=== PATIENT | female | born 1945 | race Caucasian/White ===

== ENCOUNTER 2017-08-07 20:04 | Inpatient (IN) ==
[2017-08-07] MEDS ORDERED: Ondansetron 4 MG/2 ML VIAL IVP PRN ×2 (20:13→23:37)
[2017-08-07] MEDS ORDERED: 0.9 % Sodium Chloride 1,000 ML IVC ONE ×4 (20:13→21:05)
--- NOTE | 2017-08-07 20:19 | Emergency Department Note ---
Disposition Clinical Impression: Severe sepsis, Dehydration, severe, Elevated troponin I level, History of bone cancer, Metastatic adenocarcinoma, Weakness generalized, Hypomagnesemia, Hypokalemia, Lactic acidosis, Total bilirubin, elevated, Hypocalcemia Abdominal pain Qualifiers: Abdominal location: generalized Qualified Code(s): R10.84 - Generalized abdominal pain Diarrhea Qualifiers: Diarrhea type: unspecified type Qualified Code(s): R19.7 - Diarrhea, unspecified Disposition: Admitted As Inpatient Condition: Fair Time of Disposition: 00:35 General Adult HPI - General Chief complaint: ED Nausea/Vomiting/Diarrhea Stated complaint: N/V Time Seen by Provider: 08/07/17 20:12 Source: patient, family Limitations: no limitations Nursing Notes Reviewed: Yes Vital Signs Reviewed: Yes - History of Present Illness HPI Narrative: 72-year-old female complains of abdominal pain, diarrhea, generalized weakness, dehydration, inability to eat or drink other than a few sips at a time. Patient 's had nausea and vomiting over the past 2 day with worsening of her diarrhea over the past 2 days as well. Patient started chemotherapy for bone cancer 2 weeks ago. Patient's oncologist is Dr. Nieevs. - Related Data Home Medications Medication Instructions Recorded Confirmed Albuterol Sulfate [Proventil Hfa] 1 puff IH QID PRN 06/20/15 08/07/17 Aspirin Enteric Coated [Aspirin EC] 81 mg PO DAILY 06/20/15 08/07/17 Fluticasone Propionate Nasal 1 spray NS DAILY 06/20/15 08/07/17 [Flonase] Fluticasone/Salmeterol [Advair 1 each IH BID 06/20/15 08/07/17 100-50 Diskus] Glimepiride [Amaryl] 4 mg PO DAILY 06/20/15 08/07/17 Insulin NPH Hum/Reg Insulin Hm 30 unit SQ BID 06/20/15 08/07/17 [Novolin 70-30 100 Unit/ml Vial] Omeprazole [PriLOSEC] 40 mg PO DAILY 06/20/15 08/07/17 Pravastatin Sodium [Pravachol] 20 mg PO HS 06/20/15 08/07/17 Saxagliptin HCl [Onglyza] 5 mg PO DAILY 06/20/15 08/07/17 Triamterene/HCTZ 75/50mg [Maxzide] 1 each PO DAILY 06/20/15 08/07/17 Docusate Sodium [Stool Softener] 100 mg PO DAILY PRN 07/31/17 08/07/17 Lisinopril [Zestril] 40 mg PO DAILY 08/07/17 08/07/17 Metoprolol Succinate 200 mg PO DAILY 08/07/17 08/07/17 Previous Rx's Medication Instructions Recorded Ondansetron HCl [Zofran] 4 mg PO Q8H PRN #60 tablet 07/08/17 OxyCODONE Immed Rel [Roxicodone 15 15 mg PO BID #60 tablet 07/08/17 MG] Prochlorperazine Maleate 10 mg PO Q8HR PRN #60 tablet 07/08/17 [Compazine] Calcium Carbonate/Vitamin D3 2 each PO DAILY #60 tablet 07/31/17 [Calcium 600 + Vit D Tablet] Lidocaine/Prilocaine [Emla] 1 appl TP AD #30 gm 07/31/17 Allergies Allergy/AdvReac Type Severity Reaction Status Date / Time nifedipine [From Procardia] Allergy Rash Verified 08/07/17 21:15 glipizide AdvReac Vomiting Verified 06/16/17 10:03 metoprolol [From Lopressor] AdvReac Nightmare Verified 08/07/17 21:15 All systems ED: reviewed and negative except as stated. Review of Systems: As Per HPI Constitutional: Denies: fever Eyes: Denies: vision change ENT ED: Denies: congestion Cardiovascular: Denies: chest pain Respiratory: Denies: cough Gastrointestinal: Reports: abdominal pain, nausea, vomiting, diarrhea Past Medical History - Past Medical History Attestation: Yes The following information was validated with the patient. Source: patient, nursing notes reviewed Medical history: Reports: asthma, diabetes, GERD, hyperlipidemia, hypertension, renal disease Surgical history: Reports: , cataract, cholecystectomy, JOAO/BSO, other Psychiatric history: Reports: no psych history - Social History Smoking Status: Never smoker Smokeless Tobacco Status: No Alcohol use: Reports: none Drug use: Reports: none Physical Exam Vital Signs Temperature 99.3 F 08/07/17 20:10 Pulse Rate 147 08/07/17 20:10 Respiratory Rate 16 08/07/17 20:10 Blood Pressure 102/85 08/07/17 20:10 O2 Sat by Pulse Oximetry 100 08/07/17 20:10 Temperature 99.3 F 08/07/17 20:10 Pulse Rate 147 08/07/17 20:10 Respiratory Rate 16 08/07/17 20:10 Blood Pressure 102/85 08/07/17 20:10 O2 Sat by Pulse Oximetry 100 08/07/17 20:10 Oxygen Delivery Oxygen Delivery Room Air 72-year-old female who is alert and oriented 3 and in acute distress secondary to abdominal pain, patient looks very dry and has severely dry cracked lips and oral mucosa. Patient has a low-grade fever 99.3, pulse rate 47, respiratory rate 16, blood pressure 102/85. - General Limitations: no limitations General appearance: alert, other (dry MM/lips) - Head Head exam: atraumatic, normocephalic, normal inspection - Eye Eye exam: Present: normal appearance, PERRL, EOMI. Absent: scleral icterus - ENT ENT exam: normal exam, normal oropharynx, mucous membranes dry - Neck Neck exam: Present: normal inspection, full ROM, trachea midline - Chest Chest inspection: Present: other (Patient has an IV for right chest wall that does not look inflamed) - Respiratory Respiratory exam: Present: other (Patient has some right lower lung crackles) - Cardiovascular Cardiovascular exam: Present: normal rhythm, tachycardia, normal heart sounds - Extremities Exam Extremities exam: Present: normal inspection. Absent: pedal edema - Back Exam Back exam: Present: normal inspection. Absent: CVA tenderness (R), CVA tenderness (L), vertebral tenderness - Neurological Exam Neurological exam: Present: alert, oriented X3, CN II-XII intact, reflexes normal. Absent: motor sensory deficit - Psychiatric Psychiatric exam: Present: flat affect - Skin Skin exam: Present: warm, dry, intact, normal color. Absent: rash, diaphoresis Course Vital Signs Temperature 99.3 F 08/07/17 20:10 Pulse Rate 147 08/07/17 20:10 Respiratory Rate 16 08/07/17 20:10 Blood Pressure 102/85 08/07/17 20:10 O2 Sat by Pulse Oximetry 100 08/07/17 20:10 Temperature 97.9 F 08/09/17 19:34 Pulse Rate 100 08/09/17 19:34 Respiratory Rate 18 08/09/17 19:34 Blood Pressure 107/55 08/09/17 19:34 O2 Sat by Pulse Oximetry 94 08/09/17 19:34 Oxygen Delivery Oxygen Delivery Room Air Medical Decision Making - MDM Narrative Medical decision making narrative: Concern for sepsis, side effects of chemotherapy, combination of all the above. Patient has abdominal pain this severe also need to be concerned for intra- abdominal pathology for ischemic colitis, 2210 hrs: CXR shows suspicious LLL infiltrate concerning for pneumonia. The patient started on levofloxacin, vancomycin and Zosyn Patient's lab work shows leukopenia at 2.4, hyponatremia at 128, hypokalemia 3.0 , lactic acidemia 6.2, elevated troponin 0.84 Patient has severe sepsis. Patient is currently received 2.5 L of 4 L of IV fluid and will continue to get IV fluid hydration. Patient's vitals are normalizing somewhat but still tachycardic. Patient's nausea is under control and started tolerate oral hydration but is taking it slowly. CT abdomen and pelvis was taken secondary to patient's 10/10 abdominal pain and diarrhea. Results came back negative for any acute findings. Patient's pain currently tolerable at 4/10 with treatment with Dilaudid. Patient's oncologist has been notified and consulted. Patient excepts decision for admission. Dr. Alcantara the hospitalist as accepted patient for admission. - Medical Records Medical records reviewed: Yes I reviewed the patient's medical records. - Lab Data Lab results reviewed: Yes I reviewed the patient's lab results. Lab results narrative: Short CBC 08/07/17 Range/Units 20:31 WBC 2.4 L (4.3-11.1) K/mcL Hgb 12.7 (11.5-15.4) g/dL Hct 35.7 (35.3-44.9) % Plt Count 122 L (140-400) K/mcL Neutrophils # 1.6 (1.6-8.9) K/mcL BMP 08/07/17 Range/Units 20:31 Sodium 128 L (136-145) mEq/L Potassium 3.0 L (3.5-5.1) mEq/L Chloride 93 L (98-107) mEq/L Carbon Dioxide 16 L (23-29) mEq/L BUN 48 H (8-23) mg/dL Creatinine 1.68 H (0.60-1.20) mg/dL Glucose 178 H (70-105) mg/dL Calcium 7.3 L (8.6-10.3) mg/dL Cardiac Enzymes 08/07/17 Range/Units 20:31 Troponin I 0.84 H* (< 0.04) ng/mL Liver Function 08/07/17 Range/Units 20:31 Total Bilirubin 2.1 H (0.3-1.0) mg/dL Direct Bilirubin 1.1 H (0.0-0.2) mg/dL AST 63 H (13-39) Units/L ALT 46 (7-52) Units/L Alkaline Phosphatase 95 (34-104) Units/L Albumin 3.0 L (3.5-5.7) g/dL Urine 08/07/17 Range/Units 21:23 Urine Color Dark Yellow (Yellow) Urine Clarity Turbid A (Clear) Urine pH 5.5 (5.0-8.0) pH Units Ur Specific [place] 1.022 (1.010-1.025) Urine Protein 30 H (Neg-Trace) mg/dL Urine Glucose (UA) Normal (Normal) mg/dL Result diagrams: 08/09/17 04:25 08/09/17 04:25 Lab Results 08/07/17 08/07/17 08/07/17 Range/Units 20:31 20:31 20:31 WBC 2.4 L (4.3-11.1) K/mcL RBC 4.16 (3.82-4.97) M/mcL Hgb 12.7 (11.5-15.4) g/dL Hct 35.7 (35.3-44.9) % MCV 85.8 (83.0-100.0) fL MCH 30.5 (28.0-33.3) pg MCHC 35.6 H (31.6-35.5) g/dL RDW 12.1 (11.5-14.5) % Plt Count 122 L (140-400) K/mcL MPV 11.3 (9.4-12.4) fL Seg Neutrophils % 65.0 % Lymphocytes % 26.0 % Monocytes % 8.0 % Basophils % 1.0 % Neutrophils # 1.6 (1.6-8.9) K/mcL Lymphocytes # 0.6 (0.6-4.6) K/mcL Monocytes # 0.2 (0.0-1.3) K/mcL Basophils # 0.0 (0.0-0.2) K/mcL Nucleated RBCs/100 WBC 0.8 H (0) /100 WBC Reactive Lymphocytes Present A (Not Present) Toxic Granulation Present A (Not Present) Platelet Estimate Slight Decrease L (Normal) Large Platelets Present A (Not Present) PT 19.7 H (9.4-12.1) Seconds INR 1.8 APTT 43.4 H (26.0-36.0) Seconds Sodium 128 L (136-145) mEq/L Potassium 3.0 L (3.5-5.1) mEq/L Chloride 93 L (98-107) mEq/L Carbon Dioxide 16 L (23-29) mEq/L BUN 48 H (8-23) mg/dL Creatinine 1.68 H (0.60-1.20) mg/dL Est GFR ( Amer) 36 L (> 60) Est GFR (Non-Af Amer) 30 L (> 60) BUN/Creatinine Ratio 29 H (6-26) Glucose 178 H (70-105) mg/dL Calculated Osmolality 283 (280-300) Lactic Acid (0.5-2.2) mmol/L Calcium 7.3 L (8.6-10.3) mg/dL Phosphorus 2.0 L (2.7-4.5) mg/dL Magnesium 1.3 L (1.6-2.6) mg/dL Total Bilirubin 2.1 H (0.3-1.0) mg/dL Direct Bilirubin 1.1 H (0.0-0.2) mg/dL Indirect Bilirubin 1.0 (0.0-1.2) mg/dL AST 63 H (13-39) Units/L ALT 46 (7-52) Units/L Alkaline Phosphatase 95 (34-104) Units/L Troponin I (< 0.04) ng/mL Serum Total Protein 5.4 L (6.4-8.9) g/dL Albumin 3.0 L (3.5-5.7) g/dL Globulin 2.4 (2.4-3.5) g/dL Albumin/Globulin Ratio 1.3 (1.1-2.2) Urine Color (Yellow) Urine Clarity (Clear) Urine pH (5.0-8.0) pH Units Ur Specific [place] (1.010-1.025) Urine Protein (Neg-Trace) mg/dL Urine Glucose (UA) (Normal) mg/dL Urine Ketones (Negative) mg/dL Urine Blood (Negative) Urine Nitrite (Negative) Urine Bilirubin (Negative) Urine Urobilinogen (Normal) mg/dL Ur Leukocyte Esterase (Negative) Urine Microscopic RBC (0-3) per hpf Urine Microscopic WBC (0-3) per hpf Ur Squamous Epith Cells (None-Few) per lpf Ur Transition Epith Cell (None-Few) per hpf Ur Renal Epithelial Cell (None-Few) per hpf Amorphous Sediment (Few) Urine Bacteria (None-Few) per hpf Hyaline Casts (None-Few) per lpf Ur Culture Indicated? (NO) A. baumannii (PCR) (Not Detect) Emeli albicans (PCR) (Not Detect) C. glabrata (PCR) (Not Detect) C. krusei (PCR) (Not Detect) C. parapsilosis (PCR) (Not Detect) C. tropicalis (PCR) (Not Detect) Enterobacteriac sp PCR (Not Detect) E. cloacae complex PCR (Not Detect) Enterococcus sp PCR (Not Detect) E. coli (PCR) (Not Detect) H. influenzae (PCR) (Not Detect) Klebsiella oxytoca PCR (Not Detect) Klebsiella pneumoniae (Not Detect) List. monocytogenes PCR (Not Detect) N. meningitidis (PCR) (Not Detect) Proteus species (PCR) (Not Detect) Serratia marcescens PCR (Not Detect) Staphylococcus sp PCR (Not Detect) Staph aureus (PCR) (Not Detect) mecA-Methicil Res Gene (Not Detect) Streptococcus sp PCR (Not Detect) Group A Strep DNA (Not Detect) Group B Strep (PCR) (Not Detect) Strep pneumoniae (PCR) (Not Detect) P. aeruginosa (PCR) (Not Detect) Riley/B-Vanco Res Genes (Not Detect) KPC (blaKPC) Detect PCR (Not Detect) 08/07/17 08/07/17 08/07/17 Range/Units 20:31 20:31 20:31 WBC (4.3-11.1) K/mcL RBC (3.82-4.97) M/mcL Hgb (11.5-15.4) g/dL Hct (35.3-44.9) % MCV (83.0-100.0) fL MCH (28.0-33.3) pg MCHC (31.6-35.5) g/dL RDW (11.5-14.5) % Plt Count (140-400) K/mcL MPV (9.4-12.4) fL Seg Neutrophils % % Lymphocytes % % Monocytes % % Basophils % % Neutrophils # (1.6-8.9) K/mcL Lymphocytes # (0.6-4.6) K/mcL Monocytes # (0.0-1.3) K/mcL Basophils # (0.0-0.2) K/mcL Nucleated RBCs/100 WBC (0) /100 WBC Reactive Lymphocytes (Not Present) Toxic Granulation (Not Present) Platelet Estimate (Normal) Large Platelets (Not Present) PT (9.4-12.1) Seconds INR APTT (26.0-36.0) Seconds Sodium (136-145) mEq/L Potassium (3.5-5.1) mEq/L Chloride (98-107) mEq/L Carbon Dioxide (23-29) mEq/L BUN (8-23) mg/dL Creatinine (0.60-1.20) mg/dL Est GFR ( Amer) (> 60) Est GFR (Non-Af Amer) (> 60) BUN/Creatinine Ratio (6-26) Glucose (70-105) mg/dL Calculated Osmolality (280-300) Lactic Acid 6.2 H* (0.5-2.2) mmol/L Calcium (8.6-10.3) mg/dL Phosphorus (2.7-4.5) mg/dL Magnesium (1.6-2.6) mg/dL Total Bilirubin (0.3-1.0) mg/dL Direct Bilirubin (0.0-0.2) mg/dL Indirect Bilirubin (0.0-1.2) mg/dL AST (13-39) Units/L ALT (7-52) Units/L Alkaline Phosphatase (34-104) Units/L Troponin I 0.84 H* (< 0.04) ng/mL Serum Total Protein (6.4-8.9) g/dL Albumin (3.5-5.7) g/dL Globulin (2.4-3.5) g/dL Albumin/Globulin Ratio (1.1-2.2) Urine Color (Yellow) Urine Clarity (Clear) Urine pH (5.0-8.0) pH Units Ur Specific [place] (1.010-1.025) Urine Protein (Neg-Trace) mg/dL Urine Glucose (UA) (Normal) mg/dL Urine Ketones (Negative) mg/dL Urine Blood (Negative) Urine Nitrite (Negative) Urine Bilirubin (Negative) Urine Urobilinogen (Normal) mg/dL Ur Leukocyte Esterase (Negative) Urine Microscopic RBC (0-3) per hpf Urine Microscopic WBC (0-3) per hpf Ur Squamous Epith Cells (None-Few) per lpf Ur Transition Epith Cell (None-Few) per hpf Ur Renal Epithelial Cell (None-Few) per hpf Amorphous Sediment (Few) Urine Bacteria (None-Few) per hpf Hyaline Casts (None-Few) per lpf Ur Culture Indicated? (NO) A. baumannii (PCR) Not Detected (Not Detect) Emeli albicans (PCR) Not Detected (Not Detect) C. glabrata (PCR) Not Detected (Not Detect) C. krusei (PCR) Not Detected (Not Detect) C. parapsilosis (PCR) Not Detected (Not Detect) C. tropicalis (PCR) Not Detected (Not Detect) Enterobacteriac sp PCR Not Detected (Not Detect) E. cloacae complex PCR Not Detected (Not Detect) Enterococcus sp PCR Not Detected (Not Detect) E. coli (PCR) Not Detected (Not Detect) H. influenzae (PCR) Not Detected (Not Detect) Klebsiella oxytoca PCR Not Detected (Not Detect) Klebsiella pneumoniae Not Detected (Not Detect) List. monocytogenes PCR Not Detected (Not Detect) N. meningitidis (PCR) Not Detected (Not Detect) Proteus species (PCR) Not Detected (Not Detect) Serratia marcescens PCR Not Detected (Not Detect) Staphylococcus sp PCR DETECTED A (Not Detect) Staph aureus (PCR) DETECTED A (Not Detect) mecA-Methicil Res Gene Not Detected (Not Detect) Streptococcus sp PCR Not Detected (Not Detect) Group A Strep DNA Not Detected (Not Detect) Group B Strep (PCR) Not Detected (Not Detect) Strep pneumoniae (PCR) Not Detected (Not Detect) P. aeruginosa (PCR) Not Detected (Not Detect) Riley/B-Vanco Res Genes N/A (Not Detect) KPC (blaKPC) Detect PCR N/A (Not Detect) 08/07/17 Range/Units 21:23 WBC (4.3-11.1) K/mcL RBC (3.82-4.97) M/mcL Hgb (11.5-15.4) g/dL Hct (35.3-44.9) % MCV (83.0-100.0) fL MCH (28.0-33.3) pg MCHC (31.6-35.5) g/dL RDW (11.5-14.5) % Plt Count (140-400) K/mcL MPV (9.4-12.4) fL Seg Neutrophils % % Lymphocytes % % Monocytes % % Basophils % % Neutrophils # (1.6-8.9) K/mcL Lymphocytes # (0.6-4.6) K/mcL Monocytes # (0.0-1.3) K/mcL Basophils # (0.0-0.2) K/mcL Nucleated RBCs/100 WBC (0) /100 WBC Reactive Lymphocytes (Not Present) Toxic Granulation (Not Present) Platelet Estimate (Normal) Large Platelets (Not Present) PT (9.4-12.1) Seconds INR APTT (26.0-36.0) Seconds Sodium (136-145) mEq/L Potassium (3.5-5.1) mEq/L Chloride (98-107) mEq/L Carbon Dioxide (23-29) mEq/L BUN (8-23) mg/dL Creatinine (0.60-1.20) mg/dL Est GFR ( Amer) (> 60) Est GFR (Non-Af Amer) (> 60) BUN/Creatinine Ratio (6-26) Glucose (70-105) mg/dL Calculated Osmolality (280-300) Lactic Acid (0.5-2.2) mmol/L Calcium (8.6-10.3) mg/dL Phosphorus (2.7-4.5) mg/dL Magnesium (1.6-2.6) mg/dL Total Bilirubin (0.3-1.0) mg/dL Direct Bilirubin (0.0-0.2) mg/dL Indirect Bilirubin (0.0-1.2) mg/dL AST (13-39) Units/L ALT (7-52) Units/L Alkaline Phosphatase (34-104) Units/L Troponin I (< 0.04) ng/mL Serum Total Protein (6.4-8.9) g/dL Albumin (3.5-5.7) g/dL Globulin (2.4-3.5) g/dL Albumin/Globulin Ratio (1.1-2.2) Urine Color Dark Yellow (Yellow) Urine Clarity Turbid A (Clear) Urine pH 5.5 (5.0-8.0) pH Units Ur Specific [place] 1.022 (1.010-1.025) Urine Protein 30 H (Neg-Trace) mg/dL Urine Glucose (UA) Normal (Normal) mg/dL Urine Ketones Negative (Negative) mg/dL Urine Blood Large H (Negative) Urine Nitrite Negative (Negative) Urine Bilirubin Small H (Negative) Urine Urobilinogen Normal (Normal) mg/dL Ur Leukocyte Esterase Large H (Negative) Urine Microscopic RBC 0-3 (0-3) per hpf Urine Microscopic WBC 50-100 H (0-3) per hpf Ur Squamous Epith Cells Many H (None-Few) per lpf Ur Transition Epith Cell Few (None-Few) per hpf Ur Renal Epithelial Cell Many H (None-Few) per hpf Amorphous Sediment Many H (Few) Urine Bacteria Moderate H (None-Few) per hpf Hyaline Casts None Seen (None-Few) per lpf Ur Culture Indicated? NO (NO) A. baumannii (PCR) (Not Detect) Emeli albicans (PCR) (Not Detect) C. glabrata (PCR) (Not Detect) C. krusei (PCR) (Not Detect) C. parapsilosis (PCR) (Not Detect) C. tropicalis (PCR) (Not Detect) Enterobacteriac sp PCR (Not Detect) E. cloacae complex PCR (Not Detect) Enterococcus sp PCR (Not Detect) E. coli (PCR) (Not Detect) H. influenzae (PCR) (Not Detect) Klebsiella oxytoca PCR (Not Detect) Klebsiella pneumoniae (Not Detect) List. monocytogenes PCR (Not Detect) N. meningitidis (PCR) (Not Detect) Proteus species (PCR) (Not Detect) Serratia marcescens PCR (Not Detect) Staphylococcus sp PCR (Not Detect) Staph aureus (PCR) (Not Detect) mecA-Methicil Res Gene (Not Detect) Streptococcus sp PCR (Not Detect) Group A Strep DNA (Not Detect) Group B Strep (PCR) (Not Detect) Strep pneumoniae (PCR) (Not Detect) P. aeruginosa (PCR) (Not Detect) Riley/B-Vanco Res Genes (Not Detect) KPC (blaKPC) Detect PCR (Not Detect) - Radiology Data Radiology results reviewed: Yes I reviewed the patient's radiology results. Chest X-Ray 08/07/17 20:13 IMPRESSION: Question left pleural effusion atelectasis. Infiltrate would be difficult to exclude within the left lung base. Of note the right lung appears clear. D/ / Michel Allen MD / Michel Allen MD Interpreting Provider: Michel Allen MD Abdomen/Pelvis CT 08/07/17 20:55 IMPRESSION: No acute findings. D/ / Raz Anne MD / Raz Anne MD Interpreting Provider: Raz Anne MD - EKG Data EKG #1 EKG attestation: Yes I reviewed and interpreted this EKG. EKG results narrative: EKG taken 08/07/2017 at 2012 hrs. shows a sinus tachycardia at a rate of 148 bpm , no acute ST elevations or depressions in any leads, no QRS widening. This compared to previous EKG taken May 2015 which shows a sinus rhythm at a rate of [address] elevations or depressions any leads, no signs of ischemia. EKG #2 EKG attestation: Yes I reviewed and interpreted this EKG. EKG results narrative: Repeat EKG taken 08/07/2017 at 2154 hours so shows sinus tachycardia with no change in waveform from prior previous EKG rate 136 beats a minute Repeat EKG taken 07/30/2017 at 2256 hrs. still shows a sinus tachycardia with no change in morphology from previous EKG. The rate is slower at 133 bpm Repeat EKG taken at 2322 hrs. so shows sinus tachycardia and no change in waveform. Critical Care Time Critical Care Time: Yes Total Critical Care Time: 60 Attestation: The high probability of a clinically significant, sudden or life threatening deterioration of the [CV/GI] system(s) required my full and direct attention, intervention and personal management. The aggregate critical care time was [60] minutes. This time is in addition to time spent performing reported procedures but includes the following: [x] Data Review and interpretation [x] Patient assessment and monitoring of vital signs [x] Documentation [x] Medication orders and management Attestation Statement - Attestation Attestation: I examined this patient and my medical decision-making was reviewed with the Resident Physician, Dr. Gibson. I agree with the documented findings, disposition and treatment plan as described except to the extent set forth below. Pt is a 72 yo wf, brought to the ER by her with c/o gen abd cramping, nausea, vomiting, diarrhea and fevers at home. Pt with hx metastatic breast CA to bone, currenlty undergoing chemo, recently missed last session of most recent series of chemo cue to illness. Pt unable to tolerate PO and havig gen weakness, states she is unable to stand/ambulate secondary to profound weakness. Pt denies any URI sxs or cough, no CP/press, no SOB, and appears dehydrated clinically. Pt denies any blood in stool. No recent antibx. I agree with pt's PE findings, pt tachycardic and hypotensive on arrival. Sepsis protocol initiated on arrival and IVF started. Pt received pain/nausea meds, and underwent CXR and CT abd/pelvis imaging. Serial EKG show sinus tach without ischemia, stable over time. Labs show TYRONE, due to dehydration. Hypokalemia/Hypomg, and metabolic acidosis/ lactic acidosis. Pt with elev trop, possibly due to demand ischemia, from tachycardia/ dehydration. Will need serial enzymes and ongoing monitoring. Pt receiving K/Mg replacement, IVF, and antix coverage for CXR findings of questionable infiltrate. Pt admitted to hospitalist service for ongoing mgmt, and oncology consulted from ED.
[2017-08-07] MEDS ORDERED: *HR* HYDROmorphone (PF) 1 MG/ML SYRINGE IVP ONE (20:30)
[2017-08-07 20:37] LABS: Hematocrit 35.7 % (35.3-44.9); Hemoglobin 12.7 g/dL (11.5-15.4); Mean Corpuscular HGB Conc 35.6 g/dL (31.6-35.5); Mean Corpuscular Hemoglobin 30.5 pg (28.0-33.3); Mean Corpuscular Volume 85.8 fL (83.0-100.0); Mean Platelet Volume 11.3 fL (9.4-12.4); Nucleated Red Blood Cells 0.8 /100 WBC (0); Platelet Count 122 K/mcL (140-400); Red Blood Count 4.16 M/mcL (3.82-4.97); Red Cell Distribution Width 12.1 % (11.5-14.5)
[2017-08-07 20:42] LABS: INR 1.8; Prothrombin Time 19.7 Seconds (9.4-12.1)
[2017-08-07 20:45] LABS: Activated Partial Thrombo Time 43.4 Seconds (26.0-36.0)
[2017-08-07 20:52] LABS: Albumin/Globulin Ratio 1.3 (1.1-2.2); Bilirubin,Direct 1.1 mg/dL (0.0-0.2); Bilirubin,Total 2.1 mg/dL (0.3-1.0); Calcium 7.3 mg/dL (8.6-10.3); Globulin 2.4 g/dL (2.4-3.5); Magnesium 1.3 mg/dL (1.6-2.6); Total Protein 5.4 g/dL (6.4-8.9)
[2017-08-07] MEDS ORDERED: Aspirin 81 MG TAB.CHEW PO ONE (21:02)
[2017-08-07 21:06] LABS: Monocytes # 0.2 K/mcL (0.0-1.3)
[2017-08-07 21:10] LABS: Lymphocytes # 0.6 K/mcL (0.6-4.6); Neutrophils # 1.6 K/mcL (1.6-8.9)
[2017-08-07 21:11] LABS: Large Platelets Present (Not Present); Platelet Estimate Slight Decrease (Normal); Reactive Lymphocytes Present (Not Present); Toxic Granulation Present (Not Present)
[2017-08-07 21:31] LABS: Bilirubin,Urine Small (Negative); Blood,Urine Large (Negative); Clarity,Urine Turbid (Clear); Color,Urine Dark Yellow (Yellow); Glucose,Urine (UA) Normal (Normal); Ketones,Urine Negative (Negative); Leukocyte Esterase,Urine Large (Negative); Nitrite,Urine Negative (Negative); PH,Urine 5.5 pH Units (5.0-8.0); Protein,Urine 30 mg/dL (Neg-Trace); Specific Gravity,Urine 1.022 (1.010-1.025); Urobilinogen,Urine Normal (Normal)
[2017-08-07 21:33] LABS: Bacteria,Urine Moderate per hpf (None-Few); Squamous Epithelial Cell,Urine Many per lpf (None-Few); WBC,Urine 50-100 per hpf (0-3)
[2017-08-07 21:41] LABS: Amorphous Sediment,Urine Many (Few); Hyaline Casts,Urine None Seen per lpf (None-Few); Transitional Epi Cells,Urine Few per hpf (None-Few)
[2017-08-07 21:42] LABS: Renal Epithelial Cells,Urine Many per hpf (None-Few)
[2017-08-07 21:44] LABS: RBC,Urine 0-3 per hpf (0-3)
[2017-08-07] MEDS ORDERED: Levofloxacin 750 MG/150 ML 750 MG/150 ML BAG IVPB ONE (22:09)
[2017-08-07] MEDS ORDERED: Piperacillin/Tazobactam 3.375 GM in D5% in Water (Mini-Bag+) 100 ML IVPB ONE (22:09)
[2017-08-07] MEDS ORDERED: Vancomycin 1,750 MG in D5% in Water 500 ML IVPB ONE (22:09)
[2017-08-07] MEDS ORDERED: Piperacillin/Tazobactam 3.375 GM in Water for inj. (sterile) 20 ML 20 ML IVPB ONE (22:15)
[2017-08-07] MEDS ORDERED: 0.9 % Sodium Chloride 1,000 ML ONE (22:55)
[2017-08-07] MEDS ORDERED: Naloxone 0.4 MG/ML INJ IVP PRN (23:37)
[2017-08-07] MEDS ORDERED: *HR* Morphine 2 MG/ML SYRINGE IVP PRN (23:37)
[2017-08-07] MEDS ORDERED: D5% in Water 1,000 ML IVC PRN (23:41)
[2017-08-07] MEDS ORDERED: *HR* Dextrose 50 % in Water (Syg) 50 ML SYRINGE IVP PRN (23:41)
[2017-08-07] MEDS ORDERED: Dextrose Gel 15 GM/37.5 ML TUBE PO PRN ×2 (23:41)
[2017-08-07] MEDS ORDERED: Ipratropium/Albuterol Neb 3 ML IH PRN (23:43)
--- NOTE | 2017-08-07 23:47 | Internal Med History&Physical ---
Date of Encounter: 08/07/17 Time of Encounter: 23:15 Assessment and Plan (1) Emesis Current visit: Yes Status: Acute nausea and vomiting, likely related to chemotherapy with Paclitaxel; improving; continue supportive care with IV hydration, PRN antiemetics; Qualifiers: Vomiting type: unspecified Vomiting Intractability: non-intractable Nausea presence: with nausea Qualified Code(s): R11.2 - Nausea with vomiting, unspecified (2) Diarrhea Current visit: Yes Status: Acute could be related to chemotherapy with Paclitaxel; need to r/o infectious etiology- send stool for c.diff, GI panel, culture; IV hydration and supportive care; Qualifiers: Diarrhea type: unspecified type Qualified Code(s): R19.7 - Diarrhea, unspecified (3) TYRONE (acute kidney injury) Current visit: Yes Status: Acute secondary to dehydration from GI losses; aggressive IV hydration; monitor serum creatinine and urine output closely; hold diuretics, ACEI; avoid nephrotoxic meds; (4) Elevated troponin Current visit: Yes Status: Acute could be related to demand ischemia from tachycardia, dehydration, lactic acidosis; continue Telemetry monitoring and cycle Troponins; (5) Metabolic acidosis Current visit: Yes Status: Acute anion gap metabolic acidosis secondary to lactic acidosis and renal failure; continue IV hydration, trend lactic acid levels; monitor closely; (6) Essential hypertension Current visit: Yes Status: Chronic BP well-controlled; resume home meds except ACEI and diuretics; (7) Diabetes mellitus Current visit: Yes Status: Chronic Check HbA1C; Accucheck blood glucose monitoring with basal bolus insulin regimen ; diabetic diet as tolerated; Qualifiers: Diabetes mellitus type: type 2 Diabetes mellitus complication status: with unspecified complications Diabetes mellitus joint terminal attack controller insulin use: with senior living use Qualified Code(s): E11.8 - Type 2 diabetes mellitus with unspecified complications; Z79.4 - intermediate teacher (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 of insulin; Z79.4 - intermediate teacher ( 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 of insulin; Z79.4 - intermediate teacher (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 of insulin; Z79.4 - intermediate teacher (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 of insulin (8) GERD (gastroesophageal reflux disease) Current visit: Yes Status: Chronic continue PPI; Qualifiers: Esophagitis presence: esophagitis presence not specified Qualified Code(s) : K21.9 - Gastro-esophageal reflux disease without esophagitis (9) Carcinoma of breast metastatic to bone Current visit: Yes Status: Chronic MRI breast showed no lesions/mass, however patient has multiple blastic osseous lesions, further histochemical testing c/w breast primary; Oncology consult; pain control with PRN Oxycodone; will consult palliative care for goals of care discussion and pain control; Qualifiers: Laterality: unspecified laterality Qualified Code(s): C50.919 - Malignant neoplasm of unspecified site of unspecified female breast; C79.51 - Secondary malignant neoplasm of bone; C79.51 - Secondary malignant neoplasm of bone; C79.51 - Secondary malignant neoplasm of bone; C79.51 - Secondary malignant neoplasm of bone (10) Leukopenia Current visit: Yes Status: Chronic likely related to chemotherapy; Qualifiers: Leukopenia type: unspecified Qualified Code(s): D72.819 - Decreased white blood cell count, unspecified Internal Medicine - H&P: HPI Chief complaint: Nausea, emesis, diarrhea Admitted From: Emergency Dept Plans for Post Hospital Care: Home History of present illness: Ms. Catalan is a 72 year old female with h/o metastatic adenocarcinoma with bone mets, presents with c/o- refractory nausea, vomiting, diarrhea. Patient follows with Oncology and has been started on chemotherapy with Paclitaxel 2 weeks ago. SHe received 2 injections so far and was due for the third dose today but could not make it due to feeling very sick. SHe reports about a 1 week h/o- intermittent nausea, emesis and diarrhea, worse for the last 2-3 days , with anorexia, fatigue and generalized weakness and dehydration. She has multiple episodes of loose watery nonbloody diarrhea; multiple episodes of nonbloody vomiting, unable to keep any food down. She has no fever but reports chills and shortness of breath. Past Med Surg Social Fam HX - Past Medical History Medical history: asthma, cancer, diabetes, GERD, hyperlipidemia, hypertension Psychiatric history: no psych history - Past Surgical History Surgical History: , cataract, cholecystectomy, JOAO/BSO, other - Social History Smoking Status: Never smoker Smokeless Tobacco Status: No Alcohol use: none Drug use: none Occupational status: retired Current living situation: Home, With Family Activity Level: Independent ambulation Recent Out of Country Travel Within the Last 8 Weeks: No Exposure or Possible Exposure to Illness During Travel: No - Family History Mother Hx Family Cancer: Yes (Brain cancer) Hx Family Endocrine Disorder: Yes (DM) Internal Medicine - H&P: Meds Albuterol Sulfate [Proventil Hfa] 1 puff IH QID PRN 06/20/15 [History] Aspirin Enteric Coated [Aspirin EC] 81 mg PO DAILY 06/20/15 [History] Fluticasone Propionate Nasal [Flonase] 1 spray NS DAILY 06/20/15 [History] Fluticasone/Salmeterol [Advair 100-50 Diskus] 1 each IH BID 06/20/15 [History] Glimepiride [Amaryl] 4 mg PO DAILY 06/20/15 [History] Insulin NPH Hum/Reg Insulin Hm [Novolin 70-30 100 Unit/ml Vial] 30 unit SQ BID 06/20/15 [History] Omeprazole [PriLOSEC] 40 mg PO DAILY 06/20/15 [History] Pravastatin Sodium [Pravachol] 20 mg PO HS 06/20/15 [History] Saxagliptin HCl [Onglyza] 5 mg PO DAILY 06/20/15 [History] Triamterene/HCTZ 75/50mg [Maxzide] 1 each PO DAILY 06/20/15 [History] Ondansetron HCl [Zofran] 4 mg PO Q8H PRN #60 tablet 07/08/17 [Rx] OxyCODONE Immed Rel [Roxicodone 15 MG] 15 mg PO BID #60 tablet 07/08/17 [Rx] Prochlorperazine Maleate [Compazine] 10 mg PO Q8HR PRN #60 tablet 07/08/17 [Rx] Calcium Carbonate/Vitamin D3 [Calcium 600 + Vit D Tablet] 2 each PO DAILY #60 tablet 07/31/17 [Rx] Docusate Sodium [Stool Softener] 100 mg PO DAILY PRN 07/31/17 [History] Lidocaine/Prilocaine [Emla] 1 appl TP AD #30 gm 07/31/17 [Rx] Lisinopril [Zestril] 40 mg PO DAILY 08/07/17 [History] Metoprolol Succinate 200 mg PO DAILY 08/07/17 [History] 3 Allergy/AdvReac Type Severity Reaction Status Date / Time nifedipine [From Procardia] Allergy Rash Verified 08/07/17 21:15 glipizide AdvReac Vomiting Verified 06/16/17 10:03 metoprolol [From Lopressor] AdvReac Nightmare Verified 08/07/17 21:15 All Systems PM: A 10-system review of systems was performed and is negative for pertinent findings except as documented above in the HPI. - Constitutional Constitutional: chills, fatigue, malaise, weakness - EENT Eyes: no change in vision, no discharge, no pain, no photophobia Ears: no ear discharge, no ear pain, no tinnitus Nose, mouth and throat: no dysphagia, no nasal discharge, no neck pain, no sore throat - Cardiovascular Cardiovascular ROS IM: no chest pain, no diaphoresis, no dyspnea, no lightheadedness, no palpitations, no syncope - Respiratory Respiratory: cough, dyspnea - Gastrointestinal Gastrointestinal: abdominal pain, diarrhea, nausea, vomiting - Genitourinary Genitourinary: no change in urinary stream, no dysuria, no flank pain, no hematuria - Musculoskeletal Musculoskeletal ROS IM: no numbness, no tingling - Integumentary Integumentary IM: no rash, no unusual bruising - Neurological Neurological ROS: no confusion, no convulsions, no focal weakness, no numbness, no tingling, no tremor(s) - Hematologic/Lymphatic Hematologic/Lymphatic: no easy bruising - Constitutional Vitals: Temp Pulse Resp BP Pulse Ox 99.3 F 131 20 119/53 100 08/07/17 20:10 08/07/17 22:35 08/07/17 23:20 08/07/17 23:20 08/07/17 22:35 General appearance: Present: mild distress, A&O X 3, answers questions appropriately - Respiratory Respiratory exam: Present: CTAB. Absent: accessory muscle use, rales, rhonchi, wheezes - Cardiovascular Cardiovascular exam: Present: RRR, +S1, +S2, tachycardia. Absent: diastolic murmur, gallop, rubs, systolic murmur - GI/Abdominal GI/Abdominal exam: Present: normal bowel sounds, soft (mild tenderness in central abdomen), no peritoneal signs. Absent: distended, tenderness - Extremities Exam Extremities exam: Present: full ROM, warm, radial pulses palpable and symmetrical. Absent: calf tenderness, cyanotic, pedal edema - Neurological Exam Neurological exam: Present: CN II-XII intact, oriented X3, no focal deficits. Absent: pronater drift, facial droop, speech deficit - Skin Skin exam: Present: dry, intact Internal Med - H&P Results - Labs CBC & Chem 7: 08/07/17 20:31 08/07/17 20:31 - EKG Data -: EKG Interpreted by Myself (at 130bpm, occasional PVCs) EKG shows normal: sinus rhythm Rate: tachycardia
[2017-08-08 00:54] LABS: Hemoglobin A1C 8.4 %
[2017-08-08] MEDS: Ringers Solution, Lactated 1,000 ML IVC SCH ×2 (01:29→10:48)
[2017-08-08] MEDS: Acetaminophen 325 MG TABLET PO PRN ×2 (01:36→18:49)
[2017-08-08] MEDS ORDERED: Vancomycin 1,000 MG in D5% in Water 250 ML IVPB SCH (02:00)
[2017-08-08] MEDS ORDERED: Vancomycin 1,000 MG in D5% in Water 250 ML IVPB ONE (04:00)
[2017-08-08 04:16] LABS: Adenovirus Not Detected (Not Detect); Bordetella Pertussis Not Detected (Not Detect); Chlamydophila pneumoniae Not Detected (Not Detect); Coronavirus 229E Not Detected (Not Detect); Coronavirus HKU1 Not Detected (Not Detect); Coronavirus NL63 Not Detected (Not Detect); Coronavirus OC43 Not Detected (Not Detect); Human Metapneumovirus Not Detected (Not Detect); Human Rhinovirus/Enterovirus Not Detected (Not Detect); Influenza A Subtype 2009 H1 Not Detected (Not Detect); Influenza A Untypeable Not Detected (Not Detect); Influenza B Not Detected (Not Detect); Mycoplasma pneumoniae Not Detected (Not Detect); Parainfluenza Virus 1 Not Detected (Not Detect); Parainfluenza Virus 2 Not Detected (Not Detect); Parainfluenza Virus 3 Not Detected (Not Detect); Parainfluenza Virus 4 Not Detected (Not Detect); Respiratory Syncytial Virus Not Detected (Not Detect)
[2017-08-08] MEDS: *HR* Heparin 5,000 UNIT/ML VIAL SQ SCH ×2 (04:53→17:46)
[2017-08-08 05:05] LABS: Hematocrit 31.9 % (35.3-44.9); Mean Corpuscular HGB Conc 34.5 g/dL (31.6-35.5); Mean Corpuscular Hemoglobin 30.1 pg (28.0-33.3); Mean Corpuscular Volume 87.4 fL (83.0-100.0); Mean Platelet Volume 11.8 fL (9.4-12.4); Nucleated Red Blood Cells 3.2 /100 WBC (0); Red Blood Count 3.65 M/mcL (3.82-4.97); Red Cell Distribution Width 12.2 % (11.5-14.5)
[2017-08-08 05:17] LABS: Albumin 2.3 g/dL (3.5-5.7); Albumin/Globulin Ratio 1.2 (1.1-2.2); Bilirubin,Total 2.1 mg/dL (0.3-1.0); Calcium 6.5 mg/dL (8.6-10.3); Globulin 1.9 g/dL (2.4-3.5); Magnesium 1.7 mg/dL (1.6-2.6); Phosphorous 1.8 mg/dL (2.7-4.5); Potassium 3.3 mEq/L (3.5-5.1); Total Protein 4.2 g/dL (6.4-8.9)
[2017-08-08] MEDS ORDERED: 0.9 % Sodium Chloride 500 ML IVC ONE (05:30)
[2017-08-08] MEDS ORDERED: 0.9 % Sodium Chloride 500 ML ONE (05:41)
[2017-08-08 05:42] LABS: Platelet Count 92 K/mcL (140-400)
[2017-08-08 07:09] LABS: Lymphocytes # 0.6 K/mcL (0.6-4.6); Monocytes # 0.2 K/mcL (0.0-1.3); Neutrophils # 0.8 K/mcL (1.6-8.9); Platelet Estimate Decreased (Normal); Reactive Lymphocytes Present (Not Present); Toxic Granulation Present (Not Present)
[2017-08-08] MEDS: Insulin LISPRO 300 UNITS/3 ML VIAL SQ SCH ×4 (07:39→19:57)
[2017-08-08] MEDS: Cefepime HCl 2,000 MG in Water for inj. (sterile) 20 ML IVP SCH (07:44)
[2017-08-08] MEDS: Aspirin Enteric Coated 81 MG Tablet PO SCH (07:45)
[2017-08-08] MEDS: Fluticasone Propionate Nasal 50 MCG/SPRAY BOTTLE NS SCH (07:45)
[2017-08-08] MEDS ORDERED: Cefepime HCl 1,000 MG in Water for inj. (sterile) 10 ML IVPB SCH (08:00)
[2017-08-08] MEDS: *HR* OxyCODONE Immed Rel 5 MG TABLET PO PRN (08:04)
[2017-08-08] MEDS: Budesonide/Formoterol 80/4.5 MDI IH SCH ×2 (08:24→22:26)
--- NOTE | 2017-08-08 08:50 | Electrocardiograph Report ---
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
[2017-08-08] MEDS ORDERED: Metoprolol XL (24 HR) Succ 50 MG TAB.ER.24H PO SCH (09:00)
[2017-08-08] MEDS ORDERED: *HR* OxyCODONE Immed Rel 15 MG TABLET PO SCH (09:00)
--- NOTE | 2017-08-08 09:05 | Electrocardiograph Report ---
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
--- NOTE | 2017-08-08 09:08 | Electrocardiograph Report ---
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
[2017-08-08 09:43] LABS: Enterococcus by PCR Not Detected (Not Detect); Staphylococcus aureus by PCR ***DETECTED*** (Not Detect); mecA Methicillin-Resist Gene Not Detected (Not Detect)
[2017-08-08 09:44] LABS: Acinetobacter baumannii by PCR Not Detected (Not Detect); Candida albicans by PCR Not Detected (Not Detect); Candida glabrata by PCR Not Detected (Not Detect); Candida krusei by PCR Not Detected (Not Detect); Candida parapsilosis by PCR Not Detected (Not Detect); Candida tropicalis by PCR Not Detected (Not Detect); Escherichia coli by PCR Not Detected (Not Detect); Klebsiella oxytoca by PCR Not Detected (Not Detect); Klebsiella pneumoniae by PCR Not Detected (Not Detect); Pseudomonas aeruginosa by PCR Not Detected (Not Detect); Serratia marcescens by PCR Not Detected (Not Detect); Streptococcus agalactiae(B)PCR Not Detected (Not Detect); Streptococcus by PCR Not Detected (Not Detect); Streptococcus pneumoniae PCR Not Detected (Not Detect); Streptococcus pyogenes (A) PCR Not Detected (Not Detect)
--- NOTE | 2017-08-08 10:17 | Palliative - Consult Note ---
Date of Encounter: 08/08/17 Time of Encounter: 08:50 - Assessment and Plan (1) Nausea Current Visit: Yes Status: Acute Assessment and plan: Patient reports feeling fine up to a week ago then she began feeling fatigued and started having nausea, vomiting and diarrhea. Blood cultures positive for gram + cocci. Stool pending. Patient reports that she is feeling better with fluids and medications. Nausea is likely from s/p chemotherapy and infectious process. Plan: - Change Zofran from every 8 hours to 4 hours PRN. - Monitor I & O - Prilosec scheduled - Diet as tolerated (2) Cancer associated pain Current Visit: Yes Status: Acute Assessment and plan: Patient reports having lower back pain that radiates down and around her anterior pelvis. States that it is a continuous dull ache rated a 6/10. Patient concerned about addiction to pain medications. I explained that given her type of cancer now to the bone that we need to work on a effective plan for her to maintain mobility and overall good function. Home dose of 15 mg of Oxycodone proved to be not very effective. She reports taking a lot of BTP. Patient with nausea but reports that she has been able to tolerate her po meds. Plan: - Increase Oxycodone scheduled dose - Continue BTP Oxycodone for moderate - Continue Morphine 2mg BTP every 4 hours for severe pain - Continue antibiotics as patient is gram + cocci blood cultures (3) Goals of care, counseling/discussion Current Visit: Yes Status: Acute Assessment and plan: Conducted bedside meeting with patient and her Bill # [phone]. Patient resides at home in [facility]. They also report having a granddaughter in the home that assist with needs. Patient desires to resume chemotherapy again once she is stable and able to do so. Patient and Bill are aware of metastatic cancer to bone. I explained her low WBC count and +BC. I discussed advanced directives and discussed her current Code Status as Full Code. I explained DNR and different statuses of interventions for each. The patient is not feeling well enough to really conduct an in depth discussion. However, I did introduce the topic for discussion between the patient and her . (4) Dehydration, severe Current Visit: Yes Status: Acute (5) Metastatic adenocarcinoma Current Visit: Yes Status: Acute Palliative-CN HPI - Data of Consult Patient: new to practice Consult date: 08/08/17 Requesting Physician: Brooklyn Alcantara Primary Care Provider: Nazia Deleon, - Consult Narrative Palliative Care/Comfort Measures: Palliative care Reason for consult: Symptom Management & Goals of Care History of present illness: Ms. Catalan is a 72 year old female with h/o metastatic adenocarcinoma with bone mets, presents with c/o- refractory nausea, vomiting, diarrhea. Patient follows with Oncology and has been started on chemotherapy with Paclitaxel 2 weeks ago. SHe received 2 injections so far and was due for the third dose today but could not make it due to feeling very sick. She reports about a 1 week h/o- intermittent nausea, emesis and diarrhea, worse for the last 2-3 days , with anorexia, fatigue and generalized weakness and dehydration. She has multiple episodes of loose watery nonbloody diarrhea; multiple episodes of nonbloody vomiting, unable to keep any food down. She has no fever but reports chills and shortness of breath. Bill is at bedside. This palliative care consult is for goals of care discussion and symptom management. CC: Tobias Mcgowan, DO Past Med Surg Social Fam HX - Past Medical History Source: patient, old records reviewed, obtained from family, nursing notes reviewed Medical history: asthma, cancer, diabetes, GERD, hyperlipidemia, hypertension Psychiatric history: no psych history - Past Surgical History Surgical History: , cataract, cholecystectomy, JOAO/BSO, other - Social History Smoking Status: Never smoker Smokeless Tobacco Status: No Alcohol use: none Drug use: none Occupational status: retired Current living situation: Home Activity Level: Independent ambulation Recent Out of Country Travel Within the Last 8 Weeks: No Exposure or Possible Exposure to Illness During Travel: No - Family History Mother Hx Family Cancer: Yes (Brain cancer) Hx Family Endocrine Disorder: Yes (DM) Medications and Allergies Albuterol Sulfate [Proventil Hfa] 1 puff IH QID PRN 06/20/15 [History] Aspirin Enteric Coated [Aspirin EC] 81 mg PO DAILY 06/20/15 [History] Fluticasone Propionate Nasal [Flonase] 1 spray NS DAILY 06/20/15 [History] Fluticasone/Salmeterol [Advair 100-50 Diskus] 1 each IH BID 06/20/15 [History] Glimepiride [Amaryl] 4 mg PO DAILY 06/20/15 [History] Insulin NPH Hum/Reg Insulin Hm [Novolin 70-30 100 Unit/ml Vial] 30 unit SQ BID 06/20/15 [History] Omeprazole [PriLOSEC] 40 mg PO DAILY 06/20/15 [History] Pravastatin Sodium [Pravachol] 20 mg PO HS 06/20/15 [History] Saxagliptin HCl [Onglyza] 5 mg PO DAILY 06/20/15 [History] Triamterene/HCTZ 75/50mg [Maxzide] 1 each PO DAILY 06/20/15 [History] Ondansetron HCl [Zofran] 4 mg PO Q8H PRN #60 tablet 07/08/17 [Rx] OxyCODONE Immed Rel [Roxicodone 15 MG] 15 mg PO BID #60 tablet 07/08/17 [Rx] Prochlorperazine Maleate [Compazine] 10 mg PO Q8HR PRN #60 tablet 07/08/17 [Rx] Calcium Carbonate/Vitamin D3 [Calcium 600 + Vit D Tablet] 2 each PO DAILY #60 tablet 07/31/17 [Rx] Docusate Sodium [Stool Softener] 100 mg PO DAILY PRN 07/31/17 [History] Lidocaine/Prilocaine [Emla] 1 appl TP AD #30 gm 07/31/17 [Rx] Lisinopril [Zestril] 40 mg PO DAILY 08/07/17 [History] Metoprolol Succinate 200 mg PO DAILY 08/07/17 [History] 3 Allergy/AdvReac Type Severity Reaction Status Date / Time nifedipine [From Procardia] Allergy Rash Verified 08/07/17 21:15 glipizide AdvReac Vomiting Verified 06/16/17 10:03 metoprolol [From Lopressor] AdvReac Nightmare Verified 08/07/17 21:15 All systems: reviewed and no additional remarkable complaints except as stated ( nausea and lower back pain) - Constitutional Constitutional ROS PAL: decreased appetite, chills, fatigue - EENT Ears, nose, mouth, throat: dry mouth - Gastrointestinal Gastrointestinal: abdominal pain, diarrhea, loose stools, nausea, vomiting - Musculoskeletal Musculoskeletal ROS IM: back pain, muscle weakness - Integumentary ROS Integumentary: dry skin - Neurological Neurological ROS: dizziness, weakness Palliative Care-Exam - Constitutional Vitals: Temp Pulse Resp BP Pulse Ox 98.4 F 134 18 122/73 94 08/08/17 07:09 08/08/17 08:29 08/08/17 08:26 08/08/17 07:09 08/08/17 08:26 General appearance: Present: cooperative, no acute distress - Head Head Exam: Present: atraumatic, normal inspection, normocephalic - Eye Eye exam: Present: PERRL Pupils: Present: PERRL - ENT ENT exam: Present: mucous membranes dry - Expanded ENT Exam Mouth Exam: Present: dry mucosa Throat exam: Present: normal inspection - Neck Neck exam: Present: full ROM - Respiratory Respiratory exam: Present: CTAB - Expanded Respiratory Exam Location: decreased breath sounds: Left, Right, Lower - Cardiovascular Cardiovascular exam: Present: +S1, +S2, tachycardia - Expanded Cardiovascular Exam Peripheral pulses: 1+: Femoral (L) PM, Femoral (R) PM, Posterior Tibialis (L), Posterior Tibialis (R), 2+: Carotid (L) PM, Carotid (R) PM, Radial (L), Radial ( R), Dorsalis Pedis (L) PM, Dorsalis Pedis (R) PM - GI/Abdominal Exam GI/Abdominal exam: Present: normal bowel sounds, soft - Rectal Rectal exam: Present: deferred - Catheter Type: Urethral (Rodriguez) Additional comments: moderate amount slightly brown urine. Moderate amount - Extremities Exam Extremities exam: Present: tenderness - Expanded Lower Extremities Exam Hip exam: Present: tenderness Upper Leg exam: Present: tenderness Knee exam: Present: tenderness Lower Leg exam: Present: normal inspection - Neurological Exam Neurological exam: Present: alert, oriented X3 - Expanded Neurological Exam Patient oriented to: Present: person, place, time Coma Scale Eye Opening: Spontaneous Coma Scale Motor Response: Obeys Commands Coma Scale Verbal Response: Oriented Coma Scale Total: 15 - Psychiatric Psychiatric exam: Present: normal affect - Skin Skin exam: Present: dry Internal Medicine - CN: Reslt - Labs CBC & Chem 7: 08/08/17 04:50 08/08/17 04:50 Labs: Short CBC 08/08/17 Range/Units 04:50 WBC 1.6 L (4.3-11.1) K/mcL Hgb 11.0 L D (11.5-15.4) g/dL Hct 31.9 L (35.3-44.9) % Plt Count 92 L (140-400) K/mcL Neutrophils # 0.8 L (1.6-8.9) K/mcL BMP 08/08/17 04:50 Sodium 133 L Potassium 3.3 L Chloride 105 Carbon Dioxide 16 L BUN 42 H Creatinine 1.30 H Glucose 125 H Calcium 6.5 L Cardiac Enzymes 08/08/17 08/08/17 Range/Units 00:25 04:50 Troponin I 0.91 H* 0.83 H* (< 0.04) ng/mL Liver Function 08/08/17 Range/Units 04:50 Total Bilirubin 2.1 H (0.3-1.0) mg/dL AST 64 H (13-39) Units/L ALT 38 (7-52) Units/L Alkaline Phosphatase 68 (34-104) Units/L Albumin 2.3 L (3.5-5.7) g/dL - ABG Interpretation ABG results: PT/INR, D-dimer PT 19.7 Seconds (9.4-12.1) H 08/07/17 20:31 Consult Discharge Plan - Plan Referrals: Nazia Deleon, HEALTH EDUCATION DIRECTOR [Primary Care Provider] - Palliative Quality Palliative Quality: Screen for Code Status: Yes, Screen for Goals of Care: Yes, Screen for Pain: Yes, If Pain Regimen Started, Initiate Bowel Regimen: No ( Diarrhea), Screen for Nausea/Vomitting: Yes Code Status: 08/07/17 23:37 Resuscitation Status: Active [RES] Routine Comment: Resuscitation Status: Full Code
[2017-08-08] MEDS: Potassium Phosphate 44 MEQ in 0.9 % Sodium Chloride 250 ML IVPB PRN (11:24)
--- NOTE | 2017-08-08 13:46 | Oncology Inp Consult Note ---
Date of Encounter: 08/08/17 Time of Encounter: 08:00 Assessment and Plan (1) Metastatic adenocarcinoma Status: Acute Assessment and plan: Possible breast primary, ER/VT negative HER-2/casa negative, patient has started. Chemotherapy with Taxol 2 weekly doses completed, borderline neutropenia with last chemotherapy, hospitalized with symptoms of sepsis, blood culture is positive for gram-positive cocci on vancomycin and broad-spectrum coverage for neutropenia. Neutropenia, sepsis Neupogen started continue until ANC recovers 1500. Pain control appreciate palliative care input. Escalate oxycodone for optimal pain control. Anxiety related to pain current illness. Nausea/diarrhea--stool sample pending. Ct abd neg for ac findings. Patient seen bedside with family, imaging , lab works reviewed in detal. Adv care directives/code status readdress at later date. - Data of Consult Requesting Physician: Tobias Mcgowan DO Primary Care Provider: Nazia Deleon, - Consult Narrative Reason for consult: metastatic cancer, sepsis History of present illness: Zulema Catalan is a71 year old female who is on palliative chemotherapy s/p 2 wkly doses of taxol for metastatic cancer of likely breast origin, history of colon polyps, Adenoma of stomach, Skin cyst and past surgeries include JOAO/BSO, Open Choley, c-sections x3, exc of back cyst, colonoscopy 02/2017, EGD 03/16/15. She hughes imaging done for lower abd pain radiating to back in 12/25--CT abd showed boderline adenopathy She had colonsocopy 02/24 nl. Mammogram was benign -02/24 MRI pelvis--Osseous metastases diffusely throughout the bony pelvis and left femur. 04/27 MRI abd--hepatic steatosis, heterogenous area in the liver. Mild retroperitoneal adenopathy measuring up to 1 cm in the right periaortic region. Innumerable enhancing foci throughout the vertebral bodies and sacrum concerning for osseous metastatic disease.04/27 She is s/p total hysterectomy SHe had a PET imaging 05/27--mild metabolic activity associated with the skeletal lesions without uptake in LNs CT guided bone bx--metastatic adenoca--likely breast origin, BRST, CK7 and MEENA 3 positive ER VT NEG, HER2 equivocal Rebx FISH sent 06/24/17--neg HER2 07/27--MRI brain --osseous metastatic disease, diffuse vascular disease/microhge MRI breast no mass/enhancement Started taxol systemic therapy 07/27. Hospitalized due to diarrhea, weakness, dehydration. Emergency room visit lab works showed increased lactic acid levels, neutropenia. Patient is hospitalized for further workup imaging studies showing possible pneumonia, blood culture gram-positive cocci in both sets. She is on broad-spectrum antibiotics. HAs pain in the abdomen--oxycodone out patient dosage not controlling pain. NAuseated feeling, poor appetite. No Bm since in the hospital. Past Med Surg Social Fam HX - Past Medical History Medical history: asthma, cancer, diabetes, GERD, hyperlipidemia, hypertension Psychiatric history: no psych history - Past Surgical History Surgical History: , cataract, cholecystectomy, JOAO/BSO, other - Social History Smoking Status: Never smoker Smokeless Tobacco Status: No Alcohol use: none Drug use: none - Family History Mother Hx Family Cancer: Yes (Brain cancer) Hx Family Endocrine Disorder: Yes (DM) Medications and Allergies Albuterol Sulfate [Proventil Hfa] 1 puff IH QID PRN 06/20/15 [History] Aspirin Enteric Coated [Aspirin EC] 81 mg PO DAILY 06/20/15 [History] Fluticasone Propionate Nasal [Flonase] 1 spray NS DAILY 06/20/15 [History] Fluticasone/Salmeterol [Advair 100-50 Diskus] 1 each IH BID 06/20/15 [History] Glimepiride [Amaryl] 4 mg PO DAILY 06/20/15 [History] Insulin NPH Hum/Reg Insulin Hm [Novolin 70-30 100 Unit/ml Vial] 30 unit SQ BID 06/20/15 [History] Omeprazole [PriLOSEC] 40 mg PO DAILY 06/20/15 [History] Pravastatin Sodium [Pravachol] 20 mg PO HS 06/20/15 [History] Saxagliptin HCl [Onglyza] 5 mg PO DAILY 06/20/15 [History] Triamterene/HCTZ 75/50mg [Maxzide] 1 each PO DAILY 06/20/15 [History] Ondansetron HCl [Zofran] 4 mg PO Q8H PRN #60 tablet 07/08/17 [Rx] OxyCODONE Immed Rel [Roxicodone 15 MG] 15 mg PO BID #60 tablet 07/08/17 [Rx] Prochlorperazine Maleate [Compazine] 10 mg PO Q8HR PRN #60 tablet 07/08/17 [Rx] Calcium Carbonate/Vitamin D3 [Calcium 600 + Vit D Tablet] 2 each PO DAILY #60 tablet 07/31/17 [Rx] Docusate Sodium [Stool Softener] 100 mg PO DAILY PRN 07/31/17 [History] Lidocaine/Prilocaine [Emla] 1 appl TP AD #30 gm 07/31/17 [Rx] Lisinopril [Zestril] 40 mg PO DAILY 08/07/17 [History] Metoprolol Succinate 200 mg PO DAILY 08/07/17 [History] 3 Allergy/AdvReac Type Severity Reaction Status Date / Time nifedipine [From Procardia] Allergy Rash Verified 08/07/17 21:15 glipizide AdvReac Vomiting Verified 06/16/17 10:03 metoprolol [From Lopressor] AdvReac Nightmare Verified 08/07/17 21:15 Review of systems: as in HPI Oncology - Exam - Constitutional Vitals: Temp Pulse Resp BP Pulse Ox 98.9 F 104 18 114/57 95 08/08/17 10:53 08/08/17 11:39 08/08/17 10:53 08/08/17 10:53 08/08/17 10:53 General appearance: average body habitus - Head Head exam: Present: atraumatic, normal inspection - Eye Eye exam: Present: sclera anicteric - ENT ENT exam: Present: mucous membranes moist - Respiratory Respiratory exam: Present: CTAB - Cardiovascular Cardiovascular exam: Present: +S1 - GI/Abdominal GI/Abdominal exam: Present: normal bowel sounds, soft Additional comments: distension, non tender - Extremities Exam Extremities exam: Present: normal inspection - Neurological Exam Neurological exam: Present: alert, CN II-XII intact, oriented X3, no focal deficits - Psychiatric Psychiatric exam: Present: anxious, normal mood Oncology - Results Labs: Short CBC 08/08/17 Range/Units 04:50 WBC 1.6 L (4.3-11.1) K/mcL Hgb 11.0 L D (11.5-15.4) g/dL Hct 31.9 L (35.3-44.9) % Plt Count 92 L (140-400) K/mcL Neutrophils # 0.8 L (1.6-8.9) K/mcL BMP 08/08/17 04:50 Sodium 133 L Potassium 3.3 L Chloride 105 Carbon Dioxide 16 L BUN 42 H Creatinine 1.30 H Glucose 125 H Calcium 6.5 L Cardiac Enzymes 08/08/17 08/08/17 Range/Units 00:25 04:50 Troponin I 0.91 H* 0.83 H* (< 0.04) ng/mL Liver Function 08/08/17 Range/Units 04:50 Total Bilirubin 2.1 H (0.3-1.0) mg/dL AST 64 H (13-39) Units/L ALT 38 (7-52) Units/L Alkaline Phosphatase 68 (34-104) Units/L Albumin 2.3 L (3.5-5.7) g/dL CXR Left infiltrate/atelectasis. CT abd no dil or thickening of bowels Consult Discharge Plan - Plan Referrals: Nazia Deleon, [employer] [Primary Care Provider] -
[2017-08-08] MEDS ORDERED: 0.9 % Sodium Chloride 1,000 ML IVC SCH ×3 (14:30→16:15)
[2017-08-08] MEDS: *HR* OxyCODONE Immed Rel 15 MG TABLET PO SCH (16:15)
--- NOTE | 2017-08-08 16:43 | Internal Med Progress Note ---
<Cathy Davis - Last Filed: 08/08/17 16:40> Date of Encounter: 08/08/17 Time of Encounter: 16:41 - Assessment and plan (1) Severe sepsis Current Visit: Yes Status: Acute Assessment and plan: Due to staph aureus bacteremia On cefepime and vancomycin; Levaquin discontinued. Plan to narrow antibiotic spectrum when blood culture sensitivities result Trend lactic acid Continue IV hydration (2) Lactic acidosis Current Visit: Yes Status: Acute Assessment and plan: 6.2-4.9-5.1-7.5 Continue to trend lactic acid until normalized (</= 2) (3) TYRONE (acute kidney injury) Current Visit: Yes Status: Acute Assessment and plan: Improved with IV hydration hold home ACEI and diuretic Continue to monitor (4) Nausea Current Visit: Yes Status: Acute Assessment and plan: Zofran 4 mg IV q6h PRN (5) Emesis Current Visit: Yes Status: Acute Assessment and plan: Patient has not vomited since admission Continue to control nausea IV hydration Replace electrolytes as needed Qualifiers: Vomiting type: unspecified Vomiting Intractability: non-intractable Nausea presence: with nausea Qualified Code(s): R11.2 - Nausea with vomiting, unspecified (6) Diarrhea Current Visit: Yes Status: Acute Assessment and plan: GI panel pending IV hydration replace electrolytes as needed Qualifiers: Diarrhea type: unspecified type Qualified Code(s): R19.7 - Diarrhea, unspecified (7) Leukopenia Current Visit: Yes Status: Chronic Assessment and plan: ANC 840 Dr. Nieves has started neupogen. Continue until ANC recovers to 1500 Qualifiers: Leukopenia type: unspecified Qualified Code(s): D72.819 - Decreased white blood cell count, unspecified (8) Essential hypertension Current Visit: Yes Status: Chronic Assessment and plan: Chronic, stable Continue to monitor Hold ACEI and diuretics due to TYRONE continue metoprolol (9) Hypocalcemia Current Visit: Yes Status: Acute Assessment and plan: Replete as needed with electrolyte protocol Continue to monitor (10) Hypokalemia Current Visit: Yes Status: Acute Assessment and plan: Replete as needed with Electrolyte protocol Continue to monitor (11) Hypomagnesemia Current Visit: Yes Status: Acute Assessment and plan: Resolved Continue to monitor Replete as needed with Electrolyte protocol (12) Diabetes mellitus Current Visit: No Status: Chronic Assessment and plan: A1C 8.4 ADA diet Accu-Cheks and sliding scale Qualifiers: Diabetes mellitus type: type 2 Diabetes mellitus complication status: with unspecified complications Diabetes mellitus shelter insulin use: with shelter use Qualified Code(s): E11.8 - Type 2 diabetes mellitus with unspecified complications; Z79.4 - [facility]PC (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 of insulin; 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; 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 She states that she had no appetite to eat her breakfast. - Constitutional Vitals: Temp Pulse Resp BP Pulse Ox 98.6 F 100 18 105/60 93 08/08/17 16:16 08/08/17 16:16 08/08/17 16:16 08/08/17 16:16 08/08/17 16:16 General appearance: Present: mild distress, A&O X 3, answers questions appropriately - Head Head exam: Present: atraumatic, normocephalic - Eye Eye exam: Present: PERRL, conjuntiva pink, sclera anicteric Pupils: Present: PERRL - Neck Neck exam general surgery: Present: supple, trachea midline - Respiratory Respiratory exam: Present: decreased breath sounds - Cardiovascular Cardiovascular exam: Present: RRR, +S1, +S2. Absent: diastolic murmur, gallop, rubs, systolic murmur - GI/Abdominal GI/Abdominal exam: Present: normal bowel sounds, soft, tenderness (diffuse, moderate) - Extremities Exam Extremities exam: Present: warm. Absent: pedal edema, tenderness Additional comments: Posterior tibial pulses palpable and symmetric - Neurological Exam Neurological exam: Present: CN II-XII intact, oriented X3, no focal deficits. Absent: pronater drift, facial droop, speech deficit - Skin Skin exam: Present: dry, intact Internal Medicine: Result - Labs CBC & Chem 7: 08/08/17 04:50 08/08/17 04:50 Labs: Short CBC 08/08/17 Range/Units 04:50 WBC 1.6 L (4.3-11.1) K/mcL Hgb 11.0 L D (11.5-15.4) g/dL Hct 31.9 L (35.3-44.9) % Plt Count 92 L (140-400) K/mcL Neutrophils # 0.8 L (1.6-8.9) K/mcL BMP 08/08/17 04:50 Sodium 133 L Potassium 3.3 L Chloride 105 Carbon Dioxide 16 L BUN 42 H Creatinine 1.30 H Glucose 125 H Calcium 6.5 L Cardiac Enzymes 08/08/17 08/08/17 Range/Units 00:25 04:50 Troponin I 0.91 H* 0.83 H* (< 0.04) ng/mL Liver Function 08/08/17 Range/Units 04:50 Total Bilirubin 2.1 H (0.3-1.0) mg/dL AST 64 H (13-39) Units/L ALT 38 (7-52) Units/L Alkaline Phosphatase 68 (34-104) Units/L Albumin 2.3 L (3.5-5.7) g/dL - ABG Interpretation ABG results: PT/INR, D-dimer PT 19.7 Seconds (9.4-12.1) H 08/07/17 20:31 Consult Discharge Plan - Plan Referrals: Nazia Deleon, [employer] [Primary Care Provider] - <Tobias Mcgowan - Last Filed: 08/08/17 19:43> Date of Encounter: 08/08/17 - Assessment and plan (1) Staphylococcus aureus bacteremia with sepsis Current Visit: Yes Status: Acute (2) Severe sepsis Current Visit: Yes Status: Acute (3) Hypokalemia Current Visit: Yes Status: Acute (4) Hypomagnesemia Current Visit: Yes Status: Acute (5) Lactic acidosis Current Visit: Yes Status: Acute (6) Essential hypertension Current Visit: Yes Status: Chronic (7) Diabetes mellitus Current Visit: No Status: Chronic Qualifiers: Diabetes mellitus type: type 2 Diabetes mellitus complication status: with unspecified complications Diabetes mellitus ribber insulin use: with shelter use Qualified Code(s): E11.8 - Type 2 diabetes mellitus with unspecified complications; Z79.4 - [facility] (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 of insulin; 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; Z79.4 - [facility] (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 of insulin; Z79.4 - [facility] (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 of insulin (8) Carcinoma of breast metastatic to bone Current Visit: Yes Status: Chronic Qualifiers: Laterality: unspecified laterality Qualified Code(s): C50.919 - Malignant neoplasm of unspecified site of unspecified female breast; C79.51 - Secondary malignant neoplasm of bone; C79.51 - Secondary malignant neoplasm of bone; C79.51 - Secondary malignant neoplasm of bone; C79.51 - Secondary malignant neoplasm of bone - Constitutional Vitals: Temp Pulse Resp BP Pulse Ox 101.2 F H 96 24 102/55 94 08/08/17 18:45 08/08/17 18:45 08/08/17 18:45 08/08/17 18:45 08/08/17 18:45 Internal Medicine: Result - Labs CBC & Chem 7: 08/08/17 04:50 08/08/17 04:50 Labs: Short CBC 08/08/17 Range/Units 04:50 WBC 1.6 L (4.3-11.1) K/mcL Hgb 11.0 L D (11.5-15.4) g/dL Hct 31.9 L (35.3-44.9) % Plt Count 92 L (140-400) K/mcL Neutrophils # 0.8 L (1.6-8.9) K/mcL BMP 08/08/17 04:50 Sodium 133 L Potassium 3.3 L Chloride 105 Carbon Dioxide 16 L BUN 42 H Creatinine 1.30 H Glucose 125 H Calcium 6.5 L Cardiac Enzymes 08/08/17 08/08/17 Range/Units 00:25 04:50 Troponin I 0.91 H* 0.83 H* (< 0.04) ng/mL Liver Function 08/08/17 Range/Units 04:50 Total Bilirubin 2.1 H (0.3-1.0) mg/dL AST 64 H (13-39) Units/L ALT 38 (7-52) Units/L Alkaline Phosphatase 68 (34-104) Units/L Albumin 2.3 L (3.5-5.7) g/dL - ABG Interpretation ABG results: PT/INR, D-dimer PT 19.7 Seconds (9.4-12.1) H 08/07/17 20:31 - Attending Attestation I examined this patient and my medical decision-making was reviewed with the Resident Physician on 08/08/17. I agree with the documented findings, disposition and treatment plan as described except to the extent set forth below. Ms Catalan is currently admitted for neutropenia and staph bacteremia. She remains moderate to high risk due to potential worsening clinical status. Ms Catalan is tired. Denies pain. No fever at this time. Coughing some. No abd issues. Exam Alert. Comfortable Mucus membranes dry Heart reg No wheeze Abd soft I/P 1. Staph bacteremia on IV Vanc 2. Neutropenia Further diagnoses and plan as above.
[2017-08-08] MEDS: Vancomycin 1,000 MG in D5% in Water 250 ML IVPB SCH (17:46)
[2017-08-08] MEDS: 0.9 % Sodium Chloride 1,000 ML IVC SCH ×2 (17:56→19:55)
--- NOTE | 2017-08-08 19:14 | Electrocardiograph Report ---
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
[2017-08-08 20:17] LABS: Magnesium 2.4 mg/dL (1.6-2.6); Potassium 4.5 mEq/L (3.5-5.1)
[2017-08-08] MEDS ORDERED: 0.9 % Sodium Chloride 1,000 ML IVC ONE (20:39)
[2017-08-09] MEDS: *HR* OxyCODONE Immed Rel 15 MG TABLET PO SCH (00:13)
[2017-08-09] MEDS: 0.9 % Sodium Chloride 1,000 ML IVC SCH ×4 (00:23→12:25)
[2017-08-09 04:46] LABS: VBG Ionized Calcium 1.01 mmol/L (1.15-1.35); VBG PH 7.25 pH Units (7.32-7.42)
[2017-08-09 04:50] LABS: Hematocrit 35.4 % (35.3-44.9); Hemoglobin 11.9 g/dL (11.5-15.4); Mean Corpuscular HGB Conc 33.6 g/dL (31.6-35.5); Mean Corpuscular Hemoglobin 30.4 pg (28.0-33.3); Mean Corpuscular Volume 90.3 fL (83.0-100.0); Mean Platelet Volume 12.9 fL (9.4-12.4); Nucleated Red Blood Cells 2.2 /100 WBC (0); Red Blood Count 3.92 M/mcL (3.82-4.97)
[2017-08-09 05:40] LABS: Platelet Count 89 K/mcL (140-400)
[2017-08-09 05:44] LABS: Large Platelets Present (Not Present); Lymphocytes # 2.3 K/mcL (0.6-4.6); Monocytes # 1.3 K/mcL (0.0-1.3); Neutrophils # 3.1 K/mcL (1.6-8.9); Platelet Estimate Decreased (Normal); Reactive Lymphocytes Present (Not Present)
[2017-08-09 05:45] LABS: Toxic Granulation Present (Not Present)
[2017-08-09] MEDS: *HR* Heparin 5,000 UNIT/ML VIAL SQ SCH ×2 (05:54→17:36)
[2017-08-09 07:12] LABS: Calcium 6.7 mg/dL (8.6-10.3); Magnesium 2.1 mg/dL (1.6-2.6); Phosphorous 2.8 mg/dL (2.7-4.5); Potassium 4.3 mEq/L (3.5-5.1)
[2017-08-09] MEDS: Budesonide/Formoterol 80/4.5 MDI IH SCH ×2 (07:56→22:38)
[2017-08-09] MEDS: Fluticasone Propionate Nasal 50 MCG/SPRAY BOTTLE NS SCH (08:12)
[2017-08-09] MEDS: Aspirin Enteric Coated 81 MG Tablet PO SCH (08:13)
[2017-08-09] MEDS: Cefepime HCl 2,000 MG in Water for inj. (sterile) 20 ML IVP SCH (08:17)
[2017-08-09] MEDS: Insulin LISPRO 300 UNITS/3 ML VIAL SQ SCH ×4 (08:18→20:14)
[2017-08-09] MEDS: Ondansetron 4 MG/2 ML VIAL IVP PRN ×3 (08:36→23:23)
[2017-08-09] MEDS ORDERED: *HR* OxyCODONE Immed Rel 15 MG TABLET PO SCH (09:15)
[2017-08-09] MEDS ORDERED: Aminoglycoside Consult 1 EACH MC ONE (09:23)
[2017-08-09] MEDS: *HR* OxyCODONE Immed Rel 5 MG TABLET PO PRN (09:32)
--- NOTE | 2017-08-09 10:18 | Internal Med Progress Note ---
<Cathy Davis - Last Filed: 08/09/17 10:15> Date of Encounter: 08/09/17 Time of Encounter: 10:16 - Assessment and plan (1) Severe sepsis Current Visit: Yes Status: Acute Assessment and plan: Due to staph aureus bacteremia temperature range from 101.2 to 97 in the past 24 hrs On cefepime and vancomycin. Narrow antibiotic spectrum when blood culture sensitivities result Trend lactic acid; trending down Continue IV hydration; currently at 2x mIVF (250 ml/hr) currently on dopamine 5 g for hypotension bolus IVF as needed to maintain BP (2) Hypotension Current Visit: Yes Status: Acute Assessment and plan: Currently requiring 5 g of dopamine to maintain blood pressure Hypotension with blood pressure 77/42 last night around midnight Continue IV hydration with 2x mIVF (250 ml/hr) Bolus as needed Qualifiers: Hypotension type: other hypotension type Qualified Code(s): I95.89 - Other hypotension (3) Lactic acidosis Current Visit: Yes Status: Acute Assessment and plan: 2x mIVF (250 ml/hr) 6.2-4.9-5.1-7.5-6.5-5.0-4.1 Continue to trend lactic acid until normalized (</= 2) (4) TYRONE (acute kidney injury) Current Visit: Yes Status: Acute Assessment and plan: Continues to improve daily Currently hypotensive and requiring dopamine. If hypertensive, hold home ACEI and diuretic. Continue to monitor (5) Nausea Current Visit: Yes Status: Acute Assessment and plan: Zofran 4 mg IV q6h PRN (6) Emesis Current Visit: Yes Status: Acute Assessment and plan: Continue to control nausea IV hydration Replace electrolytes as needed Qualifiers: Vomiting type: unspecified Vomiting Intractability: non-intractable Nausea presence: with nausea Qualified Code(s): R11.2 - Nausea with vomiting, unspecified (7) Diarrhea Current Visit: Yes Status: Acute Assessment and plan: GI panel pending IV hydration replace electrolytes as needed Has not had diarrhea since admission Qualifiers: Diarrhea type: unspecified type Qualified Code(s): R19.7 - Diarrhea, unspecified (8) Leukopenia Current Visit: Yes Status: Chronic Assessment and plan: ANC 3216 Dr. Nieves started neupogen. Continue until ANC recovers to 1500 Qualifiers: Leukopenia type: unspecified Qualified Code(s): D72.819 - Decreased white blood cell count, unspecified (9) Hypocalcemia Current Visit: Yes Status: Acute Assessment and plan: Replete as needed with electrolyte protocol Continue to monitor (10) Hypokalemia Current Visit: Yes Status: Resolved Assessment and plan: Resolved Replete as needed with Electrolyte protocol Continue to monitor (11) Hypomagnesemia Current Visit: Yes Status: Acute Assessment and plan: Resolved Continue to monitor Replete as needed with Electrolyte protocol (12) Essential hypertension Current Visit: Yes Status: Chronic Assessment and plan: Currently on dopamine for hypotension Hold home antihypertensives (13) Diabetes mellitus Current Visit: No Status: Chronic Assessment and plan: A1C 8.4 ADA diet Accu-Cheks and sliding scale Qualifiers: Diabetes mellitus type: type 2 Diabetes mellitus complication status: with unspecified complications Diabetes mellitus correction insulin use: with outreach team member use Qualified Code(s): E11.8 - Type 2 diabetes mellitus with unspecified complications; Z79.4 - detention (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 of insulin; Z79.4 - geriatric psychiatrist ( 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 of insulin; Z79.4 - geriatric psychiatrist (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 of insulin; Z79.4 - detention (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 of insulin (14) GERD (gastroesophageal reflux disease) Current Visit: No Status: Chronic Assessment and plan: Chronic Continue omeprazole Qualifiers: Esophagitis presence: esophagitis presence not specified Qualified Code(s) : K21.9 - Gastro-esophageal reflux disease without esophagitis (15) Bone metastases Current Visit: Yes Status: Acute Assessment and plan: Oncology consult; appreciate recommendations Palliative consult; appreciate recommendations - Subjective Interval history: Patient states that she had increasing nausea with each bite that she had breakfast this morning. She still endorses weakness with raising her arms. Still with diffuse abdominal tenderness. - Constitutional Vitals: Temp Pulse Resp BP Pulse Ox 97 F L 91 20 100/59 93 08/09/17 08:05 08/09/17 09:30 08/09/17 08:05 08/09/17 09:30 08/09/17 09:30 General appearance: Present: mild distress, A&O X 3, answers questions appropriately - Head Head exam: Present: atraumatic, normocephalic - Eye Eye exam: Present: PERRL, conjuntiva pink, sclera anicteric Pupils: Present: PERRL - Neck Neck exam general surgery: Present: supple, trachea midline - Respiratory Respiratory exam: Present: CTAB - Cardiovascular Cardiovascular exam: Present: RRR, +S1, +S2. Absent: diastolic murmur, gallop, rubs, systolic murmur - GI/Abdominal GI/Abdominal exam: Present: normal bowel sounds, soft, tenderness (moderate, diffuse), no peritoneal signs. Absent: distended - Extremities Exam Extremities exam: Present: warm. Absent: pedal edema, tenderness Additional comments: Posterior tibial pulses palpable and symmetric - Neurological Exam Neurological exam: Present: CN II-XII intact, oriented X3, no focal deficits. Absent: facial droop, speech deficit - Skin Skin exam: Present: dry, intact Internal Medicine: Result - Labs CBC & Chem 7: 08/09/17 04:25 08/09/17 04:25 Labs: Short CBC 08/09/17 Range/Units 04:25 WBC 6.7 D (4.3-11.1) K/mcL Hgb 11.9 (11.5-15.4) g/dL Hct 35.4 (35.3-44.9) % Plt Count 89 L (140-400) K/mcL Neutrophils # 3.1 (1.6-8.9) K/mcL BMP 08/08/17 08/09/17 19:50 04:25 Sodium 133 L Potassium 4.5 D 4.3 Chloride 110 H Carbon Dioxide 15 L BUN 45 H Creatinine 1.10 Glucose 102 Calcium 6.7 L - ABG Interpretation ABG results: PT/INR, D-dimer PT 19.7 Seconds (9.4-12.1) H 08/07/17 20:31 Consult Discharge Plan - Plan Referrals: Nazia Deleon, FIELD SERVICE SPECIALIST [Primary Care Provider] - <Tobias Mcgowan - Last Filed: 08/09/17 15:35> Date of Encounter: 08/09/17 - Assessment and plan (1) Staphylococcus aureus bacteremia with sepsis Current Visit: Yes Status: Acute Assessment and plan: Final cx and sensitivities pending. Repeat blood cultures today. Continue IV abx at this time. (2) Severe sepsis Current Visit: Yes Status: Acute (3) Hypocalcemia Current Visit: Yes Status: Acute Assessment and plan: Replace today. (4) Hypokalemia Current Visit: Yes Status: Resolved (5) Hypomagnesemia Current Visit: Yes Status: Acute (6) Lactic acidosis Current Visit: Yes Status: Acute (7) Essential hypertension Current Visit: Yes Status: Chronic (8) Diabetes mellitus Current Visit: No Status: Chronic Qualifiers: Diabetes mellitus type: type 2 Diabetes mellitus complication status: with unspecified complications Diabetes mellitus correction insulin use: with correction use Qualified Code(s): E11.8 - Type 2 diabetes mellitus with unspecified complications; Z79.4 - detention (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 of insulin; Z79.4 - detention ( 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 of insulin; Z79.4 - geriatric psychiatrist (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 of insulin; Z79.4 - geriatric psychiatrist (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 of insulin (9) Carcinoma of breast metastatic to bone Current Visit: Yes Status: Chronic Qualifiers: Laterality: unspecified laterality Qualified Code(s): C50.919 - Malignant neoplasm of unspecified site of unspecified female breast; C79.51 - Secondary malignant neoplasm of bone; C79.51 - Secondary malignant neoplasm of bone; C79.51 - Secondary malignant neoplasm of bone; C79.51 - Secondary malignant neoplasm of bone - Constitutional Vitals: Temp Pulse Resp BP Pulse Ox 98.2 F 89 18 111/64 93 08/09/17 12:10 08/09/17 12:50 08/09/17 12:10 08/09/17 13:23 08/09/17 12:10 Internal Medicine: Result - Labs CBC & Chem 7: 08/09/17 04:25 08/09/17 04:25 Labs: Short CBC 08/09/17 Range/Units 04:25 WBC 6.7 D (4.3-11.1) K/mcL Hgb 11.9 (11.5-15.4) g/dL Hct 35.4 (35.3-44.9) % Plt Count 89 L (140-400) K/mcL Neutrophils # 3.1 (1.6-8.9) K/mcL BMP 08/08/17 08/09/17 19:50 04:25 Sodium 133 L Potassium 4.5 D 4.3 Chloride 110 H Carbon Dioxide 15 L BUN 45 H Creatinine 1.10 Glucose 102 Calcium 6.7 L - ABG Interpretation ABG results: PT/INR, D-dimer PT 19.7 Seconds (9.4-12.1) H 08/07/17 20:31 - Attending Attestation I examined this patient and my medical decision-making was reviewed with the Resident Physician on 08/09/17. I agree with the documented findings, disposition and treatment plan as described except to the extent set forth below. Ms. Catalan is currently admitted for staph sepsis in the setting of neutropenia from chemo. She remains high risk due to potential for worsening clinical status from sepsis. Ms Catalan has no appetite. Started on dopamine during the night due to hypotension. Has received a large amount of fluid and is 11 liters positive. Last fever was around 6PM yesterday. BP has improved during the day today but lactate still elevated. She denies new pain or other new symptoms. Exam Alert. Mod distress due to edema, illness Mucus membranes dry Heart reg - not tachy Lungs diminished Abd soft and nontender Edema throughout. I/P 1. Anasarca - hold fluids and use dopamine for hypotension 2. Sepsis/septic shock due to staph - final ID and sens pending. Currently on IV Vanc and Cefipime 3. Neutropenia - improved with neupogen Further diagnoses and plan as aboe.
[2017-08-09] MEDS ORDERED: 0.9 % Sodium Chloride 1,000 ML IVC ONE (10:28)
[2017-08-09 12:50] LABS: VBG Ionized Calcium 1.07 mmol/L (1.15-1.35)
[2017-08-09] MEDS ORDERED: 0.9 % Sodium Chloride 1,000 ML IVC SCH (15:05)
[2017-08-09] MEDS: Potassium Phosphate 44 MEQ in 0.9 % Sodium Chloride 250 ML IVPB PRN (15:44)
[2017-08-09] MEDS: *HR* OxyCODONE Immed Rel 5 MG TABLET PO SCH ×2 (17:36→23:24)
[2017-08-09] MEDS: Vancomycin 1,000 MG in D5% in Water 250 ML IVPB SCH (17:37)
[2017-08-09 21:03] LABS: Adenovirus F 40/41 PCR Not detected (Not detect); Astrovirus PCR Not detected (Not detect); C.difficile Toxin A/B by PCR Not detected (Not detect); Campylobacter by PCR Not detected (Not detect); Cryptosporidium by PCR Not detected (Not detect); Cyclospora cayetanensis PCR Not detected (Not detect); E. coli O157 by PCR Not detected (Not detect); Entamoeba histolytica PCR Not detected (Not detect); Enteroaggregative E.coli(EAEC) Not detected (Not detect); Enteropathogenic E.coli(EPEC) Not detected (Not detect); Enterotoxigenic E.coli (ETEC) Not detected (Not detect); Giardia lamblia PCR Not detected (Not detect); Norovirus GI/GII PCR Not detected (Not detect); Plesiomonas shigelloides PCR Not detected (Not detect); Rotavirus A PCR Not detected (Not detect); Salmonella PCR Not detected (Not detect); Sapovirus PCR Not detected (Not detect); Shig/EnteroinvasiveE coli EIEC Not detected (Not detect); Shigalike tox-prod E coli STEC Not detected (Not detect); Vibrio PCR Not detected (Not detect); Vibrio cholerae PCR Not detected (Not detect); Yersinia enterocolitica PCR Not detected (Not detect)
[2017-08-09 22:11] LABS: VBG Ionized Calcium 1.08 mmol/L (1.15-1.35); VBG PH 7.31 pH Units (7.32-7.42)
[2017-08-09] MEDS ORDERED: Levofloxacin 750 MG/150 ML 750 MG/150 ML BAG IVPB SCH (23:00)
[2017-08-09] MEDS ORDERED: 0.9 % Sodium Chloride 250 ML IVC ONE (23:06)
[2017-08-10 05:05] LABS: VBG Ionized Calcium 1.13 mmol/L (1.15-1.35); VBG PH 7.33 pH Units (7.32-7.42)
[2017-08-10 05:10] LABS: Basophils % 0.2 %; Mean Platelet Volume 13.8 fL (9.4-12.4); Red Cell Distribution Width 13.2 % (11.5-14.5)
[2017-08-10 05:12] LABS: Basophils # 0.1 K/mcL (0.0-0.2); Eosinophils # 0.2 K/mcL (0.0-0.6); Eosinophils % 0.7 %; Hematocrit 33.7 % (35.3-44.9); Hemoglobin 11.4 g/dL (11.5-15.4); Immature Granulocytes % 18.9 % (0-4); Immature Platelets 21.1 % (1.1-6.1); Lymphocytes # 4.1 K/mcL (0.6-4.6); Mean Corpuscular HGB Conc 33.8 g/dL (31.6-35.5); Mean Corpuscular Hemoglobin 30.2 pg (28.0-33.3); Mean Corpuscular Volume 89.4 fL (83.0-100.0); Monocytes # 1.7 K/mcL (0.0-1.3); Monocytes % 7.2 %; Neutrophils # 12.6 K/mcL (1.6-8.9); Red Blood Count 3.77 M/mcL (3.82-4.97)
[2017-08-10 05:15] LABS: BUN/Creatinine Ratio 58 (6-26); Blood Urea Nitrogen 52 mg/dL (8-23); Calcium 7.4 mg/dL (8.6-10.3); Carbon Dioxide 13 mEq/L (23-29); Chloride 110 mEq/L (98-107); Glucose 159 mg/dL (70-105); Magnesium 2.1 mg/dL (1.6-2.6); Osmolality,Calculated 293 (280-300); Potassium 4.5 mEq/L (3.5-5.1); Sodium 133 mEq/L (136-145); eGFR For African Americans > 60 (> 60); eGFR For Non-African Americans > 60 (> 60)
[2017-08-10 05:39] LABS: Platelet Count 67 K/mcL (140-400)
[2017-08-10 05:40] LABS: Anisocytosis 1+ (Not Present); Platelet Estimate Decreased (Normal); Poikilocytosis 1+ (Not Present)
[2017-08-10] MEDS: *HR* Heparin 5,000 UNIT/ML VIAL SQ SCH ×2 (06:01→17:43)
[2017-08-10] MEDS ORDERED: Furosemide 20 MG/2 ML VIAL IVP ONE ×3 (07:58→18:55)
[2017-08-10] MEDS: Budesonide/Formoterol 80/4.5 MDI IH SCH ×2 (08:11→21:51)
[2017-08-10] MEDS: Cefepime HCl 2,000 MG in Water for inj. (sterile) 20 ML IVP SCH (08:24)
[2017-08-10] MEDS: Fluticasone Propionate Nasal 50 MCG/SPRAY BOTTLE NS SCH (08:25)
[2017-08-10] MEDS: Aspirin Enteric Coated 81 MG Tablet PO SCH (08:25)
[2017-08-10] MEDS: *HR* OxyCODONE Immed Rel 5 MG TABLET PO SCH ×2 (08:25→15:56)
[2017-08-10] MEDS: Insulin LISPRO 300 UNITS/3 ML VIAL SQ SCH ×3 (08:30→17:45)
[2017-08-10 10:11] LABS: Acinetobacter baumannii by PCR Not Detected (Not Detect); Candida albicans by PCR Not Detected (Not Detect); Candida glabrata by PCR Not Detected (Not Detect); Candida krusei by PCR Not Detected (Not Detect); Candida parapsilosis by PCR Not Detected (Not Detect); Candida tropicalis by PCR Not Detected (Not Detect); Enterococcus by PCR Not Detected (Not Detect); Escherichia coli by PCR Not Detected (Not Detect); Klebsiella oxytoca by PCR Not Detected (Not Detect); Klebsiella pneumoniae by PCR Not Detected (Not Detect); Pseudomonas aeruginosa by PCR Not Detected (Not Detect); Serratia marcescens by PCR Not Detected (Not Detect); Streptococcus agalactiae(B)PCR Not Detected (Not Detect); Streptococcus by PCR Not Detected (Not Detect); Streptococcus pneumoniae PCR Not Detected (Not Detect); Streptococcus pyogenes (A) PCR Not Detected (Not Detect); mecA Methicillin-Resist Gene Not Detected (Not Detect)
[2017-08-10 10:12] LABS: Staphylococcus aureus by PCR ***DETECTED*** (Not Detect)
--- NOTE | 2017-08-10 11:54 | Oncology Inp Progress Note ---
Date of Encounter: 08/10/17 Time of Encounter: 10:00 (1) Metastatic adenocarcinoma Current Visit: Yes Status: Acute Assessment and plan: Possible breast primary, ER/AR negative HER-2/casa negative, patient has started. Chemotherapy with Taxol 2 weekly doses completed, borderline neutropenia with last chemotherapy, hospitalized with symptoms of sepsis, blood culture is positive for gram-positive cocci on vancomycin and broad-spectrum coverage Rpt cx positive for Gram positive cocci---consider port removal Ct abd neg for ac findings. Delay chemotherapy Neutropenia, resolved, neupogen d/prasanna Continue abx, supportive care Patient seen bedside with family Oncology: Subj Interval history: PAtient reports feeling somewhat better. Able to sit up, drink milk/ensure - Constitutional Vitals: Vital Signs Temp Pulse Resp BP Pulse Ox 08/10/17 11:24 98.2 F 104 17 125/63 94 08/10/17 10:00 107 128/67 94 08/10/17 09:00 107 132/64 08/10/17 08:11 16 94 08/10/17 08:00 98.3 F 106 24 124/58 94 08/10/17 07:27 101 122/65 95 08/10/17 06:00 99 20 116/54 94 08/10/17 05:00 98 20 125/56 96 08/10/17 04:28 98.9 F 08/10/17 04:06 97.5 F L 108 21 155/69 94 08/10/17 03:00 103 20 115/52 08/10/17 02:00 98 20 122/54 93 08/10/17 01:00 92 22 114/54 94 08/09/17 23:22 98.2 F 132 20 115/54 94 08/09/17 23:00 107 20 115/54 94 08/09/17 22:38 20 95 08/09/17 22:00 96 20 110/45 92 08/09/17 21:00 92 20 98/39 94 08/09/17 20:20 98 20 111/59 96 08/09/17 20:15 99 20 130/70 94 08/09/17 20:10 102 20 137/88 93 08/09/17 19:34 97.9 F 100 18 107/55 94 08/09/17 18:30 98 118/71 08/09/17 17:20 93 100/45 94 08/09/17 16:20 88 113/56 08/09/17 16:00 97 131/47 08/09/17 15:35 98.9 F 94 20 126/65 92 08/09/17 13:23 111/64 08/09/17 12:50 89 112/60 08/09/17 12:10 98.2 F 93 18 98/67 93 Intake and Output 08/09/17 08/10/17 08/10/17 23:59 07:59 15:59 Intake Total 1720 / 1720 660 / 660 260 / 260 Output Total 500 / 500 850 / 850 175 / 175 Balance 1220 / 1220 -190 / -190 85 / 85 Intake: IV Fluids 1380 / 1380 360 / 360 20 / 20 0.9 % Sodium Chloride 1,000 ML 500 / 500 @ 250 mls/hr IVC .Q4H [facility] Rx#: [id number] 0.9 % Sodium Chloride 250 ML @ 250 / 250 500 mls/hr IVC .Q30M [facility] Rx#: [id number] DOPamine Premix 400mg/250mL 400 260 / 260 mg In 250 ml @ 2.5 MCG/KG/MIN 6.769 mls/hr IVC .Q24H [facility] Rx#: [id number] Maxipime 2,000 MG In Water for 20 / 20 inj. (sterile) 20 ML @ 300 mls/ hr IVP Q24H [facility] Rx#:[id number] Calcium Gluconate 1,000 MG In 0 110 / 110 110 / 110 .9 % Sodium Chloride 100 ML @ 203.494 mls/hr IVPB Q6HR [facility] Rx #:[id number] Potassium Phosphate 44 MEQ In 0 260 / 260 .9 % Sodium Chloride 250 ML @ 40 mls/hr IVPB Q10H [facility]N Rx#: [id number] Vancocin 1,000 MG In Dextrose 5 250 / 250 % 250 ML @ 166.667 mls/hr IVPB Q24H [facility] Rx#:[id number] Oral 340 / 340 300 / 300 240 / 240 Output: Urine 150 / 150 500 / 500 Catheter 350 / 350 350 / 350 175 / 175 Other: Meal Dinner Breakfast Percent of Meal Consumed 100% 100% Stool Size Smear Stool Consistency liquid Stool Color Brown Weight 86.3 kg Blood Glucose* 135 171 Patient Weight 08/10/17 23:59 Weight 86.3 kg General appearance: average body habitus - Head Head exam: Present: atraumatic, normal inspection - Eye Eye exam: Present: sclera anicteric - Respiratory Respiratory exam: Present: CTAB - Cardiovascular Cardiovascular exam: Present: +S1, +S2 - GI/Abdominal GI/Abdominal exam: Present: normal bowel sounds, soft - Extremities Exam Extremities exam: Present: pedal edema Oncology: Obj Data - Labs CBC & Chem 7: 08/10/17 04:35 08/10/17 04:35 Labs: Laboratory Results - last 24 hr 08/09/17 08/09/17 08/09/17 12:21 12:30 12:47 WBC RBC Hgb Hct MCV MCH MCHC RDW Plt Count MPV Immature Gran % Seg Neutrophils % Lymphocytes % Monocytes % Eosinophils % Basophils % Neutrophils # Lymphocytes # Monocytes # Eosinophils # Basophils # Nucleated RBCs/100 WBC Platelet Estimate Immature Plt Fraction Poikilocytosis Anisocytosis VBG pH Sodium Potassium Chloride Carbon Dioxide BUN Creatinine Est GFR ( Amer) Est GFR (Non-Af Amer) BUN/Creatinine Ratio Glucose POC Glucose 103 H Calculated Osmolality Lactic Acid 4.0 H* Calcium Venous Ioniz Calcium 1.07 L Phosphorus Magnesium Troponin I Stl C. cayetanensis PCR Stool Rotavirus A PCR Stl Adenov F 40/41 PCR Stool Astrovirus (PCR) Stool Campylobacter PCR Stl C. diff Tox A/B PCR Stool Cryptosporidium PCR Stl Sh Tox Pr E STEC PCR Stool E coli O157 PCR Stl Enterotoxigenic E PCR Stool EPEC (PCR) Stool EAEC (PCR) Stl E. histolytica PCR Stool Giardia Lamblia PCR Stool Salmonella PCR Stool Sapovirus (PCR) Stl P. shigelloides PCR Stl Shigella/EIEC PCR St Y.enterocolitica PCR Stool Vibrio (PCR) Stl Vibrio cholerae PCR Stl Norovirus GI/GII PCR Stl GI Panel (PCR) Com A. baumannii (PCR) Emeli albicans (PCR) C. glabrata (PCR) C. krusei (PCR) C. parapsilosis (PCR) C. tropicalis (PCR) Enterobacteriac sp PCR E. cloacae complex PCR Enterococcus sp PCR E. coli (PCR) H. influenzae (PCR) Klebsiella oxytoca PCR Klebsiella pneumoniae List. monocytogenes PCR N. meningitidis (PCR) Proteus species (PCR) Serratia marcescens PCR Staphylococcus sp PCR Staph aureus (PCR) mecA-Methicil Res Gene Streptococcus sp PCR Group A Strep DNA Group B Strep (PCR) Strep pneumoniae (PCR) P. aeruginosa (PCR) Riley/B-Vanco Res Genes KPC (blaKPC) Detect PCR 08/09/17 08/09/17 08/09/17 14:08 17:00 17:35 WBC RBC Hgb Hct MCV MCH MCHC RDW Plt Count MPV Immature Gran % Seg Neutrophils % Lymphocytes % Monocytes % Eosinophils % Basophils % Neutrophils # Lymphocytes # Monocytes # Eosinophils # Basophils # Nucleated RBCs/100 WBC Platelet Estimate Immature Plt Fraction Poikilocytosis Anisocytosis VBG pH Sodium Potassium Chloride Carbon Dioxide BUN Creatinine Est GFR ( Amer) Est GFR (Non-Af Amer) BUN/Creatinine Ratio Glucose POC Glucose 89 Calculated Osmolality Lactic Acid Calcium Venous Ioniz Calcium Phosphorus Magnesium Troponin I Stl C. cayetanensis PCR Not detected Stool Rotavirus A PCR Not detected Stl Adenov F 40/41 PCR Not detected Stool Astrovirus (PCR) Not detected Stool Campylobacter PCR Not detected Stl C. diff Tox A/B PCR Not detected Stool Cryptosporidium PCR Not detected Stl Sh Tox Pr E STEC PCR Not detected Stool E coli O157 PCR Not detected Stl Enterotoxigenic E PCR Not detected Stool EPEC (PCR) Not detected Stool EAEC (PCR) Not detected Stl E. histolytica PCR Not detected Stool Giardia Lamblia PCR Not detected Stool Salmonella PCR Not detected Stool Sapovirus (PCR) Not detected Stl P. shigelloides PCR Not detected Stl Shigella/EIEC PCR Not detected St Y.enterocolitica PCR Not detected Stool Vibrio (PCR) Not detected Stl Vibrio cholerae PCR Not detected Stl Norovirus GI/GII PCR Not detected Stl GI Panel (PCR) Com See below A. baumannii (PCR) Not Detected Emeli albicans (PCR) Not Detected C. glabrata (PCR) Not Detected C. krusei (PCR) Not Detected C. parapsilosis (PCR) Not Detected C. tropicalis (PCR) Not Detected Enterobacteriac sp PCR Not Detected E. cloacae complex PCR Not Detected Enterococcus sp PCR Not Detected E. coli (PCR) Not Detected H. influenzae (PCR) Not Detected Klebsiella oxytoca PCR Not Detected Klebsiella pneumoniae Not Detected List. monocytogenes PCR Not Detected N. meningitidis (PCR) Not Detected Proteus species (PCR) Not Detected Serratia marcescens PCR Not Detected Staphylococcus sp PCR DETECTED A Staph aureus (PCR) DETECTED A mecA-Methicil Res Gene Not Detected Streptococcus sp PCR Not Detected Group A Strep DNA Not Detected Group B Strep (PCR) Not Detected Strep pneumoniae (PCR) Not Detected P. aeruginosa (PCR) Not Detected Riley/B-Vanco Res Genes N/A KPC (blaKPC) Detect PCR N/A 08/09/17 08/09/17 08/09/17 17:50 19:30 21:50 WBC RBC Hgb Hct MCV MCH MCHC RDW Plt Count MPV Immature Gran % Seg Neutrophils % Lymphocytes % Monocytes % Eosinophils % Basophils % Neutrophils # Lymphocytes # Monocytes # Eosinophils # Basophils # Nucleated RBCs/100 WBC Platelet Estimate Immature Plt Fraction Poikilocytosis Anisocytosis VBG pH Sodium Potassium Chloride Carbon Dioxide BUN Creatinine Est GFR ( Amer) Est GFR (Non-Af Amer) BUN/Creatinine Ratio Glucose POC Glucose 135 H Calculated Osmolality Lactic Acid 4.8 H* 5.3 H* Calcium Venous Ioniz Calcium Phosphorus Magnesium Troponin I Stl C. cayetanensis PCR Stool Rotavirus A PCR Stl Adenov F 40/41 PCR Stool Astrovirus (PCR) Stool Campylobacter PCR Stl C. diff Tox A/B PCR Stool Cryptosporidium PCR Stl Sh Tox Pr E STEC PCR Stool E coli O157 PCR Stl Enterotoxigenic E PCR Stool EPEC (PCR) Stool EAEC (PCR) Stl E. histolytica PCR Stool Giardia Lamblia PCR Stool Salmonella PCR Stool Sapovirus (PCR) Stl P. shigelloides PCR Stl Shigella/EIEC PCR St Y.enterocolitica PCR Stool Vibrio (PCR) Stl Vibrio cholerae PCR Stl Norovirus GI/GII PCR Stl GI Panel (PCR) Com A. baumannii (PCR) Emeli albicans (PCR) C. glabrata (PCR) C. krusei (PCR) C. parapsilosis (PCR) C. tropicalis (PCR) Enterobacteriac sp PCR E. cloacae complex PCR Enterococcus sp PCR E. coli (PCR) H. influenzae (PCR) Klebsiella oxytoca PCR Klebsiella pneumoniae List. monocytogenes PCR N. meningitidis (PCR) Proteus species (PCR) Serratia marcescens PCR Staphylococcus sp PCR Staph aureus (PCR) mecA-Methicil Res Gene Streptococcus sp PCR Group A Strep DNA Group B Strep (PCR) Strep pneumoniae (PCR) P. aeruginosa (PCR) Riley/B-Vanco Res Genes KPC (blaKPC) Detect PCR 08/09/17 08/10/17 08/10/17 22:09 04:35 04:35 WBC 22.9 H D RBC 3.77 L Hgb 11.4 L Hct 33.7 L MCV 89.4 MCH 30.2 MCHC 33.8 RDW 13.2 Plt Count 67 L MPV 13.8 H Immature Gran % 18.9 H Seg Neutrophils % 55.0 Lymphocytes % 18.0 Monocytes % 7.2 Eosinophils % 0.7 Basophils % 0.2 Neutrophils # 12.6 H Lymphocytes # 4.1 Monocytes # 1.7 H Eosinophils # 0.2 Basophils # 0.1 Nucleated RBCs/100 WBC 4.0 H Platelet Estimate Decreased L Immature Plt Fraction 21.1 H Poikilocytosis 1+ A Anisocytosis 1+ A VBG pH 7.31 L Sodium 133 L Potassium 4.5 Chloride 110 H Carbon Dioxide 13 L BUN 52 H Creatinine 0.89 Est GFR ( Amer) > 60 Est GFR (Non-Af Amer) > 60 BUN/Creatinine Ratio 58 H Glucose 159 H POC Glucose Calculated Osmolality 293 Lactic Acid Calcium 7.4 L Venous Ioniz Calcium 1.08 L Phosphorus 3.0 Magnesium 2.1 Troponin I Stl C. cayetanensis PCR Stool Rotavirus A PCR Stl Adenov F 40/41 PCR Stool Astrovirus (PCR) Stool Campylobacter PCR Stl C. diff Tox A/B PCR Stool Cryptosporidium PCR Stl Sh Tox Pr E STEC PCR Stool E coli O157 PCR Stl Enterotoxigenic E PCR Stool EPEC (PCR) Stool EAEC (PCR) Stl E. histolytica PCR Stool Giardia Lamblia PCR Stool Salmonella PCR Stool Sapovirus (PCR) Stl P. shigelloides PCR Stl Shigella/EIEC PCR St Y.enterocolitica PCR Stool Vibrio (PCR) Stl Vibrio cholerae PCR Stl Norovirus GI/GII PCR Stl GI Panel (PCR) Com A. baumannii (PCR) Emeli albicans (PCR) C. glabrata (PCR) C. krusei (PCR) C. parapsilosis (PCR) C. tropicalis (PCR) Enterobacteriac sp PCR E. cloacae complex PCR Enterococcus sp PCR E. coli (PCR) H. influenzae (PCR) Klebsiella oxytoca PCR Klebsiella pneumoniae List. monocytogenes PCR N. meningitidis (PCR) Proteus species (PCR) Serratia marcescens PCR Staphylococcus sp PCR Staph aureus (PCR) mecA-Methicil Res Gene Streptococcus sp PCR Group A Strep DNA Group B Strep (PCR) Strep pneumoniae (PCR) P. aeruginosa (PCR) Riley/B-Vanco Res Genes KPC (blaKPC) Detect PCR 08/10/17 08/10/17 08/10/17 04:35 05:00 08:23 WBC RBC Hgb Hct MCV MCH MCHC RDW Plt Count MPV Immature Gran % Seg Neutrophils % Lymphocytes % Monocytes % Eosinophils % Basophils % Neutrophils # Lymphocytes # Monocytes # Eosinophils # Basophils # Nucleated RBCs/100 WBC Platelet Estimate Immature Plt Fraction Poikilocytosis Anisocytosis VBG pH 7.33 Sodium Potassium Chloride Carbon Dioxide BUN Creatinine Est GFR ( Amer) Est GFR (Non-Af Amer) BUN/Creatinine Ratio Glucose POC Glucose 148 H Calculated Osmolality Lactic Acid 4.7 H* Calcium Venous Ioniz Calcium 1.13 L Phosphorus Magnesium Troponin I Stl C. cayetanensis PCR Stool Rotavirus A PCR Stl Adenov F 40/41 PCR Stool Astrovirus (PCR) Stool Campylobacter PCR Stl C. diff Tox A/B PCR Stool Cryptosporidium PCR Stl Sh Tox Pr E STEC PCR Stool E coli O157 PCR Stl Enterotoxigenic E PCR Stool EPEC (PCR) Stool EAEC (PCR) Stl E. histolytica PCR Stool Giardia Lamblia PCR Stool Salmonella PCR Stool Sapovirus (PCR) Stl P. shigelloides PCR Stl Shigella/EIEC PCR St Y.enterocolitica PCR Stool Vibrio (PCR) Stl Vibrio cholerae PCR Stl Norovirus GI/GII PCR Stl GI Panel (PCR) Com A. baumannii (PCR) Emeli albicans (PCR) C. glabrata (PCR) C. krusei (PCR) C. parapsilosis (PCR) C. tropicalis (PCR) Enterobacteriac sp PCR E. cloacae complex PCR Enterococcus sp PCR E. coli (PCR) H. influenzae (PCR) Klebsiella oxytoca PCR Klebsiella pneumoniae List. monocytogenes PCR N. meningitidis (PCR) Proteus species (PCR) Serratia marcescens PCR Staphylococcus sp PCR Staph aureus (PCR) mecA-Methicil Res Gene Streptococcus sp PCR Group A Strep DNA Group B Strep (PCR) Strep pneumoniae (PCR) P. aeruginosa (PCR) Riley/B-Vanco Res Genes KPC (blaKPC) Detect PCR 08/10/17 08/10/17 08:40 08:40 WBC RBC Hgb Hct MCV MCH MCHC RDW Plt Count MPV Immature Gran % Seg Neutrophils % Lymphocytes % Monocytes % Eosinophils % Basophils % Neutrophils # Lymphocytes # Monocytes # Eosinophils # Basophils # Nucleated RBCs/100 WBC Platelet Estimate Immature Plt Fraction Poikilocytosis Anisocytosis VBG pH Sodium Potassium Chloride Carbon Dioxide BUN Creatinine Est GFR ( Amer) Est GFR (Non-Af Amer) BUN/Creatinine Ratio Glucose POC Glucose Calculated Osmolality Lactic Acid 4.5 H* Calcium Venous Ioniz Calcium Phosphorus Magnesium Troponin I 0.33 H* Stl C. cayetanensis PCR Stool Rotavirus A PCR Stl Adenov F PCR Stool Astrovirus (PCR) Stool Campylobacter PCR Stl C. diff Tox A/B PCR Stool Cryptosporidium PCR Stl Sh Tox Pr E STEC PCR Stool E coli O157 PCR Stl Enterotoxigenic E PCR Stool EPEC (PCR) Stool EAEC (PCR) Stl E. histolytica PCR Stool Giardia Lamblia PCR Stool Salmonella PCR Stool Sapovirus (PCR) Stl P. shigelloides PCR Stl Shigella/EIEC PCR St Y.enterocolitica PCR Stool Vibrio (PCR) Stl Vibrio cholerae PCR Stl Norovirus GI/GII PCR Stl GI Panel (PCR) Com A. baumannii (PCR) Emeli albicans (PCR) C. glabrata (PCR) C. krusei (PCR) C. parapsilosis (PCR) C. tropicalis (PCR) Enterobacteriac sp PCR E. cloacae complex PCR Enterococcus sp PCR E. coli (PCR) H. influenzae (PCR) Klebsiella oxytoca PCR Klebsiella pneumoniae List. monocytogenes PCR N. meningitidis (PCR) Proteus species (PCR) Serratia marcescens PCR Staphylococcus sp PCR Staph aureus (PCR) mecA-Methicil Res Gene Streptococcus sp PCR Group A Strep DNA Group B Strep (PCR) Strep pneumoniae (PCR) P. aeruginosa (PCR) Riley/B-Vanco Res Genes KPC (blaKPC) Detect PCR - ABG Interpretation ABG results: PT/INR, D-dimer PT 19.7 Seconds (9.4-12.1) H 08/07/17 20:31 Consult Discharge Plan - Plan Referrals: Nazia Deleon CNP [Primary Care Provider] -
--- NOTE | 2017-08-10 13:22 | Internal Med Progress Note ---
<Cathy Davis - Last Filed: 08/10/17 13:38> Date of Encounter: 08/10/17 Time of Encounter: 13:20 - Assessment and plan (1) Severe sepsis Current Visit: Yes Status: Acute Assessment and plan: Due to staph aureus bacteremia No fevers in the past 24 hours Repeat blood cultures positive for staph aureus. Cefepime and vancomycin discontinued; nafcillin started. Blood culture drawn from port system. Continue trending lactic acid: Did not decrease from yesterday morning to this morning; however, has decreased from midnight through this morning currently on dopamine 5 g for hypotension Possible cardiogenic shock Echocardiogram report pending (2) Hypotension Current Visit: Yes Status: Acute Assessment and plan: Currently requiring 5 g of dopamine to maintain blood pressure Possible cardiogenic shock Echocardiogram report pending Dobutamine may be a better medication than dopamine if EF is low Qualifiers: Hypotension type: other hypotension type Qualified Code(s): I95.89 - Other hypotension (3) Lactic acidosis Current Visit: Yes Status: Acute Assessment and plan: Currently still trending lactic acid Possibly increased due to cardiogenic shock Echocardiogram report pending (4) TYRONE (acute kidney injury) Current Visit: Yes Status: Acute Assessment and plan: Kidney function is normal today; however, she is oliguric Currently hypotensive and requiring dopamine. Continue to monitor (5) Nausea Current Visit: Yes Status: Acute Assessment and plan: possibly chemotherapy related Zofran 4 mg IV q6h PRN (6) Emesis Current Visit: Yes Status: Acute Assessment and plan: Possibly chemotherapy related Continue to control nausea Replace electrolytes as needed Qualifiers: Vomiting type: unspecified Vomiting Intractability: non-intractable Nausea presence: with nausea Qualified Code(s): R11.2 - Nausea with vomiting, unspecified (7) Diarrhea Current Visit: Yes Status: Acute Assessment and plan: possibly chemotherapy related GI panel negative replace electrolytes as needed Qualifiers: Diarrhea type: unspecified type Qualified Code(s): R19.7 - Diarrhea, unspecified (8) Leukopenia Current Visit: Yes Status: Resolved Assessment and plan: resolved with neupogen (has been discontinued) Qualifiers: Leukopenia type: unspecified Qualified Code(s): D72.819 - Decreased white blood cell count, unspecified (9) Hypocalcemia Current Visit: Yes Status: Acute Assessment and plan: Replete as needed with electrolyte protocol Continue to monitor (10) Hypokalemia Current Visit: Yes Status: Resolved Assessment and plan: Resolved Replete as needed with Electrolyte protocol Continue to monitor (11) Hypomagnesemia Current Visit: Yes Status: Acute Assessment and plan: Resolved Continue to monitor Replete as needed with Electrolyte protocol (12) Essential hypertension Current Visit: Yes Status: Chronic Assessment and plan: Currently on dopamine for hypotension Hold home antihypertensives (13) Diabetes mellitus Current Visit: No Status: Chronic Assessment and plan: A1C 8.4 ADA diet Accu-Cheks and sliding scale Qualifiers: Diabetes mellitus type: type 2 Diabetes mellitus complication status: with unspecified complications Diabetes mellitus usp insulin use: with usp use Qualified Code(s): E11.8 - Type 2 diabetes mellitus with unspecified complications; Z79.4 - custodial (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 of insulin; Z79.4 - custodial ( 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 of insulin; Z79.4 - terminal operations supervisor (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 of insulin; Z79.4 - terminal operations supervisor (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 of insulin (14) GERD (gastroesophageal reflux disease) Current Visit: No Status: Chronic Assessment and plan: Chronic Continue omeprazole Qualifiers: Esophagitis presence: esophagitis presence not specified Qualified Code(s) : K21.9 - Gastro-esophageal reflux disease without esophagitis (15) Bone metastases Current Visit: Yes Status: Acute Assessment and plan: Oncology consult; appreciate recommendations Palliative consult; appreciate recommendations - Subjective Interval history: Patient with increased edema. She continues to feel extremely weak. She has been able to drink milk, has not eaten. - Constitutional Vitals: Temp Pulse Resp BP Pulse Ox 98.2 F 109 17 125/63 94 08/10/17 11:24 08/10/17 11:30 08/10/17 11:24 08/10/17 11:30 08/10/17 11:30 General appearance: Present: mild distress, A&O X 3, answers questions appropriately - Head Head exam: Present: atraumatic, normocephalic - Eye Eye exam: Present: PERRL, conjuntiva pink, sclera anicteric Pupils: Present: PERRL - Neck Neck exam general surgery: Present: supple, trachea midline - Respiratory Respiratory exam: Present: CTAB - Cardiovascular Cardiovascular exam: Present: RRR, +S1, +S2. Absent: diastolic murmur, gallop, rubs, systolic murmur - GI/Abdominal GI/Abdominal exam: Present: normal bowel sounds, soft, tenderness, no peritoneal signs. Absent: distended - Extremities Exam Extremities exam: Present: warm Additional comments: 3+ pitting edema of bilateral hands and arms; trace to 1+ pitting edema of bilateral lower extremities; posterior tibial pulses palpable and symmetric - Neurological Exam Neurological exam: Present: alert, oriented X3. Absent: facial droop, speech deficit - Skin Skin exam: Present: dry Internal Medicine: Result - Labs CBC & Chem 7: 08/10/17 04:35 08/10/17 04:35 Labs: Short CBC 08/10/17 Range/Units 04:35 WBC 22.9 H D (4.3-11.1) K/mcL Hgb 11.4 L (11.5-15.4) g/dL Hct 33.7 L (35.3-44.9) % Plt Count 67 L (140-400) K/mcL Neutrophils # 12.6 H (1.6-8.9) K/mcL BMP 08/10/17 04:35 Sodium 133 L Potassium 4.5 Chloride 110 H Carbon Dioxide 13 L BUN 52 H Creatinine 0.89 Glucose 159 H Calcium 7.4 L Cardiac Enzymes 08/10/17 Range/Units 08:40 Troponin I 0.33 H* (< 0.04) ng/mL - ABG Interpretation ABG results: PT/INR, D-dimer PT 19.7 Seconds (9.4-12.1) H 08/07/17 20:31 Consult Discharge Plan - Plan Referrals: Nazia Deleon NICKING MACHINE OPERATOR [Primary Care Provider] - <Tobias Mcgowan - Last Filed: 08/10/17 19:15> Date of Encounter: 08/10/17 - Assessment and plan (1) Staphylococcus aureus bacteremia with sepsis Current Visit: Yes Status: Acute (2) Severe sepsis Current Visit: Yes Status: Acute (3) Hypocalcemia Current Visit: Yes Status: Acute (4) Hypokalemia Current Visit: Yes Status: Resolved (5) Hypomagnesemia Current Visit: Yes Status: Acute (6) Lactic acidosis Current Visit: Yes Status: Acute (7) Essential hypertension Current Visit: Yes Status: Chronic (8) Diabetes mellitus Current Visit: No Status: Chronic Qualifiers: Diabetes mellitus type: type 2 Diabetes mellitus complication status: with unspecified complications Diabetes mellitus usp insulin use: with usp use Qualified Code(s): E11.8 - Type 2 diabetes mellitus with unspecified complications; Z79.4 - terminal operations supervisor (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 of insulin; Z79.4 - custodial ( 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 of insulin; Z79.4 - custodial (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 of insulin; Z79.4 - terminal operations supervisor (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 of insulin (9) Carcinoma of breast metastatic to bone Current Visit: Yes Status: Chronic Qualifiers: Laterality: unspecified laterality Qualified Code(s): C50.919 - Malignant neoplasm of unspecified site of unspecified female breast; C79.51 - Secondary malignant neoplasm of bone; C79.51 - Secondary malignant neoplasm of bone; C79.51 - Secondary malignant neoplasm of bone; C79.51 - Secondary malignant neoplasm of bone - Constitutional Vitals: Temp Pulse Resp BP Pulse Ox 98.6 F 107 19 149/75 95 08/10/17 16:38 08/10/17 16:38 08/10/17 16:38 08/10/17 16:38 08/10/17 16:38 Internal Medicine: Result - Labs CBC & Chem 7: 08/10/17 04:35 08/10/17 04:35 Labs: Short CBC 08/10/17 Range/Units 04:35 WBC 22.9 H D (4.3-11.1) K/mcL Hgb 11.4 L (11.5-15.4) g/dL Hct 33.7 L (35.3-44.9) % Plt Count 67 L (140-400) K/mcL Neutrophils # 12.6 H (1.6-8.9) K/mcL BMP 08/10/17 04:35 Sodium 133 L Potassium 4.5 Chloride 110 H Carbon Dioxide 13 L BUN 52 H Creatinine 0.89 Glucose 159 H Calcium 7.4 L Cardiac Enzymes 08/10/17 Range/Units 08:40 Troponin I 0.33 H* (< 0.04) ng/mL Liver Function 08/10/17 Range/Units 16:20 Total Bilirubin 2.1 H (0.3-1.0) mg/dL Direct Bilirubin 1.3 H (0.0-0.2) mg/dL AST 64 H (13-39) Units/L ALT 45 (7-52) Units/L Alkaline Phosphatase 129 H (34-104) Units/L Albumin 2.3 L (3.5-5.7) g/dL - ABG Interpretation ABG results: PT/INR, D-dimer PT 19.7 Seconds (9.4-12.1) H 08/07/17 20:31 - Attending Attestation I examined this patient and my medical decision-making was reviewed with the Resident Physician on 08/10/17. I agree with the documented findings, disposition and treatment plan as described except to the extent set forth below. Ms Catalan is currently admitted for MSSA sepsis. She remains high risk due to potential for worsening clinical status. Ms Catalan does not feel well. She has no fever but hurts all over. Lactate remains elevated. BP better and weaning off dopamine. Has blisters from fluid. Blood cx from yesterday are positive Exam Alert. Mod distress Mucus membranes dry Heart reg Lungs diminished Abd soft Edema present I/P 1. MSSA sepsis 2. Breast cancer Further diagnoses and plan as above.
[2017-08-10] MEDS: Nafcillin 2,000 MG in D5% in Water 100 ML IVPB SCH ×3 (15:50→20:09)
--- NOTE | 2017-08-10 16:11 | General Surgery Consult Note ---
<Leydi Marques - Last Filed: 08/10/17 18:11> Date of Encounter: 08/10/17 Time of Encounter: 16:09 Assessment and Plan (1) Severe sepsis Current Visit: Yes Status: Acute Severe sepsis d/t Staph aureus bacteremia Over last 24 hours, temp has ranged from 101.2 to 97 Lactic acidosis trending down; 4.1 most recently Receiving nafcillin, previously on cefepime and vancomycin during this admission BP's have been low, requiring IVF boluses and dopamine infusion Since admission net I's and O's are +13 L Plan: - Chemo port is suspected source of infection given patient's workup and treatment thus far - Anticipate removal of port tonight History of Present Illness Consult date: 08/10/17 Reason for consult: other (possible infected chemo port) Requesting physician: Tobias Mcgowan History of present illness: Ms. Catalan is a 72 year-old WF with h/o breast cancer with mets to bone admitted with severe sepsis and hypotension. Rt sided chemo port placed 4 weeks ago, reported 2 weeks of N/V and diarrhea. Followed by oncology, began chemotherapy 2 weeks ago with Paclitaxel. Chemo port is suspected as site of inspection, consulted for possible removal. Past Med Surg Social Fam HX - Past Medical History Medical history: asthma, diabetes, GERD, hyperlipidemia, hypertension, renal disease Psychiatric history: no psych history - Past Surgical History Surgical History: , cataract, cholecystectomy, JOAO/BSO, other - Social History Smoking Status: Never smoker Smokeless Tobacco Status: No Alcohol use: none Drug use: none - Family History Mother Hx Family Cancer: Yes (Brain cancer) Hx Family Endocrine Disorder: Yes (DM) Medications and Allergies Albuterol Sulfate [Proventil Hfa] 1 puff IH QID PRN 06/20/15 [History] Aspirin Enteric Coated [Aspirin EC] 81 mg PO DAILY 06/20/15 [History] Fluticasone Propionate Nasal [Flonase] 1 spray NS DAILY 06/20/15 [History] Fluticasone/Salmeterol [Advair 100-50 Diskus] 1 each IH BID 06/20/15 [History] Glimepiride [Amaryl] 4 mg PO DAILY 06/20/15 [History] Insulin NPH Hum/Reg Insulin Hm [Novolin 70-30 100 Unit/ml Vial] 30 unit SQ BID 06/20/15 [History] Omeprazole [PriLOSEC] 40 mg PO DAILY 06/20/15 [History] Pravastatin Sodium [Pravachol] 20 mg PO HS 06/20/15 [History] Saxagliptin HCl [Onglyza] 5 mg PO DAILY 06/20/15 [History] Triamterene/HCTZ 75/50mg [Maxzide] 1 each PO DAILY 06/20/15 [History] Ondansetron HCl [Zofran] 4 mg PO Q8H PRN #60 tablet 07/08/17 [Rx] OxyCODONE Immed Rel [Roxicodone 15 MG] 15 mg PO BID #60 tablet 07/08/17 [Rx] Prochlorperazine Maleate [Compazine] 10 mg PO Q8HR PRN #60 tablet 07/08/17 [Rx] Calcium Carbonate/Vitamin D3 [Calcium 600 + Vit D Tablet] 2 each PO DAILY #60 tablet 07/31/17 [Rx] Docusate Sodium [Stool Softener] 100 mg PO DAILY PRN 07/31/17 [History] Lidocaine/Prilocaine [Emla] 1 appl TP AD #30 gm 07/31/17 [Rx] Lisinopril [Zestril] 40 mg PO DAILY 08/07/17 [History] Metoprolol Succinate 200 mg PO DAILY 08/07/17 [History] 3 Allergy/AdvReac Type Severity Reaction Status Date / Time nifedipine [From Procardia] Allergy Rash Verified 08/07/17 21:15 glipizide AdvReac Vomiting Verified 06/16/17 10:03 metoprolol [From Lopressor] AdvReac Nightmare Verified 08/07/17 21:15 Review of Systems All systems PM: A 10-system review of systems was performed and is negative for pertinent findings except as documented above in the HPI. - Constitutional anorexia, fatigue, fever(s) - Gastrointestinal other (small amounts flatus, small bowel movement) General Surgery Exam Initial Vital Signs Temp Pulse Resp BP Pulse Ox 99.3 F 147 16 102/85 100 08/07/17 20:10 08/07/17 20:10 08/07/17 20:10 08/07/17 20:10 08/07/17 20:10 - General physical appearance moderate distress, other (anasarca) - Eyes normal ocular movement, icteric - Neck other (no crepitus Rt sided in area of port) - Respiratory normal respiratory effort, clear to auscultation - Cardiovascular Cardiovascular exam: Present: tachycardia, regular rhythm. Absent: murmurs - Abdomen Abdomen general surgery: Present: soft. Absent: guarding, rigid Abdominal Tenderness: Present: diffusely - Genitourinary Present: other (redmond catheter) - Integumentary Integumentary general surgery: Present: warm and dry, other (slight erythema around port; 1 cm lesion (superior to port) slight erythema and induration; no drainage) - Neurologic Present: CN 2-12 grossly intact, other (no focal deficits). Absent: confused - Psychiatric Psychiatric general surgery: Present: appropriate, oriented to person, oriented to place, oriented to time, speech is normal - Additional Findings Chemo port Rt side of chest, chest wall tender to palpation Rt > Lt and area immediately surrounding port. Exam Initial Vital Signs Temp Pulse Resp BP Pulse Ox 99.3 F 147 16 102/85 100 08/07/17 20:10 08/07/17 20:10 08/07/17 20:10 08/07/17 20:10 08/07/17 20:10 Results - Labs 08/10/17 04:35 08/10/17 04:35 Abnormal lab results WBC 22.9 K/mcL (4.3-11.1) H D 08/10/17 04:35 RBC 3.77 M/mcL (3.82-4.97) L 08/10/17 04:35 Hgb 11.4 g/dL (11.5-15.4) L 08/10/17 04:35 Hct 33.7 % (35.3-44.9) L 08/10/17 04:35 Plt Count 67 K/mcL (140-400) L 08/10/17 04:35 MPV 13.8 fL (9.4-12.4) H 08/10/17 04:35 Immature Gran % 18.9 % (0-4) H 08/10/17 04:35 Neutrophils # 12.6 K/mcL (1.6-8.9) H 08/10/17 04:35 Monocytes # 1.7 K/mcL (0.0-1.3) H 08/10/17 04:35 Nucleated RBCs/100 WBC 4.0 /100 WBC (0) H 08/10/17 04:35 Reactive Lymphocytes Present (Not Present) A 08/09/17 04:25 Toxic Granulation Present (Not Present) A 08/09/17 04:25 Platelet Estimate Decreased (Normal) L 08/10/17 04:35 Large Platelets Present (Not Present) A 08/09/17 04:25 Immature Plt Fraction 21.1 % (1.1-6.1) H 08/10/17 04:35 Poikilocytosis 1+ (Not Present) A 08/10/17 04:35 Anisocytosis 1+ (Not Present) A 08/10/17 04:35 PT 19.7 Seconds (9.4-12.1) H 08/07/17 20:31 APTT 43.4 Seconds (26.0-36.0) H 08/07/17 20:31 Sodium 133 mEq/L (136-145) L 08/10/17 04:35 Chloride 110 mEq/L (98-107) H 08/10/17 04:35 Carbon Dioxide 13 mEq/L (23-29) L 08/10/17 04:35 BUN 52 mg/dL (8-23) H 08/10/17 04:35 BUN/Creatinine Ratio 58 (6-26) H 08/10/17 04:35 Glucose 159 mg/dL (70-105) H 08/10/17 04:35 POC Glucose 148 (58-89) H 08/10/17 08:23 Hemoglobin A1c 8.4 % (-5.6) H 08/08/17 00:25 Lactic Acid 4.1 mmol/L (0.5-2.2) H* 08/10/17 14:08 Calcium 7.4 mg/dL (8.6-10.3) L 08/10/17 04:35 Venous Ioniz Calcium 1.13 mmol/L (1.15-1.35) L 08/10/17 05:00 Total Bilirubin 2.1 mg/dL (0.3-1.0) H 08/08/17 04:50 Direct Bilirubin 1.1 mg/dL (0.0-0.2) H 08/07/17 20:31 AST 64 Units/L (13-39) H 08/08/17 04:50 Troponin I 0.33 ng/mL (< 0.04) H* 08/10/17 08:40 Serum Total Protein 4.2 g/dL (6.4-8.9) L 08/08/17 04:50 Albumin 2.3 g/dL (3.5-5.7) L 08/08/17 04:50 Globulin 1.9 g/dL (2.4-3.5) L 08/08/17 04:50 Urine Clarity Turbid (Clear) A 08/07/17 21:23 Urine Protein 30 mg/dL (Neg-Trace) H 08/07/17 21:23 Urine Blood Large (Negative) H 08/07/17 21:23 Urine Bilirubin Small (Negative) H 08/07/17 21:23 Ur Leukocyte Esterase Large (Negative) H 08/07/17 21:23 Urine Microscopic WBC 50-100 per hpf (0-3) H 08/07/17 21:23 Ur Squamous Epith Cells Many per lpf (None-Few) H 08/07/17 21:23 Ur Renal Epithelial Cell Many per hpf (None-Few) H 08/07/17 21:23 Amorphous Sediment Many (Few) H 08/07/17 21:23 Urine Bacteria Moderate per hpf (None-Few) H 08/07/17 21:23 Staphylococcus sp PCR DETECTED (Not Detect) A 08/09/17 14:08 Staph aureus (PCR) DETECTED (Not Detect) A 08/09/17 14:08 Diabetes panel 08/10/17 Range/Units 04:35 Sodium 133 L (136-145) mEq/L Potassium 4.5 (3.5-5.1) mEq/L Chloride 110 H (98-107) mEq/L Carbon Dioxide 13 L (23-29) mEq/L BUN 52 H (8-23) mg/dL Creatinine 0.89 (0.60-1.20) mg/dL Glucose 159 H (70-105) mg/dL Calcium 7.4 L (8.6-10.3) mg/dL Calcium panel 08/10/17 Range/Units 04:35 Calcium 7.4 L (8.6-10.3) mg/dL Phosphorus 3.0 (2.7-4.5) mg/dL Pituitary panel 08/10/17 Range/Units 04:35 Sodium 133 L (136-145) mEq/L Potassium 4.5 (3.5-5.1) mEq/L Chloride 110 H (98-107) mEq/L Carbon Dioxide 13 L (23-29) mEq/L BUN 52 H (8-23) mg/dL Creatinine 0.89 (0.60-1.20) mg/dL Glucose 159 H (70-105) mg/dL Calcium 7.4 L (8.6-10.3) mg/dL Adrenal panel 08/10/17 Range/Units 04:35 Sodium 133 L (136-145) mEq/L Potassium 4.5 (3.5-5.1) mEq/L Chloride 110 H (98-107) mEq/L Carbon Dioxide 13 L (23-29) mEq/L BUN 52 H (8-23) mg/dL Creatinine 0.89 (0.60-1.20) mg/dL Glucose 159 H (70-105) mg/dL Calcium 7.4 L (8.6-10.3) mg/dL All other labs normal. Consult Discharge Plan - Plan Referrals: Nazia Deleon, CONTRACT ASSOCIATE [Primary Care Provider] - <Patrick Serrano - Last Filed: 08/10/17 18:59> Date of Encounter: 08/10/17 Review of Systems All systems PM: A 10-system review of systems was performed and is negative for pertinent findings except as documented above in the HPI. General Surgery Exam Initial Vital Signs Temp Pulse Resp BP Pulse Ox 99.3 F 147 16 102/85 100 08/07/17 20:10 08/07/17 20:10 08/07/17 20:10 08/07/17 20:10 08/07/17 20:10 Exam Initial Vital Signs Temp Pulse Resp BP Pulse Ox 99.3 F 147 16 102/85 100 08/07/17 20:10 08/07/17 20:10 08/07/17 20:10 08/07/17 20:10 08/07/17 20:10 Results - Labs 08/10/17 04:35 08/10/17 04:35 Abnormal lab results WBC 22.9 K/mcL (4.3-11.1) H D 08/10/17 04:35 RBC 3.77 M/mcL (3.82-4.97) L 08/10/17 04:35 Hgb 11.4 g/dL (11.5-15.4) L 08/10/17 04:35 Hct 33.7 % (35.3-44.9) L 08/10/17 04:35 Plt Count 67 K/mcL (140-400) L 08/10/17 04:35 MPV 13.8 fL (9.4-12.4) H 08/10/17 04:35 Immature Gran % 18.9 % (0-4) H 08/10/17 04:35 Neutrophils # 12.6 K/mcL (1.6-8.9) H 08/10/17 04:35 Monocytes # 1.7 K/mcL (0.0-1.3) H 08/10/17 04:35 Nucleated RBCs/100 WBC 4.0 /100 WBC (0) H 08/10/17 04:35 Reactive Lymphocytes Present (Not Present) A 08/09/17 04:25 Toxic Granulation Present (Not Present) A 08/09/17 04:25 Platelet Estimate Decreased (Normal) L 08/10/17 04:35 Large Platelets Present (Not Present) A 08/09/17 04:25 Immature Plt Fraction 21.1 % (1.1-6.1) H 08/10/17 04:35 Poikilocytosis 1+ (Not Present) A 08/10/17 04:35 Anisocytosis 1+ (Not Present) A 08/10/17 04:35 PT 19.7 Seconds (9.4-12.1) H 08/07/17 20:31 APTT 43.4 Seconds (26.0-36.0) H 08/07/17 20:31 Sodium 133 mEq/L (136-145) L 08/10/17 04:35 Chloride 110 mEq/L (98-107) H 08/10/17 04:35 Carbon Dioxide 13 mEq/L (23-29) L 08/10/17 04:35 BUN 52 mg/dL (8-23) H 08/10/17 04:35 BUN/Creatinine Ratio 58 (6-26) H 08/10/17 04:35 Glucose 159 mg/dL (70-105) H 08/10/17 04:35 POC Glucose 148 (58-89) H 08/10/17 08:23 Hemoglobin A1c 8.4 % (-5.6) H 08/08/17 00:25 Lactic Acid 4.1 mmol/L (0.5-2.2) H* 08/10/17 14:08 Calcium 7.4 mg/dL (8.6-10.3) L 08/10/17 04:35 Venous Ioniz Calcium 1.13 mmol/L (1.15-1.35) L 08/10/17 05:00 Total Bilirubin 2.1 mg/dL (0.3-1.0) H 08/10/17 16:20 Direct Bilirubin 1.3 mg/dL (0.0-0.2) H 08/10/17 16:20 AST 64 Units/L (13-39) H 08/10/17 16:20 Alkaline Phosphatase 129 Units/L (34-104) H 08/10/17 16:20 Troponin I 0.33 ng/mL (< 0.04) H* 08/10/17 08:40 Serum Total Protein 4.4 g/dL (6.4-8.9) L 08/10/17 16:20 Albumin 2.3 g/dL (3.5-5.7) L 08/10/17 16:20 Globulin 2.1 g/dL (2.4-3.5) L 08/10/17 16:20 Urine Clarity Turbid (Clear) A 08/07/17 21:23 Urine Protein 30 mg/dL (Neg-Trace) H 08/07/17 21:23 Urine Blood Large (Negative) H 08/07/17 21:23 Urine Bilirubin Small (Negative) H 08/07/17 21:23 Ur Leukocyte Esterase Large (Negative) H 08/07/17 21:23 Urine Microscopic WBC 50-100 per hpf (0-3) H 08/07/17 21:23 Ur Squamous Epith Cells Many per lpf (None-Few) H 08/07/17 21:23 Ur Renal Epithelial Cell Many per hpf (None-Few) H 08/07/17 21:23 Amorphous Sediment Many (Few) H 08/07/17 21:23 Urine Bacteria Moderate per hpf (None-Few) H 08/07/17 21:23 Staphylococcus sp PCR DETECTED (Not Detect) A 08/09/17 14:08 Staph aureus (PCR) DETECTED (Not Detect) A 08/09/17 14:08 Diabetes panel 08/10/17 08/10/17 Range/Units 04:35 16:20 Sodium 133 L (136-145) mEq/L Potassium 4.5 (3.5-5.1) mEq/L Chloride 110 H (98-107) mEq/L Carbon Dioxide 13 L (23-29) mEq/L BUN 52 H (8-23) mg/dL Creatinine 0.89 (0.60-1.20) mg/dL Glucose 159 H (70-105) mg/dL Calcium 7.4 L (8.6-10.3) mg/dL AST 64 H (13-39) Units/L ALT 45 (7-52) Units/L Alkaline Phosphatase 129 H (34-104) Units/L Albumin 2.3 L (3.5-5.7) g/dL Calcium panel 08/10/17 08/10/17 Range/Units 04:35 16:20 Calcium 7.4 L (8.6-10.3) mg/dL Phosphorus 3.0 (2.7-4.5) mg/dL Albumin 2.3 L (3.5-5.7) g/dL Pituitary panel 08/10/17 Range/Units 04:35 Sodium 133 L (136-145) mEq/L Potassium 4.5 (3.5-5.1) mEq/L Chloride 110 H (98-107) mEq/L Carbon Dioxide 13 L (23-29) mEq/L BUN 52 H (8-23) mg/dL Creatinine 0.89 (0.60-1.20) mg/dL Glucose 159 H (70-105) mg/dL Calcium 7.4 L (8.6-10.3) mg/dL Adrenal panel 08/10/17 08/10/17 Range/Units 04:35 16:20 Sodium 133 L (136-145) mEq/L Potassium 4.5 (3.5-5.1) mEq/L Chloride 110 H (98-107) mEq/L Carbon Dioxide 13 L (23-29) mEq/L BUN 52 H (8-23) mg/dL Creatinine 0.89 (0.60-1.20) mg/dL Glucose 159 H (70-105) mg/dL Calcium 7.4 L (8.6-10.3) mg/dL Total Bilirubin 2.1 H (0.3-1.0) mg/dL AST 64 H (13-39) Units/L ALT 45 (7-52) Units/L Alkaline Phosphatase 129 H (34-104) Units/L Albumin 2.3 L (3.5-5.7) g/dL All other labs normal. - Attending Attestation I have personally seen and examined the patient. I have reviewed pertinent labs , imaging, progress notes, including this one. I agree with the above assessment and plan and wish to include the following... 72F with stage IV breast cancer now septic with Staph likely from port placed; currently off pressors; will plan for port removal
[2017-08-10 17:32] LABS: Albumin 2.3 g/dL (3.5-5.7); Albumin/Globulin Ratio 1.1 (1.1-2.2); Bilirubin,Direct 1.3 mg/dL (0.0-0.2); Bilirubin,Indirect 0.8 mg/dL (0.0-1.2); Bilirubin,Total 2.1 mg/dL (0.3-1.0); Globulin 2.1 g/dL (2.4-3.5); Total Protein 4.4 g/dL (6.4-8.9)
[2017-08-10] MEDS ORDERED: *HR* Propofol 200 MG/20 ML VIAL IVP ONE (20:20)
[2017-08-10] MEDS ORDERED: Propofol 500 MG/50 ML INFUS..BTL ONE (20:20)
[2017-08-10] MEDS ORDERED: Lidocaine -MPF 2% 2 ML VIAL ONE (20:25)
[2017-08-10] MEDS ORDERED: Ringers Solution, Lactated 1,000 ML ONE (21:00)
--- NOTE | 2017-08-10 21:26 | Anesthesia Evaluation PreOp ---
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; coagulopathy with INR 1.8; septic shock) Anesthesia History: No Prior Anesthetic Complications Alcohol Use: none Drug use: none Medications and Allergies Albuterol Sulfate [Proventil Hfa] 1 puff IH QID PRN 06/20/15 [History] Aspirin Enteric Coated [Aspirin EC] 81 mg PO DAILY 06/20/15 [History] Fluticasone Propionate Nasal [Flonase] 1 spray NS DAILY 06/20/15 [History] Fluticasone/Salmeterol [Advair 100-50 Diskus] 1 each IH BID 06/20/15 [History] Glimepiride [Amaryl] 4 mg PO DAILY 06/20/15 [History] Insulin NPH Hum/Reg Insulin Hm [Novolin 70-30 100 Unit/ml Vial] 30 unit SQ BID 06/20/15 [History] Omeprazole [PriLOSEC] 40 mg PO DAILY 06/20/15 [History] Pravastatin Sodium [Pravachol] 20 mg PO HS 06/20/15 [History] Saxagliptin HCl [Onglyza] 5 mg PO DAILY 06/20/15 [History] Triamterene/HCTZ 75/50mg [Maxzide] 1 each PO DAILY 06/20/15 [History] Ondansetron HCl [Zofran] 4 mg PO Q8H PRN #60 tablet 07/08/17 [Rx] OxyCODONE Immed Rel [Roxicodone 15 MG] 15 mg PO BID #60 tablet 07/08/17 [Rx] Prochlorperazine Maleate [Compazine] 10 mg PO Q8HR PRN #60 tablet 07/08/17 [Rx] Calcium Carbonate/Vitamin D3 [Calcium 600 + Vit D Tablet] 2 each PO DAILY #60 tablet 07/31/17 [Rx] Docusate Sodium [Stool Softener] 100 mg PO DAILY PRN 07/31/17 [History] Lidocaine/Prilocaine [Emla] 1 appl TP AD #30 gm 07/31/17 [Rx] Lisinopril [Zestril] 40 mg PO DAILY 08/07/17 [History] Metoprolol Succinate 200 mg PO DAILY 08/07/17 [History] 3 Allergy/AdvReac Type Severity Reaction Status Date / Time nifedipine [From Procardia] Allergy Rash Verified 08/07/17 21:15 glipizide AdvReac Vomiting Verified 06/16/17 10:03 metoprolol [From Lopressor] AdvReac Nightmare Verified 08/07/17 21:15 - Meds/Allergy Pre-op Review Medications Reviewed: Yes Allergies Reviewed: Yes Beta Blockers on Current Med List: No Anesthesia Results - Labs 08/10/17 04:35 08/10/17 04:35 - Imaging EKG: report reviewed, image reviewed (SINUS TACHYCARDIA WITH OCCASIONAL SUPRAVENTRICULAR PREMATURE COMPLEXES ABNORMAL RHYTHM ECG) Anesthesia Exam Last Vital Signs Temp 98.9 F 08/10/17 20:15 Pulse 108 08/10/17 20:15 Resp 32 08/10/17 20:15 BP 157/74 08/10/17 20:15 Pulse Ox 94 08/10/17 20:15 Weight: 86 kg NPO (# of Hours): > 8 hrs - HEENT Pupil (Motor): Pupils equal, EOMI Mallampati: III Teeth: Edentulous Oral Opening: Greater than 3 - PURIFICATION SUPERVISOR LOC: Oriented - Cardiac Rhythm: Regular Murmur: None - Pulmonary Breath Sounds: bilateral Clear Respiratory Effort: Symmetrical Anesthesia Assess/Plan ASA Score: 4 Modified Alicia Scale for Level of Consciousness: Cooperative, oriented, and tranquil Anesthetic Plan: MAC Monitoring Plan: Standard Monitors Recovery Plan: PACU
[2017-08-10] MEDS ORDERED: *HR* Phenylephrine 10 MG/ML VIAL ONE (22:07)
--- NOTE | 2017-08-10 22:43 | Operative Note ---
Date of procedure: 08/10/17 Pre-op diagnosis: sepsis from A-port Post-op diagnosis: same Procedure: removal of Right Subclavian central venous catheter A-port Complications: none Anesthesia: GETA Local Anesthetics: 0.5% Sensorcaine HCL SubQ (cc) Surgeon: Patrick Serrano Was there an assistant director of residence life present: No Estimated blood loss (cc): 2 Specimen: A port Condition: stable Disposition: PACU Procedure in Detail: Patient was brought into the operating room suite. Mechanical DVT prophylaxis was placed. Patient underwent smooth induction of MAC. Prepped and draped in the usual fashion. Preoperative antibiotics were already given. A time out was held identifying correct patient, pathology, physician, and procedure. I created a small 4cm incision and dissected down to the port capsule. I cut the sutures anchoring the port to the soft tissue. I then removed the port from the subcutaneous pocket and held pressure along the tract of the catheter for approximately 1 minute. I used a 3-0 vicryl suture to suture ligate the tract. I then cleaned the wound. It should be stated that there was some drainage from tissue that appeared to be sero-purulent. I irrigated the wound. Partially closed the wound with 3-0 vicryl in the deep dermal space. I then place two steri-strips along the edges, covered with 4x4 guaze and tape. I then concluded the procedure. The patient tolerated the procedure well and was escorted to recovery in stable condition.
--- NOTE | 2017-08-10 22:47 | Anesthesia Evaluation Post Op ---
Date of Encounter: 08/10/17 Time of Encounter: 22:46 - Vital Signs Vital Signs: See OR record - Lungs Lungs: Clear Ascult./Percussion - Airway Airway: Non-obstructed - Cardiovascular Regular Rate - Mental Status Mental Status: Baseline Status - Pain Pain Scale: 2 - Nausea Vomiting Nausea Vomiting: Not Present - Hydration Hydration: NPO, Rodriguez catheter - Discharge PostOp Status: Transfer Patient to floor
[2017-08-11] MEDS: *HR* OxyCODONE Immed Rel 5 MG TABLET PO SCH ×2 (03:45→20:24)
[2017-08-11] MEDS ORDERED: Ipratropium/Albuterol Neb 3 ML IH PRN (06:24)
[2017-08-11] MEDS ORDERED: Dextrose Gel 15 GM/37.5 ML TUBE PO PRN ×2 (06:24)
[2017-08-11] MEDS ORDERED: Acetaminophen 325 MG TABLET PO PRN (06:24)
[2017-08-11] MEDS ORDERED: D5% in Water 1,000 ML IVC PRN (06:24)
[2017-08-11] MEDS ORDERED: Naloxone 0.4 MG/ML INJ IVP PRN (06:24)
[2017-08-11] MEDS ORDERED: *HR* Dextrose 50 % in Water (Syg) 50 ML SYRINGE IVP PRN (06:24)
[2017-08-11] MEDS ORDERED: *HR* Morphine 2 MG/ML SYRINGE IVP PRN (06:24)
[2017-08-11 07:28] LABS: Immature Platelets 21.4 % (1.1-6.1); Mean Platelet Volume 14.1 fL (9.4-12.4)
[2017-08-11 07:31] LABS: Hematocrit 29.9 % (35.3-44.9); Hemoglobin 10.4 g/dL (11.5-15.4); Mean Corpuscular HGB Conc 34.8 g/dL (31.6-35.5); Nucleated Red Blood Cells 4.1 /100 WBC (0); Red Blood Count 3.36 M/mcL (3.82-4.97); Red Cell Distribution Width 13.8 % (11.5-14.5)
[2017-08-11 07:40] LABS: Platelet Count 44 K/mcL (140-400)
[2017-08-11 07:59] LABS: Lymphocytes # 3.9 K/mcL (0.6-4.6); Monocytes # 1.6 K/mcL (0.0-1.3); Platelet Estimate Decreased (Normal); Smudge Cells Present (Not Present)
[2017-08-11 08:00] LABS: Polychromasia 1+ (Not Present)
[2017-08-11] MEDS ORDERED: *HR* OxyCODONE Immed Rel 5 MG TABLET PO SCH ×2 (08:00→12:00)
[2017-08-11] MEDS: Aspirin Enteric Coated 81 MG Tablet PO SCH (08:14)
[2017-08-11] MEDS: Insulin LISPRO 300 UNITS/3 ML VIAL SQ SCH ×4 (08:15→20:28)
[2017-08-11] MEDS: Fluticasone Propionate Nasal 50 MCG/SPRAY BOTTLE NS SCH (08:17)
[2017-08-11] MEDS: Nafcillin 2,000 MG in D5% in Water 100 ML IVPB SCH ×4 (08:17→20:36)
[2017-08-11] MEDS: Budesonide/Formoterol 80/4.5 MDI IH SCH ×2 (08:30→21:34)
[2017-08-11 09:32] LABS: VBG HCO3 15 mEq/L (21-27); VBG Ionized Calcium 1.12 mmol/L (1.15-1.35); VBG PCO2 23 mmHg (41-51); VBG PH 7.43 pH Units (7.32-7.42); VBG PO2 167 mmHg (25-50)
[2017-08-11 09:38] LABS: BUN/Creatinine Ratio 71 (6-26); Blood Urea Nitrogen 55 mg/dL (8-23); Calcium 7.4 mg/dL (8.6-10.3); Carbon Dioxide 15 mEq/L (23-29); Chloride 110 mEq/L (98-107); Glucose 231 mg/dL (70-105); Magnesium 1.8 mg/dL (1.6-2.6); Osmolality,Calculated 300 (280-300); Phosphorous 1.7 mg/dL (2.7-4.5); Sodium 134 mEq/L (136-145); eGFR For African Americans > 60 (> 60); eGFR For Non-African Americans > 60 (> 60)
--- NOTE | 2017-08-11 11:39 | General Surgery Progress Note ---
<Leydi Marques - Last Filed: 08/11/17 11:36> Date of Encounter: 08/11/17 Time of Encounter: 11:36 - Assessment and Plan (1) Severe sepsis Current Visit: Yes Status: Acute Chemo port removed 08/10/17--procedure tolerated well by patient, sero-purulent drainage noted during procedure Severe sepsis d/t Staph aureus bacteremia White count increased to 32.5, currently receiving IV nafcillin Not currently receiving vasopressor support (BP 134/59 this morning) Plan: No further surgical intervention at this time, will follow from a distance Please call with any new questions or concerns Subjective Patient reports: no new complaints Narrative: Patient seen and examined this morning at bedside, is present in the room. Patient sleeping in bed, states she did not sleep well last night. No complaints of abdominal pain. Objective Vital Signs - Last 8 Hours Temp Pulse Resp BP Pulse Ox 08/11/17 11:15 98.7 F 104 21 125/63 94 08/11/17 08:30 14 94 08/11/17 07:55 102 94 08/11/17 07:54 98.7 F 105 22 134/59 94 08/11/17 04:40 99.0 F 107 24 134/56 94 Intake and Output 08/10/17 08/11/17 08/11/17 23:59 07:59 15:59 Intake Total 100 / 100 600 / 600 0 / 0 Output Total 852 / 852 1500 / 1500 Balance -752 / -752 -900 / -900 0 / 0 Intake: IV Fluids 100 / 100 Nafcillin 2,000 MG In Dextrose 100 / 100 5% 100 ML @ 200 mls/hr IVPB Q4HR [facility] Rx#:[id number] Oral 600 / 600 0 / 0 Output: Estimated Blood Loss 2 / 2 Catheter 850 / 850 1500 / 1500 Other: Meal Breakfast Percent of Meal Consumed 0% Blood Glucose* 181 200 193 - General physical appearance no distress (Sleeping) - Neck Neck exam: no masses - Respiratory normal respiratory effort - Cardiovascular Cardiovascular exam: Present: tachycardia (HR 104), regular rhythm - Incision Incision: Present: clean and dry, intact. Absent: purulent - Labs 08/11/17 07:17 08/11/17 09:10 Diabetes panel 08/10/17 08/11/17 Range/Units 16:20 09:10 Sodium 134 L (136-145) mEq/L Potassium 4.0 (3.5-5.1) mEq/L Chloride 110 H (98-107) mEq/L Carbon Dioxide 15 L (23-29) mEq/L BUN 55 H (8-23) mg/dL Creatinine 0.77 (0.60-1.20) mg/dL Glucose 231 H (70-105) mg/dL Calcium 7.4 L (8.6-10.3) mg/dL AST 64 H (13-39) Units/L ALT 45 (7-52) Units/L Alkaline Phosphatase 129 H (34-104) Units/L Albumin 2.3 L (3.5-5.7) g/dL Calcium panel 08/10/17 08/11/17 Range/Units 16:20 09:10 Calcium 7.4 L (8.6-10.3) mg/dL Phosphorus 1.7 L (2.7-4.5) mg/dL Albumin 2.3 L (3.5-5.7) g/dL Pituitary panel 08/11/17 Range/Units 09:10 Sodium 134 L (136-145) mEq/L Potassium 4.0 (3.5-5.1) mEq/L Chloride 110 H (98-107) mEq/L Carbon Dioxide 15 L (23-29) mEq/L BUN 55 H (8-23) mg/dL Creatinine 0.77 (0.60-1.20) mg/dL Glucose 231 H (70-105) mg/dL Calcium 7.4 L (8.6-10.3) mg/dL Adrenal panel 08/10/17 08/11/17 Range/Units 16:20 09:10 Sodium 134 L (136-145) mEq/L Potassium 4.0 (3.5-5.1) mEq/L Chloride 110 H (98-107) mEq/L Carbon Dioxide 15 L (23-29) mEq/L BUN 55 H (8-23) mg/dL Creatinine 0.77 (0.60-1.20) mg/dL Glucose 231 H (70-105) mg/dL Calcium 7.4 L (8.6-10.3) mg/dL Total Bilirubin 2.1 H (0.3-1.0) mg/dL AST 64 H (13-39) Units/L ALT 45 (7-52) Units/L Alkaline Phosphatase 129 H (34-104) Units/L Albumin 2.3 L (3.5-5.7) g/dL Consult Discharge Plan - Plan Referrals: Nazia Deleon, CAREER GUIDANCE COUNSELOR [Primary Care Provider] - <Patrick Serrano - Last Filed: 08/11/17 13:34> Date of Encounter: 08/11/17 Objective Vital Signs - Last 8 Hours Temp Pulse Resp BP Pulse Ox 08/11/17 11:15 98.7 F 104 21 125/63 94 08/11/17 08:30 14 94 08/11/17 07:55 102 94 08/11/17 07:54 98.7 F 105 22 134/59 94 Intake and Output 08/10/17 08/11/17 08/11/17 23:59 07:59 15:59 Intake Total 100 / 100 600 / 600 100 / 100 Output Total 852 / 852 1500 / 1500 Balance -752 / -752 -900 / -900 100 / 100 Intake: IV Fluids 100 / 100 100 / 100 Nafcillin 2,000 MG In Dextrose 100 / 100 100 / 100 5% 100 ML @ 200 mls/hr IVPB Q4HR [facility] Rx#:[id number] Oral 600 / 600 0 / 0 Output: Estimated Blood Loss 2 / 2 Catheter 850 / 850 1500 / 1500 Other: Meal Breakfast Percent of Meal Consumed 0% Blood Glucose* 181 200 193 - Labs 08/11/17 07:17 08/11/17 09:10 Diabetes panel 08/10/17 08/11/17 Range/Units 16:20 09:10 Sodium 134 L (136-145) mEq/L Potassium 4.0 (3.5-5.1) mEq/L Chloride 110 H (98-107) mEq/L Carbon Dioxide 15 L (23-29) mEq/L BUN 55 H (8-23) mg/dL Creatinine 0.77 (0.60-1.20) mg/dL Glucose 231 H (70-105) mg/dL Calcium 7.4 L (8.6-10.3) mg/dL AST 64 H (13-39) Units/L ALT 45 (7-52) Units/L Alkaline Phosphatase 129 H (34-104) Units/L Albumin 2.3 L (3.5-5.7) g/dL Calcium panel 08/10/17 08/11/17 Range/Units 16:20 09:10 Calcium 7.4 L (8.6-10.3) mg/dL Phosphorus 1.7 L (2.7-4.5) mg/dL Albumin 2.3 L (3.5-5.7) g/dL Pituitary panel 08/11/17 Range/Units 09:10 Sodium 134 L (136-145) mEq/L Potassium 4.0 (3.5-5.1) mEq/L Chloride 110 H (98-107) mEq/L Carbon Dioxide 15 L (23-29) mEq/L BUN 55 H (8-23) mg/dL Creatinine 0.77 (0.60-1.20) mg/dL Glucose 231 H (70-105) mg/dL Calcium 7.4 L (8.6-10.3) mg/dL Adrenal panel 08/10/17 08/11/17 Range/Units 16:20 09:10 Sodium 134 L (136-145) mEq/L Potassium 4.0 (3.5-5.1) mEq/L Chloride 110 H (98-107) mEq/L Carbon Dioxide 15 L (23-29) mEq/L BUN 55 H (8-23) mg/dL Creatinine 0.77 (0.60-1.20) mg/dL Glucose 231 H (70-105) mg/dL Calcium 7.4 L (8.6-10.3) mg/dL Total Bilirubin 2.1 H (0.3-1.0) mg/dL AST 64 H (13-39) Units/L ALT 45 (7-52) Units/L Alkaline Phosphatase 129 H (34-104) Units/L Albumin 2.3 L (3.5-5.7) g/dL - Attending Attestation I have personally seen and examined the patient. I have reviewed pertinent labs , imaging, progress notes, including this one. I agree with the above assessment and plan and wish to include the following... POD#1 s/p removal of A-port; seropurulent drainage so likley source of bacteremia; follow up on cultures and tailor antibiotic regimen; incision/wound looks clean, dry; please call if there are any questions or new concerns
[2017-08-11] MEDS: Potassium Phosphate 44 MEQ in 0.9 % Sodium Chloride 250 ML IVPB PRN (11:42)
[2017-08-11] MEDS ORDERED: Furosemide 20 MG/2 ML VIAL IVP ONE (13:21)
--- NOTE | 2017-08-11 13:22 | Internal Med Progress Note ---
<Cathy Davis - Last Filed: 08/11/17 13:20> Date of Encounter: 08/11/17 Time of Encounter: 13:20 - Assessment and plan (1) Severe sepsis Current Visit: Yes Status: Acute Assessment and plan: Due to staph aureus bacteremia Last fever 08/08 08/10 Repeat blood cultures positive for staph aureus. Cefepime and vancomycin discontinued; nafcillin started. 08/11 Blood culture from port positive for staph aureus. Port was removed last night by surgery and had seropurulent drainage. Repeat blood cultures will be drawn tomorrow morning. No longer requiring pressure support with dopamine. Continue to trend lactic acid until normal. Most recent 2.8 Possible cardiogenic shock Echocardiogram report pending (2) Lactic acidosis Current Visit: Yes Status: Acute Assessment and plan: Continue trending lactic acid; has started decreasing significantly since removal of port (3) Nausea Current Visit: Yes Status: Acute Assessment and plan: possibly chemotherapy related Zofran 4 mg IV q6h PRN (4) Emesis Current Visit: Yes Status: Acute Assessment and plan: Possibly chemotherapy related Continue to control nausea Replace electrolytes as needed Qualifiers: Vomiting type: unspecified Vomiting Intractability: non-intractable Nausea presence: with nausea Qualified Code(s): R11.2 - Nausea with vomiting, unspecified (5) Diarrhea Current Visit: Yes Status: Acute Assessment and plan: possibly chemotherapy related GI panel negative replace electrolytes as needed Qualifiers: Diarrhea type: unspecified type Qualified Code(s): R19.7 - Diarrhea, unspecified (6) Essential hypertension Current Visit: Yes Status: Chronic Assessment and plan: Patient was on dopamine for pressure support until 08/10 afternoon Hold home antihypertensives Continue to monitor (7) Diabetes mellitus Current Visit: No Status: Chronic Assessment and plan: A1C 8.4 ADA diet Accu-Cheks and sliding scale Qualifiers: Diabetes mellitus type: type 2 Diabetes mellitus complication status: with unspecified complications Diabetes mellitus assisted insulin use: with assisted use Qualified Code(s): E11.8 - Type 2 diabetes mellitus with unspecified complications; Z79.4 - MCC (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 of insulin; Z79.4 - MCC ( 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 of insulin; Z79.4 - MCC (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 of insulin; Z79.4 - MCC (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 of insulin (8) GERD (gastroesophageal reflux disease) Current Visit: No Status: Chronic Assessment and plan: Chronic Continue omeprazole Qualifiers: Esophagitis presence: esophagitis presence not specified Qualified Code(s) : K21.9 - Gastro-esophageal reflux disease without esophagitis (9) Bone metastases Current Visit: Yes Status: Acute Assessment and plan: Oncology consult; appreciate recommendations Palliative consult; appreciate recommendations (10) TYRONE (acute kidney injury) Current Visit: Yes Status: Resolved Assessment and plan: Resolved (11) Leukopenia Current Visit: Yes Status: Resolved Assessment and plan: resolved with neupogen (discontinued 08/09) Qualifiers: Leukopenia type: unspecified Qualified Code(s): D72.819 - Decreased white blood cell count, unspecified (12) Hypotension Current Visit: Yes Status: Resolved Assessment and plan: Resolved No longer requiring dopamine for pressure support Qualifiers: Hypotension type: other hypotension type Qualified Code(s): I95.89 - Other hypotension (13) Hypokalemia Current Visit: Yes Status: Resolved Assessment and plan: Resolved Replete as needed with Electrolyte protocol Continue to monitor (14) Hypomagnesemia Current Visit: Yes Status: Acute Assessment and plan: Resolved Continue to monitor Replete as needed with Electrolyte protocol (15) Hypocalcemia Current Visit: Yes Status: Acute Assessment and plan: Replete as needed with electrolyte protocol Continue to monitor - Subjective Interval history: Patient tired this morning. She went to have her port removed at 10 PM last night. Her states that she did not sleep well last night. - Constitutional Vitals: Temp Pulse Resp BP Pulse Ox 98.7 F 104 21 125/63 94 08/11/17 11:15 08/11/17 11:15 08/11/17 11:15 08/11/17 11:15 08/11/17 11:15 General appearance: Present: mild distress, answers questions appropriately - Head Head exam: Present: atraumatic, normocephalic - Eye Eye exam: Present: PERRL, conjuntiva pink, sclera anicteric Pupils: Present: PERRL - Neck Neck exam general surgery: Present: supple, trachea midline - Respiratory Respiratory exam: Present: CTAB - Cardiovascular Cardiovascular exam: Present: RRR, +S1, +S2. Absent: diastolic murmur, gallop, rubs, systolic murmur - GI/Abdominal GI/Abdominal exam: Present: normal bowel sounds, soft, tenderness (mild), no peritoneal signs. Absent: distended - Extremities Exam Additional comments: 3+ pitting edema of bilateral hands and arms; trace to 1+ pitting edema of bilateral lower extremities; posterior tibial pulses palpable and symmetric - Neurological Exam Neurological exam: Present: alert. Absent: facial droop, speech deficit - Skin Skin exam: Absent: intact (large burst blister on posterior aspect of right arm , seeping) Internal Medicine: Result - Labs CBC & Chem 7: 08/11/17 07:17 08/11/17 09:10 Labs: Short CBC 08/11/17 Range/Units 07:17 WBC 32.5 H* (4.3-11.1) K/mcL Hgb 10.4 L (11.5-15.4) g/dL Hct 29.9 L (35.3-44.9) % Plt Count 44 L (140-400) K/mcL Neutrophils # 27.0 H (1.6-8.9) K/mcL BMP 08/11/17 09:10 Sodium 134 L Potassium 4.0 Chloride 110 H Carbon Dioxide 15 L BUN 55 H Creatinine 0.77 Glucose 231 H Calcium 7.4 L Liver Function 08/10/17 Range/Units 16:20 Total Bilirubin 2.1 H (0.3-1.0) mg/dL Direct Bilirubin 1.3 H (0.0-0.2) mg/dL AST 64 H (13-39) Units/L ALT 45 (7-52) Units/L Alkaline Phosphatase 129 H (34-104) Units/L Albumin 2.3 L (3.5-5.7) g/dL - ABG Interpretation ABG results: PT/INR, D-dimer PT 19.7 Seconds (9.4-12.1) H 08/07/17 20:31 - Impressions Impressions Echocardiogram 08/10/17 09:28 Impressions: Technically adequate exam. Normal sinus rhythm. LVEF 60%. Trace mitral regurgitation. Trace tricuspid regurgitation. Left Ventricular Wall Motion: Rest Echo Findings All wall segments showed normal motion. Findings: Study Quality * Technically adequate exam. ECG Findings * Normal sinus rhythm. Left Ventricle * LVEF 60%. * Normal LV chamber size, wall thickness and function. * Normal left ventricular diastolic function. Right Ventricle * Normal right ventricular structure and function. Left Atrium * Normal left atrial size. Aortic Valve * Trileaflet aortic valve. * Trileaflet aortic valve with normal function. Mitral Valve * Normal mitral valve structure and function. * Trace mitral regurgitation. Tricuspid Valve * Normal tricuspid valve structure and function. * Trace tricuspid regurgitation. Pulmonic Valve * Pulmonic valve is not well visualized. Aorta * Normally sized aortic root. Pericardium * The pericardium appears normal. Consult Discharge Plan - Plan Referrals: Nazia Deleon COAL CRUSHER OPERATOR [Primary Care Provider] - (WEB REQUEST SENT ON 08-11-17 @ 0346) <Tobias Mcgowan - Last Filed: 08/11/17 17:28> Date of Encounter: 08/11/17 - Assessment and plan (1) Staphylococcus aureus bacteremia with sepsis Current Visit: Yes Status: Acute (2) CLABSI (central line-associated bloodstream infection) Current Visit: Yes Status: Acute Assessment and plan: Present on admission. Qualifiers: Encounter type: subsequent encounter Qualified Code(s): T80.211D - Bloodstream infection due to central venous catheter, subsequent encounter (3) Thrush, oral Current Visit: Yes Status: Acute Assessment and plan: Add Diflucan and nystatin (4) Hypocalcemia Current Visit: Yes Status: Acute (5) Hypokalemia Current Visit: Yes Status: Resolved (6) Hypomagnesemia Current Visit: Yes Status: Acute (7) Lactic acidosis Current Visit: Yes Status: Acute (8) Essential hypertension Current Visit: Yes Status: Chronic (9) Diabetes mellitus Current Visit: No Status: Chronic Qualifiers: Diabetes mellitus type: type 2 Diabetes mellitus complication status: with hyperglycemia Diabetes mellitus assisted insulin use: with ferry terminal agent use Qualified Code(s): E11.65 - Type 2 diabetes mellitus with hyperglycemia; Z79.4 - MCC (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 of insulin; Z79.4 - termite renewal inspector (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 of insulin ; Z79.4 - MCC (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 of insulin; Z79.4 - termite renewal inspector (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 of insulin (10) Carcinoma of breast metastatic to bone Current Visit: Yes Status: Chronic Qualifiers: Laterality: unspecified laterality Qualified Code(s): C50.919 - Malignant neoplasm of unspecified site of unspecified female breast; C79.51 - Secondary malignant neoplasm of bone; C79.51 - Secondary malignant neoplasm of bone; C79.51 - Secondary malignant neoplasm of bone; C79.51 - Secondary malignant neoplasm of bone - Constitutional Vitals: Temp Pulse Resp BP Pulse Ox 97.5 F L 102 19 142/59 94 08/11/17 16:44 08/11/17 16:44 08/11/17 16:44 08/11/17 16:44 08/11/17 16:44 Internal Medicine: Result - Labs CBC & Chem 7: 08/11/17 07:17 08/11/17 09:10 Labs: Short CBC 08/11/17 Range/Units 07:17 WBC 32.5 H* (4.3-11.1) K/mcL Hgb 10.4 L (11.5-15.4) g/dL Hct 29.9 L (35.3-44.9) % Plt Count 44 L (140-400) K/mcL Neutrophils # 27.0 H (1.6-8.9) K/mcL BMP 08/11/17 09:10 Sodium 134 L Potassium 4.0 Chloride 110 H Carbon Dioxide 15 L BUN 55 H Creatinine 0.77 Glucose 231 H Calcium 7.4 L Liver Function 08/10/17 Range/Units 16:20 Total Bilirubin 2.1 H (0.3-1.0) mg/dL Direct Bilirubin 1.3 H (0.0-0.2) mg/dL AST 64 H (13-39) Units/L ALT 45 (7-52) Units/L Alkaline Phosphatase 129 H (34-104) Units/L Albumin 2.3 L (3.5-5.7) g/dL - ABG Interpretation ABG results: PT/INR, D-dimer PT 19.7 Seconds (9.4-12.1) H 08/07/17 20:31 - Impressions Impressions Echocardiogram 08/10/17 09:28 Impressions: Technically adequate exam. Normal sinus rhythm. LVEF 60%. Trace mitral regurgitation. Trace tricuspid regurgitation. Left Ventricular Wall Motion: Rest Echo Findings All wall segments showed normal motion. Findings: Study Quality * Technically adequate exam. ECG Findings * Normal sinus rhythm. Left Ventricle * LVEF 60%. * Normal LV chamber size, wall thickness and function. * Normal left ventricular diastolic function. Right Ventricle * Normal right ventricular structure and function. Left Atrium * Normal left atrial size. Aortic Valve * Trileaflet aortic valve. * Trileaflet aortic valve with normal function. Mitral Valve * Normal mitral valve structure and function. * Trace mitral regurgitation. Tricuspid Valve * Normal tricuspid valve structure and function. * Trace tricuspid regurgitation. Pulmonic Valve * Pulmonic valve is not well visualized. Aorta * Normally sized aortic root. Pericardium * The pericardium appears normal. - Attending Attestation I examined this patient and my medical decision-making was reviewed with the Resident Physician on 08/11/17. I agree with the documented findings, disposition and treatment plan as described except to the extent set forth below. Ms Catalan is currently admitted for sepsis related to MSSA bacteremia - line associated. She remains high risk due to potential for worsening clinical status. Ms Catalan is still feeling a lot of pain diffusely. She has had no further fever. BP has stabilized. Still very edematous. Not eating much - says mouth hurts and food tastes bad. Exam Alert. Mod distress overall. Mucus membranes dry. Oral ulcers and thrush noted on exam Heart reg - not tachy. No murmur Lungs diminished Abd soft Edema present I/P. 1. Sepsis due to CLABSI - present on admission. MSSA. On IV Nafcillin. 2. Oral thrush and ulcers - Diflucan, nystatin and magic mouthwash Further diagnoses and plan as above.
[2017-08-11] MEDS ORDERED: *HR* Heparin 5,000 UNIT/ML VIAL SQ SCH (18:00)
[2017-08-11] MEDS: Magic Mouthwash 10 ML UD Cup PO SCH (19:47)
[2017-08-11] MEDS: Fluconazole 200 MG/100 ML 200 MG/100 ML BAG IVPB SCH (19:49)
[2017-08-11] MEDS: Silver Sulfadiazine 50 GM TUBE TP SCH (19:49)
[2017-08-11] MEDS: Nystatin SUSP 5 ML UD.LIQ PO SCH ×2 (20:18→20:24)
[2017-08-11] MEDS: Nafcillin 2,000 MG in D5% in Water (Mini-Bag+) 100 ML IVPB SCH (23:38)
[2017-08-12] MEDS: *HR* OxyCODONE Immed Rel 5 MG TABLET PO SCH ×3 (03:53→20:18)
[2017-08-12] MEDS: Nafcillin 2,000 MG in D5% in Water (Mini-Bag+) 100 ML IVPB SCH ×5 (03:53→20:18)
[2017-08-12 06:39] LABS: BUN/Creatinine Ratio 63 (6-26); Blood Urea Nitrogen 50 mg/dL (8-23); Calcium 7.1 mg/dL (8.6-10.3); Carbon Dioxide 19 mEq/L (23-29); Chloride 109 mEq/L (98-107); Glucose 260 mg/dL (70-105); Osmolality,Calculated 302 (280-300); Phosphorous 2.6 mg/dL (2.7-4.5); Potassium 3.5 mEq/L (3.5-5.1); Sodium 135 mEq/L (136-145); eGFR For African Americans > 60 (> 60); eGFR For Non-African Americans > 60 (> 60)
[2017-08-12 07:50] LABS: Nucleated Red Blood Cells 3.3 /100 WBC (0)
[2017-08-12 07:51] LABS: Hematocrit 28.8 % (35.3-44.9); Hemoglobin 9.7 g/dL (11.5-15.4); Mean Corpuscular HGB Conc 33.7 g/dL (31.6-35.5); Mean Corpuscular Hemoglobin 29.9 pg (28.0-33.3); Mean Corpuscular Volume 88.9 fL (83.0-100.0); Mean Platelet Volume 14.5 fL (9.4-12.4); Red Blood Count 3.24 M/mcL (3.82-4.97)
[2017-08-12] MEDS: Budesonide/Formoterol 80/4.5 MDI IH SCH ×2 (07:52→20:21)
[2017-08-12 08:01] LABS: Platelet Count 41 K/mcL (140-400)
[2017-08-12] MEDS: Fluconazole 200 MG/100 ML 200 MG/100 ML BAG IVPB SCH (08:05)
[2017-08-12] MEDS: Aspirin Enteric Coated 81 MG Tablet PO SCH (08:13)
[2017-08-12] MEDS: Magic Mouthwash 10 ML UD Cup PO SCH ×3 (08:13→16:37)
[2017-08-12] MEDS: Nystatin SUSP 5 ML UD.LIQ PO SCH ×4 (08:13→20:19)
[2017-08-12] MEDS: Fluticasone Propionate Nasal 50 MCG/SPRAY BOTTLE NS SCH (08:13)
[2017-08-12] MEDS: Insulin LISPRO 300 UNITS/3 ML VIAL SQ SCH ×4 (08:17→20:20)
[2017-08-12] MEDS: Silver Sulfadiazine 50 GM TUBE TP SCH ×2 (08:19→20:42)
[2017-08-12 08:25] LABS: VBG Ionized Calcium 1.05 mmol/L (1.15-1.35); VBG PH 7.39 pH Units (7.32-7.42)
[2017-08-12 08:54] LABS: Eosinophils # 0.6 K/mcL (0.0-0.6); Lymphocytes # 7.6 K/mcL (0.6-4.6); Monocytes # 1.3 K/mcL (0.0-1.3); Neutrophils # 22.1 K/mcL (1.6-8.9); Platelet Estimate Decreased (Normal); Polychromasia 1+ (Not Present); Smudge Cells Present (Not Present)
[2017-08-12] MEDS ORDERED: Furosemide 20 MG/2 ML VIAL IVP ONE (10:04)
--- NOTE | 2017-08-12 10:12 | Internal Med Progress Note ---
<Cathy Davis - Last Filed: 08/12/17 10:10> Date of Encounter: 08/12/17 Time of Encounter: 10:10 - Assessment and plan (1) Severe sepsis Current Visit: Yes Status: Acute Assessment and plan: Due to MSSA bacteremia Last fever 08/08 08/10 Repeat blood cultures positive for staph aureus. Cefepime and vancomycin discontinued; nafcillin started. 08/11 Blood culture from port positive for staph aureus. Port was removed last night by surgery and had seropurulent drainage. No longer requiring pressure support with dopamine. 08/12 repeat blood cultures drawn this morning (2) Bacteremia due to Staphylococcus aureus Current Visit: Yes Status: Acute Assessment and plan: infectious disease consulted; appreciate recommendations (3) Lactic acidosis Current Visit: Yes Status: Acute Assessment and plan: started decreasing significantly after removal of port (4) Stomatitis and mucositis with change of taste Current Visit: Yes Status: Acute Assessment and plan: due to chemotherapy magic mouthwash, diflucan, nystatin (5) Nausea Current Visit: Yes Status: Acute Assessment and plan: possibly chemotherapy related Zofran 4 mg IV q6h PRN (6) Emesis Current Visit: Yes Status: Resolved Assessment and plan: resolved Qualifiers: Vomiting type: unspecified Vomiting Intractability: non-intractable Nausea presence: with nausea Qualified Code(s): R11.2 - Nausea with vomiting, unspecified (7) Diarrhea Current Visit: Yes Status: Acute Assessment and plan: possibly chemotherapy related GI panel negative replace electrolytes as needed Qualifiers: Diarrhea type: unspecified type Qualified Code(s): R19.7 - Diarrhea, unspecified (8) Essential hypertension Current Visit: Yes Status: Chronic Assessment and plan: Patient was on dopamine for pressure support until 08/10 afternoon Hold home antihypertensives Continue to monitor (9) Diabetes mellitus Current Visit: No Status: Chronic Assessment and plan: A1C 8.4 Accu-Cheks and sliding scale Qualifiers: Diabetes mellitus type: type 2 Diabetes mellitus complication status: with hyperglycemia Diabetes mellitus bed bug exterminator insulin use: with group home use Qualified Code(s): E11.65 - Type 2 diabetes mellitus with hyperglycemia; 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; Z79.4 - shelter (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 of insulin ; Z79.4 - shelter (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 of insulin; Z79.4 - shelter (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 of insulin (10) GERD (gastroesophageal reflux disease) Current Visit: No Status: Chronic Assessment and plan: Chronic Continue omeprazole Qualifiers: Esophagitis presence: esophagitis presence not specified Qualified Code(s) : K21.9 - Gastro-esophageal reflux disease without esophagitis (11) Bone metastases Current Visit: Yes Status: Chronic Assessment and plan: Oncology consult; appreciate recommendations Palliative consult; appreciate recommendations (12) TYRONE (acute kidney injury) Current Visit: Yes Status: Resolved Assessment and plan: Resolved (13) Leukopenia Current Visit: Yes Status: Resolved Assessment and plan: resolved with neupogen (discontinued 08/09) Qualifiers: Leukopenia type: unspecified Qualified Code(s): D72.819 - Decreased white blood cell count, unspecified (14) Hypotension Current Visit: Yes Status: Resolved Assessment and plan: Resolved No longer requiring dopamine for pressure support Qualifiers: Hypotension type: other hypotension type Qualified Code(s): I95.89 - Other hypotension (15) Hypokalemia Current Visit: Yes Status: Resolved (16) Hypomagnesemia Current Visit: Yes Status: Resolved Assessment and plan: Resolved Continue to monitor Replete as needed with Electrolyte protocol (17) Hypocalcemia Current Visit: Yes Status: Resolved Assessment and plan: Resolved Replete as needed with electrolyte protocol Continue to monitor - Subjective Interval history: Patient with increased energy this morning from previous days. She would like to set up in the chair. - Constitutional Vitals: Temp Pulse Resp BP Pulse Ox 98.7 F 106 18 139/74 94 08/12/17 07:41 08/12/17 07:41 08/12/17 07:52 08/12/17 07:41 08/12/17 07:52 General appearance: Present: mild distress, A&O X 3, answers questions appropriately - Head Head exam: Present: atraumatic, normocephalic - Eye Eye exam: Present: PERRL, conjuntiva pink, sclera anicteric Pupils: Present: PERRL - Neck Neck exam general surgery: Present: supple, trachea midline - Respiratory Respiratory exam: Present: CTAB. Absent: accessory muscle use, rales, rhonchi, wheezes - Cardiovascular Cardiovascular exam: Present: RRR, +S1, +S2. Absent: diastolic murmur, gallop, rubs, systolic murmur - GI/Abdominal GI/Abdominal exam: Present: normal bowel sounds, soft, tenderness (mild), no peritoneal signs. Absent: distended - Extremities Exam Extremities exam: Present: normal capillary refill, pedal edema, warm Additional comments: 2-3+ edema of hands; 1-2+ edema of feet; posterior tibial pulses palpable and symmetric - Neurological Exam Neurological exam: Present: CN II-XII intact, oriented X3, no focal deficits. Absent: pronater drift, facial droop, speech deficit - Skin Skin exam: Absent: intact (Right arm is wrapped, covering large burst blister on posterior aspect of right arm) Internal Medicine: Result - Labs CBC & Chem 7: 08/12/17 05:56 08/12/17 05:56 Labs: Short CBC 08/12/17 Range/Units 05:56 WBC 31.5 H* (4.3-11.1) K/mcL Hgb 9.7 L (11.5-15.4) g/dL Hct 28.8 L (35.3-44.9) % Plt Count 41 L (140-400) K/mcL Neutrophils # 22.1 H (1.6-8.9) K/mcL BMP 08/12/17 05:56 Sodium 135 L Potassium 3.5 Chloride 109 H Carbon Dioxide 19 L BUN 50 H Creatinine 0.80 Glucose 260 H Calcium 7.1 L - ABG Interpretation ABG results: PT/INR, D-dimer PT 19.7 Seconds (9.4-12.1) H 08/07/17 20:31 - Impressions Impressions Echocardiogram 08/10/17 09:28 Impressions: Technically adequate exam. Normal sinus rhythm. LVEF 60%. Trace mitral regurgitation. Trace tricuspid regurgitation. Left Ventricular Wall Motion: Rest Echo Findings All wall segments showed normal motion. Findings: Study Quality * Technically adequate exam. ECG Findings * Normal sinus rhythm. Left Ventricle * LVEF 60%. * Normal LV chamber size, wall thickness and function. * Normal left ventricular diastolic function. Right Ventricle * Normal right ventricular structure and function. Left Atrium * Normal left atrial size. Aortic Valve * Trileaflet aortic valve. * Trileaflet aortic valve with normal function. Mitral Valve * Normal mitral valve structure and function. * Trace mitral regurgitation. Tricuspid Valve * Normal tricuspid valve structure and function. * Trace tricuspid regurgitation. Pulmonic Valve * Pulmonic valve is not well visualized. Aorta * Normally sized aortic root. Pericardium * The pericardium appears normal. Consult Discharge Plan - Plan Referrals: Nazia Deleon CNP [Primary Care Provider] - 08/20/17 1:30 pm () <Tobias Mcgowan - Last Filed: 08/12/17 18:29> Date of Encounter: 08/12/17 - Assessment and plan (1) Staphylococcus aureus bacteremia with sepsis Current Visit: Yes Status: Acute (2) CLABSI (central line-associated bloodstream infection) Current Visit: Yes Status: Acute Qualifiers: Encounter type: subsequent encounter Qualified Code(s): T80.211D - Bloodstream infection due to central venous catheter, subsequent encounter (3) Thrush, oral Current Visit: Yes Status: Acute (4) Hypocalcemia Current Visit: Yes Status: Acute (5) Hypokalemia Current Visit: Yes Status: Resolved (6) Hypomagnesemia Current Visit: Yes Status: Resolved (7) Lactic acidosis Current Visit: Yes Status: Acute (8) Essential hypertension Current Visit: Yes Status: Chronic (9) Diabetes mellitus Current Visit: No Status: Chronic Qualifiers: Diabetes mellitus type: type 2 Diabetes mellitus complication status: with hyperglycemia Diabetes mellitus bed bug exterminator insulin use: with bed bug exterminator use Qualified Code(s): E11.65 - Type 2 diabetes mellitus with hyperglycemia; Z79.4 - shelter (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 of insulin; 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 ; 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; Z79.4 - shelter (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 of insulin (10) Carcinoma of breast metastatic to bone Current Visit: Yes Status: Chronic Qualifiers: Laterality: unspecified laterality Qualified Code(s): C50.919 - Malignant neoplasm of unspecified site of unspecified female breast; C79.51 - Secondary malignant neoplasm of bone; C79.51 - Secondary malignant neoplasm of bone; C79.51 - Secondary malignant neoplasm of bone; C79.51 - Secondary malignant neoplasm of bone (11) Moderate protein malnutrition Current Visit: Yes Status: Chronic - Constitutional Vitals: Temp Pulse Resp BP Pulse Ox 98.6 F 105 18 150/80 93 08/12/17 16:30 08/12/17 16:30 08/12/17 16:30 08/12/17 16:30 08/12/17 16:30 Internal Medicine: Result - Labs CBC & Chem 7: 08/12/17 05:56 08/12/17 05:56 Labs: Short CBC 08/12/17 Range/Units 05:56 WBC 31.5 H* (4.3-11.1) K/mcL Hgb 9.7 L (11.5-15.4) g/dL Hct 28.8 L (35.3-44.9) % Plt Count 41 L (140-400) K/mcL Neutrophils # 22.1 H (1.6-8.9) K/mcL BMP 08/12/17 05:56 Sodium 135 L Potassium 3.5 Chloride 109 H Carbon Dioxide 19 L BUN 50 H Creatinine 0.80 Glucose 260 H Calcium 7.1 L - ABG Interpretation ABG results: PT/INR, D-dimer PT 19.7 Seconds (9.4-12.1) H 08/07/17 20:31 - Attending Attestation I examined this patient and my medical decision-making was reviewed with the Resident Physician on 08/12/17. I agree with the documented findings, disposition and treatment plan as described except to the extent set forth below. Ms Catalan is currently admitted for acute septic shock related to CLABSI MSSA infections. She remains high risk due to potential for worsening clinical status. Ms Catalan is feeling a little better today. She has eaten a little and had some coffee. Pain is better and edema is improving. No fever or chills. Exam Alert. More comfortable Mucus membranes dry Heart reg No wheeze Abd soft I/P 1. CLABSI - MSSA on Nafcillin 2. thrush Further diagnoses and plan as above.
--- NOTE | 2017-08-12 11:58 | Infectious Disease Consult ---
Date of Encounter: 08/12/17 Time of Encounter: 11:56 Assessment and Plan (1) Septic shock Status: Acute Assessment and plan: The patient had two SIRS criteria plus TYRONE and lactic acidosis and hypotension requiring vasopressors. Originally had leukopenia, but now has leukocytosis --> likely related to Neupogen. Likely secondary to bacteremia. Improved. Tachycardia has improved. The patient has been afebrile x 48 hours. TYRONE has resolved. Lactic acidosis has improved. Vasopressors have been turned off. Peripheral blood cultures drawn 08/07/17 were positive 2/2 sets for MSSA. Repeat peripheral blood cultures drawn 08/09/17 were positive 2/2 sets for MSSA. Blood culture drawn from the a-port 08/10/17 was positive 1/1 set for MSSA as well. (2) Bacteremia due to Staphylococcus aureus Status: Acute Assessment and plan: Causative organism: MSSA. Source likely the right upper chest a-port insertion vs. recent access. Status post removal 08/10/17. Seropurulent drainage noted in the pocket on removal, but culture is negative. Uncomplicated. Peripheral blood cultures drawn 08/07/17 were positive 2/2 sets for MSSA. Repeat peripheral blood cultures drawn 08/09/17 were positive 2/2 sets for MSSA. Blood culture drawn from the a-port 08/10/17 was positive 1/1 set for MSSA as well. Additional peripheral blood cultures drawn 08/12/17 are pending x 2 sets. No endocarditis stigmata noted on exam. TTE negative for vegetations. Get CHELA prior to discharge. The patient has one major and one minor Modified Jensen's Criteria. Continue Nafcillin 2 grams IV Q4H. Duration of treatment depends on the clinical picture, but likely two weeks from the first set of negative blood cultures unless the CHELA shows vegetations. Monitor renal function and dose-adjust antibiotics. Avoid insertion of central venous access until repeat blood cultures are negative x 48 hours. (3) TYRONE (acute kidney injury) Status: Resolved Assessment and plan: Likely multifactorial: sepsis + dehydration + nephrotoxic chemotherapy drug Resolved. Continue to trend. Dose-adjust antibiotics. Avoid nephrotoxins as able. (4) Lactic acidosis Status: Acute Assessment and plan: Likely secondary to sepsis. CT of the abdomen and pelvis negative. Improved. Continue to trend. (5) Leukopenia Status: Resolved Assessment and plan: Likely secondary to recent chemotherapy. Status post Neupogen x 2. Resolved. Qualifiers: Leukopenia type: unspecified Qualified Code(s): D72.819 - Decreased white blood cell count, unspecified (6) Dehydration, severe Status: Acute Assessment and plan: Likely secondary to GI loss. Improved. Further management per the primary team. (7) Diarrhea Status: Resolved Assessment and plan: Likely secondary to recent chemotherapy. Resolved. Qualifiers: Diarrhea type: unspecified type Qualified Code(s): R19.7 - Diarrhea, unspecified (8) Diabetes mellitus Status: Chronic Assessment and plan: Uncontrolled. HgbA1C 8.4%. Recommend aggressive glucose monitoring and control. Management per the primary team. Qualifiers: Diabetes mellitus type: type 2 Diabetes mellitus complication status: with hyperglycemia Diabetes mellitus long term care administrator insulin use: with long term care administrator use Qualified Code(s): E11.65 - Type 2 diabetes mellitus with hyperglycemia; Z79.4 - [employer] (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 of insulin; Z79.4 - [facility] (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 of insulin ; Z79.4 - [employer] (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 of insulin; Z79.4 - [facility] (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 of insulin (9) Carcinoma of breast metastatic to bone Status: Chronic Assessment and plan: Newly diagnosed. Recently started weekly doses of Taxol. Follows with [facility]. Hem/Onc consulted and following. Qualifiers: Laterality: unspecified laterality Qualified Code(s): C50.919 - Malignant neoplasm of unspecified site of unspecified female breast; C79.51 - Secondary malignant neoplasm of bone; C79.51 - Secondary malignant neoplasm of bone; C79.51 - Secondary malignant neoplasm of bone; C79.51 - Secondary malignant neoplasm of bone (10) Cancer associated pain Status: Acute Assessment and plan: Pain management per the primary, palliative care, and hem/onc teams. (11) Oral mucosal lesion Status: Acute Assessment and plan: Etiology unclear: mucositis vs. herpes. Continue magic mouthwash. Add nystatin. Stop fluconazole. If fails to improve, consider swabbing lesions and sending for PCR. Infectious Disease HPI - Data of Consult Patient: new to practice Consult date: 08/12/17 Requesting Physician: Tobias Mcgowan DO Primary Care Provider: Nazia Deleon, - Consult Narrative Reason for consult: MSSA bacteremia History of present illness: Ms. Catalan is a 72 year old female with a past medical history of metastatic breast cancer, asthma, diabetes, hyperlipidemia, hypertension, and chronic kidney disease. The patient was admitted to the hospital several 28 for severe sepsis, lactic acidosis, and abdominal pain. We are consulted August 12 for antibiotic recommendations for MSSA bacteremia. Briefly, the patient's a 72-year-old female with past medical history as stated above. The patient received her second dose of paclitaxel on 07/31/17. The following Friday, she began to have nausea, vomiting, and diarrhea. Her symptoms persisted and she presented to the emergency department on the day of admission. Upon presentation, the patient was tachycardic and leukopenic with pancytopenia. She is also noted to have an acute kidney injury lactic acidosis. Chest x-ray completed in the emergency department showed a left pleural effusion with atelectasis versus infiltrate. She was CT the abdomen and pelvis that was negative. Urinalysis was obtained that was negative as well. Peripheral blood cultures were obtained 2 sets and came back positive for MSSA. The patient was started on IV antibiotics. She was admitted to the hospital for further evaluation. [place], the patient has been evaluated by our palliative care team as well as oncology. She received 2 doses of Neupogen and her leukopenia has resolved is now has leukocytosis. In point, the patient became hypotensive and required vasopressor support, but this been discontinued. Repeat peripheral blood cultures obtained August 09 were +2 out of 2 sets for MSSA. Repeat lactic acid levels have shown improvement. Her TYRONE has resolved. The patient did have 1 set of blood cultures drawn from her a port which were +1 out of 1 set for MSSA. Additional peripheral blood cultures were drawn this morning and are pending. General surgery was consulted and the patient had her a port removed on August 10. The operative note described seropurulent drainage, but the culture was negative. Currently, the patient is on IV nafcillin. We've been asked to evaluate and make further recommendations. During my exam today, the patient states that she feels better at this point. She complains of her chronic pain secondary to her bone cancer. She denies fevers, chills, or rigors. Denies headache, neck pain, or dizziness. She does endorse a history of extreme generalized weakness, but states this seems to be better. She reports non-bloody emesis and diarrhea that have resolved. She complains of diffuse abdominal pain, which is chronic. She reports she does still have some intermittent nausea, but overall she is feeling better and was able to sit up in the chair today. The patient lives at home with her and son and grandchildren. She denies tobacco, alcohol, or illicit drug use. CC: Tobias Mcgowan, DO Past Med Surg Social Fam HX - Past Medical History Attestation: Yes The following information was validated with the patient. Source: patient, old records reviewed, nursing notes reviewed Medical history: asthma, cancer (metastatic bone cancer with possible breast primary), diabetes, GERD, hyperlipidemia, hypertension, renal disease Psychiatric history: no psych history - Past Surgical History Surgical History: , cataract, cholecystectomy, JOAO/BSO, other (a-port placement) - Social History Smoking Status: Never smoker Smokeless Tobacco Status: No Alcohol use: none Drug use: none Occupational status: unemployed Current living situation: Home, With Family Activity Level: Independent ambulation Recent Out of Country Travel Within the Last 8 Weeks: No Exposure or Possible Exposure to Illness During Travel: No - Family History Mother Hx Family Cancer: Yes (Brain cancer) Hx Family Endocrine Disorder: Yes (DM) Infectious Disease-CN:Meds Albuterol Sulfate [Proventil Hfa] 1 puff IH QID PRN 06/20/15 [History] Aspirin Enteric Coated [Aspirin EC] 81 mg PO DAILY 06/20/15 [History] Fluticasone Propionate Nasal [Flonase] 1 spray NS DAILY 06/20/15 [History] Fluticasone/Salmeterol [Advair 100-50 Diskus] 1 each IH BID 06/20/15 [History] Glimepiride [Amaryl] 4 mg PO DAILY 06/20/15 [History] Insulin NPH Hum/Reg Insulin Hm [Novolin 70-30 100 Unit/ml Vial] 30 unit SQ BID 06/20/15 [History] Omeprazole [PriLOSEC] 40 mg PO DAILY 06/20/15 [History] Pravastatin Sodium [Pravachol] 20 mg PO HS 06/20/15 [History] Saxagliptin HCl [Onglyza] 5 mg PO DAILY 06/20/15 [History] Triamterene/HCTZ 75/50mg [Maxzide] 1 each PO DAILY 06/20/15 [History] Ondansetron HCl [Zofran] 4 mg PO Q8H PRN #60 tablet 07/08/17 [Rx] OxyCODONE Immed Rel [Roxicodone 15 MG] 15 mg PO BID #60 tablet 07/08/17 [Rx] Prochlorperazine Maleate [Compazine] 10 mg PO Q8HR PRN #60 tablet 07/08/17 [Rx] Calcium Carbonate/Vitamin D3 [Calcium 600 + Vit D Tablet] 2 each PO DAILY #60 tablet 07/31/17 [Rx] Docusate Sodium [Stool Softener] 100 mg PO DAILY PRN 07/31/17 [History] Lidocaine/Prilocaine [Emla] 1 appl TP AD #30 gm 07/31/17 [Rx] Lisinopril [Zestril] 40 mg PO DAILY 08/07/17 [History] Metoprolol Succinate 200 mg PO DAILY 08/07/17 [History] 3 Allergy/AdvReac Type Severity Reaction Status Date / Time nifedipine [From Procardia] Allergy Rash Verified 08/07/17 21:15 glipizide AdvReac Vomiting Verified 06/16/17 10:03 metoprolol [From Lopressor] AdvReac Nightmare Verified 08/07/17 21:15 All systems: reviewed and no additional remarkable complaints except as stated Exam - Constitutional Vitals: Temp Pulse Resp BP Pulse Ox 98.0 F 106 18 159/86 92 08/12/17 11:28 08/12/17 11:28 08/12/17 11:28 08/12/17 11:28 08/12/17 11:28 General appearance: cooperative, no acute distress, obese - Head Head exam: Present: atraumatic, normal inspection, normocephalic - Eye Eye exam: Present: EOMI, normal appearance, PERRL Pupils: Present: normal accommodation Additional comments: No subconjunctival hemorrhage noted. - ENT ENT exam: Present: mucous membranes moist - Neck Neck exam: Present: normal inspection - Respiratory Respiratory exam: Present: CTAB. Absent: rales, respiratory distress, rhonchi, wheezes - Cardiovascular Cardiovascular exam: Present: RRR, +S1, +S2 - GI/Abdominal GI/Abdominal exam: Present: distended (obese), normal bowel sounds, soft, tenderness (generalized) - Extremities Exam Extremities exam: Present: normal inspection, pedal edema (Trace BLE). Absent: joint swelling, tenderness - Neurological Exam Neurological exam: Present: alert, oriented X3, no focal deficits - Psychiatric Psychiatric exam: Present: normal affect, normal mood - Skin Skin exam: Present: dry, intact, normal color, warm Additional comments: No endocarditis stigmata noted. - Additional findings Additional findings: Right upper chest dressing C/D/I. Small scabbed lesion at the base of the right neck without redness, warmth, drainage, or tenderness. Infectious Disease CN: Results - Labs CBC & Chem 7: 08/12/17 05:56 08/12/17 05:56 Cultures: Cultures 08/10/17 14:08 Blood Culture - Preliminary Port System Gram Positive Cocci 08/11/17 12:20 Gram Stain - Final Chest 08/09/17 14:08 Blood Culture - Final Peripheral Venipuncture Staphylococcus aureus 08/09/17 14:08 Blood Culture - Final Peripheral Venipuncture Staphylococcus aureus Serology: Serology 08/09/17 08/09/17 08/08/17 Range/Units 17:00 14:08 02:49 Stl C. cayetanensis PCR Not detected (Not detect) Stool Rotavirus A PCR Not detected (Not detect) Stl Adenov F 40/41 PCR Not detected (Not detect) Stool Astrovirus (PCR) Not detected (Not detect) Stool Campylobacter PCR Not detected (Not detect) Stl C. diff Tox A/B PCR Not detected (Not detect) Stool Cryptosporidium PCR Not detected (Not detect) Stl Sh Tox Pr E STEC PCR Not detected (Not detect) Stool E coli O157 PCR Not detected (Not detect) Stl Enterotoxigenic E PCR Not detected (Not detect) Stool EPEC (PCR) Not detected (Not detect) Stool EAEC (PCR) Not detected (Not detect) Stl E. histolytica PCR Not detected (Not detect) Stool Giardia Lamblia PCR Not detected (Not detect) Stool Salmonella PCR Not detected (Not detect) Stool Sapovirus (PCR) Not detected (Not detect) Stl P. shigelloides PCR Not detected (Not detect) Stl Shigella/EIEC PCR Not detected (Not detect) St Y.enterocolitica PCR Not detected (Not detect) Stool Vibrio (PCR) Not detected (Not detect) Stl Vibrio cholerae PCR Not detected (Not detect) Stl Norovirus GI/GII PCR Not detected (Not detect) Stl GI Panel (PCR) Com See below A. baumannii (PCR) Not Detected (Not Detect) Chlamy pneumoniae PCR Not Detected (Not Detect) Adenovirus (PCR) Not Detected (Not Detect) B. pertussis DNA (PCR) Not Detected (Not Detect) Emeli albicans (PCR) Not Detected (Not Detect) C. glabrata (PCR) Not Detected (Not Detect) C. krusei (PCR) Not Detected (Not Detect) C. parapsilosis (PCR) Not Detected (Not Detect) C. tropicalis (PCR) Not Detected (Not Detect) Coronavirus OC43 (PCR) Not Detected (Not Detect) Coronavirus HKU1 (PCR) Not Detected (Not Detect) Coronavirus 229E (PCR) Not Detected (Not Detect) Coronavirus NL63 (PCR) Not Detected (Not Detect) Enterobacteriac sp PCR Not Detected (Not Detect) E. cloacae complex PCR Not Detected (Not Detect) Enterococcus sp PCR Not Detected (Not Detect) E. coli (PCR) Not Detected (Not Detect) H. influenzae (PCR) Not Detected (Not Detect) Human Metapneumovir PCR Not Detected (Not Detect) Influenza A (H1) PCR Not Detected (Not Detect) Influ A (H1N1/09) PCR Not Detected (Not Detect) Influenza A (H3) PCR Not Detected (Not Detect) Influenza A Untype (PCR) Not Detected (Not Detect) Influenza Type B (PCR) Not Detected (Not Detect) Klebsiella oxytoca PCR Not Detected (Not Detect) Klebsiella pneumoniae Not Detected (Not Detect) List. monocytogenes PCR Not Detected (Not Detect) M.pneumoniae DNA (PCR) Not Detected (Not Detect) N. meningitidis (PCR) Not Detected (Not Detect) Parainfluenza 1 (PCR) Not Detected (Not Detect) Parainfluenza 2 (PCR) Not Detected (Not Detect) Parainfluenza 3 (PCR) Not Detected (Not Detect) Parainfluenza 4 (PCR) Not Detected (Not Detect) Proteus species (PCR) Not Detected (Not Detect) RSV (PCR) Not Detected (Not Detect) Entero/Rhino (PCR) Not Detected (Not Detect) Serratia marcescens PCR Not Detected (Not Detect) Staphylococcus sp PCR DETECTED A (Not Detect) Staph aureus (PCR) DETECTED A (Not Detect) mecA-Methicil Res Gene Not Detected (Not Detect) Streptococcus sp PCR Not Detected (Not Detect) Group A Strep DNA Not Detected (Not Detect) Group B Strep (PCR) Not Detected (Not Detect) Strep pneumoniae (PCR) Not Detected (Not Detect) P. aeruginosa (PCR) Not Detected (Not Detect) Riley/B-Vanco Res Genes N/A (Not Detect) KPC (blaKPC) Detect PCR N/A (Not Detect) Consult Discharge Plan - Plan Referrals: Nazia Deleon CNP [Primary Care Provider] - 08/20/17 1:30 pm () - Attending Attestation I examined this patient and my medical decision-making was reviewed with the Resident Physician. I agree with the documented findings, disposition and treatment plan as described except to the extent set forth below. This is an addendum to original report dictated by Angela Rouse CNP. Please refer to Vinny note for full detail. Patient is a 72-year-old woman with past medical history mentioned below including recent diagnosis of cancer with metastases with likely breast being the primary source. Patient had 2 rounds of Taxol and had a was neutropenic. Patient came in complaining of nausea vomiting diarrhea. Patient had cultures obtained which came back positive for MSSA 2 out of 2 sets. On 08/10/17, patient had cultures from the port which also came back positive and the chest port was removed. Patient had a TTE done which has been negative for any vegetation. A CHELA has been ordered but has not been done. Patient seems to be doing much better clinically. I had a chance to discuss the case with the hospitalist team. At this point agree with nafcillin, duration of treatment probably 2 weeks from first negative blood cultures if CHELA is negative for any endocarditis. Monitor labs and for drug toxicity Monitor kidney function closely We will continue to follow closely. Thank you for allowing us to per to spit in the management of this patient.
[2017-08-12] MEDS: Potassium Phosphate 44 MEQ in 0.9 % Sodium Chloride 250 ML IVPB PRN (15:00)
[2017-08-12] MEDS ORDERED: Insulin DETEMIR 100 UNIT/ML X5UNITS SQ SCH (21:00)
[2017-08-12] MEDS: Nafcillin 2,000 MG in 0.9 % Sodium Chloride Mini Bag 100 ML IVPB SCH (23:24)
[2017-08-13] MEDS: *HR* OxyCODONE Immed Rel 5 MG TABLET PO SCH ×2 (03:59→08:44)
[2017-08-13] MEDS: Nafcillin 2,000 MG in 0.9 % Sodium Chloride Mini Bag 100 ML IVPB SCH ×6 (03:59→23:39)
[2017-08-13 04:27] LABS: Hemoglobin 10.5 g/dL (11.5-15.4); Nucleated Red Blood Cells 2.4 /100 WBC (0); Red Cell Distribution Width 14.4 % (11.5-14.5)
[2017-08-13 04:29] LABS: Hematocrit 30.3 % (35.3-44.9); Mean Corpuscular HGB Conc 34.7 g/dL (31.6-35.5); Mean Corpuscular Hemoglobin 30.3 pg (28.0-33.3); Mean Corpuscular Volume 87.3 fL (83.0-100.0); Mean Platelet Volume 13.7 fL (9.4-12.4); Red Blood Count 3.47 M/mcL (3.82-4.97)
[2017-08-13 04:37] LABS: VBG Ionized Calcium 0.95 mmol/L (1.15-1.35); VBG PH 7.39 pH Units (7.32-7.42)
[2017-08-13 04:40] LABS: BUN/Creatinine Ratio 52 (6-26); Blood Urea Nitrogen 46 mg/dL (8-23); Calcium 6.7 mg/dL (8.6-10.3); Carbon Dioxide 20 mEq/L (23-29); Chloride 105 mEq/L (98-107); Glucose 249 mg/dL (70-105); Magnesium 1.8 mg/dL (1.6-2.6); Osmolality,Calculated 296 (280-300); Phosphorous 3.6 mg/dL (2.7-4.5); Potassium 3.6 mEq/L (3.5-5.1); Sodium 133 mEq/L (136-145); eGFR For African Americans > 60 (> 60); eGFR For Non-African Americans > 60 (> 60)
[2017-08-13 04:51] LABS: Platelet Count 39 K/mcL (140-400)
[2017-08-13 04:54] LABS: Lymphocytes # 2.6 K/mcL (0.6-4.6); Monocytes # 2.1 K/mcL (0.0-1.3); Neutrophils # 21.6 K/mcL (1.6-8.9); Platelet Estimate Decreased (Normal); Polychromasia 1+ (Not Present)
[2017-08-13] MEDS: Budesonide/Formoterol 80/4.5 MDI IH SCH ×2 (08:04→21:44)
[2017-08-13] MEDS: Magic Mouthwash 10 ML UD Cup PO SCH ×2 (08:24→12:03)
[2017-08-13] MEDS: Nystatin SUSP 5 ML UD.LIQ PO SCH ×4 (08:24→20:41)
[2017-08-13] MEDS: Aspirin Enteric Coated 81 MG Tablet PO SCH (08:25)
[2017-08-13] MEDS: Fluticasone Propionate Nasal 50 MCG/SPRAY BOTTLE NS SCH (08:25)
[2017-08-13] MEDS: Silver Sulfadiazine 50 GM TUBE TP SCH ×2 (08:26→20:43)
[2017-08-13] MEDS ORDERED: *HR* OxyCODONE Immed Rel 5 MG TABLET PO STA (08:36)
--- NOTE | 2017-08-13 08:38 | Internal Med Progress Note ---
Date of Encounter: 08/13/17 Time of Encounter: 08:38 - Assessment and plan (1) Staphylococcus aureus bacteremia with sepsis Current Visit: Yes Status: Acute Assessment and plan: On IV Nafcillin. Repeat blood cx negative for 24 hours. Will need to arrange CHELA prior to discharge. (2) CLABSI (central line-associated bloodstream infection) Current Visit: Yes Status: Acute Assessment and plan: Present on admission. Qualifiers: Encounter type: subsequent encounter Qualified Code(s): T80.211D - Bloodstream infection due to central venous catheter, subsequent encounter (3) Thrush, oral Current Visit: Yes Status: Acute Assessment and plan: On Diflucan and Nystatin with BMX (4) Hypocalcemia Current Visit: Yes Status: Acute Assessment and plan: Replace today. (5) Hypomagnesemia Current Visit: Yes Status: Resolved Assessment and plan: Monitoring and replace as needed. (6) Lactic acidosis Current Visit: Yes Status: Acute Assessment and plan: started decreasing significantly after removal of port (7) Essential hypertension Current Visit: Yes Status: Chronic Assessment and plan: Blood pressure higher today. Will restart Lisinopril and Metoprolol at lower doses (8) Diabetes mellitus Current Visit: No Status: Chronic Assessment and plan: Blood sugar remains elevated. Levimir increased today. 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 Current Visit: Yes Status: Chronic Assessment and plan: Chronic issue Qualifiers: Laterality: unspecified laterality Qualified Code(s): C50.919 - Malignant neoplasm of unspecified site of unspecified female breast; C79.51 - Secondary malignant neoplasm of bone; C79.51 - Secondary malignant neoplasm of bone; C79.51 - Secondary malignant neoplasm of bone; C79.51 - Secondary malignant neoplasm of bone (10) Moderate protein malnutrition Current Visit: Yes Status: Chronic Assessment and plan: Chronic issue - Subjective Interval history: Ms Catalan is currently admitted for sepsis shock due to MSSA CLABSI. She remains high risk due to potential for worsening clinical status. Ms Catalan is feeling OK. She still has a lot of edema. Her R arm is bigger than L. No fever. Mouth sores a little better. Taking in a little PO. Lots of pain this AM and overnight. Oxy adjusted this AM. - Constitutional Vitals: Temp Pulse Resp BP Pulse Ox 98.9 F 112 18 182/94 93 08/13/17 08:18 08/13/17 08:18 08/13/17 08:18 08/13/17 08:18 08/13/17 08:18 General appearance: Present: A&O X 3, pleasant, answers questions appropriately - Head Head exam: Present: atraumatic, normocephalic - Eye Eye exam: Present: EOMI, conjuntiva pink - ENT ENT exam: Present: mucous membranes dry Additional comments: Oral sores noted. - Respiratory Respiratory exam: Present: decreased breath sounds, CTAB. Absent: rales, rhonchi, wheezes - Cardiovascular Cardiovascular exam: Present: RRR. Absent: systolic murmur, tachycardia - GI/Abdominal GI/Abdominal exam: Present: normal bowel sounds, soft - Extremities Exam Extremities exam: Present: warm Additional comments: Edema continues though somewhat better. RUE more edematous. - Neurological Exam Neurological exam: Present: alert, oriented X3, no focal deficits - Skin Skin exam: Present: warm Additional comments: Blisters still there from edema Internal Medicine: Result - Labs CBC & Chem 7: 08/13/17 04:00 08/13/17 04:00 Labs: Short CBC 08/12/17 08/13/17 Range/Units 05:56 04:00 WBC 26.3 H (4.3-11.1) K/mcL Hgb 10.5 L (11.5-15.4) g/dL Hct 30.3 L (35.3-44.9) % Plt Count 39 L (140-400) K/mcL Neutrophils # 22.1 H 21.6 H (1.6-8.9) K/mcL BMP 08/13/17 04:00 Sodium 133 L Potassium 3.6 Chloride 105 Carbon Dioxide 20 L BUN 46 H Creatinine 0.89 Glucose 249 H Calcium 6.7 L - ABG Interpretation ABG results: PT/INR, D-dimer PT 19.7 Seconds (9.4-12.1) H 08/07/17 20:31 Consult Discharge Plan - Plan Referrals: Nazia Deleon CNP [Primary Care Provider] - 08/20/17 1:30 pm ()
[2017-08-13] MEDS: Insulin LISPRO 300 UNITS/3 ML VIAL SQ SCH ×4 (08:42→20:42)
--- NOTE | 2017-08-13 10:15 | Palliative Progress Note ---
Date of Encounter: 08/13/17 Time of Encounter: 10:10 - Assessment and plan (1) Nausea Current Visit: Yes Status: Acute Assessment and plan: Improved with treatment of infections - oral intake improving some with treatment for oral ulcers. Monitor (2) Cancer associated pain Current Visit: Yes Status: Acute Assessment and plan: Oxycodone interval was increased by hospitalist this am prior to my visit ( Thank You!). Monitor and titrate as needed. She is comfortable and drowsy during my visit. (3) Goals of care, counseling/discussion Current Visit: Yes Status: Acute Assessment and plan: at bedside states pt continues to desire aggressive treatment with the goal of getting stronger and going home. He is aware she will need mcc antibiotics. He desires to take her home with home health and avoid ECF if at all possible. Will have PT/OT see and treat. She is wanting out of bed. - Time Spent With Patient Total time spent is greater than 50% in coordination of care (as documented) at patient's floor/unit and/or counseling patient: 25 - 35 minutes - Subjective Interval history: Patient drowsy at present - recently received pain medication. Does awaken easily but drifts back to sleep during conversation at bedside. Oral ulcers improving slightly - was able to eat few bites cream of wheat this am. Drinking milk. Does not like ensure. - Constitutional Vitals: Abnormal lab results WBC 26.3 K/mcL (4.3-11.1) H 08/13/17 04:00 RBC 3.47 M/mcL (3.82-4.97) L 08/13/17 04:00 Hgb 10.5 g/dL (11.5-15.4) L 08/13/17 04:00 Hct 30.3 % (35.3-44.9) L 08/13/17 04:00 Plt Count 39 K/mcL (140-400) L 08/13/17 04:00 MPV 13.7 fL (9.4-12.4) H 08/13/17 04:00 Immature Gran % 18.9 % (0-4) H 08/10/17 04:35 Neutrophils # 21.6 K/mcL (1.6-8.9) H 08/13/17 04:00 Monocytes # 2.1 K/mcL (0.0-1.3) H 08/13/17 04:00 Nucleated RBCs/100 WBC 2.4 /100 WBC (0) H 08/13/17 04:00 Reactive Lymphocytes Present (Not Present) A 08/09/17 04:25 Smudge Cells Present (Not Present) A 08/12/17 05:56 Toxic Granulation Present (Not Present) A 08/09/17 04:25 Platelet Estimate Decreased (Normal) L 08/13/17 04:00 Large Platelets Present (Not Present) A 08/09/17 04:25 Immature Plt Fraction 21.4 % (1.1-6.1) H 08/11/17 07:17 Polychromasia 1+ (Not Present) A 08/13/17 04:00 Poikilocytosis 1+ (Not Present) A 08/10/17 04:35 Anisocytosis 1+ (Not Present) A 08/10/17 04:35 PT 19.7 Seconds (9.4-12.1) H 08/07/17 20:31 APTT 43.4 Seconds (26.0-36.0) H 08/07/17 20:31 VBG pCO2 23 mmHg (41-51) L 08/11/17 09:27 VBG pO2 167 mmHg (25-50) H 08/11/17 09:27 VBG HCO3 15 mEq/L (21-27) L 08/11/17 09:27 Sodium 133 mEq/L (136-145) L 08/13/17 04:00 Carbon Dioxide 20 mEq/L (23-29) L 08/13/17 04:00 BUN 46 mg/dL (8-23) H 08/13/17 04:00 BUN/Creatinine Ratio 52 (6-26) H 08/13/17 04:00 Glucose 249 mg/dL (70-105) H 08/13/17 04:00 POC Glucose 244 (58-89) H 08/12/17 19:58 Hemoglobin A1c 8.4 % (-5.6) H 08/08/17 00:25 Lactic Acid 2.4 mmol/L (0.5-2.2) H 08/12/17 14:20 Calcium 6.7 mg/dL (8.6-10.3) L 08/13/17 04:00 Venous Ioniz Calcium 0.95 mmol/L (1.15-1.35) L 08/13/17 04:28 Total Bilirubin 2.1 mg/dL (0.3-1.0) H 08/10/17 16:20 Direct Bilirubin 1.3 mg/dL (0.0-0.2) H 08/10/17 16:20 AST 64 Units/L (13-39) H 08/10/17 16:20 Alkaline Phosphatase 129 Units/L (34-104) H 08/10/17 16:20 Troponin I 0.33 ng/mL (< 0.04) H* 08/10/17 08:40 Serum Total Protein 4.4 g/dL (6.4-8.9) L 08/10/17 16:20 Albumin 2.3 g/dL (3.5-5.7) L 08/10/17 16:20 Globulin 2.1 g/dL (2.4-3.5) L 08/10/17 16:20 Urine Clarity Turbid (Clear) A 08/07/17 21:23 Urine Protein 30 mg/dL (Neg-Trace) H 08/07/17 21:23 Urine Blood Large (Negative) H 08/07/17 21:23 Urine Bilirubin Small (Negative) H 08/07/17 21:23 Ur Leukocyte Esterase Large (Negative) H 08/07/17 21:23 Urine Microscopic WBC 50-100 per hpf (0-3) H 08/07/17 21:23 Ur Squamous Epith Cells Many per lpf (None-Few) H 08/07/17 21:23 Ur Renal Epithelial Cell Many per hpf (None-Few) H 08/07/17 21:23 Amorphous Sediment Many (Few) H 08/07/17 21:23 Urine Bacteria Moderate per hpf (None-Few) H 08/07/17 21:23 Staphylococcus sp PCR DETECTED (Not Detect) A 08/09/17 14:08 Staph aureus (PCR) DETECTED (Not Detect) A 08/09/17 14:08 General appearance: Present: no acute distress - Respiratory Respiratory exam: Present: decreased breath sounds, CTAB - Cardiovascular Cardiovascular exam: Present: +S1, +S2 - GI/Abdominal GI/Abdominal exam: Present: distended, soft - Extremities Exam Additional comments: generalized 2+ edema to upper and lower extremities - Neurological Exam Neurological exam: Present: alert, oriented X3, strengths equal and symetr throughout - Skin Skin exam: Present: dry, warm Palliative Quality Palliative Quality: Screen for Code Status: Yes, Screen for Goals of Care: Yes, Screen for Pain: Yes, If Pain Regimen Started, Initiate Bowel Regimen: No ( Diarrhea), Screen for Nausea/Vomitting: Yes Code Status: 08/07/17 23:37 Resuscitation Status: Active [RES] Routine Comment: Resuscitation Status: Full Code - Labs CBC & Chem 7: 08/13/17 04:00 08/13/17 04:00 Labs: Laboratory Results - last 24 hr 08/11/17 08/11/17 08/11/17 07:58 11:19 19:38 WBC RBC Hgb Hct MCV MCH MCHC RDW Plt Count MPV Seg Neutrophils % Band Neutrophils % Lymphocytes % Monocytes % Neutrophils # Lymphocytes # Monocytes # Nucleated RBCs/100 WBC Platelet Estimate Polychromasia VBG pH Sodium Potassium Chloride Carbon Dioxide BUN Creatinine Est GFR ( Amer) Est GFR (Non-Af Amer) BUN/Creatinine Ratio Glucose POC Glucose 200 H 193 H 271 H Calculated Osmolality Lactic Acid Calcium Venous Ioniz Calcium Phosphorus Magnesium 08/12/17 08/12/17 08/12/17 07:37 11:26 14:20 WBC RBC Hgb Hct MCV MCH MCHC RDW Plt Count MPV Seg Neutrophils % Band Neutrophils % Lymphocytes % Monocytes % Neutrophils # Lymphocytes # Monocytes # Nucleated RBCs/100 WBC Platelet Estimate Polychromasia VBG pH Sodium Potassium Chloride Carbon Dioxide BUN Creatinine Est GFR ( Amer) Est GFR (Non-Af Amer) BUN/Creatinine Ratio Glucose POC Glucose 247 H 243 H Calculated Osmolality Lactic Acid 2.4 H Calcium Venous Ioniz Calcium Phosphorus Magnesium 08/12/17 08/12/17 08/13/17 16:22 19:58 04:00 WBC 26.3 H RBC 3.47 L Hgb 10.5 L Hct 30.3 L MCV 87.3 MCH 30.3 MCHC 34.7 RDW 14.4 Plt Count 39 L MPV 13.7 H Seg Neutrophils % 80.0 Band Neutrophils % 2.0 Lymphocytes % 10.0 Monocytes % 8.0 Neutrophils # 21.6 H Lymphocytes # 2.6 Monocytes # 2.1 H Nucleated RBCs/100 WBC 2.4 H Platelet Estimate Decreased L Polychromasia 1+ A VBG pH Sodium Potassium Chloride Carbon Dioxide BUN Creatinine Est GFR ( Amer) Est GFR (Non-Af Amer) BUN/Creatinine Ratio Glucose POC Glucose 262 H 244 H Calculated Osmolality Lactic Acid Calcium Venous Ioniz Calcium Phosphorus Magnesium 08/13/17 08/13/17 04:00 04:28 WBC RBC Hgb Hct MCV MCH MCHC RDW Plt Count MPV Seg Neutrophils % Band Neutrophils % Lymphocytes % Monocytes % Neutrophils # Lymphocytes # Monocytes # Nucleated RBCs/100 WBC Platelet Estimate Polychromasia VBG pH 7.39 Sodium 133 L Potassium 3.6 Chloride 105 Carbon Dioxide 20 L BUN 46 H Creatinine 0.89 Est GFR ( Amer) > 60 Est GFR (Non-Af Amer) > 60 BUN/Creatinine Ratio 52 H Glucose 249 H POC Glucose Calculated Osmolality 296 Lactic Acid Calcium 6.7 L Venous Ioniz Calcium 0.95 L Phosphorus 3.6 Magnesium 1.8 - ABG Interpretation ABG results: PT/INR, D-dimer PT 19.7 Seconds (9.4-12.1) H 08/07/17 20:31 Consult Discharge Plan - Plan Referrals: Nazia Deleon CNP [Primary Care Provider] - 08/20/17 1:30 pm ()
[2017-08-13] MEDS: Furosemide 20 MG/2 ML VIAL IVP SCH ×2 (12:03→16:45)
[2017-08-13] MEDS: Fluconazole 100 MG/50 ML 100 MG/50 ML BAG IVPB SCH (12:06)
[2017-08-13] MEDS: Ondansetron 4 MG/2 ML VIAL IVP PRN ×2 (13:17→20:41)
--- NOTE | 2017-08-13 13:41 | Infectious Disease Progress No ---
Date of Encounter: 08/13/17 Time of Encounter: 13:39 - Assessment and Plan (1) Septic shock Current Visit: Yes Status: Acute The patient had two SIRS criteria plus TYRONE and lactic acidosis and hypotension requiring vasopressors. Originally had leukopenia, but now has leukocytosis --> likely related to Neupogen. Likely secondary to bacteremia. Improved. Tachycardia has improved. The patient has been afebrile. TYRONE has resolved. Lactic acidosis has improved. Vasopressors have been turned off. Peripheral blood cultures drawn 08/07/17 were positive 2/2 sets for MSSA. Repeat peripheral blood cultures drawn 08/09/17 were positive 2/2 sets for MSSA. Blood culture drawn from the a-port 08/10/17 was positive 1/1 set for MSSA as well. Repeat peripheral blood cultures drawn 08/12/16 are NGTD x 2 sets. (2) Bacteremia due to Staphylococcus aureus Current Visit: Yes Status: Acute Causative organism: MSSA. Source likely the right upper chest a-port insertion vs. recent access. Status post removal 08/10/17. Seropurulent drainage noted in the pocket on removal, but culture is negative. Uncomplicated. Peripheral blood cultures drawn 08/07/17 were positive 2/2 sets for MSSA. Repeat peripheral blood cultures drawn 08/09/17 were positive 2/2 sets for MSSA. Blood culture drawn from the a-port 08/10/17 was positive 1/1 set for MSSA as well. Additional peripheral blood cultures drawn 08/12/17 are NGTD x 2 sets. No endocarditis stigmata noted on exam. TTE negative for vegetations. Get CHELA prior to discharge. The patient has one major and one minor Modified Jensen's Criteria. Continue Nafcillin 2 grams IV Q4H. Duration of treatment depends on the clinical picture, but likely two weeks from the first set of negative blood cultures unless the CHELA shows vegetations. Monitor renal function and dose-adjust antibiotics. Avoid insertion of central venous access until repeat blood cultures are negative x 48 hours. (3) TYRONE (acute kidney injury) Current Visit: Yes Status: Resolved Likely multifactorial: sepsis + dehydration + nephrotoxic chemotherapy drug Resolved. Continue to trend. Dose-adjust antibiotics. Avoid nephrotoxins as able. (4) Lactic acidosis Current Visit: Yes Status: Acute Likely secondary to sepsis. CT of the abdomen and pelvis negative. Improved. Continue to trend. (5) Leukopenia Current Visit: Yes Status: Resolved Likely secondary to recent chemotherapy. Status post Neupogen x 2. Resolved. Qualifiers: Leukopenia type: unspecified Qualified Code(s): D72.819 - Decreased white blood cell count, unspecified (6) Dehydration, severe Current Visit: Yes Status: Acute Likely secondary to GI loss. Improved. Further management per the primary team. (7) Diarrhea Current Visit: Yes Status: Resolved Likely secondary to recent chemotherapy. Resolved. Qualifiers: Diarrhea type: unspecified type Qualified Code(s): R19.7 - Diarrhea, unspecified (8) Diabetes mellitus Current Visit: No Status: Chronic Uncontrolled. HgbA1C 8.4%. Recommend aggressive glucose monitoring and control. Management per the primary team. Qualifiers: Diabetes mellitus type: type 2 Diabetes mellitus complication status: with hyperglycemia Diabetes mellitus exterminator helper insulin use: with care home use Qualified Code(s): E11.65 - Type 2 diabetes mellitus with hyperglycemia; Z79.4 - detention (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 of insulin; Z79.4 - exterminator helper termite (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 of insulin ; Z79.4 - exterminator helper termite (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 of insulin; Z79.4 - exterminator helper termite (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 of insulin (9) Carcinoma of breast metastatic to bone Current Visit: Yes Status: Chronic Newly diagnosed. Recently started weekly doses of Taxol. Follows with [facility]. Hem/Onc consulted and following. 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 (11) Oral mucosal lesion Current Visit: Yes Status: Acute Etiology unclear: mucositis vs. herpes. Improvement. Continue magic mouthwash and nystatin. - Subjective Interval history: Patient seen and examined. No acute events noted overnight. Patient reports that overall she feels better today. Denies any fevers or chills or rigors. Denies any chest pain or shortness of breath, but does report a persistent nonproductive cough. She reports her nausea is better, but she doesn't really have much of an appetite. She denies any vomiting or diarrhea. She states she hasn't had a bowel movement for a couple of days. Her port some diffuse abdominal pain, which she reports is chronic. She has a Rodriguez catheter that remains patent. She reports that her oral lesions are improved and she was able to eat a little bit of breakfast. She reports chronic pain in her ribs, back, and abdomen. Infect Dis PN-Objective Data - Labs CBC & Chem 7: 08/13/17 04:00 08/13/17 04:00 Labs: Laboratory Results - last 24 hr 08/12/17 08/12/17 08/12/17 11:26 14:20 16:22 WBC RBC Hgb Hct MCV MCH MCHC RDW Plt Count MPV Seg Neutrophils % Band Neutrophils % Lymphocytes % Monocytes % Neutrophils # Lymphocytes # Monocytes # Nucleated RBCs/100 WBC Platelet Estimate Polychromasia VBG pH Sodium Potassium Chloride Carbon Dioxide BUN Creatinine Est GFR ( Amer) Est GFR (Non-Af Amer) BUN/Creatinine Ratio Glucose POC Glucose 243 H 262 H Calculated Osmolality Lactic Acid 2.4 H Calcium Venous Ioniz Calcium Phosphorus Magnesium 08/12/17 08/13/17 08/13/17 19:58 04:00 04:00 WBC 26.3 H RBC 3.47 L Hgb 10.5 L Hct 30.3 L MCV 87.3 MCH 30.3 MCHC 34.7 RDW 14.4 Plt Count 39 L MPV 13.7 H Seg Neutrophils % 80.0 Band Neutrophils % 2.0 Lymphocytes % 10.0 Monocytes % 8.0 Neutrophils # 21.6 H Lymphocytes # 2.6 Monocytes # 2.1 H Nucleated RBCs/100 WBC 2.4 H Platelet Estimate Decreased L Polychromasia 1+ A VBG pH Sodium 133 L Potassium 3.6 Chloride 105 Carbon Dioxide 20 L BUN 46 H Creatinine 0.89 Est GFR ( Amer) > 60 Est GFR (Non-Af Amer) > 60 BUN/Creatinine Ratio 52 H Glucose 249 H POC Glucose 244 H Calculated Osmolality 296 Lactic Acid Calcium 6.7 L Venous Ioniz Calcium Phosphorus 3.6 Magnesium 1.8 08/13/17 04:28 WBC RBC Hgb Hct MCV MCH MCHC RDW Plt Count MPV Seg Neutrophils % Band Neutrophils % Lymphocytes % Monocytes % Neutrophils # Lymphocytes # Monocytes # Nucleated RBCs/100 WBC Platelet Estimate Polychromasia VBG pH 7.39 Sodium Potassium Chloride Carbon Dioxide BUN Creatinine Est GFR ( Amer) Est GFR (Non-Af Amer) BUN/Creatinine Ratio Glucose POC Glucose Calculated Osmolality Lactic Acid Calcium Venous Ioniz Calcium 0.95 L Phosphorus Magnesium Cultures: Cultures 08/10/17 14:08 Blood Culture - Final Port System Staphylococcus aureus 08/11/17 12:20 Wound Culture - Final Chest Staphylococcus aureus 08/12/17 05:56 Blood Culture - Preliminary Peripheral Venipuncture No growth. 08/12/17 05:56 Blood Culture - Preliminary Peripheral Venipuncture No growth. 08/11/17 12:20 Gram Stain - Final Chest 08/09/17 14:08 Blood Culture - Final Peripheral Venipuncture Staphylococcus aureus 08/09/17 14:08 Blood Culture - Final Peripheral Venipuncture Staphylococcus aureus Serology 08/09/17 08/09/17 08/08/17 Range/Units 17:00 14:08 02:49 Stl C. cayetanensis PCR Not detected (Not detect) Stool Rotavirus A PCR Not detected (Not detect) Stl Adenov F 40/41 PCR Not detected (Not detect) Stool Astrovirus (PCR) Not detected (Not detect) Stool Campylobacter PCR Not detected (Not detect) Stl C. diff Tox A/B PCR Not detected (Not detect) Stool Cryptosporidium PCR Not detected (Not detect) Stl Sh Tox Pr E STEC PCR Not detected (Not detect) Stool E coli O157 PCR Not detected (Not detect) Stl Enterotoxigenic E PCR Not detected (Not detect) Stool EPEC (PCR) Not detected (Not detect) Stool EAEC (PCR) Not detected (Not detect) Stl E. histolytica PCR Not detected (Not detect) Stool Giardia Lamblia PCR Not detected (Not detect) Stool Salmonella PCR Not detected (Not detect) Stool Sapovirus (PCR) Not detected (Not detect) Stl P. shigelloides PCR Not detected (Not detect) Stl Shigella/EIEC PCR Not detected (Not detect) St Y.enterocolitica PCR Not detected (Not detect) Stool Vibrio (PCR) Not detected (Not detect) Stl Vibrio cholerae PCR Not detected (Not detect) Stl Norovirus GI/GII PCR Not detected (Not detect) Stl GI Panel (PCR) Com See below A. baumannii (PCR) Not Detected (Not Detect) Chlamy pneumoniae PCR Not Detected (Not Detect) Adenovirus (PCR) Not Detected (Not Detect) B. pertussis DNA (PCR) Not Detected (Not Detect) Emeli albicans (PCR) Not Detected (Not Detect) C. glabrata (PCR) Not Detected (Not Detect) C. krusei (PCR) Not Detected (Not Detect) C. parapsilosis (PCR) Not Detected (Not Detect) C. tropicalis (PCR) Not Detected (Not Detect) Coronavirus OC43 (PCR) Not Detected (Not Detect) Coronavirus HKU1 (PCR) Not Detected (Not Detect) Coronavirus 229E (PCR) Not Detected (Not Detect) Coronavirus NL63 (PCR) Not Detected (Not Detect) Enterobacteriac sp PCR Not Detected (Not Detect) E. cloacae complex PCR Not Detected (Not Detect) Enterococcus sp PCR Not Detected (Not Detect) E. coli (PCR) Not Detected (Not Detect) H. influenzae (PCR) Not Detected (Not Detect) Human Metapneumovir PCR Not Detected (Not Detect) Influenza A (H1) PCR Not Detected (Not Detect) Influ A (H1N1/09) PCR Not Detected (Not Detect) Influenza A (H3) PCR Not Detected (Not Detect) Influenza A Untype (PCR) Not Detected (Not Detect) Influenza Type B (PCR) Not Detected (Not Detect) Klebsiella oxytoca PCR Not Detected (Not Detect) Klebsiella pneumoniae Not Detected (Not Detect) List. monocytogenes PCR Not Detected (Not Detect) M.pneumoniae DNA (PCR) Not Detected (Not Detect) N. meningitidis (PCR) Not Detected (Not Detect) Parainfluenza 1 (PCR) Not Detected (Not Detect) Parainfluenza 2 (PCR) Not Detected (Not Detect) Parainfluenza 3 (PCR) Not Detected (Not Detect) Parainfluenza 4 (PCR) Not Detected (Not Detect) Proteus species (PCR) Not Detected (Not Detect) RSV (PCR) Not Detected (Not Detect) Entero/Rhino (PCR) Not Detected (Not Detect) Serratia marcescens PCR Not Detected (Not Detect) Staphylococcus sp PCR DETECTED A (Not Detect) Staph aureus (PCR) DETECTED A (Not Detect) mecA-Methicil Res Gene Not Detected (Not Detect) Streptococcus sp PCR Not Detected (Not Detect) Group A Strep DNA Not Detected (Not Detect) Group B Strep (PCR) Not Detected (Not Detect) Strep pneumoniae (PCR) Not Detected (Not Detect) P. aeruginosa (PCR) Not Detected (Not Detect) Riley/B-Vanco Res Genes N/A (Not Detect) KPC (blaKPC) Detect PCR N/A (Not Detect) - Impressions Impressions Chest X-Ray 08/13/17 09:05 IMPRESSION: Interval removal of right port. There is airspace disease in the left lower lung suggesting pneumonia with small left effusion. D/ / Prakash Carnes MD / Prakash Carnes MD Interpreting Provider: Prakash Carnes MD Exam - Constitutional Vitals: Temp Pulse Resp BP Pulse Ox 99.4 F 112 18 162/76 93 08/13/17 11:29 08/13/17 12:31 08/13/17 11:29 08/13/17 11:29 08/13/17 11:29 General appearance: cooperative, no acute distress, obese - Head Head exam: Present: atraumatic, normal inspection, normocephalic - Eye Eye exam: Present: EOMI, normal appearance, PERRL Pupils: Present: normal accommodation Additional comments: No subconjunctival hemorrhage noted. - ENT ENT exam: Present: mucous membranes dry Additional comments: Oral lesions crusted and improved today. - Neck Neck exam: Present: normal inspection - Respiratory Respiratory exam: Present: CTAB. Absent: rales, respiratory distress, rhonchi, wheezes - Cardiovascular Cardiovascular exam: Present: +S1, +S2, tachycardia. Absent: irregular rhythm Additional comments: Right upper chest dressing with small amount of old shadow drainage noted. No redness, warmth, or tenderness noted. - GI/Abdominal GI/Abdominal exam: Present: normal bowel sounds, soft, tenderness (Generalized) . Absent: distended Additional comments: Rodriguez catheter patent draining clear yellow urine. - Extremities Exam Extremities exam: Present: pedal edema (1+ bilateral lower and bilateral upper extremities.). Absent: joint swelling, tenderness Additional comments: RUE dressing with small amount of old serous drainage noted. - Neurological Exam Neurological exam: Present: alert, oriented X3, no focal deficits - Psychiatric Psychiatric exam: Present: normal affect, normal mood - Skin Skin exam: Present: dry, intact, normal color, warm Additional comments: No endocarditis stigmata noted. - Additional findings Additional findings: EPIV noted to the LUE with transparent dressing C/D/I. Consult Discharge Plan - Plan Referrals: Nazia Deleon CNP [Primary Care Provider] - 08/20/17 1:30 pm () - Attending Attestation I examined this patient and my medical decision-making was reviewed with the Resident Physician. I agree with the documented findings, disposition and treatment plan as described except to the extent set forth below.
[2017-08-13] MEDS ORDERED: Vicks Vaporub Oint 50 GM PACKAGE TP PRN (15:06)
[2017-08-13] MEDS: Metoprolol XL (24 HR) Succ 50 MG TAB.ER.24H PO SCH (15:22)
[2017-08-13] MEDS: Saline Nasal Spray 44 ML BOTTLE NS PRN (15:36)
[2017-08-13] MEDS: Stomatitis Mixture 5 ML UDC PO SCH ×2 (16:42→22:00)
[2017-08-13 19:43] LABS: Acinetobacter baumannii by PCR Not Detected (Not Detect); Enterococcus by PCR Not Detected (Not Detect); Escherichia coli by PCR Not Detected (Not Detect); Klebsiella oxytoca by PCR Not Detected (Not Detect); Klebsiella pneumoniae by PCR Not Detected (Not Detect); Staphylococcus aureus by PCR ***DETECTED*** (Not Detect); Streptococcus agalactiae(B)PCR Not Detected (Not Detect); Streptococcus by PCR Not Detected (Not Detect); Streptococcus pneumoniae PCR Not Detected (Not Detect); Streptococcus pyogenes (A) PCR Not Detected (Not Detect); blaKPC Carbapenem-Resist Gene Not Detected (Not Detect); mecA Methicillin-Resist Gene Not Detected (Not Detect); vanA/B Vancomycin-Resist Genes Not Detected (Not Detect)
[2017-08-13 19:44] LABS: Candida albicans by PCR Not Detected (Not Detect); Candida glabrata by PCR Not Detected (Not Detect); Candida krusei by PCR Not Detected (Not Detect); Candida parapsilosis by PCR Not Detected (Not Detect); Candida tropicalis by PCR Not Detected (Not Detect); Pseudomonas aeruginosa by PCR Not Detected (Not Detect); Serratia marcescens by PCR Not Detected (Not Detect)
[2017-08-13] MEDS ORDERED: Insulin DETEMIR 100 UNIT/ML X5UNITS SQ SCH (21:00)
[2017-08-13 21:18] LABS: VBG Ionized Calcium 0.95 mmol/L (1.15-1.35); VBG PH 7.38 pH Units (7.32-7.42)
[2017-08-14] MEDS: Nafcillin 2,000 MG in 0.9 % Sodium Chloride Mini Bag 100 ML IVPB SCH ×5 (05:03→21:49)
[2017-08-14 05:56] LABS: Red Cell Distribution Width 14.6 % (11.5-14.5)
[2017-08-14 05:58] LABS: Hematocrit 28.7 % (35.3-44.9); Hemoglobin 9.7 g/dL (11.5-15.4); Immature Platelets 18.9 % (1.1-6.1); Mean Corpuscular HGB Conc 33.8 g/dL (31.6-35.5); Mean Corpuscular Hemoglobin 29.9 pg (28.0-33.3); Mean Corpuscular Volume 88.6 fL (83.0-100.0); Mean Platelet Volume 14.1 fL (9.4-12.4); Nucleated Red Blood Cells 2.7 /100 WBC (0); Red Blood Count 3.24 M/mcL (3.82-4.97)
[2017-08-14 06:02] LABS: VBG Ionized Calcium 0.97 mmol/L (1.15-1.35); VBG PH 7.39 pH Units (7.32-7.42)
[2017-08-14 06:12] LABS: BUN/Creatinine Ratio 49 (6-26); Blood Urea Nitrogen 46 mg/dL (8-23); Calcium 6.6 mg/dL (8.6-10.3); Carbon Dioxide 20 mEq/L (23-29); Chloride 106 mEq/L (98-107); Glucose 197 mg/dL (70-105); Osmolality,Calculated 293 (280-300); Phosphorous 3.2 mg/dL (2.7-4.5); Potassium 3.2 mEq/L (3.5-5.1); Sodium 133 mEq/L (136-145); eGFR For African Americans > 60 (> 60); eGFR For Non-African Americans 58 (> 60)
[2017-08-14 06:27] LABS: Platelet Count 43 K/mcL (140-400)
[2017-08-14 06:28] LABS: Lymphocytes # 1.9 K/mcL (0.6-4.6); Monocytes # 1.6 K/mcL (0.0-1.3); Neutrophils # 12.2 K/mcL (1.6-8.9); Platelet Estimate Decreased (Normal)
[2017-08-14] MEDS: Budesonide/Formoterol 80/4.5 MDI IH SCH ×2 (07:52→20:39)
[2017-08-14] MEDS: Nystatin SUSP 5 ML UD.LIQ PO SCH ×4 (08:24→21:47)
[2017-08-14] MEDS: Furosemide 20 MG/2 ML VIAL IVP SCH ×2 (08:24→16:45)
[2017-08-14] MEDS: Aspirin Enteric Coated 81 MG Tablet PO SCH (08:24)
[2017-08-14] MEDS: Metoprolol XL (24 HR) Succ 50 MG TAB.ER.24H PO SCH (08:24)
[2017-08-14] MEDS: Fluticasone Propionate Nasal 50 MCG/SPRAY BOTTLE NS SCH (08:25)
[2017-08-14] MEDS: Fluconazole 100 MG/50 ML 100 MG/50 ML BAG IVPB SCH (08:25)
[2017-08-14] MEDS: Insulin LISPRO 300 UNITS/3 ML VIAL SQ SCH ×4 (08:26→21:48)
[2017-08-14] MEDS: Silver Sulfadiazine 50 GM TUBE TP SCH ×2 (08:26→21:48)
--- NOTE | 2017-08-14 08:26 | Internal Med Progress Note ---
<Cathy Davis - Last Filed: 08/14/17 15:03> Date of Encounter: 08/14/17 Time of Encounter: 08:50 - Assessment and plan (1) Severe sepsis Current Visit: Yes Status: Acute Assessment and plan: septic shock - required dopamine for pressure support -Due to MSSA bacteremia -Last fever 08/08 -08/07 2/2 blood cultures: positive - 08/09 Repeat blood cultures: positive -08/10 Cefepime and vancomycin discontinued; nafcillin started. Port removed. Blood culture from port positive -08/11 No longer requiring pressure support with dopamine. Wound culture: positive -08/12 repeat blood cultures: 08/12 positive -08/14 repeat blood cultures Patient remains fluid overloaded on physical exam. She is currently on lasix 20 mg IV BID. 1 out of 2 blood cultures from August 12 came back positive today - repeat blood cultures drawn this morning. She has had some confusion today and been more tired - will check for other sources of infection as current antibiotics are narrow spectrum. -Wound (burst blister) does not appear infected. - Remove redmond catheter. Check urinalysis. (2) Bacteremia due to Staphylococcus aureus Current Visit: Yes Status: Acute Assessment and plan: infectious disease consulted; appreciate recommendations CHELA planned for tomorrow (3) Lactic acidosis Current Visit: Yes Status: Acute Assessment and plan: started decreasing significantly after removal of port (4) Stomatitis and mucositis with change of taste Current Visit: Yes Status: Acute Assessment and plan: due to chemotherapy diflucan and nystatin with BMX (5) Hypokalemia Current Visit: Yes Status: Resolved Assessment and plan: Replete as needed with electrolyte protocol Continue to monitor (6) Hypocalcemia Current Visit: Yes Status: Acute Assessment and plan: Replete as needed with electrolyte protocol Continue to monitor (7) Essential hypertension Current Visit: Yes Status: Chronic Assessment and plan: home medications: metoprolol 200 mg daily lisinopril 40 mg daily triamterene/HCTZ 75/50 daily Current medications: lisinopril 10 mg metoprolol 100 mg Continue to monitor and adjust medications as needed (8) Diabetes mellitus Current Visit: No Status: Chronic Assessment and plan: 08/13 Blood sugar remains elevated. Levimir increased today. Patient takes 30 units of NPH BID at home (also saxagliptin 5mg daily and glimepiride 4mg daily); however, her oral intake has been minimal this admission. Currently taking levemir 15 units qhs with low dose sliding scale Continue to monitor. Qualifiers: Diabetes mellitus type: type 2 Diabetes mellitus complication status: with hyperglycemia Diabetes mellitus assisted insulin use: with assisted use Qualified Code(s): E11.65 - Type 2 diabetes mellitus with hyperglycemia; Z79.4 - shelter (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 of insulin; Z79.4 - shelter (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 of insulin ; Z79.4 - buttermaker helper (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 of insulin; Z79.4 - buttermaker helper (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 of insulin (9) Hypomagnesemia Current Visit: Yes Status: Acute Assessment and plan: Replete as needed with electrolyte protocol Continue to monitor (10) Bone metastases Current Visit: Yes Status: Chronic Assessment and plan: Oncology consult; appreciate recommendations Palliative consult; appreciate recommendations (11) CLABSI (central line-associated bloodstream infection) Current Visit: Yes Status: Acute Assessment and plan: Present on admission. Qualifiers: Encounter type: subsequent encounter Qualified Code(s): T80.211D - Bloodstream infection due to central venous catheter, subsequent encounter (12) Moderate protein malnutrition Current Visit: Yes Status: Chronic Assessment and plan: Chronic issue Patient's oral intake decreased significantly when she started chemotherapy. Plan: -start megace for appetite stimulation (13) GERD (gastroesophageal reflux disease) Current Visit: No Status: Chronic Assessment and plan: Chronic Continue omeprazole Qualifiers: Esophagitis presence: esophagitis presence not specified Qualified Code(s) : K21.9 - Gastro-esophageal reflux disease without esophagitis (14) Nausea Current Visit: Yes Status: Acute Assessment and plan: possibly chemotherapy related Zofran 4 mg IV q6h PRN (15) Diarrhea Current Visit: Yes Status: Resolved Assessment and plan: possibly chemotherapy related GI panel negative replace electrolytes as needed Qualifiers: Diarrhea type: unspecified type Qualified Code(s): R19.7 - Diarrhea, unspecified (16) Emesis Current Visit: Yes Status: Resolved Assessment and plan: resolved Qualifiers: Vomiting type: unspecified Vomiting Intractability: non-intractable Nausea presence: with nausea Qualified Code(s): R11.2 - Nausea with vomiting, unspecified (17) TYRONE (acute kidney injury) Current Visit: Yes Status: Resolved Assessment and plan: Resolved (18) Hypotension Current Visit: Yes Status: Resolved Assessment and plan: Resolved No longer requiring dopamine for pressure support now hypertensive and requiring antihypertensives (has PMH of HTN) Qualifiers: Hypotension type: other hypotension type Qualified Code(s): I95.89 - Other hypotension (19) Leukopenia Current Visit: Yes Status: Resolved Assessment and plan: resolved with neupogen (discontinued 08/09) Qualifiers: Leukopenia type: unspecified Qualified Code(s): D72.819 - Decreased white blood cell count, unspecified - Subjective Interval history: Patient states that her mouth still hurts; she is drinking more since starting therapy for her thrush/mucositis. - Constitutional Vitals: Temp Pulse Resp BP Pulse Ox 98.6 F 87 18 123/61 92 08/14/17 07:22 08/14/17 07:22 08/14/17 07:54 08/14/17 07:22 08/14/17 07:54 General appearance: Present: A&O X 3, pleasant, answers questions appropriately - Head Head exam: Present: atraumatic, normocephalic - Eye Eye exam: Present: PERRL, conjuntiva pink, sclera anicteric Pupils: Present: PERRL - ENT ENT exam: Present: mucous membranes dry - Neck Neck exam general surgery: Present: supple, trachea midline - Respiratory Respiratory exam: Present: CTAB - Cardiovascular Cardiovascular exam: Present: RRR, +S1, +S2. Absent: diastolic murmur, gallop, rubs, systolic murmur - GI/Abdominal GI/Abdominal exam: Present: normal bowel sounds, soft, no peritoneal signs. Absent: distended, tenderness - Extremities Exam Extremities exam: Present: warm Additional comments: peripheral edema (2-3+ of the hands; 1+ of the feet) - Neurological Exam Neurological exam: Present: alert, oriented X3. Absent: facial droop, speech deficit - Skin Skin exam: Present: dry. Absent: intact (large burst blister on right arm; currently wrapped in gauze) Internal Medicine: Result - Labs CBC & Chem 7: 08/14/17 05:43 08/14/17 05:43 Labs: Short CBC 08/14/17 Range/Units 05:43 WBC 15.6 H (4.3-11.1) K/mcL Hgb 9.7 L (11.5-15.4) g/dL Hct 28.7 L (35.3-44.9) % Plt Count 43 L (140-400) K/mcL Neutrophils # 12.2 H (1.6-8.9) K/mcL BMP 08/14/17 05:43 Sodium 133 L Potassium 3.2 L Chloride 106 Carbon Dioxide 20 L BUN 46 H Creatinine 0.94 Glucose 197 H Calcium 6.6 L - ABG Interpretation ABG results: PT/INR, D-dimer PT 19.7 Seconds (9.4-12.1) H 08/07/17 20:31 - Impressions Impressions Chest X-Ray 08/13/17 09:05 IMPRESSION: Interval removal of right port. There is airspace disease in the left lower lung suggesting pneumonia with small left effusion. D/ / Prakash Carnes MD / Prakash Carnes MD Interpreting Provider: Prakash Carnes MD - VTE Documentation of Mechanical Device: Intermittent pneumatic compression device Consult Discharge Plan - Plan Referrals: Nazia Deleon CNP [Primary Care Provider] - 08/20/17 1:30 pm () <Tobias Mcgowan - Last Filed: 08/14/17 18:11> Date of Encounter: 08/14/17 - Assessment and plan (1) Acute metabolic encephalopathy Current Visit: Yes Status: Acute (2) Diarrhea Current Visit: Yes Status: Acute Qualifiers: Diarrhea type: unspecified type Qualified Code(s): R19.7 - Diarrhea, unspecified (3) Staphylococcus aureus bacteremia with sepsis Current Visit: Yes Status: Acute (4) CLABSI (central line-associated bloodstream infection) Current Visit: Yes Status: Acute Qualifiers: Encounter type: subsequent encounter Qualified Code(s): T80.211D - Bloodstream infection due to central venous catheter, subsequent encounter (5) Thrush, oral Current Visit: Yes Status: Acute (6) Hypocalcemia Current Visit: Yes Status: Acute (7) Hypomagnesemia Current Visit: Yes Status: Acute (8) Lactic acidosis Current Visit: Yes Status: Resolved (9) Essential hypertension Current Visit: Yes Status: Chronic (10) Diabetes mellitus Current Visit: No Status: Chronic Qualifiers: Diabetes mellitus type: type 2 Diabetes mellitus complication status: with hyperglycemia Diabetes mellitus intermission coordinator insulin use: with intermission coordinator use Qualified Code(s): E11.65 - Type 2 diabetes mellitus with hyperglycemia; Z79.4 - buttermaker helper (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 of insulin; Z79.4 - buttermaker helper (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 of insulin ; Z79.4 - buttermaker helper (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 of insulin; Z79.4 - buttermaker helper (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 of insulin (11) Carcinoma of breast metastatic to bone Current Visit: Yes Status: Chronic Qualifiers: Laterality: unspecified laterality Qualified Code(s): C50.919 - Malignant neoplasm of unspecified site of unspecified female breast; C79.51 - Secondary malignant neoplasm of bone; C79.51 - Secondary malignant neoplasm of bone; C79.51 - Secondary malignant neoplasm of bone; C79.51 - Secondary malignant neoplasm of bone (12) Moderate protein malnutrition Current Visit: Yes Status: Chronic - Constitutional Vitals: Temp Pulse Resp BP Pulse Ox 97.8 F 85 18 121/73 94 08/14/17 15:40 08/14/17 15:40 08/14/17 15:40 08/14/17 15:40 08/14/17 15:40 Internal Medicine: Result - Labs CBC & Chem 7: 08/14/17 05:43 08/14/17 05:43 Labs: Short CBC 08/14/17 Range/Units 05:43 WBC 15.6 H (4.3-11.1) K/mcL Hgb 9.7 L (11.5-15.4) g/dL Hct 28.7 L (35.3-44.9) % Plt Count 43 L (140-400) K/mcL Neutrophils # 12.2 H (1.6-8.9) K/mcL BMP 08/14/17 05:43 Sodium 133 L Potassium 3.2 L Chloride 106 Carbon Dioxide 20 L BUN 46 H Creatinine 0.94 Glucose 197 H Calcium 6.6 L - ABG Interpretation ABG results: PT/INR, D-dimer PT 19.7 Seconds (9.4-12.1) H 08/07/17 20:31 - Attending Attestation I examined this patient and my medical decision-making was reviewed with the Resident Physician on 08/14/17. I agree with the documented findings, disposition and treatment plan as described except to the extent set forth below. Ms Catalan is currently admitted for MSSA bacteremia and septic shock. She remains moderate to high risk due to potential for worsening clinical status. Ms Catalan is more confused today. She is also having loose stool. No fever or chills. Blood sugar still elevated. Exam Alert. Comfortable at this time Mucus membranes dry Heart reg No wheeze Abd soft I/P 1. Confusion 2. DM 3. MSSA Further diagnoses and plan as above.
[2017-08-14] MEDS: Stomatitis Mixture 5 ML UDC PO SCH ×4 (08:30→21:22)
--- NOTE | 2017-08-14 11:08 | Event Note ---
Date of Encounter: 08/14/17 Time of Encounter: 11:05 Patient resting comfortable, states mouth ulcers continue to improve. at bedside. She has required no pain medication over the past 24 hours. She is aware PRN's are available if needed. Palliative following at a distance.
--- NOTE | 2017-08-14 12:08 | Infectious Disease Progress No ---
Date of Encounter: 08/14/17 Time of Encounter: 12:06 - Assessment and Plan (1) Septic shock Current Visit: Yes Status: Acute The patient had two SIRS criteria plus TYRONE and lactic acidosis and hypotension requiring vasopressors. Originally had leukopenia, but now has leukocytosis --> likely related to Neupogen, but this is improved. Likely secondary to bacteremia. Improved. Tachycardia has resolved. The patient has been afebrile. TYRONE has resolved. Lactic acidosis has improved. Vasopressors have been turned off. Peripheral blood cultures drawn 08/07/17 were positive 2/2 sets for MSSA. Repeat peripheral blood cultures drawn 08/09/17 were positive 2/2 sets for MSSA. Blood culture drawn from the a-port 08/10/17 was positive 1/1 set for MSSA as well. Repeat peripheral blood cultures drawn 08/12/16 are positive 1/2 sets. Additional peripheral blood cultures drawn 08/14/16 x 2 sets. (2) Bacteremia due to Staphylococcus aureus Current Visit: Yes Status: Acute Causative organism: MSSA. Source likely the right upper chest a-port insertion vs. recent access. Status post removal 08/10/17. Seropurulent drainage noted in the pocket on removal. Culture positive for MSSA. Uncomplicated. Peripheral blood cultures drawn 08/07/17 were positive 2/2 sets for MSSA. Repeat peripheral blood cultures drawn 08/09/17 were positive 2/2 sets for MSSA. Blood culture drawn from the a-port 08/10/17 was positive 1/1 set for MSSA as well. Additional peripheral blood cultures drawn 08/12/17 are positive 1/2 sets. Repeat peripheral blood cultures drawn 08/14/16 are pending x 2 sets. Etiology of persistently positive blood cultures likely due to 08/12/16 blood cultures drawn <24 hours after a-port was removed. No endocarditis stigmata noted on exam. TTE negative for vegetations. Get CHELA prior to discharge. Discussed with Dr. Davis. The patient has one major and one minor Modified Jensen's Criteria. Continue Nafcillin 2 grams IV Q4H. Duration of treatment depends on the clinical picture, but likely two weeks from the first set of negative blood cultures unless the CHELA shows vegetations. Monitor renal function and dose-adjust antibiotics. Avoid insertion of central venous access until repeat blood cultures are negative x 48 hours. (3) TYRONE (acute kidney injury) Current Visit: Yes Status: Resolved Likely multifactorial: sepsis + dehydration + nephrotoxic chemotherapy drug Resolved. Continue to trend. Dose-adjust antibiotics. Avoid nephrotoxins as able. (4) Lactic acidosis Current Visit: Yes Status: Acute Likely secondary to sepsis. CT of the abdomen and pelvis negative. Improved. Continue to trend. (5) Leukopenia Current Visit: Yes Status: Resolved Likely secondary to recent chemotherapy. Status post Neupogen x 2. Resolved. Qualifiers: Leukopenia type: unspecified Qualified Code(s): D72.819 - Decreased white blood cell count, unspecified (6) Dehydration, severe Current Visit: Yes Status: Acute Likely secondary to GI loss. Improved. Further management per the primary team. (7) Diarrhea Current Visit: Yes Status: Resolved Likely secondary to recent chemotherapy. Resolved. Qualifiers: Diarrhea type: unspecified type Qualified Code(s): R19.7 - Diarrhea, unspecified (8) Diabetes mellitus Current Visit: No Status: Chronic Uncontrolled. HgbA1C 8.4%. Recommend aggressive glucose monitoring and control. Management per the primary team. Qualifiers: Diabetes mellitus type: type 2 Diabetes mellitus complication status: with hyperglycemia Diabetes mellitus extermination inspector insulin use: with custodial use Qualified Code(s): E11.65 - Type 2 diabetes mellitus with hyperglycemia; Z79.4 - FPC (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 of insulin; Z79.4 - FPC (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 of insulin ; Z79.4 - FPC (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 of insulin; Z79.4 - terminal operations manager (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 of insulin (9) Carcinoma of breast metastatic to bone Current Visit: Yes Status: Chronic Newly diagnosed. Recently started weekly doses of Taxol. Follows with [facility]. Hem/Onc consulted and following. 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 (11) Oral mucosal lesion Current Visit: Yes Status: Acute Etiology unclear: mucositis vs. herpes. Improvement. Continue magic mouthwash and nystatin. Fluconazole re-started by the primary team. - Subjective Interval history: Patient seen and examined. No acute events noted overnight. Patient reports that overall she feels better today, but reports pain when she had a bowel movement and the skin on her bottom is raw. Denies any fevers or chills or rigors. Denies any chest pain, but reports dyspnea on exertion. She reports her nausea is better, but she doesn't really have much of an appetite. She repors she ate a little breakfast this morning. She denies any vomiting or diarrhea, but did have a loose BM this morning. She reports some diffuse abdominal pain, which is improved. She has a Rodrigeuz catheter that remains patent. She reports that her oral lesions are improved and she was able to eat a little bit of breakfast. She reports chronic pain in her ribs, back, and abdomen. Infect Dis PN-Objective Data - Labs CBC & Chem 7: 08/14/17 05:43 08/14/17 05:43 Labs: Laboratory Results - last 24 hr 08/12/17 08/13/17 08/13/17 05:56 08:17 11:31 WBC RBC Hgb Hct MCV MCH MCHC RDW Plt Count MPV Seg Neutrophils % Band Neutrophils % Lymphocytes % Monocytes % Neutrophils # Lymphocytes # Monocytes # Nucleated RBCs/100 WBC Platelet Estimate Immature Plt Fraction VBG pH Sodium Potassium Chloride Carbon Dioxide BUN Creatinine Est GFR ( Amer) Est GFR (Non-Af Amer) BUN/Creatinine Ratio Glucose POC Glucose 226 H 220 H Calculated Osmolality Lactic Acid Calcium Venous Ioniz Calcium Phosphorus Magnesium A. baumannii (PCR) Not Detected Emeli albicans (PCR) Not Detected C. glabrata (PCR) Not Detected C. krusei (PCR) Not Detected C. parapsilosis (PCR) Not Detected C. tropicalis (PCR) Not Detected Enterobacteriac sp PCR Not Detected E. cloacae complex PCR Not Detected Enterococcus sp PCR Not Detected E. coli (PCR) Not Detected H. influenzae (PCR) Not Detected Klebsiella oxytoca PCR Not Detected Klebsiella pneumoniae Not Detected List. monocytogenes PCR Not Detected N. meningitidis (PCR) Not Detected Proteus species (PCR) Not Detected Serratia marcescens PCR Not Detected Staphylococcus sp PCR DETECTED A Staph aureus (PCR) DETECTED A mecA-Methicil Res Gene Not Detected Streptococcus sp PCR Not Detected Group A Strep DNA Not Detected Group B Strep (PCR) Not Detected Strep pneumoniae (PCR) Not Detected P. aeruginosa (PCR) Not Detected Riley/B-Vanco Res Genes Not Detected KPC (blaKPC) Detect PCR Not Detected 08/13/17 08/13/17 08/13/17 13:15 16:17 19:56 WBC RBC Hgb Hct MCV MCH MCHC RDW Plt Count MPV Seg Neutrophils % Band Neutrophils % Lymphocytes % Monocytes % Neutrophils # Lymphocytes # Monocytes # Nucleated RBCs/100 WBC Platelet Estimate Immature Plt Fraction VBG pH Sodium Potassium Chloride Carbon Dioxide BUN Creatinine Est GFR ( Amer) Est GFR (Non-Af Amer) BUN/Creatinine Ratio Glucose POC Glucose 242 H 247 H Calculated Osmolality Lactic Acid Calcium Venous Ioniz Calcium Phosphorus Magnesium 2.3 A. baumannii (PCR) Emeli albicans (PCR) C. glabrata (PCR) C. krusei (PCR) C. parapsilosis (PCR) C. tropicalis (PCR) Enterobacteriac sp PCR E. cloacae complex PCR Enterococcus sp PCR E. coli (PCR) H. influenzae (PCR) Klebsiella oxytoca PCR Klebsiella pneumoniae List. monocytogenes PCR N. meningitidis (PCR) Proteus species (PCR) Serratia marcescens PCR Staphylococcus sp PCR Staph aureus (PCR) mecA-Methicil Res Gene Streptococcus sp PCR Group A Strep DNA Group B Strep (PCR) Strep pneumoniae (PCR) P. aeruginosa (PCR) Riley/B-Vanco Res Genes KPC (blaKPC) Detect PCR 08/13/17 08/14/17 08/14/17 21:14 05:43 05:43 WBC 15.6 H RBC 3.24 L Hgb 9.7 L Hct 28.7 L MCV 88.6 MCH 29.9 MCHC 33.8 RDW 14.6 H Plt Count 43 L MPV 14.1 H Seg Neutrophils % 66.0 Band Neutrophils % 12.0 H Lymphocytes % 12.0 Monocytes % 10.0 Neutrophils # 12.2 H Lymphocytes # 1.9 Monocytes # 1.6 H Nucleated RBCs/100 WBC 2.7 H Platelet Estimate Decreased L Immature Plt Fraction 18.9 H VBG pH 7.38 Sodium 133 L Potassium 3.2 L Chloride 106 Carbon Dioxide 20 L BUN 46 H Creatinine 0.94 Est GFR ( Amer) > 60 Est GFR (Non-Af Amer) 58 L BUN/Creatinine Ratio 49 H Glucose 197 H POC Glucose Calculated Osmolality 293 Lactic Acid Calcium 6.6 L Venous Ioniz Calcium 0.95 L Phosphorus 3.2 Magnesium 2.0 A. baumannii (PCR) Emeli albicans (PCR) C. glabrata (PCR) C. krusei (PCR) C. parapsilosis (PCR) C. tropicalis (PCR) Enterobacteriac sp PCR E. cloacae complex PCR Enterococcus sp PCR E. coli (PCR) H. influenzae (PCR) Klebsiella oxytoca PCR Klebsiella pneumoniae List. monocytogenes PCR N. meningitidis (PCR) Proteus species (PCR) Serratia marcescens PCR Staphylococcus sp PCR Staph aureus (PCR) mecA-Methicil Res Gene Streptococcus sp PCR Group A Strep DNA Group B Strep (PCR) Strep pneumoniae (PCR) P. aeruginosa (PCR) Riley/B-Vanco Res Genes KPC (blaKPC) Detect PCR 08/14/17 08/14/17 05:59 09:30 WBC RBC Hgb Hct MCV MCH MCHC RDW Plt Count MPV Seg Neutrophils % Band Neutrophils % Lymphocytes % Monocytes % Neutrophils # Lymphocytes # Monocytes # Nucleated RBCs/100 WBC Platelet Estimate Immature Plt Fraction VBG pH 7.39 Sodium Potassium Chloride Carbon Dioxide BUN Creatinine Est GFR ( Amer) Est GFR (Non-Af Amer) BUN/Creatinine Ratio Glucose POC Glucose Calculated Osmolality Lactic Acid 2.0 Calcium Venous Ioniz Calcium 0.97 L Phosphorus Magnesium A. baumannii (PCR) Emeli albicans (PCR) C. glabrata (PCR) C. krusei (PCR) C. parapsilosis (PCR) C. tropicalis (PCR) Enterobacteriac sp PCR E. cloacae complex PCR Enterococcus sp PCR E. coli (PCR) H. influenzae (PCR) Klebsiella oxytoca PCR Klebsiella pneumoniae List. monocytogenes PCR N. meningitidis (PCR) Proteus species (PCR) Serratia marcescens PCR Staphylococcus sp PCR Staph aureus (PCR) mecA-Methicil Res Gene Streptococcus sp PCR Group A Strep DNA Group B Strep (PCR) Strep pneumoniae (PCR) P. aeruginosa (PCR) Riley/B-Vanco Res Genes KPC (blaKPC) Detect PCR Cultures: Cultures 08/11/17 12:20 Anaerobic Culture - Preliminary Chest At this time, no anaerobic growth is present. The culture will be finalized after 5 days of incubation. 08/12/17 05:56 Blood Culture - Preliminary Peripheral Venipuncture Gram Positive Cocci 08/10/17 22:20 Catheter Tip Culture - Preliminary Intravenous or Arterial Cath Staphylococcus aureus 08/10/17 14:08 Blood Culture - Final Port System Staphylococcus aureus 08/11/17 12:20 Wound Culture - Final Chest Staphylococcus aureus 08/12/17 05:56 Blood Culture - Preliminary Peripheral Venipuncture No growth. 08/11/17 12:20 Gram Stain - Final Chest 08/09/17 14:08 Blood Culture - Final Peripheral Venipuncture Staphylococcus aureus 08/09/17 14:08 Blood Culture - Final Peripheral Venipuncture Staphylococcus aureus Serology 08/12/17 08/09/17 08/09/17 Range/Units 05:56 17:00 14:08 Stl C. cayetanensis PCR Not detected (Not detect) Stool Rotavirus A PCR Not detected (Not detect) Stl Adenov F 40/41 PCR Not detected (Not detect) Stool Astrovirus (PCR) Not detected (Not detect) Stool Campylobacter PCR Not detected (Not detect) Stl C. diff Tox A/B PCR Not detected (Not detect) Stool Cryptosporidium PCR Not detected (Not detect) Stl Sh Tox Pr E STEC PCR Not detected (Not detect) Stool E coli O157 PCR Not detected (Not detect) Stl Enterotoxigenic E PCR Not detected (Not detect) Stool EPEC (PCR) Not detected (Not detect) Stool EAEC (PCR) Not detected (Not detect) Stl E. histolytica PCR Not detected (Not detect) Stool Giardia Lamblia PCR Not detected (Not detect) Stool Salmonella PCR Not detected (Not detect) Stool Sapovirus (PCR) Not detected (Not detect) Stl P. shigelloides PCR Not detected (Not detect) Stl Shigella/EIEC PCR Not detected (Not detect) St Y.enterocolitica PCR Not detected (Not detect) Stool Vibrio (PCR) Not detected (Not detect) Stl Vibrio cholerae PCR Not detected (Not detect) Stl Norovirus GI/GII PCR Not detected (Not detect) Stl GI Panel (PCR) Com See below A. baumannii (PCR) Not Detected Not Detected (Not Detect) Chlamy pneumoniae PCR (Not Detect) Adenovirus (PCR) (Not Detect) B. pertussis DNA (PCR) (Not Detect) Emeli albicans (PCR) Not Detected Not Detected (Not Detect) C. glabrata (PCR) Not Detected Not Detected (Not Detect) C. krusei (PCR) Not Detected Not Detected (Not Detect) C. parapsilosis (PCR) Not Detected Not Detected (Not Detect) C. tropicalis (PCR) Not Detected Not Detected (Not Detect) Coronavirus OC43 (PCR) (Not Detect) Coronavirus HKU1 (PCR) (Not Detect) Coronavirus 229E (PCR) (Not Detect) Coronavirus NL63 (PCR) (Not Detect) Enterobacteriac sp PCR Not Detected Not Detected (Not Detect) E. cloacae complex PCR Not Detected Not Detected (Not Detect) Enterococcus sp PCR Not Detected Not Detected (Not Detect) E. coli (PCR) Not Detected Not Detected (Not Detect) H. influenzae (PCR) Not Detected Not Detected (Not Detect) Human Metapneumovir PCR (Not Detect) Influenza A (H1) PCR (Not Detect) Influ A (H1N1/09) PCR (Not Detect) Influenza A (H3) PCR (Not Detect) Influenza A Untype (PCR) (Not Detect) Influenza Type B (PCR) (Not Detect) Klebsiella oxytoca PCR Not Detected Not Detected (Not Detect) Klebsiella pneumoniae Not Detected Not Detected (Not Detect) List. monocytogenes PCR Not Detected Not Detected (Not Detect) M.pneumoniae DNA (PCR) (Not Detect) N. meningitidis (PCR) Not Detected Not Detected (Not Detect) Parainfluenza 1 (PCR) (Not Detect) Parainfluenza 2 (PCR) (Not Detect) Parainfluenza 3 (PCR) (Not Detect) Parainfluenza 4 (PCR) (Not Detect) Proteus species (PCR) Not Detected Not Detected (Not Detect) RSV (PCR) (Not Detect) Entero/Rhino (PCR) (Not Detect) Serratia marcescens PCR Not Detected Not Detected (Not Detect) Staphylococcus sp PCR DETECTED A DETECTED A (Not Detect) Staph aureus (PCR) DETECTED A DETECTED A (Not Detect) mecA-Methicil Res Gene Not Detected Not Detected (Not Detect) Streptococcus sp PCR Not Detected Not Detected (Not Detect) Group A Strep DNA Not Detected Not Detected (Not Detect) Group B Strep (PCR) Not Detected Not Detected (Not Detect) Strep pneumoniae (PCR) Not Detected Not Detected (Not Detect) P. aeruginosa (PCR) Not Detected Not Detected (Not Detect) Riley/B-Vanco Res Genes Not Detected N/A (Not Detect) KPC (blaKPC) Detect PCR Not Detected N/A (Not Detect) 08/08/17 Range/Units 02:49 Stl C. cayetanensis PCR (Not detect) Stool Rotavirus A PCR (Not detect) Stl Adenov F 40/41 PCR (Not detect) Stool Astrovirus (PCR) (Not detect) Stool Campylobacter PCR (Not detect) Stl C. diff Tox A/B PCR (Not detect) Stool Cryptosporidium PCR (Not detect) Stl Sh Tox Pr E STEC PCR (Not detect) Stool E coli O157 PCR (Not detect) Stl Enterotoxigenic E PCR (Not detect) Stool EPEC (PCR) (Not detect) Stool EAEC (PCR) (Not detect) Stl E. histolytica PCR (Not detect) Stool Giardia Lamblia PCR (Not detect) Stool Salmonella PCR (Not detect) Stool Sapovirus (PCR) (Not detect) Stl P. shigelloides PCR (Not detect) Stl Shigella/EIEC PCR (Not detect) St Y.enterocolitica PCR (Not detect) Stool Vibrio (PCR) (Not detect) Stl Vibrio cholerae PCR (Not detect) Stl Norovirus GI/GII PCR (Not detect) Stl GI Panel (PCR) Com A. baumannii (PCR) (Not Detect) Chlamy pneumoniae PCR Not Detected (Not Detect) Adenovirus (PCR) Not Detected (Not Detect) B. pertussis DNA (PCR) Not Detected (Not Detect) Emeli albicans (PCR) (Not Detect) C. glabrata (PCR) (Not Detect) C. krusei (PCR) (Not Detect) C. parapsilosis (PCR) (Not Detect) C. tropicalis (PCR) (Not Detect) Coronavirus OC43 (PCR) Not Detected (Not Detect) Coronavirus HKU1 (PCR) Not Detected (Not Detect) Coronavirus 229E (PCR) Not Detected (Not Detect) Coronavirus NL63 (PCR) Not Detected (Not Detect) Enterobacteriac sp PCR (Not Detect) E. cloacae complex PCR (Not Detect) Enterococcus sp PCR (Not Detect) E. coli (PCR) (Not Detect) H. influenzae (PCR) (Not Detect) Human Metapneumovir PCR Not Detected (Not Detect) Influenza A (H1) PCR Not Detected (Not Detect) Influ A (H1N1/09) PCR Not Detected (Not Detect) Influenza A (H3) PCR Not Detected (Not Detect) Influenza A Untype (PCR) Not Detected (Not Detect) Influenza Type B (PCR) Not Detected (Not Detect) Klebsiella oxytoca PCR (Not Detect) Klebsiella pneumoniae (Not Detect) List. monocytogenes PCR (Not Detect) M.pneumoniae DNA (PCR) Not Detected (Not Detect) N. meningitidis (PCR) (Not Detect) Parainfluenza 1 (PCR) Not Detected (Not Detect) Parainfluenza 2 (PCR) Not Detected (Not Detect) Parainfluenza 3 (PCR) Not Detected (Not Detect) Parainfluenza 4 (PCR) Not Detected (Not Detect) Proteus species (PCR) (Not Detect) RSV (PCR) Not Detected (Not Detect) Entero/Rhino (PCR) Not Detected (Not Detect) Serratia marcescens PCR (Not Detect) Staphylococcus sp PCR (Not Detect) Staph aureus (PCR) (Not Detect) mecA-Methicil Res Gene (Not Detect) Streptococcus sp PCR (Not Detect) Group A Strep DNA (Not Detect) Group B Strep (PCR) (Not Detect) Strep pneumoniae (PCR) (Not Detect) P. aeruginosa (PCR) (Not Detect) Riley/B-Vanco Res Genes (Not Detect) KPC (blaKPC) Detect PCR (Not Detect) Exam - Constitutional Vitals: Temp Pulse Resp BP Pulse Ox 97.8 F 82 15 108/47 93 08/14/17 11:50 08/14/17 11:50 08/14/17 11:50 08/14/17 11:50 08/14/17 11:50 General appearance: cooperative, no acute distress, obese - Head Head exam: Present: atraumatic, normal inspection, normocephalic - Eye Eye exam: Present: EOMI, normal appearance, PERRL Pupils: Present: normal accommodation Additional comments: No subconjunctival hemorrhage noted. - ENT Additional comments: Mucous membranes dry. Oral lesions continue to improve. - Neck Neck exam: Present: normal inspection - Respiratory Respiratory exam: Present: CTAB. Absent: rales, respiratory distress, rhonchi, wheezes - Cardiovascular Cardiovascular exam: Present: RRR, +S1, +S2 - GI/Abdominal GI/Abdominal exam: Present: normal bowel sounds, soft, tenderness (generalized) . Absent: distended Additional comments: Rodriguez catheter noted to be draining clear yellow urine. - Extremities Exam Extremities exam: Present: pedal edema (1+ BLE). Absent: joint swelling, tenderness Additional comments: LUE swelling 1+, RUE 2+. RUE dressing C/D/I. - Neurological Exam Neurological exam: Present: alert, oriented X3, no focal deficits - Psychiatric Psychiatric exam: Present: normal affect, normal mood - Skin Skin exam: Present: dry, intact, normal color, warm Additional comments: No endocarditis stigmata noted. - Additional findings Additional findings: Right upper chest dressing C/D/I. - VTE Documentation of Mechanical Device: Intermittent pneumatic compression device Consult Discharge Plan - Plan Referrals: Nazia Deleon, TURBO OPERATOR [Primary Care Provider] - 08/20/17 1:30 pm () - Attending Attestation I examined this patient and my medical decision-making was reviewed with the Resident Physician. I agree with the documented findings, disposition and treatment plan as described except to the extent set forth below.
--- NOTE | 2017-08-14 16:09 | Oncology Inp Progress Note ---
Date of Encounter: 08/14/17 Time of Encounter: 15:30 (1) Metastatic adenocarcinoma Current Visit: Yes Status: Acute Assessment and plan: Possible breast primary, ER/[place] negative HER-2/casa negative, patient has started chemotherapy with Taxol 2 weekly doses completed Peripheral blood cultures positive for MSSA A-port removed-Blood culture drawn from the a-port 08/10/17 was positive 08/11 set for MSSA. Septic Shock/Bacteremia-Improving, vasopressors stopped, TYRONE resolved, hypocalcemia/hypokalemia, managed per hospitalist team Development of diarrhea likely non chemo induced, awaiting c diff cx Delay chemotherapy, Dr Wesley, treating oncologist, will follow up for further treatment recommendations as outpatient following resolution of acute issues, may consider dose reduction Neutropenia, resolved, neupogen d/prasanna. Anemia, thrombocytopenia stable. Significant stomatitis involving most of tongue and oral cavity, likely related to chemo tx-Grade 3, interfering with oral intake. Continue magic mouthwash and oral care (rinse mouth frequently with water, avoid hot, spicy or rough textured foods, cold beverages, citrus). Monitor platelets/bleeding. Recommend non alcohol based decadron mouth rinse, will coordinate with pharmacy. Oncology: Subj Interval history: Pain attributed to mucositis. Denies SOB, chest pain, nausea or vomiting. Reports loose bowel movements that began today, C Diff cx pending. at bedside. - Constitutional Vitals: Vital Signs Temp Pulse Resp BP Pulse Ox 08/14/17 15:40 97.8 F 85 18 121/73 94 08/14/17 11:50 97.8 F 82 15 108/47 93 08/14/17 08:27 86 08/14/17 07:54 18 92 08/14/17 07:22 98.6 F 87 20 123/61 92 08/14/17 05:47 99.4 F 84 17 122/61 92 08/14/17 04:05 84 18 94 08/14/17 00:51 99.4 F 94 18 120/63 94 08/14/17 00:32 85 19 94 08/13/17 21:44 19 94 08/13/17 21:13 86 19 94 08/13/17 19:53 96.0 F L 91 94 Intake and Output 08/14/17 08/14/17 08/14/17 07:59 15:59 23:59 Intake Total 450 / 450 900 / 900 Output Total 1100 / 1100 650 / 650 Balance -650 / -650 250 / 250 Intake: IV Fluids 100 / 100 420 / 420 Calcium Gluconate 1,000 MG In 0 220 / 220 .9 % Sodium Chloride 100 ML @ 203.494 mls/hr IVPB Q6HR PRN Rx #:[id number] Nafcillin 2,000 MG In 0.9 % 100 / 100 200 / 200 Sodium Chloride (Mini-Bag +) 100 ML @ 200 mls/hr IVPB Q4HR BRIAN Rx#:[id number] Oral 350 / 350 480 / 480 Output: Urine 150 / 150 Catheter 1100 / 1100 500 / 500 Other: Stool Size Moderate Stool Consistency loose Stool Characteristics Normal for Patient Stool Color Brown # Bowel Movements 1 Weight 88.2 kg Blood Glucose* 205 235 Patient Weight 08/14/17 23:59 Weight 88.2 kg General appearance: cooperative, no acute distress - Head Head exam: Present: normal inspection - ENT Additional comments: Grade 3 mucositis - Neck Neck exam: Absent: lymphadenopathy, tenderness - Respiratory Respiratory exam: Present: decreased breath sounds, CTAB - Cardiovascular Cardiovascular exam: Present: RRR, +S1, +S2 - GI/Abdominal GI/Abdominal exam: Present: normal bowel sounds, soft. Absent: guarding, tenderness - Extremities Exam Extremities exam: Present: pedal edema. Absent: calf tenderness Additional comments: 1+ pitting edema BLE - Neurological Exam Neurological exam: Present: alert, oriented X3, strengths equal and symetr throughout - Skin Additional comments: RUE redness/ulceration dressing to right chest from port removal Oncology: Obj Data - Labs CBC & Chem 7: 08/14/17 05:43 08/14/17 05:43 - ABG Interpretation ABG results: PT/INR, D-dimer PT 19.7 Seconds (9.4-12.1) H 08/07/17 20:31 Consult Discharge Plan - Plan Referrals: Nazia Deleon CNP [Primary Care Provider] - 08/20/17 1:30 pm ()
[2017-08-14] MEDS: Megestrol Acetate 400 MG/10 ML UDC PO SCH (16:45)
[2017-08-14 19:08] LABS: VBG HCO3 18 mEq/L (21-27); VBG Ionized Calcium 0.99 mmol/L (1.15-1.35); VBG PCO2 28 mmHg (41-51); VBG PH 7.41 pH Units (7.32-7.42); VBG PO2 73 mmHg (25-50)
[2017-08-14 19:38] LABS: BUN/Creatinine Ratio 46 (6-26); Blood Urea Nitrogen 46 mg/dL (8-23); Calcium 6.7 mg/dL (8.6-10.3); Carbon Dioxide 18 mEq/L (23-29); Chloride 106 mEq/L (98-107); Glucose 240 mg/dL (70-105); Osmolality,Calculated 298 (280-300); Sodium 134 mEq/L (136-145); eGFR For African Americans > 60 (> 60); eGFR For Non-African Americans 54 (> 60)
[2017-08-14] MEDS: Insulin DETEMIR 100 UNIT/ML X5UNITS SQ SCH (21:48)
[2017-08-15] MEDS: Nafcillin 2,000 MG in 0.9 % Sodium Chloride Mini Bag 100 ML IVPB SCH ×6 (01:09→21:43)
[2017-08-15 08:04] LABS: VBG Ionized Calcium 1.01 mmol/L (1.15-1.35)
[2017-08-15] MEDS: Budesonide/Formoterol 80/4.5 MDI IH SCH ×2 (08:05→19:55)
[2017-08-15 08:37] LABS: BUN/Creatinine Ratio 48 (6-26); Blood Urea Nitrogen 46 mg/dL (8-23); Calcium 6.7 mg/dL (8.6-10.3); Carbon Dioxide 19 mEq/L (23-29); Chloride 106 mEq/L (98-107); Glucose 242 mg/dL (70-105); Magnesium 1.7 mg/dL (1.6-2.6); Osmolality,Calculated 298 (280-300); Phosphorous 2.9 mg/dL (2.7-4.5); Potassium 2.8 mEq/L (3.5-5.1); Sodium 134 mEq/L (136-145); eGFR For African Americans > 60 (> 60); eGFR For Non-African Americans 57 (> 60)
[2017-08-15 08:40] LABS: Hemoglobin 9.6 g/dL (11.5-15.4); Nucleated Red Blood Cells 1.7 /100 WBC (0); Red Cell Distribution Width 14.7 % (11.5-14.5)
[2017-08-15 08:42] LABS: Hematocrit 27.4 % (35.3-44.9); Immature Platelets 13.7 % (1.1-6.1); Mean Corpuscular Hemoglobin 30.5 pg (28.0-33.3); Mean Platelet Volume 12.2 fL (9.4-12.4); Red Blood Count 3.15 M/mcL (3.82-4.97)
[2017-08-15] MEDS ORDERED: Lidocaine Viscous Oral Soln 15 ML SOLUTION MM PRN (08:45)
[2017-08-15] MEDS ORDERED: 0.9 % Sodium Chloride 500 ML IVC ONE (08:45)
[2017-08-15] MEDS ORDERED: Tetracaine/Benzocaine/Butamben 200MG/SPRAY (100SPY/BOT) MM ONE (08:45)
[2017-08-15 08:55] LABS: Platelet Count 71 K/mcL (140-400)
--- NOTE | 2017-08-15 09:03 | Internal Med Progress Note ---
<Cathy Davis - Last Filed: 08/15/17 09:01> Date of Encounter: 08/15/17 Time of Encounter: 09:01 - Assessment and plan (1) Severe sepsis Current Visit: Yes Status: Acute Assessment and plan: septic shock - required dopamine for pressure support -Due to MSSA bacteremia -Last fever 08/08 -08/07 2/2 blood cultures: positive - 08/09 Repeat blood cultures: positive -08/10 Cefepime and vancomycin discontinued; nafcillin started. Port removed. Blood culture from port positive -08/11 No longer requiring pressure support with dopamine. Wound culture: positive -08/12 repeat blood cultures: 08/12 positive -08/14 repeat blood cultures: no growth to date Patient remains fluid overloaded on physical exam. She is currently on lasix 20 mg IV BID. Check hepatic panel; patient may benefit from albumin. She has recurrence of diarrhea yesterday - C. diff negative - will give loperamide. Check urinalysis. (2) Bacteremia due to Staphylococcus aureus Current Visit: Yes Status: Acute Assessment and plan: infectious disease consulted; appreciate recommendations NPO for CHELA (3) Diarrhea Current Visit: Yes Status: Acute Assessment and plan: C. Diff negative 08/14 loperamide Qualifiers: Diarrhea type: unspecified type Qualified Code(s): R19.7 - Diarrhea, unspecified (4) Stomatitis and mucositis with change of taste Current Visit: Yes Status: Acute Assessment and plan: due to chemotherapy diflucan and nystatin with BMX (5) Hypokalemia Current Visit: Yes Status: Resolved Assessment and plan: Replete as needed with electrolyte protocol Continue to monitor (6) Hypocalcemia Current Visit: Yes Status: Acute Assessment and plan: Replete as needed with electrolyte protocol Continue to monitor (7) Essential hypertension Current Visit: Yes Status: Chronic Assessment and plan: home medications: metoprolol 200 mg daily lisinopril 40 mg daily triamterene/HCTZ 75/50 daily Current medications: lisinopril 10 mg metoprolol 100 mg Continue to monitor and adjust medications as needed (8) Diabetes mellitus Current Visit: No Status: Chronic Assessment and plan: Patient takes 30 units of NPH BID at home (also saxagliptin 5mg daily and glimepiride 4mg daily); however, her oral intake has been minimal this admission. She has been persistently hyperglycemic this admission. Continue to titrate insulin dose to avoid hypoglycemia. Increase levemir to 20 units BID with low dose sliding scale Continue to monitor. 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 Port was removed 08/10 Qualifiers: Encounter type: subsequent encounter Qualified Code(s): T80.211D - Bloodstream infection due to central venous catheter, subsequent encounter (11) Moderate protein malnutrition Current Visit: Yes Status: Chronic Assessment and plan: Chronic issue Patient's oral intake decreased significantly when she started chemotherapy. Plan: - 08/14 start megace for appetite stimulation (12) GERD (gastroesophageal reflux disease) Current Visit: No Status: Chronic Assessment and plan: Chronic Continue omeprazole Qualifiers: Esophagitis presence: esophagitis presence not specified Qualified Code(s) : K21.9 - Gastro-esophageal reflux disease without esophagitis (13) Nausea Current Visit: Yes Status: Acute Assessment and plan: possibly chemotherapy related Zofran 4 mg IV q6h PRN (14) TYRONE (acute kidney injury) Current Visit: Yes Status: Resolved Assessment and plan: Resolved (15) Hypotension Current Visit: Yes Status: Resolved Assessment and plan: Resolved No longer requiring dopamine for pressure support now hypertensive and requiring antihypertensives (has PMH of HTN) Qualifiers: Hypotension type: other hypotension type Qualified Code(s): I95.89 - Other hypotension (16) Leukopenia Current Visit: Yes Status: Resolved Assessment and plan: resolved with neupogen (discontinued 08/09) Qualifiers: Leukopenia type: unspecified Qualified Code(s): D72.819 - Decreased white blood cell count, unspecified (17) Lactic acidosis Current Visit: Yes Status: Resolved Assessment and plan: resolved (18) Hypomagnesemia Current Visit: Yes Status: Resolved Assessment and plan: resolved (19) Emesis Current Visit: Yes Status: Resolved Assessment and plan: resolved Qualifiers: Vomiting type: unspecified Vomiting Intractability: non-intractable Nausea presence: with nausea Qualified Code(s): R11.2 - Nausea with vomiting, unspecified - Subjective Interval history: Patient's informed me that she has not been sleeping well at night, stating that she did not get to sleep until 4 AM this morning. Patient states that she has been having problems with diarrhea. She states that she would like a medication for sleep. - Constitutional Vitals: Temp Pulse Resp BP Pulse Ox 99.4 F 90 20 179/85 93 08/15/17 08:21 08/15/17 08:21 08/15/17 08:21 08/15/17 08:21 08/15/17 08:21 General appearance: Present: A&O X 3, pleasant, answers questions appropriately - Head Head exam: Present: atraumatic, normocephalic - Eye Eye exam: Present: PERRL, conjuntiva pink, sclera anicteric Pupils: Present: PERRL - Neck Neck exam general surgery: Present: supple, trachea midline - Respiratory Respiratory exam: Present: CTAB. Absent: respiratory distress, wheezes - Cardiovascular Cardiovascular exam: Present: RRR, +S1, +S2. Absent: diastolic murmur, gallop, rubs, systolic murmur - GI/Abdominal GI/Abdominal exam: Present: normal bowel sounds, soft, tenderness (mild, diffuse ; "only when you touch it"). Absent: distended, no peritoneal signs - Extremities Exam Additional comments: 2+ edema of hands and legs - Neurological Exam Neurological exam: Present: CN II-XII intact, oriented X3, no focal deficits. Absent: pronater drift, facial droop, speech deficit - Skin Skin exam: Absent: intact (burst blisters from edema; bandaged) Internal Medicine: Result - Labs CBC & Chem 7: 08/15/17 07:40 08/15/17 07:40 Labs: Short CBC 08/15/17 Range/Units 07:40 WBC 12.4 H (4.3-11.1) K/mcL Hgb 9.6 L (11.5-15.4) g/dL Hct 27.4 L (35.3-44.9) % Plt Count 71 L D (140-400) K/mcL BMP 08/14/17 08/15/17 18:45 07:40 Sodium 134 L 134 L Potassium 3.0 L 2.8 L Chloride 106 106 Carbon Dioxide 18 L 19 L BUN 46 H 46 H Creatinine 1.00 0.96 Glucose 240 H 242 H Calcium 6.7 L 6.7 L - ABG Interpretation ABG results: PT/INR, D-dimer PT 19.7 Seconds (9.4-12.1) H 08/07/17 20:31 - VTE Documentation of Mechanical Device: Intermittent pneumatic compression device Consult Discharge Plan - Plan Referrals: Nazia Deleon CNP [Primary Care Provider] - 08/20/17 1:30 pm () Prescriptions: Nafcillin 12,000 mg IV DAILY #38 vial <Tobias Mcgowan - Last Filed: 08/15/17 18:58> Date of Encounter: 08/15/17 - Assessment and plan (1) Acute metabolic encephalopathy Current Visit: Yes Status: Acute (2) Diarrhea Current Visit: Yes Status: Acute Qualifiers: Diarrhea type: unspecified type Qualified Code(s): R19.7 - Diarrhea, unspecified (3) Staphylococcus aureus bacteremia with sepsis Current Visit: Yes Status: Acute (4) CLABSI (central line-associated bloodstream infection) Current Visit: Yes Status: Acute Qualifiers: Encounter type: subsequent encounter Qualified Code(s): T80.211D - Bloodstream infection due to central venous catheter, subsequent encounter (5) Thrush, oral Current Visit: Yes Status: Acute (6) Hypocalcemia Current Visit: Yes Status: Acute (7) Hypomagnesemia Current Visit: Yes Status: Resolved (8) Lactic acidosis Current Visit: Yes Status: Resolved (9) Essential hypertension Current Visit: Yes Status: Chronic (10) Diabetes mellitus Current Visit: No Status: Chronic Qualifiers: Diabetes mellitus type: type 2 Diabetes mellitus complication status: with hyperglycemia Diabetes mellitus termination clerk insulin use: with jail use Qualified Code(s): E11.65 - Type 2 diabetes mellitus with hyperglycemia; Z79.4 - [facility] (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 of insulin; 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 ; Z79.4 - [facility] (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 of insulin; 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 (11) Carcinoma of breast metastatic to bone Current Visit: Yes Status: Chronic Qualifiers: Laterality: unspecified laterality Qualified Code(s): C50.919 - Malignant neoplasm of unspecified site of unspecified female breast; C79.51 - Secondary malignant neoplasm of bone; C79.51 - Secondary malignant neoplasm of bone; C79.51 - Secondary malignant neoplasm of bone; C79.51 - Secondary malignant neoplasm of bone (12) Moderate protein malnutrition Current Visit: Yes Status: Chronic - Constitutional Vitals: Temp Pulse Resp BP Pulse Ox 98.7 F 94 23 145/67 94 08/15/17 16:45 08/15/17 16:45 08/15/17 16:45 08/15/17 16:45 08/15/17 16:45 Internal Medicine: Result - Labs CBC & Chem 7: 08/15/17 07:40 08/15/17 07:40 Labs: Short CBC 08/15/17 Range/Units 07:40 WBC 12.4 H (4.3-11.1) K/mcL Hgb 9.6 L (11.5-15.4) g/dL Hct 27.4 L (35.3-44.9) % Plt Count 71 L D (140-400) K/mcL Neutrophils # 7.9 (1.6-8.9) K/mcL BMP 08/14/17 08/15/17 18:45 07:40 Sodium 134 L 134 L Potassium 3.0 L 2.8 L Chloride 106 106 Carbon Dioxide 18 L 19 L BUN 46 H 46 H Creatinine 1.00 0.96 Glucose 240 H 242 H Calcium 6.7 L 6.7 L Liver Function 08/15/17 Range/Units 07:40 Total Bilirubin 1.8 H (0.3-1.0) mg/dL Direct Bilirubin 1.2 H (0.0-0.2) mg/dL AST 23 (13-39) Units/L ALT 21 (7-52) Units/L Alkaline Phosphatase 130 H (34-104) Units/L Albumin 1.6 L (3.5-5.7) g/dL Urine 08/15/17 Range/Units 14:10 Urine Color Yellow (Yellow) Urine Clarity Cloudy A (Clear) Urine pH 6.0 (5.0-8.0) pH Units Ur Specific [place] 1.009 L (1.010-1.025) Urine Protein Negative (Neg-Trace) mg/dL Urine Glucose (UA) 100 H (Normal) mg/dL - ABG Interpretation ABG results: PT/INR, D-dimer PT 19.7 Seconds (9.4-12.1) H 08/07/17 20:31 - Attending Attestation I examined this patient and my medical decision-making was reviewed with the Resident Physician on 08/15/17. I agree with the documented findings, disposition and treatment plan as described except to the extent set forth below. Ms Catalan is currently admitted for acute MSSA bacteremia/sepsis. She remains moderate to high risk due to potential for worsening clinical status. Ms Catalan could not have CHELA today. Has diffuse pain. Still not eating. No fever or chills. Exam Alert. Comforatble at this time. Mucus membranes dry Heart reg No wheeze Abd soft I/P 1. MSSA sepsis 2. Stomatitis Further diagnoses and plan as above.
[2017-08-15 09:27] LABS: Alanine Aminotransferase 21 Units/L (7-52); Albumin 1.6 g/dL (3.5-5.7); Albumin/Globulin Ratio 0.5 (1.1-2.2); Alkaline Phosphatase 130 Units/L (34-104); Aspartate Amino Transferase 23 Units/L (13-39); Bilirubin,Direct 1.2 mg/dL (0.0-0.2); Bilirubin,Indirect 0.6 mg/dL (0.0-1.2); Bilirubin,Total 1.8 mg/dL (0.3-1.0); Globulin 3.2 g/dL (2.4-3.5); Total Protein 4.8 g/dL (6.4-8.9)
[2017-08-15] MEDS: *HR* FentaNYL (PF) 100 MCG/2 ML VIAL IVP PRN ×2 (09:45→09:50)
[2017-08-15] MEDS: *HR* Midazolam HCl 5 MG/5 ML VIAL IVP PRN ×2 (09:45→09:50)
--- NOTE | 2017-08-15 10:44 | Event Note ---
Date of Encounter: 08/15/17 Time of Encounter: 10:38 Transesophageal echocardiogram attempted. Despite adequate sedation, patient was incredibly tender to probe insertion due to stomatitis. A few attempts were made to insert the probe after additional anesthesia/ lubrication, but were aborted each time as Zulema was clearly unable to tolerate. Ultimately, decision was made cancel the procedure. updated, who agreed. Port removed and most recent blood cultures are negative thus far. TTE did not demonstrate any obvious evidence of endocarditis. Please call if any questions or concerns. Thanks, Benja Johnson DO, [facility] [phone]
[2017-08-15] MEDS: Stomatitis Mixture 5 ML UDC PO SCH ×4 (11:35→21:44)
[2017-08-15] MEDS: Insulin LISPRO 300 UNITS/3 ML VIAL SQ SCH ×4 (11:36→20:57)
[2017-08-15] MEDS: Furosemide 20 MG/2 ML VIAL IVP SCH ×2 (11:37→18:16)
[2017-08-15] MEDS: Fluconazole 100 MG/50 ML 100 MG/50 ML BAG IVPB SCH (11:38)
[2017-08-15] MEDS: Silver Sulfadiazine 50 GM TUBE TP SCH ×2 (11:39→21:44)
[2017-08-15] MEDS: Fluticasone Propionate Nasal 50 MCG/SPRAY BOTTLE NS SCH (11:39)
[2017-08-15] MEDS: Nystatin POWDER 30 GM BOTTLE TP SCH ×3 (11:40→21:44)
[2017-08-15] MEDS: Insulin DETEMIR 100 UNIT/ML X5UNITS SQ SCH ×2 (11:40→21:43)
[2017-08-15] MEDS: Nystatin SUSP 5 ML UD.LIQ PO SCH ×2 (11:41→12:27)
[2017-08-15 11:56] LABS: Lymphocytes # 3.7 K/mcL (0.6-4.6); Monocytes # 0.7 K/mcL (0.0-1.3); Neutrophils # 7.9 K/mcL (1.6-8.9)
[2017-08-15 11:57] LABS: Anisocytosis 1+ (Not Present); Macrocytosis Present (Not Present); Platelet Estimate Decreased (Normal); Polychromasia 1+ (Not Present); Toxic Granulation Present (Not Present)
[2017-08-15] MEDS: Metoprolol XL (24 HR) Succ 50 MG TAB.ER.24H PO SCH (12:26)
[2017-08-15] MEDS: Aspirin Enteric Coated 81 MG Tablet PO SCH (12:27)
[2017-08-15] MEDS: Megestrol Acetate 400 MG/10 ML UDC PO SCH (12:27)
--- NOTE | 2017-08-15 13:28 | Infectious Disease Progress No ---
Date of Encounter: 08/15/17 Time of Encounter: 13:26 - Assessment and Plan (1) Septic shock Current Visit: Yes Status: Acute The patient had two SIRS criteria plus TYRONE and lactic acidosis and hypotension requiring vasopressors. Originally had leukopenia, but now has leukocytosis --> likely related to Neupogen, but this is improved. Likely secondary to bacteremia. Improved. Tachycardia has resolved. The patient has been afebrile. TYRONE has resolved. Lactic acidosis has improved. Vasopressors have been turned off. Peripheral blood cultures drawn 08/07/17 were positive 2/2 sets for MSSA. Repeat peripheral blood cultures drawn 08/09/17 were positive 2/2 sets for MSSA. Blood culture drawn from the a-port 08/10/17 was positive 1/1 set for MSSA as well. Repeat peripheral blood cultures drawn 08/12/16 are positive 1/2 sets. Additional peripheral blood cultures drawn 08/14/16 x 2 sets. (2) Bacteremia due to Staphylococcus aureus Current Visit: Yes Status: Acute Causative organism: MSSA. Source likely the right upper chest a-port insertion vs. recent access. Status post removal 08/10/17. Seropurulent drainage noted in the pocket on removal. Culture positive for MSSA. Uncomplicated. Peripheral blood cultures drawn 08/07/17 were positive 2/2 sets for MSSA. Repeat peripheral blood cultures drawn 08/09/17 were positive 2/2 sets for MSSA. Blood culture drawn from the a-port 08/10/17 was positive 1/1 set for MSSA as well. Additional peripheral blood cultures drawn 08/12/17 are positive 1/2 sets. Repeat peripheral blood cultures drawn 08/14/16 are pending x 2 sets. Etiology of persistently positive blood cultures likely due to 08/12/16 blood cultures drawn <24 hours after a-port was removed. No endocarditis stigmata noted on exam. TTE negative for vegetations. CHELA aborted due to patient unable to tolerate the procedure. The patient has one major and one minor Modified Jensen's Criteria. Continue Nafcillin 2 grams IV Q4H. Duration of treatment depends on the clinical picture, but likely two weeks from the first set of negative blood cultures. Monitor renal function and dose-adjust antibiotics. Avoid insertion of central venous access until repeat blood cultures are negative x 48 hours. (3) TYRONE (acute kidney injury) Current Visit: Yes Status: Resolved Likely multifactorial: sepsis + dehydration + nephrotoxic chemotherapy drug Resolved. Continue to trend. Dose-adjust antibiotics. Avoid nephrotoxins as able. (4) Lactic acidosis Current Visit: Yes Status: Resolved Likely secondary to sepsis. CT of the abdomen and pelvis negative. Improved. Continue to trend. (5) Leukopenia Current Visit: Yes Status: Resolved Likely secondary to recent chemotherapy. Status post Neupogen x 2. Resolved. Qualifiers: Leukopenia type: unspecified Qualified Code(s): D72.819 - Decreased white blood cell count, unspecified (6) Dehydration, severe Current Visit: Yes Status: Acute Likely secondary to GI loss. Improved. Further management per the primary team. (7) Diarrhea Current Visit: Yes Status: Acute Likely secondary to recent chemotherapy and antibiotics. C. diff negative. Consider probiotics if okay with Hem/Onc. Qualifiers: Diarrhea type: unspecified type Qualified Code(s): R19.7 - Diarrhea, unspecified (8) Diabetes mellitus Current Visit: No Status: Chronic Uncontrolled. HgbA1C 8.4%. Recommend aggressive glucose monitoring and control. Management per the primary team. Qualifiers: Diabetes mellitus type: type 2 Diabetes mellitus complication status: with hyperglycemia Diabetes mellitus fdc insulin use: with fdc use Qualified Code(s): E11.65 - Type 2 diabetes mellitus with hyperglycemia; Z79.4 - group home (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 of insulin; Z79.4 - [facility] (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 of insulin ; Z79.4 - [facility] (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 of insulin; Z79.4 - group home (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 of insulin (9) Carcinoma of breast metastatic to bone Current Visit: Yes Status: Chronic Newly diagnosed. Recently started weekly doses of Taxol. Follows with [facility]. Hem/Onc consulted and following. 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 (11) Oral mucosal lesion Current Visit: Yes Status: Acute Likely chemo-induced mucositis, but consider HSV. Send swab for HSV PCR. Continue magic mouthwash and nystatin. Fluconazole re-started by the primary team. Start valacyclovir 2 grams PO x 2 doses. - Subjective Interval history: Patient seen and examined. No acute events noted overnight. Patient reports that overall she feels better today. Denies any fevers or chills or rigors. Denies any chest pain, but reports dyspnea on exertion. Denies nausea, vomiting , or abdominal pain this morning. Reports she feels hungry this morning. She reports loose BM x2 this morning. She has a Rodriguez catheter that remains patent. She reports that her oral lesions are improved and she was able to eat a little bit of breakfast. She reports chronic pain in her ribs, back, and abdomen. CHELA attempted this morning was cancelled due to patient's pain. Infect Dis PN-Objective Data - Labs CBC & Chem 7: 08/15/17 07:40 08/15/17 07:40 Labs: Laboratory Results - last 24 hr 08/14/17 08/14/17 08/14/17 07:26 11:53 14:35 WBC RBC Hgb Hct MCV MCH MCHC RDW Plt Count MPV Immature Gran % Seg Neutrophils % Band Neutrophils % Lymphocytes % Monocytes % Eosinophils % Basophils % Neutrophils # Lymphocytes # Monocytes # Eosinophils # Basophils # Nucleated RBCs/100 WBC Toxic Granulation Platelet Estimate Immature Plt Fraction Polychromasia Anisocytosis Macrocytosis VBG pH VBG pCO2 VBG pO2 VBG HCO3 Sodium Potassium Chloride Carbon Dioxide BUN Creatinine Est GFR ( Amer) Est GFR (Non-Af Amer) BUN/Creatinine Ratio Glucose POC Glucose 205 H 235 H Calculated Osmolality Calcium Venous Ioniz Calcium Phosphorus Magnesium Total Bilirubin Direct Bilirubin Indirect Bilirubin AST ALT Alkaline Phosphatase Serum Total Protein Albumin Globulin Albumin/Globulin Ratio Stl C. diff Tox B Gene Negative 08/14/17 08/14/17 08/14/17 16:26 18:45 19:03 WBC RBC Hgb Hct MCV MCH MCHC RDW Plt Count MPV Immature Gran % Seg Neutrophils % Band Neutrophils % Lymphocytes % Monocytes % Eosinophils % Basophils % Neutrophils # Lymphocytes # Monocytes # Eosinophils # Basophils # Nucleated RBCs/100 WBC Toxic Granulation Platelet Estimate Immature Plt Fraction Polychromasia Anisocytosis Macrocytosis VBG pH 7.41 VBG pCO2 28 L VBG pO2 73 H VBG HCO3 18 L Sodium 134 L Potassium 3.0 L Chloride 106 Carbon Dioxide 18 L BUN 46 H Creatinine 1.00 Est GFR ( Amer) > 60 Est GFR (Non-Af Amer) 54 L BUN/Creatinine Ratio 46 H Glucose 240 H POC Glucose 218 H Calculated Osmolality 298 Calcium 6.7 L Venous Ioniz Calcium 0.99 L Phosphorus Magnesium Total Bilirubin Direct Bilirubin Indirect Bilirubin AST ALT Alkaline Phosphatase Serum Total Protein Albumin Globulin Albumin/Globulin Ratio Stl C. diff Tox B Gene 08/14/17 08/15/17 08/15/17 20:49 07:40 07:40 WBC 12.4 H RBC 3.15 L Hgb 9.6 L Hct 27.4 L MCV 87.0 MCH 30.5 MCHC 35.0 RDW 14.7 H Plt Count 71 L D MPV 12.2 Immature Gran % Test Not Performed Seg Neutrophils % 62.0 Band Neutrophils % 2.0 Lymphocytes % 30.0 Monocytes % 6.0 Eosinophils % Test Not Performed Basophils % Test Not Performed Neutrophils # 7.9 Lymphocytes # 3.7 Monocytes # 0.7 Eosinophils # Test Not Performed Basophils # Test Not Performed Nucleated RBCs/100 WBC 1.7 H Toxic Granulation Present A Platelet Estimate Decreased L Immature Plt Fraction 13.7 H Polychromasia 1+ A Anisocytosis 1+ A Macrocytosis Present A VBG pH VBG pCO2 VBG pO2 VBG HCO3 Sodium 134 L Potassium 2.8 L Chloride 106 Carbon Dioxide 19 L BUN 46 H Creatinine 0.96 Est GFR ( Amer) > 60 Est GFR (Non-Af Amer) 57 L BUN/Creatinine Ratio 48 H Glucose 242 H POC Glucose 240 H Calculated Osmolality 298 Calcium 6.7 L Venous Ioniz Calcium Phosphorus 2.9 Magnesium 1.7 Total Bilirubin 1.8 H Direct Bilirubin 1.2 H Indirect Bilirubin 0.6 AST 23 ALT 21 Alkaline Phosphatase 130 H Serum Total Protein 4.8 L Albumin 1.6 L Globulin 3.2 Albumin/Globulin Ratio 0.5 L Stl C. diff Tox B Gene 08/15/17 08:01 WBC RBC Hgb Hct MCV MCH MCHC RDW Plt Count MPV Immature Gran % Seg Neutrophils % Band Neutrophils % Lymphocytes % Monocytes % Eosinophils % Basophils % Neutrophils # Lymphocytes # Monocytes # Eosinophils # Basophils # Nucleated RBCs/100 WBC Toxic Granulation Platelet Estimate Immature Plt Fraction Polychromasia Anisocytosis Macrocytosis VBG pH VBG pCO2 VBG pO2 VBG HCO3 Sodium Potassium Chloride Carbon Dioxide BUN Creatinine Est GFR ( Amer) Est GFR (Non-Af Amer) BUN/Creatinine Ratio Glucose POC Glucose Calculated Osmolality Calcium Venous Ioniz Calcium 1.01 L Phosphorus Magnesium Total Bilirubin Direct Bilirubin Indirect Bilirubin AST ALT Alkaline Phosphatase Serum Total Protein Albumin Globulin Albumin/Globulin Ratio Stl C. diff Tox B Gene Cultures: Cultures 08/12/17 05:56 Blood Culture - Final Peripheral Venipuncture Staphylococcus aureus 08/14/17 07:20 Blood Culture - Preliminary Peripheral Venipuncture No growth. 08/14/17 07:15 Blood Culture - Preliminary Peripheral Venipuncture No growth. 08/10/17 22:20 Catheter Tip Culture - Final Intravenous or Arterial Cath Staphylococcus aureus 08/11/17 12:20 Anaerobic Culture - Preliminary Chest At this time, no anaerobic growth is present. The culture will be finalized after 5 days of incubation. 08/10/17 14:08 Blood Culture - Final Port System Staphylococcus aureus 08/11/17 12:20 Wound Culture - Final Chest Staphylococcus aureus 08/12/17 05:56 Blood Culture - Preliminary Peripheral Venipuncture No growth. 08/11/17 12:20 Gram Stain - Final Chest 08/09/17 14:08 Blood Culture - Final Peripheral Venipuncture Staphylococcus aureus 08/09/17 14:08 Blood Culture - Final Peripheral Venipuncture Staphylococcus aureus Serology 08/14/17 08/12/17 08/09/17 Range/Units 14:35 05:56 17:00 Stl C. cayetanensis PCR Not detected (Not detect) Stool Rotavirus A PCR Not detected (Not detect) Stl Adenov F 40/41 PCR Not detected (Not detect) Stool Astrovirus (PCR) Not detected (Not detect) Stool Campylobacter PCR Not detected (Not detect) Stl C. diff Tox B Gene Negative (Negative) Stl C. diff Tox A/B PCR Not detected (Not detect) Stool Cryptosporidium PCR Not detected (Not detect) Stl Sh Tox Pr E STEC PCR Not detected (Not detect) Stool E coli O157 PCR Not detected (Not detect) Stl Enterotoxigenic E PCR Not detected (Not detect) Stool EPEC (PCR) Not detected (Not detect) Stool EAEC (PCR) Not detected (Not detect) Stl E. histolytica PCR Not detected (Not detect) Stool Giardia Lamblia PCR Not detected (Not detect) Stool Salmonella PCR Not detected (Not detect) Stool Sapovirus (PCR) Not detected (Not detect) Stl P. shigelloides PCR Not detected (Not detect) Stl Shigella/EIEC PCR Not detected (Not detect) St Y.enterocolitica PCR Not detected (Not detect) Stool Vibrio (PCR) Not detected (Not detect) Stl Vibrio cholerae PCR Not detected (Not detect) Stl Norovirus GI/GII PCR Not detected (Not detect) Stl GI Panel (PCR) Com See below A. baumannii (PCR) Not Detected (Not Detect) Chlamy pneumoniae PCR (Not Detect) Adenovirus (PCR) (Not Detect) B. pertussis DNA (PCR) (Not Detect) Emeli albicans (PCR) Not Detected (Not Detect) C. glabrata (PCR) Not Detected (Not Detect) C. krusei (PCR) Not Detected (Not Detect) C. parapsilosis (PCR) Not Detected (Not Detect) C. tropicalis (PCR) Not Detected (Not Detect) Coronavirus OC43 (PCR) (Not Detect) Coronavirus HKU1 (PCR) (Not Detect) Coronavirus 229E (PCR) (Not Detect) Coronavirus NL63 (PCR) (Not Detect) Enterobacteriac sp PCR Not Detected (Not Detect) E. cloacae complex PCR Not Detected (Not Detect) Enterococcus sp PCR Not Detected (Not Detect) E. coli (PCR) Not Detected (Not Detect) H. influenzae (PCR) Not Detected (Not Detect) Human Metapneumovir PCR (Not Detect) Influenza A (H1) PCR (Not Detect) Influ A (H1N1/09) PCR (Not Detect) Influenza A (H3) PCR (Not Detect) Influenza A Untype (PCR) (Not Detect) Influenza Type B (PCR) (Not Detect) Klebsiella oxytoca PCR Not Detected (Not Detect) Klebsiella pneumoniae Not Detected (Not Detect) List. monocytogenes PCR Not Detected (Not Detect) M.pneumoniae DNA (PCR) (Not Detect) N. meningitidis (PCR) Not Detected (Not Detect) Parainfluenza 1 (PCR) (Not Detect) Parainfluenza 2 (PCR) (Not Detect) Parainfluenza 3 (PCR) (Not Detect) Parainfluenza 4 (PCR) (Not Detect) Proteus species (PCR) Not Detected (Not Detect) RSV (PCR) (Not Detect) Entero/Rhino (PCR) (Not Detect) Serratia marcescens PCR Not Detected (Not Detect) Staphylococcus sp PCR DETECTED A (Not Detect) Staph aureus (PCR) DETECTED A (Not Detect) mecA-Methicil Res Gene Not Detected (Not Detect) Streptococcus sp PCR Not Detected (Not Detect) Group A Strep DNA Not Detected (Not Detect) Group B Strep (PCR) Not Detected (Not Detect) Strep pneumoniae (PCR) Not Detected (Not Detect) P. aeruginosa (PCR) Not Detected (Not Detect) Riley/B-Vanco Res Genes Not Detected (Not Detect) KPC (blaKPC) Detect PCR Not Detected (Not Detect) 08/09/17 08/08/17 Range/Units 14:08 02:49 Stl C. cayetanensis PCR (Not detect) Stool Rotavirus A PCR (Not detect) Stl Adenov F 40/41 PCR (Not detect) Stool Astrovirus (PCR) (Not detect) Stool Campylobacter PCR (Not detect) Stl C. diff Tox B Gene (Negative) Stl C. diff Tox A/B PCR (Not detect) Stool Cryptosporidium PCR (Not detect) Stl Sh Tox Pr E STEC PCR (Not detect) Stool E coli O157 PCR (Not detect) Stl Enterotoxigenic E PCR (Not detect) Stool EPEC (PCR) (Not detect) Stool EAEC (PCR) (Not detect) Stl E. histolytica PCR (Not detect) Stool Giardia Lamblia PCR (Not detect) Stool Salmonella PCR (Not detect) Stool Sapovirus (PCR) (Not detect) Stl P. shigelloides PCR (Not detect) Stl Shigella/EIEC PCR (Not detect) St Y.enterocolitica PCR (Not detect) Stool Vibrio (PCR) (Not detect) Stl Vibrio cholerae PCR (Not detect) Stl Norovirus GI/GII PCR (Not detect) Stl GI Panel (PCR) Com A. baumannii (PCR) Not Detected (Not Detect) Chlamy pneumoniae PCR Not Detected (Not Detect) Adenovirus (PCR) Not Detected (Not Detect) B. pertussis DNA (PCR) Not Detected (Not Detect) Emeli albicans (PCR) Not Detected (Not Detect) C. glabrata (PCR) Not Detected (Not Detect) C. krusei (PCR) Not Detected (Not Detect) C. parapsilosis (PCR) Not Detected (Not Detect) C. tropicalis (PCR) Not Detected (Not Detect) Coronavirus OC43 (PCR) Not Detected (Not Detect) Coronavirus HKU1 (PCR) Not Detected (Not Detect) Coronavirus 229E (PCR) Not Detected (Not Detect) Coronavirus NL63 (PCR) Not Detected (Not Detect) Enterobacteriac sp PCR Not Detected (Not Detect) E. cloacae complex PCR Not Detected (Not Detect) Enterococcus sp PCR Not Detected (Not Detect) E. coli (PCR) Not Detected (Not Detect) H. influenzae (PCR) Not Detected (Not Detect) Human Metapneumovir PCR Not Detected (Not Detect) Influenza A (H1) PCR Not Detected (Not Detect) Influ A (H1N1/09) PCR Not Detected (Not Detect) Influenza A (H3) PCR Not Detected (Not Detect) Influenza A Untype (PCR) Not Detected (Not Detect) Influenza Type B (PCR) Not Detected (Not Detect) Klebsiella oxytoca PCR Not Detected (Not Detect) Klebsiella pneumoniae Not Detected (Not Detect) List. monocytogenes PCR Not Detected (Not Detect) M.pneumoniae DNA (PCR) Not Detected (Not Detect) N. meningitidis (PCR) Not Detected (Not Detect) Parainfluenza 1 (PCR) Not Detected (Not Detect) Parainfluenza 2 (PCR) Not Detected (Not Detect) Parainfluenza 3 (PCR) Not Detected (Not Detect) Parainfluenza 4 (PCR) Not Detected (Not Detect) Proteus species (PCR) Not Detected (Not Detect) RSV (PCR) Not Detected (Not Detect) Entero/Rhino (PCR) Not Detected (Not Detect) Serratia marcescens PCR Not Detected (Not Detect) Staphylococcus sp PCR DETECTED A (Not Detect) Staph aureus (PCR) DETECTED A (Not Detect) mecA-Methicil Res Gene Not Detected (Not Detect) Streptococcus sp PCR Not Detected (Not Detect) Group A Strep DNA Not Detected (Not Detect) Group B Strep (PCR) Not Detected (Not Detect) Strep pneumoniae (PCR) Not Detected (Not Detect) P. aeruginosa (PCR) Not Detected (Not Detect) Riley/B-Vanco Res Genes N/A (Not Detect) KPC (blaKPC) Detect PCR N/A (Not Detect) Exam - Constitutional Vitals: Temp Pulse Resp BP Pulse Ox 99.4 F 90 20 138/64 93 08/15/17 11:29 08/15/17 11:29 08/15/17 11:29 08/15/17 11:29 08/15/17 11:29 General appearance: average body habitus, cooperative, no acute distress - Head Head exam: Present: atraumatic, normal inspection, normocephalic - Eye Eye exam: Present: EOMI, normal appearance, PERRL Pupils: Present: normal accommodation Additional comments: No subconjunctival hemorrhage noted. - ENT ENT exam: Present: mucous membranes dry Additional comments: Oral lesions persist, but improved. - Neck Neck exam: Present: normal inspection - Respiratory Respiratory exam: Present: CTAB. Absent: rales, respiratory distress, rhonchi, wheezes - Cardiovascular Cardiovascular exam: Present: RRR, +S1, +S2 - GI/Abdominal GI/Abdominal exam: Present: normal bowel sounds, soft. Absent: distended, tenderness Additional comments: Rodriguez catheter noted to be patent and draining clear yellow urine. - Extremities Exam Extremities exam: Present: pedal edema (1+ BLE). Absent: joint swelling, tenderness Additional comments: RUE 1+ edema without erythema or pain. RUE dressing C/D/I. - Neurological Exam Neurological exam: Present: alert, oriented X3, no focal deficits - Psychiatric Psychiatric exam: Present: normal affect, normal mood - Skin Skin exam: Present: dry, intact, normal color, warm Additional comments: No endocarditis stigmata noted. - VTE Documentation of Mechanical Device: Intermittent pneumatic compression device Consult Discharge Plan - Plan Referrals: Nazia Deleon CNP [Primary Care Provider] - 08/20/17 1:30 pm () - Attending Attestation I examined this patient and my medical decision-making was reviewed with the Resident Physician. I agree with the documented findings, disposition and treatment plan as described except to the extent set forth below. Patient tells me today that she feels rough. Having worsening pain in the oral mucosa. Lesions appear worse. At this point I will check HSV PCR and start empiric acyclovir. Discussed with nursing staff.
[2017-08-15] MEDS ORDERED: Dexamethasone 10 MG/ML VIAL PO ONE (14:03)
[2017-08-15 14:35] LABS: Bilirubin,Urine Negative (Negative); Blood,Urine Negative (Negative); Clarity,Urine Cloudy (Clear); Color,Urine Yellow (Yellow); Glucose,Urine (UA) 100 mg/dL (Normal); Ketones,Urine Negative (Negative); Leukocyte Esterase,Urine Negative (Negative); Nitrite,Urine Negative (Negative); Protein,Urine Negative (Neg-Trace); Specific Gravity,Urine 1.009 (1.010-1.025); Urobilinogen,Urine Normal (Normal)
[2017-08-15 14:38] LABS: Bacteria,Urine None Seen per hpf (None-Few); Hyaline Casts,Urine None Seen per lpf (None-Few); RBC,Urine 0-3 per hpf (0-3); Squamous Epithelial Cell,Urine Many per lpf (None-Few)
[2017-08-15 14:52] LABS: Yeast,Urine Moderate per hpf (None Seen)
[2017-08-15 15:05] LABS: HSV Source Inside the mouth
[2017-08-15] MEDS: valACYclovir 500 MG TABLET PO SCH (15:26)
--- NOTE | 2017-08-15 16:17 | Oncology Inp Progress Note ---
Date of Encounter: 08/15/17 Time of Encounter: 16:17 (1) Metastatic adenocarcinoma Current Visit: Yes Status: Acute Assessment and plan: Possible breast primary, ER/[place] negative HER-2/casa negative, patient has started chemotherapy with Taxol 2 weekly doses completed A-port removed-Blood culture drawn from the a-port 08/10/17 was positive 08/11 set for MSSA. Septic Shock/Bacteremia-Improving, continued ATB, vasopressors stopped, TYRONE resolved, managed per hospitalist team Development of diarrhea likely not chemo induced, c diff negative, ok to start probiotics from oncology standpoint Delay chemotherapy, Dr Wesley, treating oncologist, will follow up for further treatment recommendations as outpatient following resolution of acute issues, may consider dose reduction/change in therapy Neutropenia, resolved, neupogen d/prasanna. Anemia, thrombocytopenia stable. Significant stomatitis involving most of tongue and oral cavity, likely related to chemo tx-Grade 3, interfering with oral intake. Magic mouthwash ordered which includes hydrocortisone, continue stomatitis mixture for pain relief and oral care (rinse mouth frequently with water, avoid hot, spicy or rough textured foods, cold beverages, citrus). Monitor platelets/bleeding. Oncology: Subj Interval history: Ms. Catalan reports that overall she is beginning to feel slightly better. No recent fever, denies chills/rigor. Unable to complete CHELA today due to pain related to stomatitis which remains unchanged from previous assessment. - Constitutional Vitals: Vital Signs Temp Pulse Resp BP Pulse Ox 08/15/17 11:29 99.4 F 90 20 138/64 93 08/15/17 09:25 98.3 F 95 18 180/79 94 08/15/17 08:21 99.4 F 90 20 179/85 93 08/15/17 08:06 16 93 08/15/17 04:20 88 19 93 08/15/17 04:06 98.4 F 89 19 130/66 93 08/15/17 00:07 98.7 F 90 18 130/59 93 08/14/17 21:05 86 19 93 08/14/17 20:41 98.4 F 90 19 125/54 93 Intake and Output 08/15/17 08/15/17 08/15/17 07:59 15:59 23:59 Intake Total 100 / 100 670 / 670 Output Total 250 / 250 Balance 100 / 100 420 / 420 Intake: IV Fluids 100 / 100 670 / 670 0.9 % Sodium Chloride 500 ML @ 160 / 160 150 mls/hr IVC .Q3H20M ONE Rx#: [id number] Calcium Gluconate 1,000 MG In 0 110 / 110 .9 % Sodium Chloride 100 ML @ 203.494 mls/hr IVPB Q6HR PRN Rx #:[id number] Nafcillin 2,000 MG In 0.9 % 100 / 100 100 / 100 Sodium Chloride (Mini-Bag +) 100 ML @ 200 mls/hr IVPB Q4HR BRIAN Rx#:[id number] Potassium Chloride 10 mEq/100mL 300 / 300 10 meq In 100 ml @ 100 mls/hr IVPB Q1H PRN Rx#:[id number] Oral 0 / 0 Output: Urine 250 / 250 Other: Meal Lunch Percent of Meal Consumed 0% Stool Size Large Stool Consistency liquid Stool Color Brown # Voids 1 1 # Urine Diapers 1 1 # Bowel Movement Diapers 1 Weight 89 kg 88.904 kg Blood Glucose* 199 Patient Weight 08/15/17 23:59 Weight 88.904 kg General appearance: cooperative, no acute distress, no febrile - Respiratory Respiratory exam: Present: decreased breath sounds, CTAB - Cardiovascular Cardiovascular exam: Present: RRR, +S1, +S2 - GI/Abdominal GI/Abdominal exam: Present: normal bowel sounds, soft. Absent: guarding, tenderness - Extremities Exam Extremities exam: Present: pedal edema - Expanded Lower Extremity Exam Lower leg exam: Present: swelling, tenderness - Neurological Exam Neurological exam: Present: alert, oriented X3, strengths equal and symetr throughout. Absent: no focal deficits - Psychiatric Psychiatric exam: Present: normal affect, normal mood - Skin Additional comments: multiple skin ulcers r/t edema, RUE dressing D&I, wound care following Oncology: Obj Data - Labs CBC & Chem 7: 08/15/17 07:40 08/15/17 07:40 - ABG Interpretation ABG results: PT/INR, D-dimer PT 19.7 Seconds (9.4-12.1) H 08/07/17 20:31 Consult Discharge Plan - Plan Referrals: Nazia Deleon CNP [Primary Care Provider] - 08/20/17 1:30 pm () Prescriptions: Nafcillin 12,000 mg IV DAILY #38 vial
[2017-08-15] MEDS: Magic Mouthwash 10 ML UD Cup PO SCH ×2 (18:16→21:42)
[2017-08-15] MEDS: Melatonin 3 MG TABLET PO SCH (21:42)
[2017-08-16] MEDS: Nafcillin 2,000 MG in 0.9 % Sodium Chloride Mini Bag 100 ML IVPB SCH ×6 (00:09→20:07)
[2017-08-16 02:34] LABS: VBG HCO3 19 mEq/L (21-27); VBG Ionized Calcium 1.03 mmol/L (1.15-1.35); VBG PCO2 30 mmHg (41-51); VBG PH 7.41 pH Units (7.32-7.42); VBG PO2 163 mmHg (25-50)
[2017-08-16 02:52] LABS: BUN/Creatinine Ratio 46 (6-26); Blood Urea Nitrogen 39 mg/dL (8-23); Calcium 6.8 mg/dL (8.6-10.3); Carbon Dioxide 18 mEq/L (23-29); Chloride 108 mEq/L (98-107); Glucose 182 mg/dL (70-105); Magnesium 1.8 mg/dL (1.6-2.6); Osmolality,Calculated 294 (280-300); Phosphorous 2.9 mg/dL (2.7-4.5); Potassium 2.4 mEq/L (3.5-5.1); Sodium 135 mEq/L (136-145); eGFR For African Americans > 60 (> 60); eGFR For Non-African Americans > 60 (> 60)
[2017-08-16] MEDS: valACYclovir 500 MG TABLET PO SCH ×2 (05:50→14:42)
[2017-08-16] MEDS: Budesonide/Formoterol 80/4.5 MDI IH SCH ×2 (08:07→19:53)
[2017-08-16] MEDS: Metoprolol XL (24 HR) Succ 50 MG TAB.ER.24H PO SCH (08:48)
[2017-08-16] MEDS: Insulin DETEMIR 100 UNIT/ML X5UNITS SQ SCH ×2 (08:48→21:51)
[2017-08-16] MEDS: Furosemide 20 MG/2 ML VIAL IVP SCH ×2 (08:49→16:21)
[2017-08-16] MEDS: Fluconazole 100 MG/50 ML 100 MG/50 ML BAG IVPB SCH (08:49)
[2017-08-16] MEDS: Aspirin Enteric Coated 81 MG Tablet PO SCH (08:49)
[2017-08-16] MEDS: Fluticasone Propionate Nasal 50 MCG/SPRAY BOTTLE NS SCH (08:56)
[2017-08-16] MEDS: Megestrol Acetate 400 MG/10 ML UDC PO SCH (08:59)
[2017-08-16] MEDS: Insulin LISPRO 300 UNITS/3 ML VIAL SQ SCH ×4 (09:01→21:51)
[2017-08-16] MEDS: Nystatin POWDER 30 GM BOTTLE TP SCH ×3 (09:05→21:51)
[2017-08-16] MEDS: Silver Sulfadiazine 50 GM TUBE TP SCH ×2 (09:06→20:09)
--- NOTE | 2017-08-16 09:49 | Internal Med Progress Note ---
Date of Encounter: 08/16/17 Time of Encounter: 09:41 - Assessment and plan (1) Hypokalemia Current Visit: Yes Status: Resolved Assessment and plan: Replace today. Most likely having GI losses from diarrhea. (2) Diarrhea Current Visit: Yes Status: Acute Assessment and plan: C diff negative. On Immodium. Will add probiotic. Replace electrolytes. Qualifiers: Diarrhea type: functional diarrhea Qualified Code(s): K59.1 - Functional diarrhea (3) Staphylococcus aureus bacteremia with sepsis Current Visit: Yes Status: Acute Assessment and plan: On IV Nafcillin. Repeat blood cx negative for 24 hours. (4) CLABSI (central line-associated bloodstream infection) Current Visit: Yes Status: Acute Assessment and plan: Present on admission. Port was removed 08/10 Qualifiers: Encounter type: subsequent encounter Qualified Code(s): T80.211D - Bloodstream infection due to central venous catheter, subsequent encounter (5) Thrush, oral Current Visit: Yes Status: Acute Assessment and plan: Slowly improving. On multiple medications and mouth washes for treatment. (6) Hypocalcemia Current Visit: Yes Status: Acute Assessment and plan: Replace today. (7) Hypomagnesemia Current Visit: Yes Status: Resolved Assessment and plan: resolved (8) Essential hypertension Current Visit: Yes Status: Chronic Assessment and plan: home medications: metoprolol 200 mg daily lisinopril 40 mg daily triamterene/HCTZ 75/50 daily Current medications: lisinopril 10 mg metoprolol 100 mg Continue to monitor and adjust medications as needed (9) Diabetes mellitus Current Visit: No Status: Chronic Assessment and plan: Insulin has been adjusted and her sugars are doing somewhat better today. Will continue Levimir 20units BID at this time along with coverage. Qualifiers: Diabetes mellitus type: type 2 Diabetes mellitus complication status: with hyperglycemia Diabetes mellitus email administrator insulin use: with email administrator use Qualified Code(s): E11.65 - Type 2 diabetes mellitus with hyperglycemia; Z79.4 - finisher brush (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 of insulin; Z79.4 - finisher brush (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 of insulin ; Z79.4 - finisher brush (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 of insulin; Z79.4 - senior care (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 of insulin (10) Carcinoma of breast metastatic to bone Current Visit: Yes Status: Chronic Assessment and plan: Chronic issue Qualifiers: Laterality: unspecified laterality Qualified Code(s): C50.919 - Malignant neoplasm of unspecified site of unspecified female breast; C79.51 - Secondary malignant neoplasm of bone; C79.51 - Secondary malignant neoplasm of bone; C79.51 - Secondary malignant neoplasm of bone; C79.51 - Secondary malignant neoplasm of bone (11) Moderate protein malnutrition Current Visit: Yes Status: Chronic Assessment and plan: Chronic issue Patient's oral intake decreased significantly when she started chemotherapy. Plan: - 08/14 start megace for appetite stimulation Has had some increase in her PO intake in the last 24 hours. (12) Acute metabolic encephalopathy Current Visit: Yes Status: Resolved Assessment and plan: Seems to be improved today. Continue supportive care. - Subjective Interval history: Ms Catalan is currently admitted for sepsis shock due to MSSA CLABSI. She remains high risk due to potential for worsening clinical status. Ms Catalan is feeling a little better than yesterday. No fever or chills. Last set of blood cultures are negative. Appetite increasing some - ate small amount of breakfast. Less pain at this time. - Constitutional Vitals: Temp Pulse Resp BP Pulse Ox 98.6 F 97 20 135/71 95 08/16/17 07:48 08/16/17 09:21 08/16/17 07:48 08/16/17 07:48 08/16/17 07:48 General appearance: Present: A&O X 3, pleasant, answers questions appropriately - Head Head exam: Present: normocephalic - Eye Eye exam: Present: EOMI, conjuntiva pink - ENT ENT exam: Present: mucous membranes dry Additional comments: Oral ulcers appears to be a little better - Respiratory Respiratory exam: Present: decreased breath sounds, CTAB. Absent: rales, rhonchi, wheezes - Cardiovascular Cardiovascular exam: Present: RRR. Absent: tachycardia - GI/Abdominal GI/Abdominal exam: Present: soft. Absent: mass, tenderness - Extremities Exam Extremities exam: Present: tenderness, warm Additional comments: Edema throughout slightlyn improved - Neurological Exam Neurological exam: Present: alert, oriented X3, no focal deficits - Skin Skin exam: Present: warm. Absent: rash Internal Medicine: Result - Labs CBC & Chem 7: 08/15/17 07:40 08/16/17 02:10 Labs: Short CBC 08/15/17 Range/Units 07:40 Neutrophils # 7.9 (1.6-8.9) K/mcL BMP 08/16/17 02:10 Sodium 135 L Potassium 2.4 L* Chloride 108 H Carbon Dioxide 18 L BUN 39 H Creatinine 0.85 Glucose 182 H Calcium 6.8 L Urine 08/15/17 Range/Units 14:10 Urine Color Yellow (Yellow) Urine Clarity Cloudy A (Clear) Urine pH 6.0 (5.0-8.0) pH Units Ur Specific [place] 1.009 L (1.010-1.025) Urine Protein Negative (Neg-Trace) mg/dL Urine Glucose (UA) 100 H (Normal) mg/dL - ABG Interpretation ABG results: PT/INR, D-dimer PT 19.7 Seconds (9.4-12.1) H 08/07/17 20:31 - VTE Documentation of Mechanical Device: Intermittent pneumatic compression device Consult Discharge Plan - Plan Referrals: Nazia Deleon CNP [Primary Care Provider] - 08/20/17 1:30 pm () Prescriptions: Nafcillin 12,000 mg IV DAILY #38 vial
[2017-08-16 10:09] LABS: Hematocrit 28.4 % (35.3-44.9)
[2017-08-16 10:11] LABS: Basophils % 0.4 %; Eosinophils % 0.2 %; Hemoglobin 9.7 g/dL (11.5-15.4); Immature Granulocytes % 4.7 % (0-4); Immature Platelets 9.1 % (1.1-6.1); Lymphocytes # 1.6 K/mcL (0.6-4.6); Mean Corpuscular HGB Conc 34.2 g/dL (31.6-35.5); Mean Corpuscular Hemoglobin 30.3 pg (28.0-33.3); Mean Corpuscular Volume 88.8 fL (83.0-100.0); Mean Platelet Volume 12.7 fL (9.4-12.4); Monocytes # 0.9 K/mcL (0.0-1.3); Monocytes % 8.8 %; Nucleated Red Blood Cells 1.3 /100 WBC (0); Red Cell Distribution Width 15.2 % (11.5-14.5); Segmented Neutrophils % 70.9 %
[2017-08-16 10:38] LABS: Albumin 1.9 g/dL (3.5-5.7); Albumin/Globulin Ratio 0.6 (1.1-2.2); Bilirubin,Direct 1.1 mg/dL (0.0-0.2); Bilirubin,Indirect 0.7 mg/dL (0.0-1.2); Bilirubin,Total 1.8 mg/dL (0.3-1.0); Globulin 3.4 g/dL (2.4-3.5); Total Protein 5.3 g/dL (6.4-8.9)
[2017-08-16 10:52] LABS: Neutrophils # 7.4 K/mcL (1.6-8.9); Platelet Count 96 K/mcL (140-400)
[2017-08-16 11:10] LABS: HSV 2 DNA Not Detected (Not Detect)
[2017-08-16] MEDS: Stomatitis Mixture 5 ML UDC PO SCH ×4 (11:36→21:54)
[2017-08-16] MEDS: Magic Mouthwash 10 ML UD Cup PO SCH ×2 (11:39→16:20)
[2017-08-16] MEDS ORDERED: hydrOXYzine pamoate 25 MG CAPSULE PO PRN (16:02)
[2017-08-16] MEDS ORDERED: Albumin 25% 25gram/100mL 12.5 GM/50 ML IV.SOLN IVPB ONE (17:00)
[2017-08-16] MEDS: Lactobacillus 1 EACH CAP.SPRINK PO SCH (20:08)
[2017-08-16] MEDS: Melatonin 3 MG TABLET PO SCH (20:08)
[2017-08-16] MEDS: *HR* OxyCODONE Immed Rel 5 MG TABLET PO PRN (21:36)
[2017-08-16 22:31] LABS: Phosphorous 2.8 mg/dL (2.7-4.5); Potassium 2.3 mEq/L (3.5-5.1)
[2017-08-16 23:26] LABS: VBG Ionized Calcium 1.01 mmol/L (1.15-1.35); VBG PH 7.45 pH Units (7.32-7.42)
[2017-08-17] MEDS: Nafcillin 2,000 MG in 0.9 % Sodium Chloride Mini Bag 100 ML IVPB SCH ×7 (00:16→23:25)
[2017-08-17] MEDS: valACYclovir 500 MG TABLET PO SCH ×2 (01:28→17:31)
[2017-08-17] MEDS: Potassium Phosphate 44 MEQ in 0.9 % Sodium Chloride 250 ML IVPB PRN ×2 (04:37→05:14)
[2017-08-17 06:53] LABS: BUN/Creatinine Ratio 36 (6-26); Blood Urea Nitrogen 39 mg/dL (8-23); Calcium 7.5 mg/dL (8.6-10.3); Carbon Dioxide 17 mEq/L (23-29); Chloride 109 mEq/L (98-107); Glucose 111 mg/dL (70-105); Osmolality,Calculated 292 (280-300); Phosphorous 4.1 mg/dL (2.7-4.5); Potassium 2.8 mEq/L (3.5-5.1); Sodium 136 mEq/L (136-145); eGFR For African Americans > 60 (> 60); eGFR For Non-African Americans 50 (> 60)
[2017-08-17] MEDS: Stomatitis Mixture 5 ML UDC PO SCH ×4 (06:54→22:20)
[2017-08-17 07:18] LABS: Basophils # 0.1 K/mcL (0.0-0.2); Basophils % 0.6 %; Eosinophils % 0.1 %; Hematocrit 29.8 % (35.3-44.9); Hemoglobin 10.1 g/dL (11.5-15.4); Immature Granulocytes % 1.9 % (0-4); Lymphocytes # 1.6 K/mcL (0.6-4.6); Lymphocytes % 11.3 %; Mean Corpuscular HGB Conc 33.9 g/dL (31.6-35.5); Mean Corpuscular Hemoglobin 30.4 pg (28.0-33.3); Mean Corpuscular Volume 89.8 fL (83.0-100.0); Monocytes % 7.2 %; Neutrophils # 11.4 K/mcL (1.6-8.9); Nucleated Red Blood Cells 0.9 /100 WBC (0); Platelet Count 124 K/mcL (140-400); Red Blood Count 3.32 M/mcL (3.82-4.97); Segmented Neutrophils % 78.9 %
[2017-08-17] MEDS: Insulin LISPRO 300 UNITS/3 ML VIAL SQ SCH ×4 (08:48→20:44)
[2017-08-17] MEDS: Aspirin Enteric Coated 81 MG Tablet PO SCH (08:48)
[2017-08-17] MEDS: Lactobacillus 1 EACH CAP.SPRINK PO SCH ×2 (08:48→20:26)
[2017-08-17] MEDS: Metoprolol XL (24 HR) Succ 50 MG TAB.ER.24H PO SCH (08:48)
[2017-08-17] MEDS: Insulin DETEMIR 100 UNIT/ML X5UNITS SQ SCH ×3 (08:49→20:44)
[2017-08-17] MEDS: Megestrol Acetate 400 MG/10 ML UDC PO SCH (08:49)
[2017-08-17] MEDS: Magic Mouthwash 10 ML UD Cup PO SCH ×3 (08:49→17:40)
[2017-08-17] MEDS: Furosemide 20 MG/2 ML VIAL IVP SCH ×2 (08:50→17:33)
[2017-08-17] MEDS: Fluticasone Propionate Nasal 50 MCG/SPRAY BOTTLE NS SCH (08:53)
[2017-08-17] MEDS: Nystatin POWDER 30 GM BOTTLE TP SCH ×3 (08:53→20:29)
[2017-08-17] MEDS: Silver Sulfadiazine 50 GM TUBE TP SCH ×2 (08:54→20:26)
[2017-08-17 09:11] LABS: VBG HCO3 18 mEq/L (21-27); VBG Ionized Calcium 1.03 mmol/L (1.15-1.35); VBG PCO2 34 mmHg (41-51); VBG PH 7.34 pH Units (7.32-7.42); VBG PO2 83 mmHg (25-50)
[2017-08-17] MEDS: Budesonide/Formoterol 80/4.5 MDI IH SCH ×2 (11:24→22:08)
[2017-08-17] MEDS: Fluconazole 100 MG/50 ML 100 MG/50 ML BAG IVPB SCH (11:44)
--- NOTE | 2017-08-17 14:33 | Internal Med Progress Note ---
Date of Encounter: 08/17/17 Time of Encounter: 12:00 - Assessment and plan (1) Hypokalemia Current Visit: Yes Status: Acute Assessment and plan: Persists. On electrolyte protocol and getting replaced. (2) Diarrhea Current Visit: Yes Status: Acute Assessment and plan: C diff negative. On Immodium. Replacing electrolytes. Qualifiers: Diarrhea type: functional diarrhea Qualified Code(s): K59.1 - Functional diarrhea (3) Staphylococcus aureus bacteremia with sepsis Current Visit: Yes Status: Acute Assessment and plan: On IV Nafcillin. Repeat blood cx negative at this time. Plan PICC tomorrow. (4) CLABSI (central line-associated bloodstream infection) Current Visit: Yes Status: Acute Assessment and plan: Present on admission. Port was removed 08/10 Qualifiers: Encounter type: subsequent encounter Qualified Code(s): T80.211D - Bloodstream infection due to central venous catheter, subsequent encounter (5) Thrush, oral Current Visit: Yes Status: Acute Assessment and plan: Slowly improving. On multiple medications and mouth washes for treatment. (6) Hypocalcemia Current Visit: Yes Status: Acute Assessment and plan: Replace today. (7) Hypomagnesemia Current Visit: Yes Status: Resolved (8) Essential hypertension Current Visit: Yes Status: Chronic Assessment and plan: home medications: metoprolol 200 mg daily lisinopril 40 mg daily triamterene/HCTZ 75/50 daily Current medications: lisinopril 10 mg metoprolol 100 mg Continue to monitor and adjust medications as needed (9) Diabetes mellitus Current Visit: No Status: Chronic Assessment and plan: Insulin has been adjusted and her sugars are slowly improving. Will continue Levimir 20units BID at this time along with coverage. Qualifiers: Diabetes mellitus type: type 2 Diabetes mellitus complication status: with hyperglycemia Diabetes mellitus mcc insulin use: with marine oil terminal superintendent use Qualified Code(s): E11.65 - Type 2 diabetes mellitus with hyperglycemia; 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 (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 of insulin; 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 (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 of insulin ; 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 (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 of insulin; Z79.4 - custodial (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 of insulin (10) Moderate protein malnutrition Current Visit: Yes Status: Chronic Assessment and plan: Chronic issue Patient's oral intake decreased significantly when she started chemotherapy. Plan: - 08/14 start megace for appetite stimulation Has had some increase in her PO intake. Continue appetite stimulant. 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 She remains high risk due to potential for worsening clinical status. Ms Catalan seems to be eating better today. Just finished bowl of soup. No fever or chills. Still not sleeping well. Still very edematous but slowly improving. Mouth seems to be improving. Had some abdominal pain last night. Had BM. Having a lot of back pain as well but is chronic. - Constitutional Vitals: Temp Pulse Resp BP Pulse Ox 97.5 F L 86 18 140/61 96 08/17/17 11:32 08/17/17 11:32 08/17/17 11:32 08/17/17 11:32 08/17/17 11:55 General appearance: Present: A&O X 3, pleasant, answers questions appropriately - Head Head exam: Present: normocephalic - Eye Eye exam: Present: EOMI, conjuntiva pink - ENT ENT exam: Present: mucous membranes dry Additional comments: Improving oral ulcers. - Respiratory Respiratory exam: Present: decreased breath sounds, CTAB. Absent: wheezes - Cardiovascular Cardiovascular exam: Present: RRR. Absent: tachycardia - GI/Abdominal GI/Abdominal exam: Present: soft, tenderness Additional comments: Mild diffuse tenderness without peritoneal signs. - Extremities Exam Extremities exam: Present: warm Additional comments: Still with significant edema. - Neurological Exam Neurological exam: Present: alert, oriented X3 - Skin Skin exam: Present: dry, warm Additional comments: Healing blister from edema. Internal Medicine: Result - Labs CBC & Chem 7: 08/17/17 06:26 08/17/17 06:26 Labs: Short CBC 08/17/17 Range/Units 06:26 WBC 14.5 H (4.3-11.1) K/mcL Hgb 10.1 L (11.5-15.4) g/dL Hct 29.8 L (35.3-44.9) % Plt Count 124 L (140-400) K/mcL Neutrophils # 11.4 H (1.6-8.9) K/mcL BMP 08/16/17 08/17/17 21:56 06:26 Sodium 136 Potassium 2.3 L* 2.8 L Chloride 109 H Carbon Dioxide 17 L BUN 39 H Creatinine 1.08 Glucose 111 H Calcium 7.5 L - ABG Interpretation ABG results: PT/INR, D-dimer PT 19.7 Seconds (9.4-12.1) H 08/07/17 20:31 - VTE Documentation of Mechanical Device: Intermittent pneumatic compression device Consult Discharge Plan - Plan Referrals: Nazia Deleon CNP [Primary Care Provider] - 08/20/17 1:30 pm () Prescriptions: Nafcillin 12,000 mg IV DAILY #38 vial
[2017-08-17] MEDS ORDERED: Lidocaine -MPF 1% 5 ML AMPUL INFILT ONE (14:43)
[2017-08-17] MEDS: *HR* OxyCODONE Immed Rel 5 MG TABLET PO PRN (17:46)
[2017-08-17] MEDS: Albumin 25% 25gram/100mL 25 GM/100 ML IV.SOLN IVPB SCH (18:06)
[2017-08-18] MEDS: Albumin 25% 25gram/100mL 25 GM/100 ML IV.SOLN IVPB SCH ×3 (00:10→16:02)
[2017-08-18] MEDS: valACYclovir 500 MG TABLET PO SCH (01:30)
[2017-08-18 04:49] LABS: Basophils # 0.1 K/mcL (0.0-0.2); Basophils % 0.5 %; Eosinophils # 0.1 K/mcL (0.0-0.6); Eosinophils % 0.8 %; Hematocrit 23.5 % (35.3-44.9); Hemoglobin 7.9 g/dL (11.5-15.4); Immature Granulocytes % 1.3 % (0-4); Lymphocytes % 18.1 %; Mean Corpuscular HGB Conc 33.6 g/dL (31.6-35.5); Mean Corpuscular Hemoglobin 29.8 pg (28.0-33.3); Mean Corpuscular Volume 88.7 fL (83.0-100.0); Mean Platelet Volume 11.4 fL (9.4-12.4); Monocytes # 0.6 K/mcL (0.0-1.3); Monocytes % 5.7 %; Neutrophils # 8.2 K/mcL (1.6-8.9); Nucleated Red Blood Cells 0.4 /100 WBC (0); Platelet Count 124 K/mcL (140-400); Red Blood Count 2.65 M/mcL (3.82-4.97); Red Cell Distribution Width 16.1 % (11.5-14.5); Segmented Neutrophils % 73.6 %
[2017-08-18 04:51] LABS: VBG Ionized Calcium 0.99 mmol/L (1.15-1.35); VBG PH 7.37 pH Units (7.32-7.42)
[2017-08-18 05:12] LABS: Magnesium 1.8 mg/dL (1.6-2.6); Phosphorous 4.3 mg/dL (2.7-4.5); Potassium 2.5 mEq/L (3.5-5.1)
[2017-08-18] MEDS: Nafcillin 2,000 MG in 0.9 % Sodium Chloride Mini Bag 100 ML IVPB SCH ×5 (05:22→21:29)
[2017-08-18] MEDS: Stomatitis Mixture 5 ML UDC PO SCH ×4 (07:28→21:37)
[2017-08-18] MEDS: Metoprolol XL (24 HR) Succ 50 MG TAB.ER.24H PO SCH (08:10)
[2017-08-18] MEDS: Lactobacillus 1 EACH CAP.SPRINK PO SCH ×2 (08:10→21:32)
[2017-08-18] MEDS: Furosemide 20 MG/2 ML VIAL IVP SCH ×2 (08:10→18:41)
[2017-08-18] MEDS: Fluticasone Propionate Nasal 50 MCG/SPRAY BOTTLE NS SCH (08:10)
[2017-08-18] MEDS: Aspirin Enteric Coated 81 MG Tablet PO SCH (08:10)
[2017-08-18] MEDS: Magic Mouthwash 10 ML UD Cup PO SCH ×3 (08:11→16:03)
[2017-08-18] MEDS: Megestrol Acetate 400 MG/10 ML UDC PO SCH (08:11)
[2017-08-18] MEDS: Budesonide/Formoterol 80/4.5 MDI IH SCH ×2 (08:32→20:45)
[2017-08-18] MEDS: Insulin LISPRO 300 UNITS/3 ML VIAL SQ SCH ×4 (08:47→21:32)
[2017-08-18] MEDS: Nystatin POWDER 30 GM BOTTLE TP SCH ×3 (08:52→21:30)
[2017-08-18] MEDS: Insulin DETEMIR 100 UNIT/ML X5UNITS SQ SCH ×2 (08:52→21:29)
[2017-08-18] MEDS: Silver Sulfadiazine 50 GM TUBE TP SCH ×2 (08:52→21:31)
[2017-08-18] MEDS: Potassium Chloride Elixir 20 MEQ/15 ML UDC PO SCH ×2 (08:52→21:30)
--- NOTE | 2017-08-18 09:42 | Discharge Summary ---
<Cathy Davis - Last Filed: 08/18/17 10:05> Date of Encounter: 08/18/17 Time of Encounter: 09:24 - Discharge Diagnosis (1) Severe sepsis Priority: Primary Status: Acute (2) Bacteremia due to Staphylococcus aureus Priority: Primary Status: Acute (3) Diarrhea Priority: Secondary Status: Acute Qualifiers: Diarrhea type: functional diarrhea Qualified Code(s): K59.1 - Functional diarrhea (4) Stomatitis and mucositis with change of taste Priority: Secondary Status: Acute (5) Hypokalemia Priority: Secondary Status: Acute (6) Hypocalcemia Priority: Secondary Status: Acute (7) Essential hypertension Priority: Secondary Status: Chronic (8) Diabetes mellitus Priority: Secondary Status: Chronic Qualifiers: Diabetes mellitus type: type 2 Diabetes mellitus complication status: with hyperglycemia Diabetes mellitus fci insulin use: with fci use Qualified Code(s): E11.65 - Type 2 diabetes mellitus with hyperglycemia; Z79.4 - senior living (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 of insulin; 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 (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 of insulin ; 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 (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 of insulin; 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 (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 of insulin (9) Bone metastases Priority: Secondary Status: Chronic (10) CLABSI (central line-associated bloodstream infection) Priority: Secondary Status: Acute Qualifiers: Encounter type: subsequent encounter Qualified Code(s): T80.211D - Bloodstream infection due to central venous catheter, subsequent encounter (11) Moderate protein malnutrition Priority: Secondary Status: Chronic (12) GERD (gastroesophageal reflux disease) Priority: Secondary Status: Chronic Qualifiers: Esophagitis presence: esophagitis presence not specified Qualified Code(s) : K21.9 - Gastro-esophageal reflux disease without esophagitis (13) Nausea Priority: Secondary Status: Acute (14) TYRONE (acute kidney injury) Priority: Secondary Status: Resolved (15) Hypotension Priority: Secondary Status: Resolved Qualifiers: Hypotension type: other hypotension type Qualified Code(s): I95.89 - Other hypotension (16) Leukopenia Priority: Secondary Status: Resolved Qualifiers: Leukopenia type: unspecified Qualified Code(s): D72.819 - Decreased white blood cell count, unspecified (17) Lactic acidosis Priority: Secondary Status: Resolved (18) Hypomagnesemia Priority: Secondary Status: Resolved (19) Emesis Priority: Secondary Status: Resolved Qualifiers: Vomiting type: unspecified Vomiting Intractability: non-intractable Nausea presence: with nausea Qualified Code(s): R11.2 - Nausea with vomiting, unspecified - Discharge Medications Prescriptions: OxyCODONE Immed Rel [Roxicodone 5 MG] 5 mg PO Q4HR PRN #180 tablet PRN Reason: Pain Furosemide Oral Soln [Lasix] 40 mg PO BID #60 mls Lactobacillus [Culturelle] 1 each PO BID #60 unit Lisinopril [Zestril] 10 mg PO DAILY #30 tablet Megestrol Acetate [Megace] 800 mg PO DAILY #600 ml Metoprolol XL (24 HR) Succ [Toprol Xl] 100 mg PO DAILY #30 tab.er.24h Nafcillin 12,000 mg IV DAILY #38 vial Nystatin POWDER [Nystop] 1 appl TP TID #1 bottle Potassium Chloride Elixir [Potassium Chloride] 40 meq PO DAILY #900 mls Silver Sulfadiazine [Silvadene] 1 appl TP BID #1 tube Stomatitis Mixture 10 ml PO 0700,1100,1600,2200 #350 mls valACYclovir [Valtrex] 2,000 mg PO BID #6 tablet Zolpidem [Ambien] 5 mg PO HS PRN #30 tablet PRN Reason: Insomnia Home Medications: Albuterol Sulfate [Proventil Hfa] 1 puff IH QID PRN 06/20/15 [History] Aspirin Enteric Coated [Aspirin EC] 81 mg PO DAILY 06/20/15 [History] Fluticasone Propionate Nasal [Flonase] 1 spray NS DAILY 06/20/15 [History] Fluticasone/Salmeterol [Advair 100-50 Diskus] 1 each IH BID 06/20/15 [History] Glimepiride [Amaryl] 4 mg PO DAILY 06/20/15 [History] Insulin NPH Hum/Reg Insulin Hm [Novolin 70-30 100 Unit/ml Vial] 30 unit SQ BID 06/20/15 [History] Omeprazole [PriLOSEC] 40 mg PO DAILY 06/20/15 [History] Pravastatin Sodium [Pravachol] 20 mg PO HS 06/20/15 [History] Saxagliptin HCl [Onglyza] 5 mg PO DAILY 11/10/15 [History] Ondansetron HCl [Zofran] 4 mg PO Q8H PRN #60 tablet 07/08/17 [Rx] Prochlorperazine Maleate [Compazine] 10 mg PO Q8HR PRN #60 tablet 07/08/17 [Rx] Calcium Carbonate/Vitamin D3 [Calcium 600 + Vit D Tablet] 2 each PO DAILY #60 tablet 07/31/17 [Rx] Docusate Sodium [Stool Softener] 100 mg PO DAILY PRN 07/31/17 [History] Lidocaine/Prilocaine [Emla] 1 appl TP AD #30 gm 07/31/17 [Rx] Nafcillin 12,000 mg IV DAILY #38 vial 08/15/17 [Rx] Furosemide Oral Soln [Lasix] 40 mg PO BID #60 mls 08/18/17 [Rx] Lactobacillus [Culturelle] 1 each PO BID #60 unit 08/18/17 [Rx] Lisinopril [Zestril] 10 mg PO DAILY #30 tablet 08/18/17 [Rx] Megestrol Acetate [Megace] 800 mg PO DAILY #600 ml 08/18/17 [Rx] Metoprolol XL (24 HR) Succ [Toprol Xl] 100 mg PO DAILY #30 tab.er.24h 08/18/17 [ Rx] Nystatin POWDER [Nystop] 1 appl TP TID #1 bottle 08/18/17 [Rx] OxyCODONE Immed Rel [Roxicodone 5 MG] 5 mg PO Q4HR PRN #180 tablet 08/18/17 [Rx] Potassium Chloride Elixir [Potassium Chloride] 40 meq PO DAILY #900 mls [Rx] Silver Sulfadiazine [Silvadene] 1 appl TP BID #1 tube 08/18/17 [Rx] Stomatitis Mixture 10 ml PO 0700,1100,1600,2200 #350 mls 08/18/17 [Rx] Zolpidem [Ambien] 5 mg PO HS PRN #30 tablet 08/18/17 [Rx] valACYclovir [Valtrex] 2,000 mg PO BID #6 tablet 08/18/17 [Rx] Allergies/Adverse Reactions: 3 Allergy/AdvReac Type Severity Reaction Status Date / Time nifedipine [From Procardia] Allergy Rash Verified 08/07/17 21:15 glipizide AdvReac Vomiting Verified 06/16/17 10:03 metoprolol [From Lopressor] AdvReac Nightmare Verified 08/07/17 21:15 Date of admission: 08/07/17 23:05 Primary care physician: Nazia Deleon, Consults: 08/11/17 17:00 Consult to Wound Care [CONS] Routine Reason for Consult: Multiple areas open Call Completed: No 08/12/17 09:57 Consult to Infectious Diseases [CONS] Routine Consulting Provider: [facility] [place] Reason for Consult: MSSA bacteremia Time Notified: 09:57 Call Completed: Yes 08/13/17 10:20 Consult to Occupational Therapy [CONS] Routine Comment: Evaluate, develop and implement POC Reason for Consult: severe sepsis, met cancer, weakness, desires to go home with homecare Consult to Physical Therapy [CONS] Routine Comment: Evaluate, develop and implement POC Reason for Consult: severe sepsis on admission, met cancer, weakness. 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 Med/Antibiotic Call Completed: No 08/08/17 00:25 Consult to Oncology [CONS] Stat Consulting Provider: [facility] Reason for Consult: current patient undergoing Chemo with sepsis pneumonia Time Notified: 22:40 Call Completed: Yes 08/08/17 00:47 Consult to Nutrition [CONS] Routine Comment: Consulting Provider: NUTRITION Reason for Dietary Consult: MST Score 08/08/17 05:10 Consult to Palliative Care [CONS] Routine Comment: Consulting Provider: [facility] Reason for Consult: Goals of care, pain control; h/o- metastatic adenocarcinoma with mets to bones Call Completed: No 08/10/17 14:44 Consult to Surgery [CONS] Routine Consulting Provider: [facility] Reason for Consult: removal of port Time Notified: 14:45 Call Completed: Yes Discharging clinician: Cathy Davis Anticipated date of discharge: 08/18/17 - Patient Status Disposition: Home Health Service Condition: Fair Functional capacity at discharge: uses cane/walker Overall status at discharge: patient is progressing back to baseline - Ambulatory Orders Ambulatory Orders: Basic Metabolic Panel [CHEM] Time Frame: 1 Week, Facility: [facility], Location: Lab Blood Urea Nitrogen (BUN) [CHEM] Time Frame: 1 Week, Facility: [facility], Location: Lab Complete Blood Count [HEME] Time Frame: 2 Days, Facility: [facility], Location: Lab Complete Blood Count [HEME] Time Frame: 1 Week, Facility: [facility], Location: Lab Creatinine [CHEM] Time Frame: 1 Week, Facility: [facility], Location: Lab - Discharge Instructions Follow Up With: Nazia Deleon CNP [Primary Care Provider] - 08/20/17 1:30 pm () Angela Rouse CNP [Advanced Practice Nurse] - Vivienne Nieves MD [Partnered Physician] - - Diet and Activity Activity: as per physical therapy, increase activity as tolerated Diet: advance to your usual diet Interval History: Patient states that she is feeling somewhat better today. The sores on the sides of her tongue have gone away; she only has sores on the top of her tongue now. She has increased her oral intake, eating approximately one half of soup last night and one half of her grits this morning. Hospital course: Ms. Catalan is a 72 year old female admitted to the hospital with a one-week history of refractory nausea, vomiting, and diarrhea. She has past medical history of metastatic adenocarcinoma with bone metastases and had been on chemotherapy with paclitaxel for 2 weeks. She was found to be severe sepsis when she was admitted later septic shock requiring dopamine for pressure support. She was found to have Staphylococcus aureus bacteremia with an infected port. (This represents a CLABSI that was present on admission.) Her port was removed surgically and she started to recover clinically. Her first negative blood cultures were drawn on August 14. She was unable to have a CHELA completed due to tenderness of her mouth due to mucositis. She will need to complete 2 weeks of IV nafcillin 2 g every 4 hours after the negative blood cultures. She was seen by infectious disease while inpatient and will continue to follow up with them outpatient. She had minimal oral intake throughout her hospital stay due to mucositis/oral thrush. She was treated with nystatin, Diflucan, and Magic mouthwash. She also was treated with valacyclovir for herpes. On the last couple days of her admission, her mouth was feeling better and she improved her oral intake with a full liquid diet that consisted more of the consistency of foods that she was eating anyway. On the day of discharge, she stated "I can feel my stomach gurgling and I feel hungry." She was evaluated by physical therapy and occupational therapy during this admission; they both recommended LTAC on discharge. She is being discharged home with home health therapy due to her and her 's wishes. - Time Spent with Patient Total time spent providing and/or coordinating discharge services: - Constitutional Vitals: Temp Pulse Resp BP Pulse Ox 98.5 F 88 18 131/53 95 08/18/17 07:21 08/18/17 07:21 08/18/17 07:21 08/18/17 07:21 08/18/17 07:21 General appearance: Present: A&O X 3, pleasant, answers questions appropriately - VTE Documentation of Mechanical Device: Intermittent pneumatic compression device <Tobias Mcgowan - Last Filed: 08/18/17 17:55> Date of Encounter: 08/18/17 - Discharge Diagnosis (1) Staphylococcus aureus bacteremia with sepsis Priority: Primary Status: Resolved (2) CLABSI (central line-associated bloodstream infection) Priority: Primary Status: Resolved Comments: Present on admission. 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 (5) Hypokalemia Status: Acute (6) Diarrhea Status: Acute Qualifiers: Diarrhea type: functional diarrhea Qualified Code(s): K59.1 - Functional diarrhea (7) Thrush, oral Priority: Secondary Status: Resolved (8) Hypocalcemia Priority: Secondary Status: Resolved (9) Hypomagnesemia Status: Resolved (10) Essential hypertension Status: Chronic (11) Diabetes mellitus Status: Chronic Qualifiers: Diabetes mellitus type: type 2 Diabetes mellitus complication status: with hyperglycemia Diabetes mellitus 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 insulin use: with 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 use Qualified Code(s): E11.65 - Type 2 diabetes mellitus with hyperglycemia; 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 (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 of insulin; 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 (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 of insulin ; Z79.4 - senior living (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 of insulin; Z79.4 - senior living (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 of insulin (12) Moderate protein malnutrition Status: Chronic (13) Carcinoma of breast metastatic to bone Status: Chronic Qualifiers: Laterality: unspecified laterality Qualified Code(s): C50.919 - Malignant neoplasm of unspecified site of unspecified female breast; C79.51 - Secondary malignant neoplasm of bone; C79.51 - Secondary malignant neoplasm of bone; C79.51 - Secondary malignant neoplasm of bone; C79.51 - Secondary malignant neoplasm of bone (14) Acute metabolic encephalopathy Priority: Secondary Status: Resolved Date of admission: 08/07/17 23:05 Primary care physician: Nazia Deleon, Consults: 08/11/17 17:00 Consult to Wound Care [CONS] Routine Reason for Consult: Multiple areas open Call Completed: No 08/12/17 09:57 Consult to Infectious Diseases [CONS] Routine Consulting Provider: [facility] Reason for Consult: MSSA bacteremia Time Notified: 09:57 Call Completed: Yes 08/13/17 10:20 Consult to Occupational Therapy [CONS] Routine Comment: Evaluate, develop and implement POC Reason for Consult: severe sepsis, met cancer, weakness, desires to go home with homecare Consult to Physical Therapy [CONS] Routine Comment: Evaluate, develop and implement POC Reason for Consult: severe sepsis on admission, met cancer, weakness. 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 Med/Antibiotic Call Completed: No 08/08/17 00:25 Consult to Oncology [CONS] Stat Consulting Provider: [facility] Reason for Consult: current patient undergoing Chemo with sepsis pneumonia Time Notified: 22:40 Call Completed: Yes 08/08/17 00:47 Consult to Nutrition [CONS] Routine Comment: Consulting Provider: NUTRITION Reason for Dietary Consult: MST Score 08/08/17 05:10 Consult to Palliative Care [CONS] Routine Comment: Consulting Provider: [facility] Reason for Consult: Goals of care, pain control; h/o- metastatic adenocarcinoma with mets to bones Call Completed: No 08/10/17 14:44 Consult to Surgery [CONS] Routine Consulting Provider: [facility] Reason for Consult: removal of port Time Notified: 14:45 Call Completed: Yes Hospital course: Ms. Alayna is a 72 year old female - Time Spent with Patient Total time spent providing and/or coordinating discharge services: 41min - Constitutional Vitals: Temp Pulse Resp BP Pulse Ox 99.6 F 85 18 119/45 96 08/18/17 16:19 08/18/17 16:19 08/18/17 16:19 08/18/17 16:19 08/18/17 16:19 - Attending Attestation I examined this patient and my medical decision-making was reviewed with the Resident Physician on 08/18/17. I agree with the documented findings, disposition and treatment plan as described except to the extent set forth below. Ms Catalan has been admitted for septic shock due to MSSA CLABSI. She has required multiple treatments with fluids and abx. She has slowly improved and also was found to have HSV stomatitis which limited her PO intake. She continues to improve. Today she is afebrile and vitals stable. She is ready for discharge home to complete course of IV abx. Exam Alert. Comfortable Mucus membranes dry. Oral ulcers improving Heart reg No wheeze Abd soft Edema slightly better. Plan D/C home today when home care and abx arranged.
--- NOTE | 2017-08-18 09:49 | Physician Discharge Referral ---
<Cathy Davis - Last Filed: 08/18/17 09:45> Home Health/Hosp Referral Info Transfer to: Home Health Attending Provider: Dr. Tobias Mcgowan Provider in Charge Post Discharge: PCP - Diagnosis (1) Severe sepsis Priority: Primary Status: Acute (2) Bacteremia due to Staphylococcus aureus Priority: Primary Status: Acute (3) Diarrhea Priority: Secondary Status: Acute (4) Stomatitis and mucositis with change of taste Priority: Secondary Status: Acute (5) Hypokalemia Priority: Secondary Status: Acute (6) Hypocalcemia Priority: Secondary Status: Acute (7) Essential hypertension Priority: Secondary Status: Chronic (8) Diabetes mellitus Priority: Secondary Status: Chronic (9) Bone metastases Priority: Secondary Status: Chronic (10) CLABSI (central line-associated bloodstream infection) Priority: Secondary Status: Acute (11) Moderate protein malnutrition Priority: Secondary Status: Chronic (12) GERD (gastroesophageal reflux disease) Priority: Secondary Status: Chronic (13) Nausea Priority: Secondary Status: Acute (14) TYRONE (acute kidney injury) Priority: Secondary Status: Resolved (15) Hypotension Priority: Secondary Status: Resolved (16) Leukopenia Priority: Secondary Status: Resolved (17) Lactic acidosis Priority: Secondary Status: Resolved (18) Hypomagnesemia Priority: Secondary Status: Resolved (19) Emesis Priority: Secondary Status: Resolved - Respiratory Orders Smoking Cessation: Smoking cessation has been advised. For more information, call the [place] Tobacco Quit Line at 6-687-SACPNOW. - Dressing/Wound Care Site: medial thighs, right arm Type of Dressing/Treatments w/Frequency: Silver sulfadiazine and nonstick dressing once daily - Diet/Nutrition Diet/Nutrition Orders: Regular - Activity Activity Orders: Up ad gwendolyn - Services Needed Following services are medically necessary services: Nursing, Home Health Aide, Physical Therapy, Occupational Therapy, Med Social Work, Home Infusion - Transfer Medications Prescriptions: OxyCODONE Immed Rel [Roxicodone 5 MG] 5 mg PO Q4HR PRN #180 tablet PRN Reason: Pain Furosemide Oral Soln [Lasix] 40 mg PO BID #60 mls Lactobacillus [Culturelle] 1 each PO BID #60 unit Lisinopril [Zestril] 10 mg PO DAILY #30 tablet Megestrol Acetate [Megace] 800 mg PO DAILY #600 ml Metoprolol XL (24 HR) Succ [Toprol Xl] 100 mg PO DAILY #30 tab.er.24h Nafcillin 12,000 mg IV DAILY #38 vial Nystatin POWDER [Nystop] 1 appl TP TID #1 bottle Potassium Chloride Elixir [Potassium Chloride] 40 meq PO DAILY #900 mls Silver Sulfadiazine [Silvadene] 1 appl TP BID #1 tube Stomatitis Mixture 10 ml PO 0700,1100,1600,2200 #350 mls Zolpidem [Ambien] 5 mg PO HS PRN #30 tablet PRN Reason: Insomnia Home Medications: Albuterol Sulfate [Proventil Hfa] 1 puff IH QID PRN 06/20/15 [History] Aspirin Enteric Coated [Aspirin EC] 81 mg PO DAILY 06/20/15 [History] Fluticasone Propionate Nasal [Flonase] 1 spray NS DAILY 06/20/15 [History] Fluticasone/Salmeterol [Advair 100-50 Diskus] 1 each IH BID 06/20/15 [History] Glimepiride [Amaryl] 4 mg PO DAILY 06/20/15 [History] Insulin NPH Hum/Reg Insulin Hm [Novolin 70-30 100 Unit/ml Vial] 30 unit SQ BID 06/20/15 [History] Omeprazole [PriLOSEC] 40 mg PO DAILY 06/20/15 [History] Pravastatin Sodium [Pravachol] 20 mg PO HS 06/20/15 [History] Saxagliptin HCl [Onglyza] 5 mg PO DAILY 06/20/15 [History] Ondansetron HCl [Zofran] 4 mg PO Q8H PRN #60 tablet 07/08/17 [Rx] Prochlorperazine Maleate [Compazine] 10 mg PO Q8HR PRN #60 tablet 07/08/17 [Rx] Calcium Carbonate/Vitamin D3 [Calcium 600 + Vit D Tablet] 2 each PO DAILY #60 tablet 07/31/17 [Rx] Docusate Sodium [Stool Softener] 100 mg PO DAILY PRN 07/31/17 [History] Lidocaine/Prilocaine [Emla] 1 appl TP AD #30 gm 07/31/17 [Rx] Nafcillin 12,000 mg IV DAILY #38 vial 08/15/17 [Rx] Furosemide Oral Soln [Lasix] 40 mg PO BID #60 mls 01/08/18 [Rx] Lactobacillus [Culturelle] 1 each PO BID #60 unit 08/18/17 [Rx] Lisinopril [Zestril] 10 mg PO DAILY #30 tablet 08/18/17 [Rx] Megestrol Acetate [Megace] 800 mg PO DAILY #600 ml 08/18/17 [Rx] Metoprolol XL (24 HR) Succ [Toprol Xl] 100 mg PO DAILY #30 tab.er.24h 08/18/17 [ Rx] Nystatin POWDER [Nystop] 1 appl TP TID #1 bottle 08/18/17 [Rx] OxyCODONE Immed Rel [Roxicodone 5 MG] 5 mg PO Q4HR PRN #180 tablet 08/18/17 [Rx] Potassium Chloride Elixir [Potassium Chloride] 40 meq PO DAILY #900 mls [Rx] Silver Sulfadiazine [Silvadene] 1 appl TP BID #1 tube 08/18/17 [Rx] Stomatitis Mixture 10 ml PO 0700,1100,1600,2200 #350 mls 08/18/17 [Rx] Zolpidem [Ambien] 5 mg PO HS PRN #30 tablet 08/18/17 [Rx] Allergies/Adverse Reactions: 3 Allergy/AdvReac Type Severity Reaction Status Date / Time nifedipine [From Procardia] Allergy Rash Verified 08/07/17 21:15 glipizide AdvReac Vomiting Verified 06/16/17 10:03 metoprolol [From Lopressor] AdvReac Nightmare Verified 08/07/17 21:15 Certification: Further, I certify that my clinical findings support that this patient is homebound (i.e. absences from home require considerable and taxing effort and are for medical reasons or religion services or infrequently or short duration when for other reasons) because: Homebound Reason: Patient requires assistance of a person or device to safely leave home, Leaving home requires considerable and taxing effort due to condition Attestation: My signature below is to certify that this patient is under my care and that I, or nurse practitioner, or a physician's security assistant working with me, has a face-to -face encounter with this patient. <Tobias Mcgowan - Last Filed: 08/18/17 12:15> - Diagnosis (1) Hypokalemia Status: Acute (2) Diarrhea Status: Acute (3) Staphylococcus aureus bacteremia with sepsis Status: Acute (4) CLABSI (central line-associated bloodstream infection) Status: Acute (5) Thrush, oral Status: Acute (6) Hypocalcemia Status: Acute (7) Hypomagnesemia Status: Resolved (8) Essential hypertension Status: Chronic (9) Diabetes mellitus Status: Chronic (10) Moderate protein malnutrition Status: Chronic (11) Carcinoma of breast metastatic to bone Status: Chronic (12) Acute metabolic encephalopathy Status: Resolved - Respiratory Orders Smoking Cessation: Smoking cessation has been advised. For more information, call the [place] Tobacco Quit Line at 9-445-AENVNOW. Certification: Further, I certify that my clinical findings support that this patient is homebound (i.e. absences from home require considerable and taxing effort and are for medical reasons or religion services or infrequently or short duration when for other reasons) because: Attestation: My signature below is to certify that this patient is under my care and that I, or nurse practitioner, or a physician's security assistant working with me, has a face-to -face encounter with this patient.
--- NOTE | 2017-08-18 13:06 | Oncology Inp Progress Note ---
Date of Encounter: 08/18/17 Time of Encounter: 13:05 (1) Metastatic adenocarcinoma Current Visit: Yes Status: Acute Assessment and plan: Possible breast primary, ER/MT negative HER-2/casa negative, patient has started chemotherapy with Taxol 2 weekly doses completed A-port removed-Blood culture drawn from the a-port 08/10/17 was positive 08/11 set for MSSA. Septic Shock/Bacteremia-Management per ID, plan to treat home with home health with nafcillin. Duration of treatment on until 08/28/2017, with weekly labs. Patient is planned for discharge today pending further lab work. Recommendation was made for patient to d/c to rehab facility however, patient and patients request to go home with home health. Delay chemotherapy, Dr Wesley, treating oncologist, will follow up for further treatment recommendations as outpatient following resolution of acute issues, may consider dose reduction/change in therapy. Notified Dr. Wesley's pluck trimmer, patients can expect call with follow up appointment, patients requested follow up in no less than 2 weeks due to transportation issues. Will notify nurse navigator for continued monitoring. Significant stomatitis involving most of tongue and oral cavity, likely related to chemo tx-Grade 3-improving, she will continue magic mouthwash/stomatitis mixture. Today she developed anemia with hgb drop from 10.1 to 7.9 and hypokalemia with potassium 2.5. Discussed with hospitalist team, she is planned to have repeat lab work and potassium IV completion prior to finalization of discharge. Appreciate management with hospitalist team. Oncology: Subj Interval history: at bedside. Patient reports she has had an uneventful weekend and continues to feel better. Mucositis has improved, she is now better able to tolerate PO liquids/food. - Constitutional Vitals: Vital Signs Temp Pulse Resp BP Pulse Ox 08/18/17 11:25 97.8 F 93 18 137/64 96 08/18/17 07:21 98.5 F 88 18 131/53 95 08/18/17 03:58 97.9 F 86 18 136/98 96 08/17/17 23:59 98.3 F 90 16 135/61 94 08/17/17 22:08 15 95 08/17/17 19:56 99.1 F 88 17 134/63 95 08/17/17 18:45 83 16 94 08/17/17 16:12 98.6 F 87 15 134/66 95 Intake and Output 08/17/17 08/18/17 08/18/17 23:59 07:59 15:59 Intake Total 770 / 770 800 / 800 440 / 440 Output Total 0 / 0 Balance 770 / 770 800 / 800 440 / 440 Intake: IV Fluids 410 / 410 500 / 500 200 / 200 Flexbumin 25 gm In 100 ml @ 60 100 / 100 100 / 100 mls/hr IVPB Q8HR [facility] Rx#: [id number] Calcium Gluconate 1,000 MG In 0 110 / 110 .9 % Sodium Chloride 100 ML @ 203.494 mls/hr IVPB Q6HR PRN Rx #:[id number] Nafcillin 2,000 MG In 0.9 % 200 / 200 200 / 200 100 / 100 Sodium Chloride (Mini-Bag +) 100 ML @ 200 mls/hr IVPB Q4HR [facility] Rx#:[id number] Potassium Chloride 10 mEq/100mL 200 / 200 100 / 100 10 meq In 100 ml @ 100 mls/hr IVPB Q1H PRN Rx#:[id number] Oral 360 / 360 300 / 300 240 / 240 Output: Urine 0 / 0 Other: Meal Breakfast Percent of Meal Consumed 50% # Urine Diapers 1 Weight 101.2 kg Blood Glucose* 106 82 170 Patient Weight 08/18/17 23:59 Weight 101.2 kg General appearance: cooperative, no acute distress, no febrile - Respiratory Respiratory exam: Present: CTAB. Absent: respiratory distress - Cardiovascular Cardiovascular exam: Present: RRR, +S1, +S2. Absent: tachycardia - GI/Abdominal GI/Abdominal exam: Present: normal bowel sounds, soft. Absent: guarding, tenderness - Extremities Exam Extremities exam: Present: pedal edema. Absent: calf tenderness Additional comments: generalized edema improving, 1+ pitting - Neurological Exam Neurological exam: Present: alert, oriented X3, strengths equal and symetr throughout. Absent: no focal deficits - Skin Additional comments: multiple bullous like wounds secondary to edema, RUE ANDREEA and improving, steri strips to right chest wall from port removal no s/s infection, dried blood noted Oncology: Obj Data - Labs CBC & Chem 7: 08/18/17 13:41 08/18/17 13:41 - ABG Interpretation ABG results: PT/INR, D-dimer PT 19.7 Seconds (9.4-12.1) H 08/07/17 20:31 Consult Discharge Plan - Plan Referrals: Nazia Deleon CNP [Primary Care Provider] - 08/20/17 1:30 pm () Angela Rouse CNP [Advanced Practice Nurse] - Vivienne Nieves MD [Partnered Physician] - Prescriptions: OxyCODONE Immed Rel [Roxicodone 5 MG] 5 mg PO Q4HR PRN #180 tablet PRN Reason: Pain Furosemide Oral Soln [Lasix] 40 mg PO BID #60 mls Lactobacillus [Culturelle] 1 each PO BID #60 unit Lisinopril [Zestril] 10 mg PO DAILY #30 tablet Megestrol Acetate [Megace] 800 mg PO DAILY #600 ml Metoprolol XL (24 HR) Succ [Toprol Xl] 100 mg PO DAILY #30 tab.er.24h Nafcillin 12,000 mg IV DAILY #38 vial Nystatin POWDER [Nystop] 1 appl TP TID #1 bottle Potassium Chloride Elixir [Potassium Chloride] 40 meq PO DAILY #900 mls Silver Sulfadiazine [Silvadene] 1 appl TP BID #1 tube Stomatitis Mixture 10 ml PO 0700,1100,1600,2200 #350 mls valACYclovir [Valtrex] 2,000 mg PO BID #6 tablet Zolpidem [Ambien] 5 mg PO HS PRN #30 tablet PRN Reason: Insomnia
[2017-08-18 14:06] LABS: Hematocrit 24.7 % (35.3-44.9); Hemoglobin 8.4 g/dL (11.5-15.4)
--- NOTE | 2017-08-18 14:31 | Infectious Disease Progress No ---
Date of Encounter: 08/18/17 Time of Encounter: 14:29 - Assessment and Plan (1) Septic shock Current Visit: Yes Status: Acute The patient had two SIRS criteria plus TYRONE and lactic acidosis and hypotension requiring vasopressors. Originally had leukopenia, but now has leukocytosis --> likely related to Neupogen, but this is improved. Likely secondary to bacteremia. Improved. Tachycardia has resolved. The patient has been afebrile. TYRONE has resolved. Lactic acidosis has improved. Vasopressors have been turned off. Peripheral blood cultures drawn 08/07/17 were positive 2/2 sets for MSSA. Repeat peripheral blood cultures drawn 08/09/17 were positive 2/2 sets for MSSA. Blood culture drawn from the a-port 08/10/17 was positive 1/1 set for MSSA as well. Repeat peripheral blood cultures drawn 08/12/16 are positive 1/2 sets. Additional peripheral blood cultures drawn 08/14/16 x 2 sets. So far no growth. We'll continue with nafcillin. Duration of treatment on until 08/28/2017 Will need weekly labs while on antibiotics including CBC, BUN and creatinine. (2) Bacteremia due to Staphylococcus aureus Current Visit: Yes Status: Acute Causative organism: MSSA. Source likely the right upper chest a-port insertion vs. recent access. Status post removal 08/10/17. Seropurulent drainage noted in the pocket on removal. Culture positive for MSSA. Uncomplicated. Peripheral blood cultures drawn 08/07/17 were positive 2/2 sets for MSSA. Repeat peripheral blood cultures drawn 08/09/17 were positive 2/2 sets for MSSA. Blood culture drawn from the a-port 08/10/17 was positive 1/1 set for MSSA as well. Additional peripheral blood cultures drawn 08/12/17 are positive 1/2 sets. Repeat peripheral blood cultures drawn 08/14/16 are pending x 2 sets. Etiology of persistently positive blood cultures likely due to 08/12/16 blood cultures drawn <24 hours after a-port was removed. No endocarditis stigmata noted on exam. TTE negative for vegetations. CHELA aborted due to patient unable to tolerate the procedure. The patient has one major and one minor Modified Jensen's Criteria. Continue Nafcillin 2 grams IV Q4H. Duration of treatment depends on the clinical picture, but likely two weeks from the first set of negative blood cultures. Monitor renal function and dose-adjust antibiotics. Avoid insertion of central venous access until repeat blood cultures are negative x 48 hours. (3) TYRONE (acute kidney injury) Current Visit: Yes Status: Resolved Likely multifactorial: sepsis + dehydration + nephrotoxic chemotherapy drug Resolved. Continue to trend. Dose-adjust antibiotics. Avoid nephrotoxins as able. (4) Lactic acidosis Current Visit: Yes Status: Resolved Likely secondary to sepsis. CT of the abdomen and pelvis negative. Improved. Continue to trend. (5) Leukopenia Current Visit: Yes Status: Resolved Likely secondary to recent chemotherapy. Status post Neupogen x 2. Resolved. Qualifiers: Leukopenia type: unspecified Qualified Code(s): D72.819 - Decreased white blood cell count, unspecified (6) Dehydration, severe Current Visit: Yes Status: Acute Likely secondary to GI loss. Improved. Further management per the primary team. (7) Diarrhea Current Visit: Yes Status: Acute Resolved Qualifiers: Diarrhea type: functional diarrhea Qualified Code(s): K59.1 - Functional diarrhea (8) Diabetes mellitus Current Visit: No Status: Chronic Uncontrolled. HgbA1C 8.4%. Recommend aggressive glucose monitoring and control. Management per the primary team. Qualifiers: Diabetes mellitus type: type 2 Diabetes mellitus complication status: with hyperglycemia Diabetes mellitus superintendent terminal insulin use: with superintendent terminal use Qualified Code(s): E11.65 - Type 2 diabetes mellitus with hyperglycemia; Z79.4 - MCFP (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 of insulin; Z79.4 - MCFP (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 of insulin ; Z79.4 - extermination inspector (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 of insulin; Z79.4 - extermination inspector (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 of insulin (9) Carcinoma of breast metastatic to bone Current Visit: Yes Status: Chronic Newly diagnosed. Recently started weekly doses of Taxol. Follows with [facility]. Hem/Onc consulted and following. 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 had some concerns because the patient was not seen by physical therapy and she is weak and he told me on Friday became disparate picture in the left. I relayed the information to nursing and asked him to call the PCP/hospitalist discussed the case with them. And maybe PTOT consideration prior to discharge so they can make sure that it's safe to send her home and if she needs any help. (11) Oral mucosal lesion Current Visit: Yes Status: Acute Likely chemo-induced mucositis, but consider HSV. Send swab for HSV PCR. Continue magic mouthwash and nystatin. Fluconazole re-started by the primary team. Start valacyclovir 2 grams PO x for 5 days. - Subjective Interval history: Patient seen and examined. Appears to be doing very well clinically. States that she feels much better. Denies any headache denies any chest pain or shortness of breath. Denies any diarrhea. States that she has good appetite. Patient states that the painful lesions in her mouth are much better. Infect Dis PN-Objective Data - Labs CBC & Chem 7: 08/18/17 04:35 08/18/17 13:41 Labs: Laboratory Results - last 24 hr 08/17/17 08/17/17 08/17/17 07:36 11:35 16:17 WBC RBC Hgb Hct MCV MCH MCHC RDW Plt Count MPV Immature Gran % Seg Neutrophils % Lymphocytes % Monocytes % Eosinophils % Basophils % Neutrophils # Lymphocytes # Monocytes # Eosinophils # Basophils # Nucleated RBCs/100 WBC VBG pH Sodium Potassium Chloride Carbon Dioxide BUN Creatinine Est GFR ( Amer) Est GFR (Non-Af Amer) BUN/Creatinine Ratio Glucose POC Glucose 118 H 178 H 143 H Calculated Osmolality Calcium Venous Ioniz Calcium Phosphorus Magnesium 08/17/17 08/18/17 08/18/17 19:51 04:35 04:35 WBC 11.2 H RBC 2.65 L Hgb 7.9 L D Hct 23.5 L MCV 88.7 MCH 29.8 MCHC 33.6 RDW 16.1 H Plt Count 124 L MPV 11.4 Immature Gran % 1.3 Seg Neutrophils % 73.6 Lymphocytes % 18.1 Monocytes % 5.7 Eosinophils % 0.8 Basophils % 0.5 Neutrophils # 8.2 Lymphocytes # 2.0 Monocytes # 0.6 Eosinophils # 0.1 Basophils # 0.1 Nucleated RBCs/100 WBC 0.4 H VBG pH Sodium 138 Potassium 2.5 L* Chloride 110 H Carbon Dioxide 20 L BUN 39 H Creatinine 1.15 Est GFR ( Amer) 56 L Est GFR (Non-Af Amer) 46 L BUN/Creatinine Ratio 34 H Glucose 81 POC Glucose 106 H Calculated Osmolality 294 Calcium 7.0 L Venous Ioniz Calcium Phosphorus 4.3 Magnesium 1.8 08/18/17 08/18/17 04:49 13:41 WBC RBC Hgb Hct MCV MCH MCHC RDW Plt Count MPV Immature Gran % Seg Neutrophils % Lymphocytes % Monocytes % Eosinophils % Basophils % Neutrophils # Lymphocytes # Monocytes # Eosinophils # Basophils # Nucleated RBCs/100 WBC VBG pH 7.37 Sodium Potassium 2.9 L Chloride Carbon Dioxide BUN Creatinine Est GFR ( Amer) Est GFR (Non-Af Amer) BUN/Creatinine Ratio Glucose POC Glucose Calculated Osmolality Calcium Venous Ioniz Calcium 0.99 L Phosphorus Magnesium Cultures: Cultures 08/12/17 05:56 Blood Culture - Final Peripheral Venipuncture No growth. 08/11/17 12:20 Anaerobic Culture - Final Chest No anaerobes were recovered. 08/12/17 05:56 Blood Culture - Final Peripheral Venipuncture Staphylococcus aureus 08/14/17 07:20 Blood Culture - Preliminary Peripheral Venipuncture No growth. 08/14/17 07:15 Blood Culture - Preliminary Peripheral Venipuncture No growth. 08/10/17 22:20 Catheter Tip Culture - Final Intravenous or Arterial Cath Staphylococcus aureus 08/10/17 14:08 Blood Culture - Final Port System Staphylococcus aureus 08/11/17 12:20 Wound Culture - Final Chest Staphylococcus aureus 08/11/17 12:20 Gram Stain - Final Chest 08/09/17 14:08 Blood Culture - Final Peripheral Venipuncture Staphylococcus aureus 08/09/17 14:08 Blood Culture - Final Peripheral Venipuncture Staphylococcus aureus Serology 08/15/17 08/15/17 08/14/17 Range/Units 14:52 14:10 14:35 Urine Color Yellow (Yellow) Urine Clarity Cloudy A (Clear) Urine pH 6.0 (5.0-8.0) pH Units Ur Specific Corona 1.009 L (1.010-1.025) Urine Protein Negative (Neg-Trace) mg/dL Urine Glucose (UA) 100 H (Normal) mg/dL Urine Ketones Negative (Negative) mg/dL Urine Blood Negative (Negative) Urine Nitrite Negative (Negative) Urine Bilirubin Negative (Negative) Urine Urobilinogen Normal (Normal) mg/dL Ur Leukocyte Esterase Negative (Negative) Urine Microscopic RBC 0-3 (0-3) per hpf Urine Microscopic WBC 5-15 H (0-3) per hpf Ur Squamous Epith Cells Many H (None-Few) per lpf Urine Bacteria None Seen (None-Few) per hpf Hyaline Casts None Seen (None-Few) per lpf Urine Yeast Moderate H (None Seen) per hpf Ur Culture Indicated? NO (NO) Stl C. cayetanensis PCR (Not detect) Stool Rotavirus A PCR (Not detect) Stl Adenov F 40/41 PCR (Not detect) Stool Astrovirus (PCR) (Not detect) Stool Campylobacter PCR (Not detect) Stl C. diff Tox B Gene Negative (Negative) Stl C. diff Tox A/B PCR (Not detect) Stool Cryptosporidium PCR (Not detect) Stl Sh Tox Pr E STEC PCR (Not detect) Stool E coli O157 PCR (Not detect) Stl Enterotoxigenic E PCR (Not detect) Stool EPEC (PCR) (Not detect) Stool EAEC (PCR) (Not detect) Stl E. histolytica PCR (Not detect) Stool Giardia Lamblia PCR (Not detect) Stool Salmonella PCR (Not detect) Stool Sapovirus (PCR) (Not detect) Stl P. shigelloides PCR (Not detect) Stl Shigella/EIEC PCR (Not detect) St Y.enterocolitica PCR (Not detect) Stool Vibrio (PCR) (Not detect) Stl Vibrio cholerae PCR (Not detect) Stl Norovirus GI/GII PCR (Not detect) Stl GI Panel (PCR) Com A. baumannii (PCR) (Not Detect) Chlamy pneumoniae PCR (Not Detect) Adenovirus (PCR) (Not Detect) B. pertussis DNA (PCR) (Not Detect) Emeli albicans (PCR) (Not Detect) C. glabrata (PCR) (Not Detect) C. krusei (PCR) (Not Detect) C. parapsilosis (PCR) (Not Detect) C. tropicalis (PCR) (Not Detect) Coronavirus OC43 (PCR) (Not Detect) Coronavirus HKU1 (PCR) (Not Detect) Coronavirus 229E (PCR) (Not Detect) Coronavirus NL63 (PCR) (Not Detect) Enterobacteriac sp PCR (Not Detect) E. cloacae complex PCR (Not Detect) Enterococcus sp PCR (Not Detect) E. coli (PCR) (Not Detect) H. influenzae (PCR) (Not Detect) Herpes Simplex Source Inside the mouth HSV I DETECTED A (Not Detect) HSV II Not Detected (Not Detect) Human Metapneumovir PCR (Not Detect) Influenza A (H1) PCR (Not Detect) Influ A (H1N1/09) PCR (Not Detect) Influenza A (H3) PCR (Not Detect) Influenza A Untype (PCR) (Not Detect) Influenza Type B (PCR) (Not Detect) Klebsiella oxytoca PCR (Not Detect) Klebsiella pneumoniae (Not Detect) List. monocytogenes PCR (Not Detect) M.pneumoniae DNA (PCR) (Not Detect) N. meningitidis (PCR) (Not Detect) Parainfluenza 1 (PCR) (Not Detect) Parainfluenza 2 (PCR) (Not Detect) Parainfluenza 3 (PCR) (Not Detect) Parainfluenza 4 (PCR) (Not Detect) Proteus species (PCR) (Not Detect) RSV (PCR) (Not Detect) Entero/Rhino (PCR) (Not Detect) Serratia marcescens PCR (Not Detect) Staphylococcus sp PCR (Not Detect) Staph aureus (PCR) (Not Detect) mecA-Methicil Res Gene (Not Detect) Streptococcus sp PCR (Not Detect) Group A Strep DNA (Not Detect) Group B Strep (PCR) (Not Detect) Strep pneumoniae (PCR) (Not Detect) P. aeruginosa (PCR) (Not Detect) Riley/B-Vanco Res Genes (Not Detect) KPC (blaKPC) Detect PCR (Not Detect) 08/12/17 08/09/17 08/09/17 Range/Units 05:56 17:00 14:08 Urine Color (Yellow) Urine Clarity (Clear) Urine pH (5.0-8.0) pH Units Ur Specific Corona (1.010-1.025) Urine Protein (Neg-Trace) mg/dL Urine Glucose (UA) (Normal) mg/dL Urine Ketones (Negative) mg/dL Urine Blood (Negative) Urine Nitrite (Negative) Urine Bilirubin (Negative) Urine Urobilinogen (Normal) mg/dL Ur Leukocyte Esterase (Negative) Urine Microscopic RBC (0-3) per hpf Urine Microscopic WBC (0-3) per hpf Ur Squamous Epith Cells (None-Few) per lpf Urine Bacteria (None-Few) per hpf Hyaline Casts (None-Few) per lpf Urine Yeast (None Seen) per hpf Ur Culture Indicated? (NO) Stl C. cayetanensis PCR Not detected (Not detect) Stool Rotavirus A PCR Not detected (Not detect) Stl Adenov F 40/41 PCR Not detected (Not detect) Stool Astrovirus (PCR) Not detected (Not detect) Stool Campylobacter PCR Not detected (Not detect) Stl C. diff Tox B Gene (Negative) Stl C. diff Tox A/B PCR Not detected (Not detect) Stool Cryptosporidium PCR Not detected (Not detect) Stl Sh Tox Pr E STEC PCR Not detected (Not detect) Stool E coli O157 PCR Not detected (Not detect) Stl Enterotoxigenic E PCR Not detected (Not detect) Stool EPEC (PCR) Not detected (Not detect) Stool EAEC (PCR) Not detected (Not detect) Stl E. histolytica PCR Not detected (Not detect) Stool Giardia Lamblia PCR Not detected (Not detect) Stool Salmonella PCR Not detected (Not detect) Stool Sapovirus (PCR) Not detected (Not detect) Stl P. shigelloides PCR Not detected (Not detect) Stl Shigella/EIEC PCR Not detected (Not detect) St Y.enterocolitica PCR Not detected (Not detect) Stool Vibrio (PCR) Not detected (Not detect) Stl Vibrio cholerae PCR Not detected (Not detect) Stl Norovirus GI/GII PCR Not detected (Not detect) Stl GI Panel (PCR) Com See below A. baumannii (PCR) Not Detected Not Detected (Not Detect) Chlamy pneumoniae PCR (Not Detect) Adenovirus (PCR) (Not Detect) B. pertussis DNA (PCR) (Not Detect) Emeli albicans (PCR) Not Detected Not Detected (Not Detect) C. glabrata (PCR) Not Detected Not Detected (Not Detect) C. krusei (PCR) Not Detected Not Detected (Not Detect) C. parapsilosis (PCR) Not Detected Not Detected (Not Detect) C. tropicalis (PCR) Not Detected Not Detected (Not Detect) Coronavirus OC43 (PCR) (Not Detect) Coronavirus HKU1 (PCR) (Not Detect) Coronavirus 229E (PCR) (Not Detect) Coronavirus NL63 (PCR) (Not Detect) Enterobacteriac sp PCR Not Detected Not Detected (Not Detect) E. cloacae complex PCR Not Detected Not Detected (Not Detect) Enterococcus sp PCR Not Detected Not Detected (Not Detect) E. coli (PCR) Not Detected Not Detected (Not Detect) H. influenzae (PCR) Not Detected Not Detected (Not Detect) Herpes Simplex Source HSV I (Not Detect) HSV II (Not Detect) Human Metapneumovir PCR (Not Detect) Influenza A (H1) PCR (Not Detect) Influ A (H1N1/09) PCR (Not Detect) Influenza A (H3) PCR (Not Detect) Influenza A Untype (PCR) (Not Detect) Influenza Type B (PCR) (Not Detect) Klebsiella oxytoca PCR Not Detected Not Detected (Not Detect) Klebsiella pneumoniae Not Detected Not Detected (Not Detect) List. monocytogenes PCR Not Detected Not Detected (Not Detect) M.pneumoniae DNA (PCR) (Not Detect) N. meningitidis (PCR) Not Detected Not Detected (Not Detect) Parainfluenza 1 (PCR) (Not Detect) Parainfluenza 2 (PCR) (Not Detect) Parainfluenza 3 (PCR) (Not Detect) Parainfluenza 4 (PCR) (Not Detect) Proteus species (PCR) Not Detected Not Detected (Not Detect) RSV (PCR) (Not Detect) Entero/Rhino (PCR) (Not Detect) Serratia marcescens PCR Not Detected Not Detected (Not Detect) Staphylococcus sp PCR DETECTED A DETECTED A (Not Detect) Staph aureus (PCR) DETECTED A DETECTED A (Not Detect) mecA-Methicil Res Gene Not Detected Not Detected (Not Detect) Streptococcus sp PCR Not Detected Not Detected (Not Detect) Group A Strep DNA Not Detected Not Detected (Not Detect) Group B Strep (PCR) Not Detected Not Detected (Not Detect) Strep pneumoniae (PCR) Not Detected Not Detected (Not Detect) P. aeruginosa (PCR) Not Detected Not Detected (Not Detect) Riley/B-Vanco Res Genes Not Detected N/A (Not Detect) KPC (blaKPC) Detect PCR Not Detected N/A (Not Detect) 08/08/17 Range/Units 02:49 Urine Color (Yellow) Urine Clarity (Clear) Urine pH (5.0-8.0) pH Units Ur Specific Corona (1.010-1.025) Urine Protein (Neg-Trace) mg/dL Urine Glucose (UA) (Normal) mg/dL Urine Ketones (Negative) mg/dL Urine Blood (Negative) Urine Nitrite (Negative) Urine Bilirubin (Negative) Urine Urobilinogen (Normal) mg/dL Ur Leukocyte Esterase (Negative) Urine Microscopic RBC (0-3) per hpf Urine Microscopic WBC (0-3) per hpf Ur Squamous Epith Cells (None-Few) per lpf Urine Bacteria (None-Few) per hpf Hyaline Casts (None-Few) per lpf Urine Yeast (None Seen) per hpf Ur Culture Indicated? (NO) Stl C. cayetanensis PCR (Not detect) Stool Rotavirus A PCR (Not detect) Stl Adenov F 40/41 PCR (Not detect) Stool Astrovirus (PCR) (Not detect) Stool Campylobacter PCR (Not detect) Stl C. diff Tox B Gene (Negative) Stl C. diff Tox A/B PCR (Not detect) Stool Cryptosporidium PCR (Not detect) Stl Sh Tox Pr E STEC PCR (Not detect) Stool E coli O157 PCR (Not detect) Stl Enterotoxigenic E PCR (Not detect) Stool EPEC (PCR) (Not detect) Stool EAEC (PCR) (Not detect) Stl E. histolytica PCR (Not detect) Stool Giardia Lamblia PCR (Not detect) Stool Salmonella PCR (Not detect) Stool Sapovirus (PCR) (Not detect) Stl P. shigelloides PCR (Not detect) Stl Shigella/EIEC PCR (Not detect) St Y.enterocolitica PCR (Not detect) Stool Vibrio (PCR) (Not detect) Stl Vibrio cholerae PCR (Not detect) Stl Norovirus GI/GII PCR (Not detect) Stl GI Panel (PCR) Com A. baumannii (PCR) (Not Detect) Chlamy pneumoniae PCR Not Detected (Not Detect) Adenovirus (PCR) Not Detected (Not Detect) B. pertussis DNA (PCR) Not Detected (Not Detect) Emeli albicans (PCR) (Not Detect) C. glabrata (PCR) (Not Detect) C. krusei (PCR) (Not Detect) C. parapsilosis (PCR) (Not Detect) C. tropicalis (PCR) (Not Detect) Coronavirus OC43 (PCR) Not Detected (Not Detect) Coronavirus HKU1 (PCR) Not Detected (Not Detect) Coronavirus 229E (PCR) Not Detected (Not Detect) Coronavirus NL63 (PCR) Not Detected (Not Detect) Enterobacteriac sp PCR (Not Detect) E. cloacae complex PCR (Not Detect) Enterococcus sp PCR (Not Detect) E. coli (PCR) (Not Detect) H. influenzae (PCR) (Not Detect) Herpes Simplex Source HSV I (Not Detect) HSV II (Not Detect) Human Metapneumovir PCR Not Detected (Not Detect) Influenza A (H1) PCR Not Detected (Not Detect) Influ A (H1N1/09) PCR Not Detected (Not Detect) Influenza A (H3) PCR Not Detected (Not Detect) Influenza A Untype (PCR) Not Detected (Not Detect) Influenza Type B (PCR) Not Detected (Not Detect) Klebsiella oxytoca PCR (Not Detect) Klebsiella pneumoniae (Not Detect) List. monocytogenes PCR (Not Detect) M.pneumoniae DNA (PCR) Not Detected (Not Detect) N. meningitidis (PCR) (Not Detect) Parainfluenza 1 (PCR) Not Detected (Not Detect) Parainfluenza 2 (PCR) Not Detected (Not Detect) Parainfluenza 3 (PCR) Not Detected (Not Detect) Parainfluenza 4 (PCR) Not Detected (Not Detect) Proteus species (PCR) (Not Detect) RSV (PCR) Not Detected (Not Detect) Entero/Rhino (PCR) Not Detected (Not Detect) Serratia marcescens PCR (Not Detect) Staphylococcus sp PCR (Not Detect) Staph aureus (PCR) (Not Detect) mecA-Methicil Res Gene (Not Detect) Streptococcus sp PCR (Not Detect) Group A Strep DNA (Not Detect) Group B Strep (PCR) (Not Detect) Strep pneumoniae (PCR) (Not Detect) P. aeruginosa (PCR) (Not Detect) Riley/B-Vanco Res Genes (Not Detect) KPC (blaKPC) Detect PCR (Not Detect) Exam - Constitutional Vitals: Temp Pulse Resp BP Pulse Ox 97.8 F 93 18 137/64 96 08/18/17 11:25 08/18/17 11:25 08/18/17 11:25 08/18/17 11:25 08/18/17 11:25 General appearance: no acute distress, no febrile - Head Head exam: Present: atraumatic, normocephalic - Respiratory Additional comments: Good air sounds bilaterally. Chest expanding symmetrically. No wheezing or rhonchi. Chest wound from a port intact with no erythema or drainage. - Cardiovascular Cardiovascular exam: Present: RRR, +S1, +S2 - GI/Abdominal GI/Abdominal exam: Present: normal bowel sounds, soft. Absent: tenderness - VTE Documentation of Mechanical Device: Intermittent pneumatic compression device Consult Discharge Plan - Plan Referrals: Nazia Deleon CNP [Primary Care Provider] - 08/20/17 1:30 pm () Angela Rouse CNP [Advanced Practice Nurse] - Vivienne Nieves MD [Partnered Physician] - Prescriptions: OxyCODONE Immed Rel [Roxicodone 5 MG] 5 mg PO Q4HR PRN #180 tablet PRN Reason: Pain Furosemide Oral Soln [Lasix] 40 mg PO BID #60 mls Lactobacillus [Culturelle] 1 each PO BID #60 unit Lisinopril [Zestril] 10 mg PO DAILY #30 tablet Megestrol Acetate [Megace] 800 mg PO DAILY #600 ml Metoprolol XL (24 HR) Succ [Toprol Xl] 100 mg PO DAILY #30 tab.er.24h Nafcillin 12,000 mg IV DAILY #38 vial Nystatin POWDER [Nystop] 1 appl TP TID #1 bottle Potassium Chloride Elixir [Potassium Chloride] 40 meq PO DAILY #900 mls Silver Sulfadiazine [Silvadene] 1 appl TP BID #1 tube Stomatitis Mixture 10 ml PO 0700,1100,1600,2200 #350 mls Zolpidem [Ambien] 5 mg PO HS PRN #30 tablet PRN Reason: Insomnia
[2017-08-18] MEDS ORDERED: Potassium Chloride 40 MEQ, Lidocaine 1% 2 ML in D5% in Water 500 ML IVPB ONE (14:46)
--- NOTE | 2017-08-18 15:28 | Event Note ---
Date of Encounter: 08/18/17 Time of Encounter: 15:26 Pt is in need of bedside commode. She is significantly deconditioned and has been hospitalized for MSSA infection of her blood stream. She can barely stand and pivot at this time.
[2017-08-19] MEDS: Nafcillin 2,000 MG in 0.9 % Sodium Chloride Mini Bag 100 ML IVPB SCH ×3 (02:28→08:58)
[2017-08-19 03:24] LABS: Hematocrit 23.5 % (35.3-44.9); Hemoglobin 8.1 g/dL (11.5-15.4); Immature Platelets 3.7 % (1.1-6.1); Mean Corpuscular HGB Conc 34.5 g/dL (31.6-35.5); Mean Corpuscular Hemoglobin 30.8 pg (28.0-33.3); Mean Corpuscular Volume 89.4 fL (83.0-100.0); Mean Platelet Volume 10.6 fL (9.4-12.4); Red Blood Count 2.63 M/mcL (3.82-4.97); Red Cell Distribution Width 17.1 % (11.5-14.5)
[2017-08-19 03:36] LABS: Calcium 7.1 mg/dL (8.6-10.3); Potassium 2.7 mEq/L (3.5-5.1)
[2017-08-19] MEDS ORDERED: Potassium Chloride 40 MEQ, Lidocaine 1% 2 ML in D5% in Water 500 ML IVPB ONE (07:41)
[2017-08-19] MEDS: Insulin LISPRO 300 UNITS/3 ML VIAL SQ SCH (08:49)
[2017-08-19] MEDS: Stomatitis Mixture 5 ML UDC PO SCH (08:50)
[2017-08-19] MEDS: Potassium Chloride Elixir 20 MEQ/15 ML UDC PO SCH (08:59)
[2017-08-19] MEDS: Magic Mouthwash 10 ML UD Cup PO SCH (08:59)
[2017-08-19] MEDS: Megestrol Acetate 400 MG/10 ML UDC PO SCH (08:59)
[2017-08-19] MEDS: Metoprolol XL (24 HR) Succ 50 MG TAB.ER.24H PO SCH (08:59)
[2017-08-19] MEDS: Aspirin Enteric Coated 81 MG Tablet PO SCH (08:59)
[2017-08-19] MEDS: Lactobacillus 1 EACH CAP.SPRINK PO SCH (08:59)
--- NOTE | 2017-08-19 09:06 | Event Note ---
<Cathy Davis - Last Filed: 08/19/17 08:58> Date of Encounter: 08/19/17 Time of Encounter: 08:58 Patient was medically discharged yesterday; however, her home health infusion was not able to be set up due to icy weather conditions. She must continue her IV antibiotics. [facility] health to set up antibiotic at noon today. Exam: Gen.: Alert, oriented, pleasant, answers questions appropriately Heart: Regular rate and rhythm, no murmurs Lungs: Clear to auscultation bilaterally Abdomen: Bowel sounds present, soft, nontender Extremities: 2+ pedal edema of the bilateral ankles; hands with trace edema <Gisela Feldman - Last Filed: 08/20/17 18:52> Date of Encounter: 08/19/17 I examined this patient and my medical decision-making was reviewed with the Resident Physician Dr. Davis. I agree with the documented findings, disposition and treatment plan as described except to the extent set forth below. Ms. Catalan is a 72 year old female with h/o metastatic adenocarcinoma with bone mets, presents with c/o- refractory nausea, vomiting, diarrhea. Patient follows with Oncology and has been started on chemotherapy with Paclitaxel 2 weeks ago.She was found to have Staphylococcus aureus bacteremia with an infected port. The port got removed and she was started on 2 weeks of IV nafcillin 2 g every 4 hours after the negative blood cultures. Pt is going to home today with home health services. I did talk to the pt and pt's at bed side, they refused to go to any ECF / LTAC for PT / OT. Gen: A, A< O x 3 Chest: Diminished BS b/l no crackles
[2017-08-19] MEDS: Saline Nasal Spray 44 ML BOTTLE NS PRN (09:18)
[2017-08-19] MEDS: Furosemide 20 MG/2 ML VIAL IVP SCH (09:18)
[2017-08-19] MEDS: Fluticasone Propionate Nasal 50 MCG/SPRAY BOTTLE NS SCH (09:19)
[2017-08-19] MEDS: Nystatin POWDER 30 GM BOTTLE TP SCH (09:19)
[2017-08-19] MEDS: Silver Sulfadiazine 50 GM TUBE TP SCH (09:20)
[2017-08-19] MEDS: Insulin DETEMIR 100 UNIT/ML X5UNITS SQ SCH (09:22)
--- NOTE | 2017-08-19 10:20 | Physician Discharge Referral ---
Home Health/Hosp Referral Info Transfer to: Home Health Attending Provider: Dr. Feldman Provider in Charge Post Discharge: PCP - Diagnosis (1) Severe sepsis Priority: Primary Status: Acute (2) Bacteremia due to Staphylococcus aureus Priority: Primary Status: Acute (3) Diarrhea Priority: Secondary Status: Acute (4) Stomatitis and mucositis with change of taste Priority: Secondary Status: Acute (5) Hypokalemia Priority: Secondary Status: Acute (6) Hypocalcemia Priority: Secondary Status: Acute (7) Essential hypertension Priority: Secondary Status: Chronic (8) Diabetes mellitus Priority: Secondary Status: Chronic (9) Bone metastases Priority: Secondary Status: Chronic (10) CLABSI (central line-associated bloodstream infection) Priority: Secondary Status: Resolved (11) Moderate protein malnutrition Priority: Secondary Status: Chronic (12) GERD (gastroesophageal reflux disease) Priority: Secondary Status: Chronic (13) Nausea Priority: Secondary Status: Acute (14) TYRONE (acute kidney injury) Priority: Secondary Status: Resolved (15) Hypotension Priority: Secondary Status: Resolved (16) Leukopenia Priority: Secondary Status: Resolved (17) Lactic acidosis Priority: Secondary Status: Resolved (18) Hypomagnesemia Priority: Secondary Status: Resolved (19) Emesis Priority: Secondary Status: Resolved - Respiratory Orders Smoking Cessation: Smoking cessation has been advised. For more information, call the [place] Tobacco Quit Line at 4-511-CAOSNOW. - Diet/Nutrition Diet/Nutrition Orders: Regular - Activity Activity Orders: Up ad gwendolyn - Services Needed Following services are medically necessary services: Nursing, Home Health Aide, Physical Therapy, Occupational Therapy, Med Social Work, Home Infusion Home Care Orders: CBC & BMP 08/20 CBC & BMP 08/25 - Transfer Medications Prescriptions: OxyCODONE Immed Rel [Roxicodone 5 MG] 5 mg PO Q4HR PRN #180 tablet PRN Reason: Pain Furosemide Oral Soln [Lasix] 40 mg PO BID #60 mls Lactobacillus [Culturelle] 1 each PO BID #60 unit Lisinopril [Zestril] 10 mg PO DAILY #30 tablet Megestrol Acetate [Megace] 800 mg PO DAILY #600 ml Metoprolol XL (24 HR) Succ [Toprol Xl] 100 mg PO DAILY #30 tab.er.24h Nafcillin 12,000 mg IV DAILY #38 vial Nystatin POWDER [Nystop] 1 appl TP TID #1 bottle Potassium Bicarbonate/Cit AC [Potassium 25 Meq Tablet Eff] 50 meq PO BID #60 tablet.eff Potassium Chloride Elixir [Potassium Chloride] 40 meq PO DAILY #900 mls Silver Sulfadiazine [Silvadene] 1 appl TP BID #1 tube Stomatitis Mixture 10 ml PO 0700,1100,1600,2200 #350 mls valACYclovir [Valtrex] 2,000 mg PO BID #6 tablet Zolpidem [Ambien] 5 mg PO HS PRN #30 tablet PRN Reason: Insomnia Home Medications: Albuterol Sulfate [Proventil Hfa] 1 puff IH QID PRN 06/20/15 [History] Aspirin Enteric Coated [Aspirin EC] 81 mg PO DAILY 06/20/15 [History] Fluticasone Propionate Nasal [Flonase] 1 spray NS DAILY 06/20/15 [History] Fluticasone/Salmeterol [Advair 100-50 Diskus] 1 each IH BID 06/20/15 [History] Glimepiride [Amaryl] 4 mg PO DAILY 06/20/15 [History] Insulin NPH Hum/Reg Insulin Hm [Novolin 70-30 100 Unit/ml Vial] 30 unit SQ BID 06/20/15 [History] Omeprazole [PriLOSEC] 40 mg PO DAILY 06/20/15 [History] Pravastatin Sodium [Pravachol] 20 mg PO HS 06/20/15 [History] Saxagliptin HCl [Onglyza] 5 mg PO DAILY 06/20/15 [History] Ondansetron HCl [Zofran] 4 mg PO Q8H PRN #60 tablet 07/08/17 [Rx] Prochlorperazine Maleate [Compazine] 10 mg PO Q8HR PRN #60 tablet 07/08/17 [Rx] Calcium Carbonate/Vitamin D3 [Calcium 600 + Vit D Tablet] 2 each PO DAILY #60 tablet 07/31/17 [Rx] Docusate Sodium [Stool Softener] 100 mg PO DAILY PRN 07/31/17 [History] Lidocaine/Prilocaine [Emla] 1 appl TP AD #30 gm 07/31/17 [Rx] Nafcillin 12,000 mg IV DAILY #38 vial 08/15/17 [Rx] Furosemide Oral Soln [Lasix] 40 mg PO BID #60 mls 08/18/17 [Rx] Lactobacillus [Culturelle] 1 each PO BID #60 unit 08/18/17 [Rx] Lisinopril [Zestril] 10 mg PO DAILY #30 tablet 08/18/17 [Rx] Megestrol Acetate [Megace] 800 mg PO DAILY #600 ml 08/18/17 [Rx] Metoprolol XL (24 HR) Succ [Toprol Xl] 100 mg PO DAILY #30 tab.er.24h 08/18/17 [ Rx] Nystatin POWDER [Nystop] 1 appl TP TID #1 bottle 08/18/17 [Rx] OxyCODONE Immed Rel [Roxicodone 5 MG] 5 mg PO Q4HR PRN #180 tablet 08/18/17 [Rx] Potassium Chloride Elixir [Potassium Chloride] 40 meq PO DAILY #900 mls [Rx] Silver Sulfadiazine [Silvadene] 1 appl TP BID #1 tube 08/18/17 [Rx] Stomatitis Mixture 10 ml PO 0700,1100,1600,2200 #350 mls 08/18/17 [Rx] Zolpidem [Ambien] 5 mg PO HS PRN #30 tablet 08/18/17 [Rx] valACYclovir [Valtrex] 2,000 mg PO BID #6 tablet 08/18/17 [Rx] Potassium Bicarbonate/Cit AC [Potassium 25 Meq Tablet Eff] 50 meq PO BID #60 tablet.eff 08/19/17 [Rx] Allergies/Adverse Reactions: 3 Allergy/AdvReac Type Severity Reaction Status Date / Time nifedipine [From Procardia] Allergy Rash Verified 08/07/17 21:15 glipizide AdvReac Vomiting Verified 06/16/17 10:03 metoprolol [From Lopressor] AdvReac Nightmare Verified 08/07/17 21:15 Certification: Further, I certify that my clinical findings support that this patient is homebound (i.e. absences from home require considerable and taxing effort and are for medical reasons or caodaism services or infrequently or short duration when for other reasons) because: Homebound Reason: Patient requires assistance of a person or device to safely leave home, Leaving home requires considerable and taxing effort due to condition Attestation: My signature below is to certify that this patient is under my care and that I, or nurse practitioner, or a physician's phlebotomist medical lab assistant working with me, has a face-to -face encounter with this patient.
--- NOTE | 2017-08-19 11:20 | Oncology Inp Progress Note ---
Date of Encounter: 08/19/17 Time of Encounter: 11:00 (1) Metastatic adenocarcinoma Status: Acute Assessment and plan: Possible breast primary, ER/FL negative HER-2/casa negative, patient has started chemotherapy with Taxol 2 weekly doses completed A-port removed-Blood culture drawn from the a-port 08/10/17 was positive for MSSA. Septic Shock/Bacteremia-Management per ID, plan to treat home with home health with nafcillin. Duration of treatment on until 08/28/2017, with weekly labs. Patient is planned for discharge today, Dr. Dial discussed discharge plan with Dr. Davis. Patient to be discharged home with oral K replacement. Recommendation was made for patient to d/c to rehab facility however, patient and patients request to go home with home health, PT/OT and home infusion services. I encouraged close follow up with patient and patients who previously requested a follow up no sooner than in 2 weeks. I made an appointment for patient to follow up this Friday with Dr. Wesley along with lab work. Will also repeat lab work Friday/ to monitor CBC and CMP. Delay chemotherapy, Dr Wesley, treating oncologist, will follow up for further treatment recommendations as outpatient following resolution of acute issues, may consider dose reduction/change in therapy. Patient wishes to resume chemotherapy treatment when medically stable Significant stomatitis involving most of tongue and oral cavity, likely related to chemo tx-Grade 3-improving now mostly only localized to tongue, she will continue magic mouthwash/stomatitis mixture. Oncology: Subj Interval history: Ms. Catalan is sitting in bed with her at bedside. She reports that she continues to feel better and denies and real physical complaint at this time including SOB, chest pain, heart palpitations, nausea, vomiting, diarrhea, focal weakness, pain, headache or vertigo. She is planned for discharge soon. - Constitutional Vitals: Vital Signs Temp Pulse Resp BP Pulse Ox 08/19/17 09:27 82 08/19/17 07:09 97.9 F 81 17 132/63 97 08/19/17 05:00 98.6 F 87 17 127/55 95 08/19/17 03:00 84 08/19/17 00:26 98.7 F 85 16 143/67 96 08/18/17 23:36 99.2 F 87 17 143/68 97 08/18/17 20:45 17 97 08/18/17 20:00 99.2 F 87 16 143/68 96 08/18/17 19:00 88 08/18/17 18:00 97.4 F L 87 17 129/53 96 08/18/17 16:19 99.6 F 85 18 119/45 96 08/18/17 11:25 97.8 F 93 18 137/64 96 Intake and Output 08/18/17 08/19/17 08/19/17 23:59 07:59 15:59 Intake Total 580 / 580 800 / 800 40 / 40 Balance 580 / 580 800 / 800 40 / 40 Intake: IV Fluids 100 / 100 300 / 300 Nafcillin 2,000 MG In 0.9 % 100 / 100 300 / 300 Sodium Chloride (Mini-Bag +) 100 ML @ 200 mls/hr IVPB Q4HR BRIAN Rx#:[id number] Oral 480 / 480 500 / 500 40 / 40 Other: # Urine Diapers 2 1 Weight 100.2 kg Blood Glucose* 135 96 96 Patient Weight 08/19/17 23:59 Weight 100.2 kg General appearance: cooperative, no acute distress, no febrile - Head Head exam: Present: atraumatic - Eye Eye exam: Present: PERRL - ENT Additional comments: mucositis lesions improving, mostly localized to only tongue at this time, oral intake continues to improve - Respiratory Respiratory exam: Present: decreased breath sounds, CTAB - Cardiovascular Cardiovascular exam: Present: RRR, +S1, +S2 - GI/Abdominal GI/Abdominal exam: Present: normal bowel sounds, soft. Absent: tenderness - Extremities Exam Extremities exam: Present: pedal edema, tenderness. Absent: calf tenderness Additional comments: Generalized 1-2+ pitting edema - Neurological Exam Neurological exam: Present: alert, oriented X3, strengths equal and symetr throughout. 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 they are going to follow her labs as outpatient.) Vivienne Nieves MD [Partnered Physician] - 08/20/17 1:40 pm Prescriptions: OxyCODONE Immed Rel [Roxicodone 5 MG] 5 mg PO Q4HR PRN #180 tablet PRN Reason: Pain Furosemide Oral Soln [Lasix] 40 mg PO BID #60 mls Lactobacillus [Culturelle] 1 each PO BID #60 unit Lisinopril [Zestril] 10 mg PO DAILY #30 tablet Megestrol Acetate [Megace] 800 mg PO DAILY #600 ml Metoprolol XL (24 HR) Succ [Toprol Xl] 100 mg PO DAILY #30 tab.er.24h Nafcillin 12,000 mg IV DAILY #38 vial Nystatin POWDER [Nystop] 1 appl TP TID #1 bottle Potassium Bicarbonate/Cit AC [Potassium 25 Meq Tablet Eff] 50 meq PO BID #60 tablet.eff Potassium Chloride Elixir [Potassium Chloride] 40 meq PO DAILY #900 mls Silver Sulfadiazine [Silvadene] 1 appl TP BID #1 tube Stomatitis Mixture 10 ml PO 0700,1100,1600,2200 #350 mls valACYclovir [Valtrex] 2,000 mg PO BID #6 tablet Zolpidem [Ambien] 5 mg PO HS PRN #30 tablet PRN Reason: Insomnia
--- NOTE | 2017-08-19 11:23 | Infectious Disease Progress No ---
Date of Encounter: 08/19/17 Time of Encounter: 11:22 - Assessment and Plan (1) Septic shock Current Visit: Yes Status: Resolved The patient had two SIRS criteria plus TYRONE and lactic acidosis and hypotension requiring vasopressors. Originally had leukopenia, but now has leukocytosis --> likely related to Neupogen, but this is improved. Likely secondary to bacteremia. Improved. Tachycardia has resolved. The patient has been afebrile. TYRONE has resolved. Lactic acidosis has improved. Vasopressors have been turned off. Peripheral blood cultures drawn 08/07/17 were positive 2/2 sets for MSSA. Repeat peripheral blood cultures drawn 08/09/17 were positive 2/2 sets for MSSA. Blood culture drawn from the a-port 08/10/17 was positive 1/1 set for MSSA as well. Repeat peripheral blood cultures drawn 08/12/16 are positive 1/2 sets. Additional peripheral blood cultures drawn 08/14/16 x 2 sets. So far no growth. We'll continue with nafcillin. Duration of treatment on until 08/28/2017 Will need weekly labs while on antibiotics including CBC, BUN and creatinine. (2) Bacteremia due to Staphylococcus aureus Current Visit: Yes Status: Acute Causative organism: MSSA. Source likely the right upper chest a-port insertion vs. recent access. Status post removal 08/10/17. Seropurulent drainage noted in the pocket on removal. Culture positive for MSSA. Uncomplicated. Peripheral blood cultures drawn 08/07/17 were positive 2/2 sets for MSSA. Repeat peripheral blood cultures drawn 08/09/17 were positive 2/2 sets for MSSA. Blood culture drawn from the a-port 08/10/17 was positive 1/1 set for MSSA as well. Additional peripheral blood cultures drawn 08/12/17 are positive 1/2 sets. Repeat peripheral blood cultures drawn 08/14/16 are pending x 2 sets. Etiology of persistently positive blood cultures likely due to 08/12/16 blood cultures drawn <24 hours after a-port was removed. No endocarditis stigmata noted on exam. TTE negative for vegetations. CHELA aborted due to patient unable to tolerate the procedure. The patient has one major and one minor Modified Jensen's Criteria. Continue Nafcillin 2 grams IV Q4H. Duration of treatment depends on the clinical picture, but likely two weeks from the first set of negative blood cultures. Monitor renal function and dose-adjust antibiotics. Avoid insertion of central venous access until repeat blood cultures are negative x 48 hours. (3) TYRONE (acute kidney injury) Current Visit: Yes Status: Resolved Likely multifactorial: sepsis + dehydration + nephrotoxic chemotherapy drug Resolved. Continue to trend. Dose-adjust antibiotics. Avoid nephrotoxins as able. (4) Lactic acidosis Current Visit: Yes Status: Resolved Likely secondary to sepsis. CT of the abdomen and pelvis negative. Improved. Continue to trend. (5) Leukopenia Current Visit: Yes Status: Resolved Likely secondary to recent chemotherapy. Status post Neupogen x 2. Resolved. Qualifiers: Leukopenia type: unspecified Qualified Code(s): D72.819 - Decreased white blood cell count, unspecified (6) Dehydration, severe Current Visit: Yes Status: Acute Likely secondary to GI loss. Improved. Further management per the primary team. (7) Diarrhea Current Visit: Yes Status: Acute Resolved Qualifiers: Diarrhea type: functional diarrhea Qualified Code(s): K59.1 - Functional diarrhea (8) Diabetes mellitus Current Visit: No Status: Chronic Uncontrolled. HgbA1C 8.4%. Recommend aggressive glucose monitoring and control. Management per the primary team. 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 Recently started weekly doses of Taxol. Follows with [facility]. Hem/Onc consulted and following. 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 had some concerns because the patient was not seen by physical therapy and she is weak and he told me on Friday became disparate picture in the left. I relayed the information to nursing and asked him to call the PCP/hospitalist discussed the case with them. And maybe PTOT consideration prior to discharge so they can make sure that it's safe to send her home and if she needs any help. (11) Oral mucosal lesion Current Visit: Yes Status: Acute Likely chemo-induced mucositis, but consider HSV. Send swab for HSV PCR. Continue magic mouthwash and nystatin. Fluconazole re-started by the primary team. Start valacyclovir 2 grams PO x for 5 days. - Subjective Interval history: Patient seen and examined. Appears to be doing very well clinically. Continues to improve. The and hospitalist are both at bedside. Discussed rehabilitation and discussed antibiotics duration and possible side effects. Infect Dis PN-Objective Data - Labs CBC & Chem 7: 08/19/17 03:15 08/19/17 03:15 Labs: Laboratory Results - last 24 hr 08/18/17 08/18/17 08/18/17 07:20 11:10 13:41 WBC RBC Hgb 8.4 L Hct 24.7 L MCV MCH MCHC RDW Plt Count MPV Immature Plt Fraction Sodium Potassium Chloride Carbon Dioxide BUN Creatinine Est GFR ( Amer) Est GFR (Non-Af Amer) BUN/Creatinine Ratio Glucose POC Glucose 82 170 H Calculated Osmolality Calcium 08/18/17 08/18/17 08/18/17 13:41 16:15 21:24 WBC RBC Hgb Hct MCV MCH MCHC RDW Plt Count MPV Immature Plt Fraction Sodium Potassium 2.9 L Chloride Carbon Dioxide BUN Creatinine Est GFR ( Amer) Est GFR (Non-Af Amer) BUN/Creatinine Ratio Glucose POC Glucose 129 H 135 H Calculated Osmolality Calcium 08/19/17 08/19/17 03:15 03:15 WBC 10.2 RBC 2.63 L Hgb 8.1 L Hct 23.5 L MCV 89.4 MCH 30.8 MCHC 34.5 RDW 17.1 H Plt Count 170 MPV 10.6 Immature Plt Fraction 3.7 Sodium 137 Potassium 2.7 L Chloride 111 H Carbon Dioxide 17 L BUN 41 H Creatinine 1.52 H Est GFR ( Amer) 41 L Est GFR (Non-Af Amer) 34 L BUN/Creatinine Ratio 27 H Glucose 86 POC Glucose Calculated Osmolality 293 Calcium 7.1 L Cultures: Cultures 08/12/17 05:56 Blood Culture - Final Peripheral Venipuncture No growth. 08/11/17 12:20 Anaerobic Culture - Final Chest No anaerobes were recovered. 08/12/17 05:56 Blood Culture - Final Peripheral Venipuncture Staphylococcus aureus 08/14/17 07:20 Blood Culture - Preliminary Peripheral Venipuncture No growth. 08/14/17 07:15 Blood Culture - Preliminary Peripheral Venipuncture No growth. 08/10/17 22:20 Catheter Tip Culture - Final Intravenous or Arterial Cath Staphylococcus aureus 08/10/17 14:08 Blood Culture - Final Port System Staphylococcus aureus 08/11/17 12:20 Wound Culture - Final Chest Staphylococcus aureus 08/11/17 12:20 Gram Stain - Final Chest 08/09/17 14:08 Blood Culture - Final Peripheral Venipuncture Staphylococcus aureus 08/09/17 14:08 Blood Culture - Final Peripheral Venipuncture Staphylococcus aureus Serology 08/15/17 08/15/17 08/14/17 Range/Units 14:52 14:10 14:35 Urine Color Yellow (Yellow) Urine Clarity Cloudy A (Clear) Urine pH 6.0 (5.0-8.0) pH Units Ur Specific Anatone 1.009 L (1.010-1.025) Urine Protein Negative (Neg-Trace) mg/dL Urine Glucose (UA) 100 H (Normal) mg/dL Urine Ketones Negative (Negative) mg/dL Urine Blood Negative (Negative) Urine Nitrite Negative (Negative) Urine Bilirubin Negative (Negative) Urine Urobilinogen Normal (Normal) mg/dL Ur Leukocyte Esterase Negative (Negative) Urine Microscopic RBC 0-3 (0-3) per hpf Urine Microscopic WBC 5-15 H (0-3) per hpf Ur Squamous Epith Cells Many H (None-Few) per lpf Urine Bacteria None Seen (None-Few) per hpf Hyaline Casts None Seen (None-Few) per lpf Urine Yeast Moderate H (None Seen) per hpf Ur Culture Indicated? NO (NO) Stl C. cayetanensis PCR (Not detect) Stool Rotavirus A PCR (Not detect) Stl Adenov F 40/41 PCR (Not detect) Stool Astrovirus (PCR) (Not detect) Stool Campylobacter PCR (Not detect) Stl C. diff Tox B Gene Negative (Negative) Stl C. diff Tox A/B PCR (Not detect) Stool Cryptosporidium PCR (Not detect) Stl Sh Tox Pr E STEC PCR (Not detect) Stool E coli O157 PCR (Not detect) Stl Enterotoxigenic E PCR (Not detect) Stool EPEC (PCR) (Not detect) Stool EAEC (PCR) (Not detect) Stl E. histolytica PCR (Not detect) Stool Giardia Lamblia PCR (Not detect) Stool Salmonella PCR (Not detect) Stool Sapovirus (PCR) (Not detect) Stl P. shigelloides PCR (Not detect) Stl Shigella/EIEC PCR (Not detect) St Y.enterocolitica PCR (Not detect) Stool Vibrio (PCR) (Not detect) Stl Vibrio cholerae PCR (Not detect) Stl Norovirus GI/GII PCR (Not detect) Stl GI Panel (PCR) Com A. baumannii (PCR) (Not Detect) Chlamy pneumoniae PCR (Not Detect) Adenovirus (PCR) (Not Detect) B. pertussis DNA (PCR) (Not Detect) Emeli albicans (PCR) (Not Detect) C. glabrata (PCR) (Not Detect) C. krusei (PCR) (Not Detect) C. parapsilosis (PCR) (Not Detect) C. tropicalis (PCR) (Not Detect) Coronavirus OC43 (PCR) (Not Detect) Coronavirus HKU1 (PCR) (Not Detect) Coronavirus 229E (PCR) (Not Detect) Coronavirus NL63 (PCR) (Not Detect) Enterobacteriac sp PCR (Not Detect) E. cloacae complex PCR (Not Detect) Enterococcus sp PCR (Not Detect) E. coli (PCR) (Not Detect) H. influenzae (PCR) (Not Detect) Herpes Simplex Source Inside the mouth HSV I DETECTED A (Not Detect) HSV II Not Detected (Not Detect) Human Metapneumovir PCR (Not Detect) Influenza A (H1) PCR (Not Detect) Influ A (H1N1/09) PCR (Not Detect) Influenza A (H3) PCR (Not Detect) Influenza A Untype (PCR) (Not Detect) Influenza Type B (PCR) (Not Detect) Klebsiella oxytoca PCR (Not Detect) Klebsiella pneumoniae (Not Detect) List. monocytogenes PCR (Not Detect) M.pneumoniae DNA (PCR) (Not Detect) N. meningitidis (PCR) (Not Detect) Parainfluenza 1 (PCR) (Not Detect) Parainfluenza 2 (PCR) (Not Detect) Parainfluenza 3 (PCR) (Not Detect) Parainfluenza 4 (PCR) (Not Detect) Proteus species (PCR) (Not Detect) RSV (PCR) (Not Detect) Entero/Rhino (PCR) (Not Detect) Serratia marcescens PCR (Not Detect) Staphylococcus sp PCR (Not Detect) Staph aureus (PCR) (Not Detect) mecA-Methicil Res Gene (Not Detect) Streptococcus sp PCR (Not Detect) Group A Strep DNA (Not Detect) Group B Strep (PCR) (Not Detect) Strep pneumoniae (PCR) (Not Detect) P. aeruginosa (PCR) (Not Detect) Riley/B-Vanco Res Genes (Not Detect) KPC (blaKPC) Detect PCR (Not Detect) 08/12/17 08/09/17 08/09/17 Range/Units 05:56 17:00 14:08 Urine Color (Yellow) Urine Clarity (Clear) Urine pH (5.0-8.0) pH Units Ur Specific Anatone (1.010-1.025) Urine Protein (Neg-Trace) mg/dL Urine Glucose (UA) (Normal) mg/dL Urine Ketones (Negative) mg/dL Urine Blood (Negative) Urine Nitrite (Negative) Urine Bilirubin (Negative) Urine Urobilinogen (Normal) mg/dL Ur Leukocyte Esterase (Negative) Urine Microscopic RBC (0-3) per hpf Urine Microscopic WBC (0-3) per hpf Ur Squamous Epith Cells (None-Few) per lpf Urine Bacteria (None-Few) per hpf Hyaline Casts (None-Few) per lpf Urine Yeast (None Seen) per hpf Ur Culture Indicated? (NO) Stl C. cayetanensis PCR Not detected (Not detect) Stool Rotavirus A PCR Not detected (Not detect) Stl Adenov F 40/41 PCR Not detected (Not detect) Stool Astrovirus (PCR) Not detected (Not detect) Stool Campylobacter PCR Not detected (Not detect) Stl C. diff Tox B Gene (Negative) Stl C. diff Tox A/B PCR Not detected (Not detect) Stool Cryptosporidium PCR Not detected (Not detect) Stl Sh Tox Pr E STEC PCR Not detected (Not detect) Stool E coli O157 PCR Not detected (Not detect) Stl Enterotoxigenic E PCR Not detected (Not detect) Stool EPEC (PCR) Not detected (Not detect) Stool EAEC (PCR) Not detected (Not detect) Stl E. histolytica PCR Not detected (Not detect) Stool Giardia Lamblia PCR Not detected (Not detect) Stool Salmonella PCR Not detected (Not detect) Stool Sapovirus (PCR) Not detected (Not detect) Stl P. shigelloides PCR Not detected (Not detect) Stl Shigella/EIEC PCR Not detected (Not detect) St Y.enterocolitica PCR Not detected (Not detect) Stool Vibrio (PCR) Not detected (Not detect) Stl Vibrio cholerae PCR Not detected (Not detect) Stl Norovirus GI/GII PCR Not detected (Not detect) Stl GI Panel (PCR) Com See below A. baumannii (PCR) Not Detected Not Detected (Not Detect) Chlamy pneumoniae PCR (Not Detect) Adenovirus (PCR) (Not Detect) B. pertussis DNA (PCR) (Not Detect) Emeli albicans (PCR) Not Detected Not Detected (Not Detect) C. glabrata (PCR) Not Detected Not Detected (Not Detect) C. krusei (PCR) Not Detected Not Detected (Not Detect) C. parapsilosis (PCR) Not Detected Not Detected (Not Detect) C. tropicalis (PCR) Not Detected Not Detected (Not Detect) Coronavirus OC43 (PCR) (Not Detect) Coronavirus HKU1 (PCR) (Not Detect) Coronavirus 229E (PCR) (Not Detect) Coronavirus NL63 (PCR) (Not Detect) Enterobacteriac sp PCR Not Detected Not Detected (Not Detect) E. cloacae complex PCR Not Detected Not Detected (Not Detect) Enterococcus sp PCR Not Detected Not Detected (Not Detect) E. coli (PCR) Not Detected Not Detected (Not Detect) H. influenzae (PCR) Not Detected Not Detected (Not Detect) Herpes Simplex Source HSV I (Not Detect) HSV II (Not Detect) Human Metapneumovir PCR (Not Detect) Influenza A (H1) PCR (Not Detect) Influ A (H1N1/09) PCR (Not Detect) Influenza A (H3) PCR (Not Detect) Influenza A Untype (PCR) (Not Detect) Influenza Type B (PCR) (Not Detect) Klebsiella oxytoca PCR Not Detected Not Detected (Not Detect) Klebsiella pneumoniae Not Detected Not Detected (Not Detect) List. monocytogenes PCR Not Detected Not Detected (Not Detect) M.pneumoniae DNA (PCR) (Not Detect) N. meningitidis (PCR) Not Detected Not Detected (Not Detect) Parainfluenza 1 (PCR) (Not Detect) Parainfluenza 2 (PCR) (Not Detect) Parainfluenza 3 (PCR) (Not Detect) Parainfluenza 4 (PCR) (Not Detect) Proteus species (PCR) Not Detected Not Detected (Not Detect) RSV (PCR) (Not Detect) Entero/Rhino (PCR) (Not Detect) Serratia marcescens PCR Not Detected Not Detected (Not Detect) Staphylococcus sp PCR DETECTED A DETECTED A (Not Detect) Staph aureus (PCR) DETECTED A DETECTED A (Not Detect) mecA-Methicil Res Gene Not Detected Not Detected (Not Detect) Streptococcus sp PCR Not Detected Not Detected (Not Detect) Group A Strep DNA Not Detected Not Detected (Not Detect) Group B Strep (PCR) Not Detected Not Detected (Not Detect) Strep pneumoniae (PCR) Not Detected Not Detected (Not Detect) P. aeruginosa (PCR) Not Detected Not Detected (Not Detect) Riley/B-Vanco Res Genes Not Detected N/A (Not Detect) KPC (blaKPC) Detect PCR Not Detected N/A (Not Detect) 08/08/17 Range/Units 02:49 Urine Color (Yellow) Urine Clarity (Clear) Urine pH (5.0-8.0) pH Units Ur Specific Anatone (1.010-1.025) Urine Protein (Neg-Trace) mg/dL Urine Glucose (UA) (Normal) mg/dL Urine Ketones (Negative) mg/dL Urine Blood (Negative) Urine Nitrite (Negative) Urine Bilirubin (Negative) Urine Urobilinogen (Normal) mg/dL Ur Leukocyte Esterase (Negative) Urine Microscopic RBC (0-3) per hpf Urine Microscopic WBC (0-3) per hpf Ur Squamous Epith Cells (None-Few) per lpf Urine Bacteria (None-Few) per hpf Hyaline Casts (None-Few) per lpf Urine Yeast (None Seen) per hpf Ur Culture Indicated? (NO) Stl C. cayetanensis PCR (Not detect) Stool Rotavirus A PCR (Not detect) Stl Adenov F 40/41 PCR (Not detect) Stool Astrovirus (PCR) (Not detect) Stool Campylobacter PCR (Not detect) Stl C. diff Tox B Gene (Negative) Stl C. diff Tox A/B PCR (Not detect) Stool Cryptosporidium PCR (Not detect) Stl Sh Tox Pr E STEC PCR (Not detect) Stool E coli O157 PCR (Not detect) Stl Enterotoxigenic E PCR (Not detect) Stool EPEC (PCR) (Not detect) Stool EAEC (PCR) (Not detect) Stl E. histolytica PCR (Not detect) Stool Giardia Lamblia PCR (Not detect) Stool Salmonella PCR (Not detect) Stool Sapovirus (PCR) (Not detect) Stl P. shigelloides PCR (Not detect) Stl Shigella/EIEC PCR (Not detect) St Y.enterocolitica PCR (Not detect) Stool Vibrio (PCR) (Not detect) Stl Vibrio cholerae PCR (Not detect) Stl Norovirus GI/GII PCR (Not detect) Stl GI Panel (PCR) Com A. baumannii (PCR) (Not Detect) Chlamy pneumoniae PCR Not Detected (Not Detect) Adenovirus (PCR) Not Detected (Not Detect) B. pertussis DNA (PCR) Not Detected (Not Detect) Emeli albicans (PCR) (Not Detect) C. glabrata (PCR) (Not Detect) C. krusei (PCR) (Not Detect) C. parapsilosis (PCR) (Not Detect) C. tropicalis (PCR) (Not Detect) Coronavirus OC43 (PCR) Not Detected (Not Detect) Coronavirus HKU1 (PCR) Not Detected (Not Detect) Coronavirus 229E (PCR) Not Detected (Not Detect) Coronavirus NL63 (PCR) Not Detected (Not Detect) Enterobacteriac sp PCR (Not Detect) E. cloacae complex PCR (Not Detect) Enterococcus sp PCR (Not Detect) E. coli (PCR) (Not Detect) H. influenzae (PCR) (Not Detect) Herpes Simplex Source HSV I (Not Detect) HSV II (Not Detect) Human Metapneumovir PCR Not Detected (Not Detect) Influenza A (H1) PCR Not Detected (Not Detect) Influ A (H1N1/09) PCR Not Detected (Not Detect) Influenza A (H3) PCR Not Detected (Not Detect) Influenza A Untype (PCR) Not Detected (Not Detect) Influenza Type B (PCR) Not Detected (Not Detect) Klebsiella oxytoca PCR (Not Detect) Klebsiella pneumoniae (Not Detect) List. monocytogenes PCR (Not Detect) M.pneumoniae DNA (PCR) Not Detected (Not Detect) N. meningitidis (PCR) (Not Detect) Parainfluenza 1 (PCR) Not Detected (Not Detect) Parainfluenza 2 (PCR) Not Detected (Not Detect) Parainfluenza 3 (PCR) Not Detected (Not Detect) Parainfluenza 4 (PCR) Not Detected (Not Detect) Proteus species (PCR) (Not Detect) RSV (PCR) Not Detected (Not Detect) Entero/Rhino (PCR) Not Detected (Not Detect) Serratia marcescens PCR (Not Detect) Staphylococcus sp PCR (Not Detect) Staph aureus (PCR) (Not Detect) mecA-Methicil Res Gene (Not Detect) Streptococcus sp PCR (Not Detect) Group A Strep DNA (Not Detect) Group B Strep (PCR) (Not Detect) Strep pneumoniae (PCR) (Not Detect) P. aeruginosa (PCR) (Not Detect) Riley/B-Vanco Res Genes (Not Detect) KPC (blaKPC) Detect PCR (Not Detect) Exam - Constitutional Vitals: Temp Pulse Resp BP Pulse Ox 97.9 F 82 17 132/63 97 08/19/17 07:09 08/19/17 09:27 08/19/17 07:09 08/19/17 07:09 08/19/17 07:09 General appearance: no acute distress, no febrile - Respiratory Respiratory exam: Present: CTAB. Absent: wheezes - Cardiovascular Cardiovascular exam: Present: RRR, +S1, +S2 - Extremities Exam Additional comments: Patient has edema in bilateral upper extremities and some pedal edema in the lower extremities. - VTE Documentation of Mechanical Device: Intermittent pneumatic compression device Consult Discharge Plan - Plan Instructions: Sepsis (DC) Referrals: Nazia Deleon CNP [Primary Care Provider] - 08/25/17 3:15 pm () Angela Rouse CNP [Advanced Practice Nurse] - (per office they do not need to see the patient. they are going to follow her labs as outpatient.) Vivienne Nieves MD [Partnered Physician] - 08/20/17 1:40 pm Prescriptions: OxyCODONE Immed Rel [Roxicodone 5 MG] 5 mg PO Q4HR PRN #180 tablet PRN Reason: Pain Furosemide Oral Soln [Lasix] 40 mg PO BID #60 mls Lactobacillus [Culturelle] 1 each PO BID #60 unit Lisinopril [Zestril] 10 mg PO DAILY #30 tablet Megestrol Acetate [Megace] 800 mg PO DAILY #600 ml Metoprolol XL (24 HR) Succ [Toprol Xl] 100 mg PO DAILY #30 tab.er.24h Nafcillin 12,000 mg IV DAILY #38 vial Nystatin POWDER [Nystop] 1 appl TP TID #1 bottle Potassium Bicarbonate/Cit AC [Potassium 25 Meq Tablet Eff] 50 meq PO BID #60 tablet.eff Potassium Chloride Elixir [Potassium Chloride] 40 meq PO DAILY #900 mls Silver Sulfadiazine [Silvadene] 1 appl TP BID #1 tube Stomatitis Mixture 10 ml PO 0700,1100,1600,2200 #350 mls valACYclovir [Valtrex] 2,000 mg PO BID #6 tablet Zolpidem [Ambien] 5 mg PO HS PRN #30 tablet PRN Reason: Insomnia
[2017-08-19] MEDS: Budesonide/Formoterol 80/4.5 MDI IH SCH (11:34)
[2017-08-19 11:48] VITALS: BP 139/59
== END 2017-08-19 12:03 | disposition home health service (06) | DRG 314 ==
LOC: EMEROO 20:04 → SUATTDRO 23:05 → 2NNU 23:05
PROVIDERS: ADMIT Internal Medicine Hematology & Oncology; ATTEND Internal Medicine

== ENCOUNTER 2017-08-22 09:08 | Inpatient (IN) ==
[2017-08-22] MEDS ORDERED: 0.9 % Sodium Chloride 1,000 ML IVC ONE (09:43)
[2017-08-22] MEDS ORDERED: *HR* HYDROmorphone (PF) 1 MG/ML SYRINGE IVP ONE (10:10)
[2017-08-22] MEDS ORDERED: Ondansetron 4 MG/2 ML VIAL IVP ONE (10:10)
--- NOTE | 2017-08-22 10:11 | Emergency Department Note ---
Disposition Clinical Impression: Hypokalemia, Generalized weakness, Metastatic bone cancer, Elevated bilirubin Disposition: Admitted As Inpatient Condition: Fair Referrals: Nazia Deleon [employer]AKER [Primary Care Provider] - Forms: ED Satisfaction Letter, Work/School Release Time of Disposition: 11:17 General Adult HPI - General Chief complaint: ED General Medical Stated complaint: abnormal labs Time Seen by Provider: 08/22/17 09:14 Source: EMS Limitations: no limitations Nursing Notes Reviewed: Yes Vital Signs Reviewed: Yes - History of Present Illness HPI Narrative: History of present illness: 72-year-old female history of bone cancer being on 2 doses of chemotherapy admitted to the hospital for over week on IV antibiotics on an outpatient IV nafcillin. He was found and contacted by [facility] for elevated LFTs and elevated bilirubin and was told to come in. Erroneously was thought that she had positive blood cultures. Patient has been weak decrease intake of fluids and solids. Here for further evaluation. Patient has a normal bony pain. Denies shortness of breath chest pain or vomiting. Pain Scale: 0 - Related Data Home Medications Medication Instructions Recorded Confirmed Albuterol Sulfate [Proventil Hfa] 1 puff IH QID PRN 06/20/15 08/07/17 Aspirin Enteric Coated [Aspirin EC] 81 mg PO DAILY 06/20/15 08/07/17 Fluticasone Propionate Nasal 1 spray NS DAILY 06/20/15 08/07/17 [Flonase] Fluticasone/Salmeterol [Advair 1 each IH BID 06/20/15 08/07/17 100-50 Diskus] Glimepiride [Amaryl] 4 mg PO DAILY 06/20/15 08/07/17 Insulin NPH Hum/Reg Insulin Hm 30 unit SQ BID 06/20/15 08/07/17 [Novolin 70-30 100 Unit/ml Vial] Omeprazole [PriLOSEC] 40 mg PO DAILY 06/20/15 08/07/17 Pravastatin Sodium [Pravachol] 20 mg PO HS 06/20/15 08/07/17 Saxagliptin HCl [Onglyza] 5 mg PO DAILY 06/20/15 08/07/17 Docusate Sodium [Stool Softener] 100 mg PO DAILY PRN 07/31/17 08/07/17 Previous Rx's Medication Instructions Recorded Ondansetron HCl [Zofran] 4 mg PO Q8H PRN #60 tablet 07/08/17 Prochlorperazine Maleate 10 mg PO Q8HR PRN #60 tablet 07/08/17 [Compazine] Calcium Carbonate/Vitamin D3 2 each PO DAILY #60 tablet 07/31/17 [Calcium 600 + Vit D Tablet] Lidocaine/Prilocaine [Emla] 1 appl TP AD #30 gm 07/31/17 Nafcillin 12,000 mg IV DAILY #38 vial 08/15/17 Furosemide Oral Soln [Lasix] 40 mg PO BID #60 mls 08/18/17 Lactobacillus [Culturelle] 1 each PO BID #60 unit 08/18/17 Lisinopril [Zestril] 10 mg PO DAILY #30 tablet 08/18/17 Megestrol Acetate [Megace] 800 mg PO DAILY #600 ml 08/18/17 Metoprolol XL (24 HR) Succ [Toprol 100 mg PO DAILY #30 tab.er.24h 08/18/17 Xl] Nystatin POWDER [Nystop] 1 appl TP TID #1 bottle 08/18/17 OxyCODONE Immed Rel [Roxicodone 5 5 mg PO Q4HR PRN #180 tablet 08/18/17 MG] Potassium Chloride Elixir 40 meq PO DAILY #900 mls 08/18/17 [Potassium Chloride] Silver Sulfadiazine [Silvadene] 1 appl TP BID #1 tube 08/18/17 Stomatitis Mixture 10 ml PO 0700,1100,1600,2200 #350 08/18/17 mls Zolpidem [Ambien] 5 mg PO HS PRN #30 tablet 08/18/17 valACYclovir [Valtrex] 2,000 mg PO BID #6 tablet 08/18/17 Potassium Bicarbonate/Cit AC 50 meq PO BID #60 tablet.eff 08/19/17 [Potassium 25 Meq Tablet Eff] 0.9 % Sodium Chloride 1,000 ml IV ONCE #1 iv.soln 08/21/17 Allergies Allergy/AdvReac Type Severity Reaction Status Date / Time nifedipine [From Procardia] Allergy Rash Verified 08/07/17 21:15 glipizide AdvReac Vomiting Verified 06/16/17 10:03 metoprolol [From Lopressor] AdvReac Nightmare Verified 12/28/17 21:15 All systems ED: reviewed and negative except as stated. Constitutional: Reports: fever, chills, weakness Past Medical History - Past Medical History Attestation: Yes The following information was validated with the patient. Source: patient, old records reviewed, obtained from family Medical history: Reports: asthma, cancer, diabetes, GERD, hyperlipidemia, hypertension, renal disease Surgical history: Reports: , cataract, cholecystectomy, JOAO/BSO, other Psychiatric history: Reports: no psych history - Social History Smoking Status: Never smoker Smokeless Tobacco Status: No Alcohol use: Reports: none Drug use: Reports: none Physical Exam - General Limitations: no limitations General appearance: alert, in distress - Head Head exam: atraumatic, normocephalic - Eye Eye exam: Present: normal appearance, PERRL, EOMI - ENT ENT exam: mucous membranes dry, other (Mucosa- cutaneous sores) - Chest Chest inspection: Present: normal inspection, symmetric chest wall rise - Respiratory Respiratory exam: Present: normal lung sounds bilaterally - Cardiovascular Cardiovascular exam: Present: regular rate, normal rhythm - Abdominal Exam Abdominal exam: Present: soft, Non-Tender - Expanded Lower Extremity Exam Hip/Pelvis exam: Present: other (Patient has some open sores erythema and ecchymosis for her infected PICC line was removed within the past week from her right upper extremity) Neurovascular/Tendon exam: Present: normal capillary refill Gait: not tested/not observed - Back Exam Back exam: Present: normal inspection, full ROM - Neurological Exam Neurological exam: Present: alert, oriented X3 - Psychiatric Psychiatric exam: Present: normal affect, normal mood - Skin Skin exam: Present: warm, dry, other (Patient has mucocutaneous sores on her lips. She has a purulent draining furuncle on her anterior chest wall near where report was taken out. And has sores ecchymosis and erythema where her right upper extremity PICC line was removed this week) Course - Reevaluation(s) Reevaluation #1: Patient was called back from the cancer center for abnormal LFTs and elevated bilirubin. Patient is already on IV nafcillin outpatient via pump through PICC line. Patient continues to be weak and feeling ill. She will get screening labs and will be screened for follow-up labs and possible readmission. Providing 45 minutes of critical care services for this patient. Disposition pending Time: 10:13 Reevaluation #2: ED workup was completed. Chemistries her back. Patient is hypokalemic at 2.9, T bili elevated at 5.4 in addition L LFT elevations. Troponin and lactic acid are negative. Discussed the case with the hospitalist Dr. CARDENAS, patient accepted for admission in stable condition Time: 11:16 Vital Signs Temperature 99.2 F 08/22/17 09:09 Pulse Rate 83 08/22/17 09:09 Respiratory Rate 20 08/22/17 09:09 Blood Pressure 163/72 08/22/17 09:09 O2 Sat by Pulse Oximetry 97 08/22/17 09:09 Temperature 99.2 F 08/22/17 09:09 Pulse Rate 83 08/22/17 09:09 Respiratory Rate 20 08/22/17 09:09 Blood Pressure 163/72 08/22/17 09:09 O2 Sat by Pulse Oximetry 97 08/22/17 09:09 Oxygen Delivery Oxygen Delivery Room Air Medical Decision Making - Medical Records Medical records reviewed: Yes I reviewed the patient's medical records. - Lab Data Lab results reviewed: Yes I reviewed the patient's lab results. Result diagrams: 08/22/17 10:23 08/22/17 10:27 Lab Results 08/22/17 08/22/17 08/22/17 Range/Units 10:23 10:23 10:23 WBC 8.5 (4.3-11.1) K/mcL RBC 2.78 L (3.82-4.97) M/mcL Hgb 8.7 L (11.5-15.4) g/dL Hct 25.9 L (35.3-44.9) % MCV 93.2 (83.0-100.0) fL MCH 31.3 (28.0-33.3) pg MCHC 33.6 (31.6-35.5) g/dL RDW 19.9 H (11.5-14.5) % Plt Count 221 (140-400) K/mcL MPV 10.2 (9.4-12.4) fL Immature Gran % 0.8 (0-4) % Seg Neutrophils % 74.5 % Lymphocytes % 16.2 % Monocytes % 6.5 % Eosinophils % 1.4 % Basophils % 0.6 % Neutrophils # 6.3 (1.6-8.9) K/mcL Lymphocytes # 1.4 (0.6-4.6) K/mcL Monocytes # 0.6 (0.0-1.3) K/mcL Eosinophils # 0.1 (0.0-0.6) K/mcL Basophils # 0.1 (0.0-0.2) K/mcL Nucleated RBCs/100 WBC 0.4 H (0) /100 WBC Sodium (136-145) mEq/L Potassium (3.5-5.1) mEq/L Chloride (98-107) mEq/L Carbon Dioxide (23-29) mEq/L BUN (8-23) mg/dL Creatinine (0.60-1.20) mg/dL Est GFR ( Amer) (> 60) Est GFR (Non-Af Amer) (> 60) BUN/Creatinine Ratio (6-26) Glucose (70-105) mg/dL Calculated Osmolality (280-300) Lactic Acid 1.6 (0.5-2.2) mmol/L Calcium (8.6-10.3) mg/dL Total Bilirubin (0.3-1.0) mg/dL AST (13-39) Units/L ALT (7-52) Units/L Alkaline Phosphatase (34-104) Units/L Troponin I < 0.03 (< 0.04) ng/mL Serum Total Protein (6.4-8.9) g/dL Albumin (3.5-5.7) g/dL Globulin (2.4-3.5) g/dL Albumin/Globulin Ratio (1.1-2.2) 08/22/17 Range/Units 10:27 WBC (4.3-11.1) K/mcL RBC (3.82-4.97) M/mcL Hgb (11.5-15.4) g/dL Hct (35.3-44.9) % MCV (83.0-100.0) fL MCH (28.0-33.3) pg MCHC (31.6-35.5) g/dL RDW (11.5-14.5) % Plt Count (140-400) K/mcL MPV (9.4-12.4) fL Immature Gran % (0-4) % Seg Neutrophils % % Lymphocytes % % Monocytes % % Eosinophils % % Basophils % % Neutrophils # (1.6-8.9) K/mcL Lymphocytes # (0.6-4.6) K/mcL Monocytes # (0.0-1.3) K/mcL Eosinophils # (0.0-0.6) K/mcL Basophils # (0.0-0.2) K/mcL Nucleated RBCs/100 WBC (0) /100 WBC Sodium 139 (136-145) mEq/L Potassium 2.9 L (3.5-5.1) mEq/L Chloride 109 H (98-107) mEq/L Carbon Dioxide 17 L (23-29) mEq/L BUN 61 H (8-23) mg/dL Creatinine 2.61 H (0.60-1.20) mg/dL Est GFR ( Amer) 22 L (> 60) Est GFR (Non-Af Amer) 18 L (> 60) BUN/Creatinine Ratio 23 (6-26) Glucose 128 H (70-105) mg/dL Calculated Osmolality 307 H (280-300) Lactic Acid (0.5-2.2) mmol/L Calcium 6.8 L (8.6-10.3) mg/dL Total Bilirubin 4.4 H (0.3-1.0) mg/dL AST 19 (13-39) Units/L ALT 10 (7-52) Units/L Alkaline Phosphatase 80 (34-104) Units/L Troponin I (< 0.04) ng/mL Serum Total Protein 6.0 L (6.4-8.9) g/dL Albumin 2.5 L (3.5-5.7) g/dL Globulin 3.5 (2.4-3.5) g/dL Albumin/Globulin Ratio 0.7 L (1.1-2.2) - Radiology Data Radiology results reviewed: Yes I reviewed the patient's radiology results. - EKG Data EKG #1 EKG attestation: Yes I reviewed and interpreted this EKG. EKG results narrative: 12-lead EKG reviewed. Cardiology shows: Sinus rhythm at 80 bpm. Normal NV, QRS, QT corrected. No acute ischemic changes are noted. No acute changes when compared to a prior EKG 08/07/2017
[2017-08-22 10:30] LABS: Basophils # 0.1 K/mcL (0.0-0.2); Basophils % 0.6 %; Eosinophils # 0.1 K/mcL (0.0-0.6); Eosinophils % 1.4 %; Hematocrit 25.9 % (35.3-44.9); Hemoglobin 8.7 g/dL (11.5-15.4); Immature Granulocytes % 0.8 % (0-4); Lymphocytes # 1.4 K/mcL (0.6-4.6); Lymphocytes % 16.2 %; Mean Corpuscular HGB Conc 33.6 g/dL (31.6-35.5); Mean Corpuscular Hemoglobin 31.3 pg (28.0-33.3); Mean Corpuscular Volume 93.2 fL (83.0-100.0); Mean Platelet Volume 10.2 fL (9.4-12.4); Monocytes # 0.6 K/mcL (0.0-1.3); Monocytes % 6.5 %; Neutrophils # 6.3 K/mcL (1.6-8.9); Nucleated Red Blood Cells 0.4 /100 WBC (0); Platelet Count 221 K/mcL (140-400); Red Blood Count 2.78 M/mcL (3.82-4.97); Red Cell Distribution Width 19.9 % (11.5-14.5); Segmented Neutrophils % 74.5 %
[2017-08-22 11:03] LABS: Albumin 2.5 g/dL (3.5-5.7); Albumin/Globulin Ratio 0.7 (1.1-2.2); Bilirubin,Total 4.4 mg/dL (0.3-1.0); Calcium 6.8 mg/dL (8.6-10.3); Globulin 3.5 g/dL (2.4-3.5); Potassium 2.9 mEq/L (3.5-5.1)
--- NOTE | 2017-08-22 12:43 | Electrocardiograph Report ---
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
[2017-08-22] MEDS ORDERED: Naloxone 0.4 MG/ML INJ IVP PRN (15:40)
[2017-08-22] MEDS ORDERED: Potassium Chloride Elixir 20 MEQ/15 ML UDC PO ONE (15:59)
--- NOTE | 2017-08-22 16:13 | Internal Med History&Physical ---
<Jackie Montoya S - Last Filed: 08/22/17 16:08> Date of Encounter: 08/22/17 Time of Encounter: 16:08 Assessment and Plan (1) Total bilirubin, elevated Current visit: Yes Status: Acute Stop naficillin Follow lab values (2) TYRONE (acute kidney injury) Current visit: Yes Status: Acute Acute on chronic kidney injury in a diabetic with dehydration in patient with poor oral intake Follow-up lab work IV hydration (3) Diarrhea Current visit: Yes Status: Acute Will obtain C. difficile Hold on stool softener Qualifiers: Diarrhea type: unspecified type Qualified Code(s): R19.7 - Diarrhea, unspecified (4) Hypokalemia Current visit: Yes Status: Acute (5) Weakness generalized Current visit: Yes Status: Chronic Out of bed as tolerated to the chair with assistance of staff PT OT when stabilized (6) Cancer associated pain Current visit: Yes Status: Acute Tinea medication regime (7) Stomatitis and mucositis with change of taste Current visit: No Status: Acute Magic mouthwash as needed (8) Diabetes mellitus Current visit: Yes Status: Chronic Low-dose sliding scale insulin with Accu-Cheks before meals and at bedtime Patient is not eating so will cover glucose Qualifiers: Diabetes mellitus type: type 2 Diabetes mellitus complication status: with unspecified complications Diabetes mellitus long term care phlebotomist insulin use: with long term care phlebotomist use Qualified Code(s): E11.8 - Type 2 diabetes mellitus with unspecified complications; Z79.4 - halfway (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 of insulin; Z79.4 - halfway ( 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 of insulin; Z79.4 - long term care phlebotomist (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 of insulin; Z79.4 - halfway (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 of insulin (9) Bacteremia Current visit: Yes Status: Acute Nafcillin changed to Ancef secondary to elevated LFTs Consult infectious disease and discussed the patient with them tonight Blood cultures pending Internal Medicine - H&P: HPI Chief complaint: abnormal labs and weakness Admitted From: Emergency Dept Plans for Post Hospital Care: Home History of present illness: Ms. Catalan is a 72 year old female who was recently discharged with diagnosis of metastatic bone cancer and sepsis. She had some blood work drawn at the cancer center and was told to report to the emergency room with elevated LFTs. Her total bilirubin was 4.4. She had a PICC line and was being treated with nafcillin for sepsis. She has had a total of 2 doses of chemotherapy. She states she is generalized weak but her and other family members have been helping her at home. Her stated she was up to the chair today which was good. She has sores in her mouth but denies a sore throat. She states she has been eating mostly full liquids at home. She is also spent drinking 7 sure. She denies any fever, chills, nausea or vomiting, constipation , syncope or headache. She did have a large bout of diarrhea at home and has been very weak. She states she does not have much of an appetite and it is difficult for her to eat. Also has some areas on her inner thighs that she stated were fluid-filled vesicles which broke. She was seen in bed 33 on 2A with her . The course of treatment was explained and they are in agreement with admission. All questions were answered. Past Med Surg Social Fam HX - Past Medical History Source: patient, old records reviewed, obtained from family Medical history: asthma, cancer, diabetes, GERD, hyperlipidemia, hypertension, renal disease, other (sepsis, positive blood cultures) Psychiatric history: no psych history - Past Surgical History Surgical History: , cataract, cholecystectomy, JOAO/BSO, other - Social History Smoking Status: Never smoker Smokeless Tobacco Status: No Alcohol use: none Drug use: none Occupational status: retired Current living situation: Home, With Family Activity Level: Mostly sedentary - Family History Mother Hx Family Cancer: Yes (Brain cancer) Hx Family Endocrine Disorder: Yes (DM) - Additional Family History Additional family history: noncontributory to this event Internal Medicine - H&P: Meds Albuterol Sulfate [Proventil Hfa] 1 puff IH QID PRN 06/20/15 [History] Aspirin Enteric Coated [Aspirin EC] 81 mg PO DAILY 06/20/15 [History] Fluticasone Propionate Nasal [Flonase] 1 spray NS DAILY 06/20/15 [History] Fluticasone/Salmeterol [Advair 100-50 Diskus] 1 each IH BID 06/20/15 [History] Glimepiride [Amaryl] 4 mg PO DAILY 06/20/15 [History] Insulin NPH Hum/Reg Insulin Hm [Novolin 70-30 100 Unit/ml Vial] 30 unit SQ BID 06/20/15 [History] Omeprazole [PriLOSEC] 40 mg PO DAILY 06/20/15 [History] Pravastatin Sodium [Pravachol] 20 mg PO HS 06/20/15 [History] Saxagliptin HCl [Onglyza] 5 mg PO DAILY 06/20/15 [History] Ondansetron HCl [Zofran] 4 mg PO Q8H PRN #60 tablet 07/08/17 [Rx] Prochlorperazine Maleate [Compazine] 10 mg PO Q8HR PRN #60 tablet 07/08/17 [Rx] Calcium Carbonate/Vitamin D3 [Calcium 600 + Vit D Tablet] 2 each PO DAILY #60 tablet 07/31/17 [Rx] Docusate Sodium [Stool Softener] 100 mg PO DAILY PRN 07/31/17 [History] Lidocaine/Prilocaine [Emla] 1 appl TP AD #30 gm 07/31/17 [Rx] Nafcillin 12,000 mg IV DAILY #38 vial 08/15/17 [Rx] Furosemide Oral Soln [Lasix] 40 mg PO BID #60 mls 08/18/17 [Rx] Lactobacillus [Culturelle] 1 each PO BID #60 unit 08/18/17 [Rx] Lisinopril [Zestril] 10 mg PO DAILY #30 tablet 08/18/17 [Rx] Megestrol Acetate [Megace] 800 mg PO DAILY #600 ml 08/18/17 [Rx] Metoprolol XL (24 HR) Succ [Toprol Xl] 100 mg PO DAILY #30 tab.er.24h 08/18/17 [ Rx] Nystatin POWDER [Nystop] 1 appl TP TID #1 bottle 08/18/17 [Rx] OxyCODONE Immed Rel [Roxicodone 5 MG] 5 mg PO Q4HR PRN #180 tablet 08/18/17 [Rx] Potassium Chloride Elixir [Potassium Chloride] 40 meq PO DAILY #900 mls [Rx] Silver Sulfadiazine [Silvadene] 1 appl TP BID #1 tube 08/18/17 [Rx] Stomatitis Mixture 10 ml PO 0700,1100,1600,2200 #350 mls 08/18/17 [Rx] Zolpidem [Ambien] 5 mg PO HS PRN #30 tablet 08/18/17 [Rx] valACYclovir [Valtrex] 2,000 mg PO BID #6 tablet 08/18/17 [Rx] Potassium Bicarbonate/Cit AC [Potassium 25 Meq Tablet Eff] 50 meq PO BID #60 tablet.eff 08/19/17 [Rx] 0.9 % Sodium Chloride 1,000 ml IV ONCE #1 iv.soln 08/21/17 [Rx] 3 Allergy/AdvReac Type Severity Reaction Status Date / Time nifedipine [From Procardia] Allergy Rash Verified 08/07/17 21:15 glipizide AdvReac Vomiting Verified 06/16/17 10:03 metoprolol [From Lopressor] AdvReac Nightmare Verified 08/07/17 21:15 All Systems PM: A 10-system review of systems was performed and is negative for pertinent findings except as documented above in the HPI. - Constitutional Constitutional: anorexia, fatigue, weakness, no chills, no fever(s), no night sweats - EENT Eyes: no change in vision, no discharge, no pain, no photophobia Ears: no ear discharge, no ear pain, no tinnitus Nose, mouth and throat: dry mouth, mouth lesions, mouth pain, other (dry cracked lips), no dysphagia, no nasal discharge, no neck pain, no sore throat - Cardiovascular Cardiovascular ROS IM: edema, no chest pain, no diaphoresis, no dyspnea, no lightheadedness, no palpitations, no syncope - Respiratory Respiratory: no cough, no dyspnea, no wheezing, no excessive phlegm production - Gastrointestinal Gastrointestinal: abdominal pain, diarrhea, nausea, no hematemesis, no hematochezia, no melena, no vomiting - Genitourinary Genitourinary: no change in urinary stream, no dysuria, no flank pain, no hematuria - Musculoskeletal Musculoskeletal ROS IM: no numbness, no tingling - Integumentary Integumentary IM: sores, other (area on bilateral thigs where blisters broke and nonhealing, yeast in left abdominal fold, drainage from old port site in right chest wall), no rash, no unusual bruising - Neurological Neurological ROS: no confusion, no convulsions, no focal weakness, no numbness, no tingling, no tremor(s) - Hematologic/Lymphatic Hematologic/Lymphatic: no easy bruising - Constitutional Vitals: Temp Pulse Resp BP Pulse Ox 99.6 F 80 18 148/83 96 08/22/17 15:48 08/22/17 15:48 08/22/17 11:34 08/22/17 15:48 08/22/17 15:48 General appearance: Present: cooperative, A&O X 3, pleasant, no acute distress, answers questions appropriately - Head Head exam: Present: atraumatic, normocephalic Additional comments: thinning hair from chemo therapy - Eye Eye exam: Present: PERRL, conjuntiva pink, sclera anicteric Pupils: Present: PERRL - Expanded ENT Exam Mouth exam: Present: dry mucosa (with stomatitis) - Neck Neck exam general surgery: Present: supple, trachea midline. Absent: lymphadenopathy - Respiratory Respiratory exam: Present: CTAB. Absent: accessory muscle use, rales, rhonchi, wheezes - Cardiovascular Cardiovascular exam: Present: RRR, +S1, +S2. Absent: diastolic murmur, gallop, rubs, systolic murmur - GI/Abdominal GI/Abdominal exam: Present: normal bowel sounds, soft, tenderness (generalized) , no peritoneal signs. Absent: distended - Extremities Exam Extremities exam: Present: pedal edema, warm, radial pulses palpable and symmetrical. Absent: calf tenderness, cyanotic Additional comments: old port site with drainage noted right chest access area, open sores from blisters on bilateral inner thighs - Neurological Exam Neurological exam: Present: alert, CN II-XII intact, oriented X3, no focal deficits. Absent: pronater drift, facial droop, speech deficit - Skin Skin exam: Present: dry, vesicles (open and nonhealing on thighs), warm. Absent : intact Internal Med - H&P Results - Labs CBC & Chem 7: 08/22/17 10:23 08/22/17 10:27 <Gisela Feldman - Last Filed: 08/22/17 17:26> Date of Encounter: 08/22/17 Internal Medicine - H&P: HPI History of present illness: Ms. Catalan is a 72 year old female All Systems PM: A 10-system review of systems was performed and is negative for pertinent findings except as documented above in the HPI. - Constitutional Vitals: Temp Pulse Resp BP Pulse Ox 99.6 F 80 18 148/83 96 08/22/17 15:48 08/22/17 15:48 08/22/17 11:34 08/22/17 15:48 08/22/17 15:48 Internal Med - H&P Results - Labs CBC & Chem 7: 08/22/17 10:23 08/22/17 10:27 - Attending Attestation I have personally performed a face to face evaluation on this patient. I have reviewed and agree with the care plan provided by SPIKE MAKER Emerson Jvjasonharrison. History and Exam by me shows: This is a 72 y/o F who recently discharged home on IV abx Nafcillin for her bacteremia due to Chemo port infection. Now she was sent to ER from Heme Onc office after she found to have TYRONE and Jaundice. Pt is alert, awake and O x 3. Denied any CP. Gen: A, A,O X 3 Chest: Diminished BS b/l basal, No crackles Heart: S1S2+ RRR Abd: Distended Chest wall.. mild purulent discharge coming fro superficial wound over chemo port area. a/p 1. TYRONE due to dehydration IV fluids 2. Elevated LFT's - Non obstructive Jaundice mostly due to Nafcillin induced d/c Nafcillin changed abx to Ancef - renally dosed 3. Recent bacteremia switch to Ancef repeat blood cx today ID consulted 4. Chestwalll wound - wound cx cont abx No signs of cellulities
[2017-08-22] MEDS: ceFAZolin 1,000 MG in 0.9 % Sodium Chloride Mini Bag 100 ML IVPB SCH (16:39)
[2017-08-22] MEDS ORDERED: Dextrose Gel 15 GM/37.5 ML TUBE PO PRN ×2 (17:03)
[2017-08-22] MEDS ORDERED: *HR* Dextrose 50 % in Water (Syg) 50 ML SYRINGE IVP PRN (17:03)
[2017-08-22] MEDS ORDERED: D5% in Water 1,000 ML IVC PRN (17:03)
[2017-08-22] MEDS: Insulin LISPRO 300 UNITS/3 ML VIAL SQ SCH ×2 (17:35→20:59)
[2017-08-22] MEDS: Magic Mouthwash 10 ML UD Cup PO SCH (17:39)
[2017-08-22] MEDS: 0.9 % Sodium Chloride w KCl 20 MEQ/1,000 ML MLS IVC SCH (17:39)
[2017-08-22] MEDS: *HR* OxyCODONE Immed Rel 5 MG TABLET PO PRN (19:36)
[2017-08-22] MEDS ORDERED: *HR* Morphine 2 MG/ML SYRINGE IVP ONE (20:21)
[2017-08-23] MEDS: ceFAZolin 1,000 MG in 0.9 % Sodium Chloride Mini Bag 100 ML IVPB SCH ×2 (05:02→16:16)
[2017-08-23] MEDS: 0.9 % Sodium Chloride w KCl 20 MEQ/1,000 ML MLS IVC SCH (07:54)
[2017-08-23] MEDS: Insulin LISPRO 300 UNITS/3 ML VIAL SQ SCH ×4 (07:55→23:11)
[2017-08-23] MEDS: Magic Mouthwash 10 ML UD Cup PO SCH ×3 (07:56→16:17)
[2017-08-23] MEDS: Megestrol Acetate 400 MG/10 ML UDC PO SCH (07:56)
[2017-08-23 08:19] LABS: Basophils % 0.3 %; Eosinophils # 0.1 K/mcL (0.0-0.6); Eosinophils % 1.4 %; Hematocrit 21.9 % (35.3-44.9); Hemoglobin 7.4 g/dL (11.5-15.4); INR 1.4; Immature Granulocytes % 0.6 % (0-4); Lymphocytes % 23.4 %; Mean Corpuscular HGB Conc 33.8 g/dL (31.6-35.5); Mean Corpuscular Hemoglobin 31.2 pg (28.0-33.3); Mean Corpuscular Volume 92.4 fL (83.0-100.0); Mean Platelet Volume 10.6 fL (9.4-12.4); Monocytes # 0.7 K/mcL (0.0-1.3); Monocytes % 7.5 %; Neutrophils # 5.8 K/mcL (1.6-8.9); Platelet Count 182 K/mcL (140-400); Prothrombin Time 15.3 Seconds (9.4-12.1); Red Blood Count 2.37 M/mcL (3.82-4.97); Red Cell Distribution Width 20.3 % (11.5-14.5); Segmented Neutrophils % 66.8 %
[2017-08-23 08:22] LABS: Activated Partial Thrombo Time 30.6 Seconds (26.0-36.0)
[2017-08-23 08:33] LABS: Albumin 2.1 g/dL (3.5-5.7); Albumin/Globulin Ratio 0.7 (1.1-2.2); Calcium 6.8 mg/dL (8.6-10.3); Globulin 3.1 g/dL (2.4-3.5); Phosphorous 5.4 mg/dL (2.7-4.5); Total Protein 5.2 g/dL (6.4-8.9)
[2017-08-23] MEDS ORDERED: Furosemide 40 MG/4 ML VIAL IVP ONE (10:34)
[2017-08-23] MEDS ORDERED: Potassium Chloride Elixir 20 MEQ/15 ML UDC PO ONE (10:35)
--- NOTE | 2017-08-23 11:24 | Internal Med Progress Note ---
<Alphonse Bernstein - Last Filed: 08/23/17 13:25> Date of Encounter: 08/23/17 Time of Encounter: 11:20 - Assessment and plan (1) TYRONE (acute kidney injury) Current Visit: Yes Status: Acute Assessment and plan: Cr worsening daily since 08/18/17; Cr 1.15 > 1.52 > 1.91 > 2.31 > 2.61 > 2.76 Recent history of poor oral intake and was likely in the setting of dehydration with possible side effect from Nafcillin On examination today, she is hypervolumic D/c IVF Lasix bolus 40mg now and 20mg IV BID starting tonight Will monitor for improvement (2) Total bilirubin, elevated Current Visit: Yes Status: Acute Assessment and plan: Trending down 4.4 -> 2.0 Scleral icterus present Likely etiology is medication induced from Nafcillin Responding well to abx switch to Ancef Will continue to monitor (3) Weakness generalized Current Visit: Yes Status: Chronic Assessment and plan: Out of bed daily to chair with assistance PT/OT ordered Encouraged oral intake (4) Hypokalemia Current Visit: Yes Status: Acute Assessment and plan: Replacing Will continue to follow (5) Diabetes mellitus Current Visit: Yes Status: Chronic Assessment and plan: Diabetic diet LDSS for coverage Qualifiers: Diabetes mellitus type: type 2 Diabetes mellitus complication status: with unspecified complications Diabetes mellitus terminal gauger supervisor insulin use: with snf use Qualified Code(s): E11.8 - Type 2 diabetes mellitus with unspecified complications; Z79.4 - terminal gauger supervisor (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 of insulin; Z79.4 - snf ( 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 of insulin; Z79.4 - snf (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 of insulin; Z79.4 - terminal gauger supervisor (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 of insulin (6) Cancer associated pain Current Visit: Yes Status: Acute Assessment and plan: Pain is well controlled at this time. No changes (7) Stomatitis and mucositis with change of taste Current Visit: No Status: Acute Assessment and plan: Improving Continue magic mouthwash (8) Bacteremia due to Staphylococcus aureus Current Visit: No Status: Acute Assessment and plan: Recent admission with bacteremia Taking Nafcillin but likely cause of elevated bilirubin Switched to Ancef Consulted ID for recommendations for duration of therapy - unable to obtain CHELA last visit d/t worsening stomatitis Repeat blood cultures on 08/14/17 neg x2 Repeated blood cultures again on admission - pending (9) DVT prophylaxis Current Visit: Yes Status: Acute Assessment and plan: EPCDs - Subjective Interval history: Admitted with elevated bilirubin, TYRONE and hypokalemia after recent admission for Bacteremia She is resting comfortably in bed this morning No concerns overnight per nursing She only complains of weakness today Her stomatitis is improving and she is increasing her oral intake Denies any MIN, fevers, chills, n/v, abdominal pain, CP, SOB or palpitations. - Constitutional Vitals: Temp Pulse Resp BP Pulse Ox 97.6 F 68 14 163/87 94 08/23/17 11:08 08/23/17 11:08 08/23/17 11:08 08/23/17 11:08 08/23/17 11:08 General appearance: Present: cooperative, A&O X 3, pleasant, no acute distress, answers questions appropriately - Head Head exam: Present: atraumatic, normocephalic - Eye Eye exam: Present: EOMI, normal appearance, scleral icterus, conjuntiva pink - ENT ENT exam: Present: mucous membranes moist - Neck Neck exam general surgery: Present: supple, trachea midline - Respiratory Respiratory exam: Present: CTAB. Absent: respiratory distress - Cardiovascular Cardiovascular exam: Present: RRR, +S1, +S2. Absent: diastolic murmur - GI/Abdominal GI/Abdominal exam: Present: normal bowel sounds, tenderness (diffuse), no peritoneal signs. Absent: distended, guarding, rebound - Extremities Exam Extremities exam: Present: pedal edema (1+ pitting), warm. Absent: calf tenderness, tenderness Additional comments: old port site with drainage noted right chest access area, open sores from blisters on bilateral inner thighs. closed decubitus pressure sore with erythema - Neurological Exam Neurological exam: Present: alert, oriented X3, no focal deficits - Psychiatric Psychiatric exam: Present: normal affect, normal mood - Skin Skin exam: Present: dry, vesicles (open and nonhealing on thighs) Internal Medicine: Result - Labs CBC & Chem 7: 08/23/17 07:06 08/23/17 07:06 Labs: Short CBC 08/23/17 Range/Units 07:06 WBC 8.6 (4.3-11.1) K/mcL Hgb 7.4 L (11.5-15.4) g/dL Hct 21.9 L (35.3-44.9) % Plt Count 182 (140-400) K/mcL Neutrophils # 5.8 (1.6-8.9) K/mcL BMP 08/23/17 07:06 Sodium 140 Potassium 3.0 L Chloride 112 H Carbon Dioxide 15 L BUN 63 H Creatinine 2.76 H Glucose 44 L Calcium 6.8 L Liver Function 08/23/17 Range/Units 07:06 Total Bilirubin 2.0 H (0.3-1.0) mg/dL AST 19 (13-39) Units/L ALT 8 (7-52) Units/L Alkaline Phosphatase 70 (34-104) Units/L Albumin 2.1 L (3.5-5.7) g/dL - ABG Interpretation ABG results: PT/INR, D-dimer PT 15.3 Seconds (9.4-12.1) H 08/23/17 07:06 - Impressions Impressions Liver Ultrasound 08/23/17 07:00 IMPRESSION: Normal sonographic appearance of the liver. Mild right-sided hydronephrosis. Small amount of nonspecific perihepatic fluid. Right pleural effusion. D/ / 08/23/2017 09:42:59 Reynaldo Brooke MD / [email or web address] Interpreting Provider: Reynaldo Brooke MD Consult Discharge Plan - Plan Referrals: Nazia Deleon, [employer] [Primary Care Provider] - <Gisela Feldman - Last Filed: 08/23/17 14:00> Date of Encounter: 08/23/17 - Constitutional Vitals: Temp Pulse Resp BP Pulse Ox 97.6 F 68 14 163/87 94 08/23/17 11:08 08/23/17 11:08 08/23/17 11:08 08/23/17 11:08 08/23/17 11:08 Internal Medicine: Result - Labs CBC & Chem 7: 08/23/17 07:06 08/23/17 07:06 Labs: Short CBC 08/23/17 Range/Units 07:06 WBC 8.6 (4.3-11.1) K/mcL Hgb 7.4 L (11.5-15.4) g/dL Hct 21.9 L (35.3-44.9) % Plt Count 182 (140-400) K/mcL Neutrophils # 5.8 (1.6-8.9) K/mcL BMP 08/23/17 07:06 Sodium 140 Potassium 3.0 L Chloride 112 H Carbon Dioxide 15 L BUN 63 H Creatinine 2.76 H Glucose 44 L Calcium 6.8 L Liver Function 08/23/17 Range/Units 07:06 Total Bilirubin 2.0 H (0.3-1.0) mg/dL AST 19 (13-39) Units/L ALT 8 (7-52) Units/L Alkaline Phosphatase 70 (34-104) Units/L Albumin 2.1 L (3.5-5.7) g/dL - ABG Interpretation ABG results: PT/INR, D-dimer PT 15.3 Seconds (9.4-12.1) H 08/23/17 07:06 - Impressions Impressions Liver Ultrasound 08/23/17 07:00 IMPRESSION: Normal sonographic appearance of the liver. Mild right-sided hydronephrosis. Small amount of nonspecific perihepatic fluid. Right pleural effusion. D/ / 08/23/2017 09:42:59 Reynaldo Brooke MD / [email or web address] Interpreting Provider: Reynaldo Brooke MD - Attending Attestation I examined this patient and my medical decision-making was reviewed with the Resident Physician Dr. Bernstein. I agree with the documented findings, disposition and treatment plan as described except to the extent set forth below. This is a 72 y/o F who recently discharged home on IV abx Nafcillin for her bacteremia due to Chemo port infection. Now she was sent to ER from Heme Onc office after she found to have TYRONE and Jaundice. Pt is alert, awake and O x 3. Denied any CP. Feels little better today Gen: A, A,O X 3 Chest: Diminished BS b/l basal, No crackles Heart: S1S2+ RRR Abd: Distended Chest wall.. Improved erythema.no purulent drainage a/p 1. TYRONE 2. Severe volume overload with 3rd spacing Cr still trending high avoid nephro toxic meds d/c IVF started on Diuretics 3. Elevated LFT's - Non obstructive Jaundice mostly due to Nafcillin induced d/c Nafcillin changed abx to Ancef - renally dosed Improving 4. Recent bacteremia switch to Ancef repeat blood cx - No growth so far ID consulted She may need CHELA, for further evaluation for Abx choice and duration of treatment will talk to ID about this on Friday 5. Chestwalll wound - wound cx cont abx No signs of cellulites
[2017-08-23] MEDS: *HR* OxyCODONE Immed Rel 5 MG TABLET PO PRN ×2 (11:40→20:25)
[2017-08-23 15:35] LABS: Basophils % 0.5 %; Eosinophils # 0.1 K/mcL (0.0-0.6); Eosinophils % 0.8 %; Hematocrit 23.3 % (35.3-44.9); Hemoglobin 7.7 g/dL (11.5-15.4); Immature Granulocytes % 0.4 % (0-4); Immature Platelets 2.1 % (1.1-6.1); Lymphocytes # 1.8 K/mcL (0.6-4.6); Lymphocytes % 24.2 %; Mean Corpuscular Hemoglobin 30.9 pg (28.0-33.3); Mean Corpuscular Volume 93.6 fL (83.0-100.0); Mean Platelet Volume 10.4 fL (9.4-12.4); Monocytes # 0.5 K/mcL (0.0-1.3); Monocytes % 6.6 %; Neutrophils # 4.9 K/mcL (1.6-8.9); Nucleated Red Blood Cells 0.3 /100 WBC (0); Platelet Count 186 K/mcL (140-400); Red Blood Count 2.49 M/mcL (3.82-4.97); Red Cell Distribution Width 20.4 % (11.5-14.5); Segmented Neutrophils % 67.5 %
[2017-08-23] MEDS: Furosemide 20 MG/2 ML VIAL IVP SCH (16:16)
[2017-08-24] MEDS: *HR* OxyCODONE Immed Rel 5 MG TABLET PO PRN ×4 (03:57→22:01)
[2017-08-24] MEDS: ceFAZolin 1,000 MG in 0.9 % Sodium Chloride Mini Bag 100 ML IVPB SCH ×2 (03:58→16:36)
[2017-08-24 05:25] LABS: Albumin 2.1 g/dL (3.5-5.7); Albumin/Globulin Ratio 0.7 (1.1-2.2); Basophils % 0.5 %; Bilirubin,Total 1.5 mg/dL (0.3-1.0); Calcium 7.3 mg/dL (8.6-10.3); Eosinophils # 0.1 K/mcL (0.0-0.6); Globulin 3.1 g/dL (2.4-3.5); Hematocrit 21.2 % (35.3-44.9); Hemoglobin 6.9 g/dL (11.5-15.4); Immature Granulocytes % 0.5 % (0-4); Lymphocytes # 1.8 K/mcL (0.6-4.6); Mean Corpuscular HGB Conc 32.5 g/dL (31.6-35.5); Mean Corpuscular Hemoglobin 30.7 pg (28.0-33.3); Mean Corpuscular Volume 94.2 fL (83.0-100.0); Mean Platelet Volume 10.6 fL (9.4-12.4); Monocytes # 0.6 K/mcL (0.0-1.3); Monocytes % 9.4 %; Neutrophils # 3.4 K/mcL (1.6-8.9); Platelet Count 150 K/mcL (140-400); Potassium 3.2 mEq/L (3.5-5.1); Red Blood Count 2.25 M/mcL (3.82-4.97); Red Cell Distribution Width 20.3 % (11.5-14.5); Segmented Neutrophils % 57.6 %; Total Protein 5.2 g/dL (6.4-8.9)
--- NOTE | 2017-08-24 07:24 | Internal Med Progress Note ---
<Alphonse Bernstein - Last Filed: 08/24/17 12:02> Date of Encounter: 08/24/17 Time of Encounter: 07:24 - Assessment and plan (1) TYRONE (acute kidney injury) Current Visit: Yes Status: Acute Assessment and plan: Cr worsening daily since 08/18/17; Cr 2.76 -> 2.88 D/c IVF Avoiding nephrotoxics Consulted Nephro - Recommended retorperitoneal US, UA+Cx, Urine: eosinophil, sodium, microalbimun Will continue to follow (2) Anemia Current Visit: Yes Status: Acute Assessment and plan: Hgb dropping to 6.9 today PRBC - 1 unit ordered Recheck H&H later this afternoon Ordered iron studies Stool occult pending Vital signs stable Qualifiers: Anemia type: unspecified type Qualified Code(s): D64.9 - Anemia, unspecified (3) Metabolic acidosis Current Visit: No Status: Acute Assessment and plan: Borderline AG 12 Will continue to monitor (4) Total bilirubin, elevated Current Visit: Yes Status: Acute Assessment and plan: Trending down 4.4 -> 2.0 -> 1.5 Likely etiology is medication induced from Nafcillin Responding well to abx switch to Ancef Will continue to monitor (5) Weakness generalized Current Visit: Yes Status: Chronic Assessment and plan: Out of bed daily to chair with assistance PT/OT ordered Encouraged oral intake (6) Hypokalemia Current Visit: Yes Status: Acute Assessment and plan: Replacing K up to 3.2 today Will continue to follow (7) Diabetes mellitus Current Visit: Yes Status: Chronic Assessment and plan: Diabetic diet LDSS for coverage Qualifiers: Diabetes mellitus type: type 2 Diabetes mellitus complication status: with unspecified complications Diabetes mellitus terminal gauger insulin use: with penitentiary use Qualified Code(s): E11.8 - Type 2 diabetes mellitus with unspecified complications; Z79.4 - terminal carman (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 of insulin; Z79.4 - snf ( 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 of insulin; Z79.4 - terminal carman (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 of insulin; Z79.4 - snf (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 of insulin (8) Cancer associated pain Current Visit: Yes Status: Acute Assessment and plan: Pain is well controlled at this time. No changes (9) Stomatitis and mucositis with change of taste Current Visit: No Status: Acute Assessment and plan: Improving Continue magic mouthwash (10) Bacteremia due to Staphylococcus aureus Current Visit: No Status: Acute Assessment and plan: Recent admission with bacteremia Taking Nafcillin but likely cause of elevated bilirubin Switched to Ancef Consulted ID for recommendations for duration of therapy - unable to obtain CHELA last visit d/t worsening stomatitis Repeat blood cultures on 08/14/17 neg x2 Repeated blood cultures again on admission - preliminary negative x2 (11) Diarrhea Current Visit: Yes Status: Acute Assessment and plan: C diff neg Qualifiers: Diarrhea type: unspecified type Qualified Code(s): R19.7 - Diarrhea, unspecified (12) DVT prophylaxis Current Visit: Yes Status: Acute Assessment and plan: EPCDs - Subjective Interval history: Admitted with elevated bilirubin, TYRONE and hypokalemia after recent admission for Bacteremia She is resting comfortably in bed this morning No concerns overnight per nursing She is complaining of her previous abdominal pain that is similar to yesteday and still weak Her stomatitis is improving and she is increasing her oral intake Denies any MIN, fevers, chills, n/v, abdominal pain, CP, SOB or palpitations. - Constitutional Vitals: Temp Pulse Resp BP Pulse Ox 98.2 F 98 16 159/70 95 08/24/17 06:59 08/24/17 06:59 08/24/17 06:59 08/24/17 06:59 08/24/17 06:59 General appearance: Present: cooperative, A&O X 3, pleasant, no acute distress, answers questions appropriately - Head Head exam: Present: atraumatic, normocephalic - Eye Eye exam: Present: EOMI, normal appearance, conjuntiva pink, sclera anicteric - ENT ENT exam: Present: mucous membranes moist - Neck Neck exam general surgery: Present: supple, trachea midline - Respiratory Respiratory exam: Present: CTAB. Absent: respiratory distress - Cardiovascular Cardiovascular exam: Present: RRR, +S1, +S2 - GI/Abdominal GI/Abdominal exam: Present: normal bowel sounds, tenderness (diffuse). Absent: distended, guarding, rigid - Extremities Exam Extremities exam: Present: pedal edema (1+ pitting), warm. Absent: tenderness Additional comments: open sores from blisters on bilateral inner thighs. - Neurological Exam Neurological exam: Present: alert, oriented X3, no focal deficits - Psychiatric Psychiatric exam: Present: normal affect, normal mood - Skin Skin exam: Present: dry, warm Additional comments: old port site with drainage noted right chest access area, decubitus pressure sore with erythema, stage 1 Internal Medicine: Result - Labs CBC & Chem 7: 08/24/17 04:40 08/24/17 04:40 Labs: Short CBC 08/23/17 08/23/17 08/24/17 Range/Units 07:06 15:20 04:40 WBC 8.6 7.3 6.0 (4.3-11.1) K/mcL Hgb 7.4 L 7.7 L 6.9 L (11.5-15.4) g/dL Hct 21.9 L 23.3 L 21.2 L (35.3-44.9) % Plt Count 182 186 150 (140-400) K/mcL Neutrophils # 5.8 4.9 3.4 (1.6-8.9) K/mcL BMP 08/23/17 08/24/17 07:06 04:40 Sodium 140 139 Potassium 3.0 L 3.2 L Chloride 112 H 113 H Carbon Dioxide 15 L 14 L BUN 63 H 66 H Creatinine 2.76 H 2.88 H Glucose 44 L 126 H Calcium 6.8 L 7.3 L Liver Function 08/23/17 08/24/17 Range/Units 07:06 04:40 Total Bilirubin 2.0 H 1.5 H (0.3-1.0) mg/dL AST 19 16 (13-39) Units/L ALT 8 4 L (7-52) Units/L Alkaline Phosphatase 70 68 (34-104) Units/L Albumin 2.1 L 2.1 L (3.5-5.7) g/dL - ABG Interpretation ABG results: PT/INR, D-dimer PT 15.3 Seconds (9.4-12.1) H 08/23/17 07:06 - Impressions Impressions Liver Ultrasound 08/23/17 07:00 IMPRESSION: Normal sonographic appearance of the liver. Mild right-sided hydronephrosis. Small amount of nonspecific perihepatic fluid. Right pleural effusion. D/ / 08/23/2017 09:42:59 Reynaldo Brooke MD / [email or web address] Interpreting Provider: Reynaldo Brooke MD Consult Discharge Plan - Plan Referrals: Nazia Deleon, ASSOCIATE PROFESSOR [employer] [Primary Care Provider] - <Gisela Feldman - Last Filed: 08/24/17 16:38> Date of Encounter: 08/24/17 - Constitutional Vitals: Temp Pulse Resp BP Pulse Ox 97.7 F 105 16 169/73 94 08/24/17 12:52 08/24/17 12:52 08/24/17 12:52 08/24/17 12:52 08/24/17 12:52 Internal Medicine: Result - Labs CBC & Chem 7: 08/24/17 04:40 08/24/17 04:40 Labs: Short CBC 08/24/17 Range/Units 04:40 WBC 6.0 (4.3-11.1) K/mcL Hgb 6.9 L (11.5-15.4) g/dL Hct 21.2 L (35.3-44.9) % Plt Count 150 (140-400) K/mcL Neutrophils # 3.4 (1.6-8.9) K/mcL BMP 08/24/17 04:40 Sodium 139 Potassium 3.2 L Chloride 113 H Carbon Dioxide 14 L BUN 66 H Creatinine 2.88 H Glucose 126 H Calcium 7.3 L Liver Function 08/24/17 Range/Units 04:40 Total Bilirubin 1.5 H (0.3-1.0) mg/dL AST 16 (13-39) Units/L ALT 4 L (7-52) Units/L Alkaline Phosphatase 68 (34-104) Units/L Albumin 2.1 L (3.5-5.7) g/dL - ABG Interpretation ABG results: PT/INR, D-dimer PT 15.3 Seconds (9.4-12.1) H 08/23/17 07:06 - Attending Attestation I examined this patient and my medical decision-making was reviewed with the Resident Physician Dr. Bernstein. I agree with the documented findings, disposition and treatment plan as described except to the extent set forth below. This is a 72 y/o F who recently discharged home on IV abx Nafcillin for her bacteremia due to Chemo port infection. Now she was sent to ER from Heme Onc office after she found to have TYRONE and Jaundice. Pt is alert, awake and O x 3. Denied any CP. Feels lethargic today.. Gen: A, A,O X 3 Chest: Diminished BS b/l basal, No crackles Heart: S1S2+ RRR Abd: Soft, mild discomfort, no acute abdomen signs Chest wall.. Improved erythema.no purulent drainage a/p 1. TYRONE 2. Severe volume overload with 3rd spacing Cr still trending high avoid nephro toxic meds Nephro consulted holding diuretics 3. Elevated LFT's - Non obstructive Jaundice mostly due to Nafcillin induced d/c Nafcillin changed abx to Ancef - renally dosed Improving 4. Recent bacteremia switch to Ancef repeat blood cx - No growth so far ID consulted She may need CHELA, for further evaluation for Abx choice and duration of treatment will talk to ID about this on Friday 5. Chest wall wound - wound cx cont abx No signs of cellulites 6. Acute anemia - multi factorial..chronic diseases / Malignancy No signs of bleeding will give 1 U PRBC
[2017-08-24] MEDS: Insulin LISPRO 300 UNITS/3 ML VIAL SQ SCH ×4 (07:50→22:02)
[2017-08-24] MEDS: Magic Mouthwash 10 ML UD Cup PO SCH ×3 (07:59→16:37)
[2017-08-24] MEDS: Ondansetron ODT 4 MG TAB.RAPDIS PO PRN (08:02)
[2017-08-24] MEDS: Furosemide 20 MG/2 ML VIAL IVP SCH (08:03)
[2017-08-24] MEDS ORDERED: Albumin 25% 25gram/100mL 25 GM/100 ML IV.SOLN IVPB ONE (08:53)
[2017-08-24] MEDS: Megestrol Acetate 400 MG/10 ML UDC PO SCH (10:43)
[2017-08-24] MEDS: Potassium Chloride Elixir 20 MEQ/15 ML UDC PO SCH (10:43)
--- NOTE | 2017-08-24 10:43 | Nephrology Consult Note ---
Date of Encounter: 08/24/17 Time of Encounter: 10:37 Assessment and Plan (1) TYRONE (acute kidney injury) Current Visit: Yes Status: Acute Patient with TYRONE of unclear etiology. With her poor po intake and diarrhea this is likely prerenal azotemia/ATN. She also has progressive anemia that could contribute to her renal failure as well. She has been on nafcillin which rarely is the cause of AIN. Will check renal ultrasound. Check UA and urine eosinophils and FENa. Hold nephrotoxins and allow permissive hypertension while renal function recovers. Need accurate Is and Os. Agree with transfusion. She may need hydration, but will hold hydration until after transfusion. No acute need for dialysis, but this may change in the next few days. Would recommend palliative care for goals of care prior to pursing this route. During the last evaluation by palliative care they wanted to continue aggressive care. (2) Hypertension Current Visit: Yes Status: Acute Blood pressure increased. Ok for now, but if it persists or worsens she may need antihypertensive medication. Consider calcium channel yovani. Qualifiers: Qualified Code(s): I10 - Essential (primary) hypertension (3) Metabolic acidosis Current Visit: No Status: Acute Non-gap (AG 12) and associated with diarrhea. If worsens will give iv sodium bicarbonate. Follow. (4) Anemia Current Visit: Yes Status: Acute Hemoglobin decreasing. Agree with transfusion. Monitor for bleeding. Qualifiers: Anemia type: unspecified type Qualified Code(s): D64.9 - Anemia, unspecified (5) Hypokalemia Current Visit: Yes Status: Acute Continue replacement as needed. Likely related to diarrhea. Caution with replacement secondary to renal function. (6) Cancer associated pain Current Visit: Yes Status: Acute Per primary team. Consider palliative consult if not already done. (7) Diarrhea Current Visit: Yes Status: Acute Per primary team. Check Cdiff. Qualifiers: Diarrhea type: unspecified type Qualified Code(s): R19.7 - Diarrhea, unspecified (8) Diabetes mellitus Current Visit: Yes Status: Chronic Per primary team. Qualifiers: Diabetes mellitus type: type 2 Diabetes mellitus complication status: with unspecified complications Diabetes mellitus care home insulin use: with tuck pointer helper use Qualified Code(s): E11.8 - Type 2 diabetes mellitus with unspecified complications; Z79.4 - group home (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 of insulin; Z79.4 - group home ( 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 of insulin; Z79.4 - group home (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 of insulin; Z79.4 - inspector precision (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 of insulin (9) Weakness generalized Current Visit: Yes Status: Chronic Generalized weakness likely related to chemotherapy and cancer burden and worsening anemia. Per primary team. PT if patient can tolerate. (10) Metastatic adenocarcinoma Current Visit: No Status: Acute Presumed breast primary. Consider oncology and palliative care consult. Per primary team. History of Present Illness - Reason for Consult Consult date: 08/24/17 Acute Kidney Injury - Chief Complaint TYRONE - History of Present Illness Ms. Catalan is a 72 yo woman with a history of metastatic cancer (likely breast ) with her last chemotherapy treatment about one month ago presents with progressive weakness and abnormal labs. The history is from review of her medical records, the patient interview and input from her . Patient had limited input secondary to her fatigue. She was recently in the hospital, but over the past week the patient has had progressive weakness and decreased oral intake. Repeat lab draws indicated worsening anemia and renal function and the patient was advised to come to the hospital. She was found to have acute kidney injury and [facility] was consulted to assist with evaluation and management. She denies a history of kidney failure and denies ever seeing a slurry control tender. She denies nausea and vomiting, but does have pain with eating/swallowing. She has had diarrhea over the last week as well. She denies NSAID use. She has been on nafcillin since July 2017 for MSSA bacteremia. Past Med Surg Social Fam HX - Past Medical History Medical history: asthma, cancer, diabetes, GERD, hyperlipidemia, hypertension, renal disease, other (sepsis, positive blood cultures) Psychiatric history: no psych history - Past Surgical History Surgical History: , cataract, cholecystectomy, JOAO/BSO, other - Social History Smoking Status: Never smoker Smokeless Tobacco Status: No Alcohol use: none Drug use: none - Family History Mother Hx Family Cancer: Yes (Brain cancer) Hx Family Endocrine Disorder: Yes (DM) Medications and Allergies Albuterol Sulfate [Proventil Hfa] 1 puff IH QID PRN 06/20/15 [History] Aspirin Enteric Coated [Aspirin EC] 81 mg PO DAILY 06/20/15 [History] Fluticasone Propionate Nasal [Flonase] 1 spray NS DAILY 06/20/15 [History] Fluticasone/Salmeterol [Advair 100-50 Diskus] 1 each IH BID 06/20/15 [History] Glimepiride [Amaryl] 4 mg PO DAILY 06/20/15 [History] Insulin NPH Hum/Reg Insulin Hm [Novolin 70-30 100 Unit/ml Vial] 30 unit SQ BID 06/20/15 [History] Omeprazole [PriLOSEC] 40 mg PO DAILY 06/20/15 [History] Pravastatin Sodium [Pravachol] 20 mg PO HS 06/20/15 [History] Saxagliptin HCl [Onglyza] 5 mg PO DAILY 06/20/15 [History] Ondansetron HCl [Zofran] 4 mg PO Q8H PRN #60 tablet 07/08/17 [Rx] Prochlorperazine Maleate [Compazine] 10 mg PO Q8HR PRN #60 tablet 07/08/17 [Rx] Calcium Carbonate/Vitamin D3 [Calcium 600 + Vit D Tablet] 2 each PO DAILY #60 tablet 07/31/17 [Rx] Docusate Sodium [Stool Softener] 100 mg PO DAILY PRN 07/31/17 [History] Lidocaine/Prilocaine [Emla] 1 appl TP AD #30 gm 07/31/17 [Rx] Nafcillin 12,000 mg IV DAILY #38 vial 08/15/17 [Rx] Furosemide Oral Soln [Lasix] 40 mg PO BID #60 mls 08/18/17 [Rx] Lactobacillus [Culturelle] 1 each PO BID #60 unit 08/18/17 [Rx] Lisinopril [Zestril] 10 mg PO DAILY #30 tablet 08/18/17 [Rx] Megestrol Acetate [Megace] 800 mg PO DAILY #600 ml 08/18/17 [Rx] Metoprolol XL (24 HR) Succ [Toprol Xl] 100 mg PO DAILY #30 tab.er.24h 08/18/17 [ Rx] Nystatin POWDER [Nystop] 1 appl TP TID #1 bottle 08/18/17 [Rx] OxyCODONE Immed Rel [Roxicodone 5 MG] 5 mg PO Q4HR PRN #180 tablet 08/18/17 [Rx] Potassium Chloride Elixir [Potassium Chloride] 40 meq PO DAILY #900 mls [Rx] Silver Sulfadiazine [Silvadene] 1 appl TP BID #1 tube 08/18/17 [Rx] Stomatitis Mixture 10 ml PO 0700,1100,1600,2200 #350 mls 08/18/17 [Rx] Zolpidem [Ambien] 5 mg PO HS PRN #30 tablet 08/18/17 [Rx] valACYclovir [Valtrex] 2,000 mg PO BID #6 tablet 08/18/17 [Rx] Potassium Bicarbonate/Cit AC [Potassium 25 Meq Tablet Eff] 50 meq PO BID #60 tablet.eff 08/19/17 [Rx] 0.9 % Sodium Chloride 1,000 ml IV ONCE #1 iv.soln 08/21/17 [Rx] 3 Allergy/AdvReac Type Severity Reaction Status Date / Time nifedipine [From Procardia] Allergy Rash Verified 08/07/17 21:15 glipizide AdvReac Vomiting Verified 06/16/17 10:03 metoprolol [From Lopressor] AdvReac Nightmare Verified 08/07/17 21:15 Review of Systems All Systems: reviewed and no additional remarkable complaints except as stated ( as documented in the hpi) Exam - Vital Signs Vital signs: Initial Vital Signs Temp Pulse Resp BP Pulse Ox 99.2 F 83 20 163/72 97 08/22/17 09:09 08/22/17 09:09 08/22/17 09:09 08/22/17 09:09 08/22/17 09:09 Vital Signs - Last 8 Hours Temp Pulse Resp BP Pulse Ox 08/24/17 06:59 98.2 F 98 16 159/70 95 08/24/17 03:42 97.8 F 100 16 153/73 94 Intake and Output 08/23/17 08/24/17 08/24/17 23:59 07:59 15:59 Intake Total 100 / 100 Balance 100 / 100 Intake: IV Fluids 100 / 100 Ancef 1,000 MG In 0.9 % Sodium 100 / 100 Chloride (Mini-Bag +) 100 ML @ 200 mls/hr IVPB Q12H [facility] Rx#: [id number] Oral 0 / 0 Other: Percent of Meal Consumed 0% Weight 72.8 kg Blood Glucose* 174 114 Patient Weight 08/24/17 23:59 Weight 72.8 kg - General Appearance General appearance: well-developed, well-nourished, chronically ill, frail EENT: ATNC Neck: supple Respiratory: clear (anteriorly) Cardiology: edema (2-3+ edema bilateral lower extremities. ) Additional Comments: tachycardic Gastrointestinal: normoactive bowel sounds, tenderness (diffuse tenderness throughout abdomen with no rebound or guarding. ), obese Integumentary: warm and dry Neurologic: alert and oriented x3 Musculoskeletal: no cyanosis Psychiatric: depressed, cooperative Additional Comments: seems fatigued. Results - Lab Results 08/24/17 04:40 08/24/17 04:40 Most recent lab results Calcium 7.3 mg/dL (8.6-10.3) L 08/24/17 04:40 Phosphorus 5.4 mg/dL (2.7-4.5) H 08/23/17 07:06 Magnesium 2.0 mg/dL (1.6-2.6) 08/24/17 04:40 Consult Discharge Plan - Plan Referrals: Nazia Deleon BEHAVIORAL HEALTH AIDE [Primary Care Provider] -
[2017-08-24] MEDS ORDERED: 0.9 % Sodium Chloride 250 ML ONE (12:24)
[2017-08-24 13:30] LABS: Folate 12.2 ng/mL (3.0-16.0)
[2017-08-24 18:14] LABS: Hemoglobin 8.8 g/dL (11.5-15.4)
[2017-08-25] MEDS: *HR* OxyCODONE Immed Rel 5 MG TABLET PO PRN (02:38)
[2017-08-25] MEDS ORDERED: *HR* Morphine 2 MG/ML SYRINGE IVP ONE (03:43)
[2017-08-25] MEDS: ceFAZolin 1,000 MG in 0.9 % Sodium Chloride Mini Bag 100 ML IVPB SCH ×3 (03:52→20:45)
[2017-08-25 05:55] LABS: Basophils % 0.6 %; Eosinophils # 0.2 K/mcL (0.0-0.6); Eosinophils % 2.5 %; Hematocrit 23.5 % (35.3-44.9); Immature Granulocytes % 0.3 % (0-4); Lymphocytes # 1.7 K/mcL (0.6-4.6); Lymphocytes % 26.5 %; Mean Corpuscular Hemoglobin 30.9 pg (28.0-33.3); Mean Corpuscular Volume 90.7 fL (83.0-100.0); Mean Platelet Volume 10.1 fL (9.4-12.4); Monocytes # 0.5 K/mcL (0.0-1.3); Monocytes % 7.8 %; Platelet Count 115 K/mcL (140-400); Red Blood Count 2.59 M/mcL (3.82-4.97); Red Cell Distribution Width 19.9 % (11.5-14.5); Segmented Neutrophils % 62.3 %
[2017-08-25 06:23] LABS: % Iron Saturation 17 % (15-50); Alanine Aminotransferase < 3 Units/L (7-52); Albumin 2.3 g/dL (3.5-5.7); Albumin/Globulin Ratio 0.8 (1.1-2.2); Alkaline Phosphatase 62 Units/L (34-104); Aspartate Amino Transferase 15 Units/L (13-39); BUN/Creatinine Ratio 22 (6-26); Bilirubin,Total 1.3 mg/dL (0.3-1.0); Blood Urea Nitrogen 61 mg/dL (8-23); Calcium 7.8 mg/dL (8.6-10.3); Carbon Dioxide 14 mEq/L (23-29); Chloride 115 mEq/L (98-107); Globulin 2.9 g/dL (2.4-3.5); Glucose 101 mg/dL (70-105); Iron 30 mcg/dL (50-170); Osmolality,Calculated 311 (280-300); Potassium 3.2 mEq/L (3.5-5.1); Sodium 142 mEq/L (136-145); Total Protein 5.2 g/dL (6.4-8.9); Transferrin 125 mg/dL (203-362); eGFR For African Americans 20 (> 60); eGFR For Non-African Americans 16 (> 60)
--- NOTE | 2017-08-25 07:37 | General Surgery Progress Note ---
Date of Encounter: 08/25/17 Time of Encounter: 07:37 Objective Vital Signs - Last 8 Hours Temp Pulse Resp BP Pulse Ox 08/25/17 04:06 97.7 F 72 17 142/62 100 08/24/17 23:42 98.3 F 112 16 170/79 94 Intake and Output 08/24/17 08/24/17 08/25/17 15:59 23:59 07:59 Intake Total 120 / 120 450 / 450 Balance 120 / 120 450 / 450 Intake: IV Fluids 100 / 100 Ancef 1,000 MG In 0.9 % Sodium 100 / 100 Chloride (Mini-Bag +) 100 ML @ 200 mls/hr IVPB Q12H [facility] Rx#: [id number] Oral 120 / 120 0 / 0 Blood Product 0 / 0 350 / 350 Rbcs Leuko Poor As-1 Unit 0 / 0 350 / 350 [id number] Other: Meal Lunch Percent of Meal Consumed 10% Blood Glucose* 111 120 - Labs 08/25/17 05:45 08/25/17 05:45 Diabetes panel 08/25/17 Range/Units 05:45 Sodium 142 (136-145) mEq/L Potassium 3.2 L (3.5-5.1) mEq/L Chloride 115 H (98-107) mEq/L Carbon Dioxide 14 L (23-29) mEq/L BUN 61 H (8-23) mg/dL Creatinine 2.83 H (0.60-1.20) mg/dL Glucose 101 (70-105) mg/dL Calcium 7.8 L (8.6-10.3) mg/dL AST 15 (13-39) Units/L ALT < 3 L (7-52) Units/L Alkaline Phosphatase 62 (34-104) Units/L Albumin 2.3 L (3.5-5.7) g/dL Calcium panel 08/25/17 Range/Units 05:45 Calcium 7.8 L (8.6-10.3) mg/dL Albumin 2.3 L (3.5-5.7) g/dL Pituitary panel 08/25/17 Range/Units 05:45 Sodium 142 (136-145) mEq/L Potassium 3.2 L (3.5-5.1) mEq/L Chloride 115 H (98-107) mEq/L Carbon Dioxide 14 L (23-29) mEq/L BUN 61 H (8-23) mg/dL Creatinine 2.83 H (0.60-1.20) mg/dL Glucose 101 (70-105) mg/dL Calcium 7.8 L (8.6-10.3) mg/dL Adrenal panel 08/25/17 Range/Units 05:45 Sodium 142 (136-145) mEq/L Potassium 3.2 L (3.5-5.1) mEq/L Chloride 115 H (98-107) mEq/L Carbon Dioxide 14 L (23-29) mEq/L BUN 61 H (8-23) mg/dL Creatinine 2.83 H (0.60-1.20) mg/dL Glucose 101 (70-105) mg/dL Calcium 7.8 L (8.6-10.3) mg/dL Total Bilirubin 1.3 H (0.3-1.0) mg/dL AST 15 (13-39) Units/L ALT < 3 L (7-52) Units/L Alkaline Phosphatase 62 (34-104) Units/L Albumin 2.3 L (3.5-5.7) g/dL - VTE Documentation of Mechanical Device: Intermittent pneumatic compression device Consult Discharge Plan - Plan Referrals: Nazia Deleon, LIVESTOCK YARD ATTENDANT [Primary Care Provider] -
--- NOTE | 2017-08-25 07:38 | Internal Med Progress Note ---
<Fan Mathis - Last Filed: 08/25/17 13:02> Date of Encounter: 08/25/17 Time of Encounter: 07:38 - Assessment and plan (1) Bacteremia due to Staphylococcus aureus Current Visit: Yes Status: Acute Assessment and plan: Recent admission with bacteremia at [facility] D/ed on 08/07/17. Unable to obtain CHELA at last visit 2/2 worsening stomatitis. Naficillin changed to Ancef 2/2 elevated bilirubin. Blood Cx repeat on admission - neg x2. - ID consulted for therapy recommendation - pending - ct abx: Ancef (day 1) (2) TYRONE (acute kidney injury) Current Visit: Yes Status: Acute Assessment and plan: Cr worsening daily since 08/18/17; Cr 2.76 -> 2.88 -> 2.79 -> 2.68. - nephro following - TYRONE unclear etiology. - renal U/S - pending - U/A w/ Cx - pending - urine microalbumin, eosinophil, FeNa - pending - Avoiding nephrotoxins - closely monitor I/O's, Cr (3) Diabetes mellitus Current Visit: Yes Status: Chronic Assessment and plan: Diabetic diet. BG today 101 - ct low dose SSI Qualifiers: Diabetes mellitus type: type 2 Diabetes mellitus complication status: with unspecified complications Diabetes mellitus half-way insulin use: with long term care social worker use Qualified Code(s): E11.8 - Type 2 diabetes mellitus with unspecified complications; Z79.4 - terminal press operator (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 of insulin; Z79.4 - prison ( 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 of insulin; Z79.4 - prison (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 of insulin; Z79.4 - terminal press operator (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 of insulin (4) Metabolic acidosis Current Visit: Yes Status: Acute Assessment and plan: Borderline. AG 13 (today). - Will continue to closely monitor (5) Diarrhea Current Visit: Yes Status: Acute Assessment and plan: C diff neg Qualifiers: Diarrhea type: unspecified type Qualified Code(s): R19.7 - Diarrhea, unspecified (6) Weakness generalized Current Visit: Yes Status: Chronic Assessment and plan: Out of bed daily to chair with assistance - PT/OT ordered - Encouraged oral intake (7) Hypokalemia Current Visit: Yes Status: Acute Assessment and plan: Replacing K+ 40 PO. K+ stable at 3.2 today. asymptomatic, no EKG findings. - Will continue to follow, and replace as needed (8) Total bilirubin, elevated Current Visit: Yes Status: Acute Assessment and plan: Trending down 4.4 -> 2.0 -> 1.5 -> 1.3 - Possible etiology is medication induced from Nafcillin, will hold for now, but may need to be restarted if patient has endocarditis - tolerating ancef - Will continue to monitor (9) Cancer associated pain Current Visit: Yes Status: Acute Assessment and plan: Pain is well controlled at this time. No changes (10) Stomatitis and mucositis with change of taste Current Visit: Yes Status: Acute Assessment and plan: Improving Continue magic mouthwash (11) DVT prophylaxis Current Visit: Yes Status: Acute Assessment and plan: EPCDs (12) Anemia Current Visit: Yes Status: Acute Assessment and plan: Hgb 6.9 08/24/17, received prbc 1 unit. Today hgb 8.0, will closely follow. Iron low at 30. Patient is currently stable. - closely follow H+H - PO iron replacement - stool occult - pending Qualifiers: Anemia type: unspecified type Qualified Code(s): D64.9 - Anemia, unspecified - Time Spent With Patient 25 - 35 minutes - Subjective Interval history: Ms Catalan is 72 yo F w/ hx of Metastatic Bone cancer, DM, and recent admission for Bacteremia is day 3 of admission for Pneumonia/acute on chronic respiratory failure. Today patient continues to report extreme nausea, dry heaving and tiredness but denies abd pain, CP, paliptations, Headache or fever. - Constitutional Vitals: Temp Pulse Resp BP Pulse Ox 97.7 F 72 17 142/62 100 08/25/17 04:06 08/25/17 04:06 08/25/17 04:06 08/25/17 04:06 08/25/17 04:06 General appearance: Present: cooperative, disheveled, mild distress, A&O X 3, pleasant, obese, answers questions appropriately - Respiratory Respiratory exam: Present: prolonged expiratory phase, wheezes. Absent: accessory muscle use, respiratory distress - Cardiovascular Cardiovascular exam: Present: RRR. Absent: diastolic murmur, distant heart sounds, irregular rhythm - GI/Abdominal GI/Abdominal exam: Present: normal bowel sounds. Absent: diminished bowel sounds, distended, guarding, hyperactive bowel sounds, hypoactive bowel sounds, rebound - Neurological Exam Neurological exam: Present: alert, oriented X3 - Psychiatric Psychiatric exam: Absent: agitated, anxious Internal Medicine: Result - Labs CBC & Chem 7: 08/25/17 05:45 08/25/17 05:45 Labs: Short CBC 08/24/17 08/25/17 Range/Units 17:55 05:45 WBC 6.4 (4.3-11.1) K/mcL Hgb 8.8 L D 8.0 L (11.5-15.4) g/dL Hct 26.0 L 23.5 L (35.3-44.9) % Plt Count 115 L (140-400) K/mcL Neutrophils # 4.0 (1.6-8.9) K/mcL BMP 08/25/17 05:45 Sodium 142 Potassium 3.2 L Chloride 115 H Carbon Dioxide 14 L BUN 61 H Creatinine 2.83 H Glucose 101 Calcium 7.8 L Liver Function 08/25/17 Range/Units 05:45 Total Bilirubin 1.3 H (0.3-1.0) mg/dL AST 15 (13-39) Units/L ALT < 3 L (7-52) Units/L Alkaline Phosphatase 62 (34-104) Units/L Albumin 2.3 L (3.5-5.7) g/dL - ABG Interpretation ABG results: PT/INR, D-dimer PT 15.3 Seconds (9.4-12.1) H 08/23/17 07:06 - VTE Documentation of Mechanical Device: Intermittent pneumatic compression device Consult Discharge Plan - Plan Referrals: Nazia Deleon, [employer] SET UP OPERATOR [Primary Care Provider] - (will be going to SNF) <Gisela Feldman - Last Filed: 08/25/17 14:57> Date of Encounter: 08/25/17 - Constitutional Vitals: Temp Pulse Resp BP Pulse Ox 97.5 F L 100 18 157/80 94 08/25/17 11:37 08/25/17 11:37 08/25/17 11:37 08/25/17 11:37 08/25/17 11:37 Internal Medicine: Result - Labs CBC & Chem 7: 08/25/17 05:45 08/25/17 05:45 Labs: Short CBC 08/24/17 08/25/17 Range/Units 17:55 05:45 WBC 6.4 (4.3-11.1) K/mcL Hgb 8.8 L D 8.0 L (11.5-15.4) g/dL Hct 26.0 L 23.5 L (35.3-44.9) % Plt Count 115 L (140-400) K/mcL Neutrophils # 4.0 (1.6-8.9) K/mcL BMP 08/25/17 05:45 Sodium 142 Potassium 3.2 L Chloride 115 H Carbon Dioxide 14 L BUN 61 H Creatinine 2.83 H Glucose 101 Calcium 7.8 L Liver Function 08/25/17 Range/Units 05:45 Total Bilirubin 1.3 H (0.3-1.0) mg/dL AST 15 (13-39) Units/L ALT < 3 L (7-52) Units/L Alkaline Phosphatase 62 (34-104) Units/L Albumin 2.3 L (3.5-5.7) g/dL - ABG Interpretation ABG results: PT/INR, D-dimer PT 15.3 Seconds (9.4-12.1) H 08/23/17 07:06 - Attending Attestation I examined this patient and my medical decision-making was reviewed with the Resident Physician Dr. Bernstein. I agree with the documented findings, disposition and treatment plan as described except to the extent set forth below. This is a 72 y/o F who recently discharged home on IV abx Nafcillin for her bacteremia due to Chemo port infection. Now she was sent to ER from Heme Onc office after she found to have TYRONE and Jaundice. Pt is alert, awake and O x 3. Denied any CP. Feels lethargic today, does c/o nausea abd abdominal discomfort. Gen: A, A,O X 3 Chest: Diminished BS b/l basal, No crackles Heart: S1S2+ RRR Abd: Soft, mild discomfort, no acute abdomen signs Chest wall.. Improved erythema.no purulent drainage a/p 1. TYRONE - mostly due to abx induced AIN + Dehydration 2. Severe volume overload with 3rd spacing Cr slightly lower today avoid nephro toxic meds Nephro on board holding diuretics 3. Elevated LFT's - Non obstructive Jaundice mostly due to Nafcillin induced d/c Nafcillin changed abx to Ancef - renally dosed Improving 4. Recent bacteremia Cont Ancef repeat blood cx - No growth so far ID consulted She may need CHELA, for further evaluation for Abx choice and duration of treatment Defer to ID about further work up 5. Chest wall wound - wound cx cont abx No signs of cellulites 6. Acute anemia - multi factorial..chronic diseases / Malignancy No signs of bleeding will give 1 U PRBC 7. Acute abdominal pain with nausea concerned SBO will get Abdomen x ray first 8. Metastatic breast cancer family concerned about prognosis wanted to talk to heme Onc so will consult Heme Onc
[2017-08-25] MEDS: Insulin LISPRO 300 UNITS/3 ML VIAL SQ SCH ×4 (08:48→22:28)
[2017-08-25] MEDS: Ondansetron ODT 4 MG TAB.RAPDIS PO PRN (08:54)
[2017-08-25] MEDS: Magic Mouthwash 10 ML UD Cup PO SCH ×3 (09:01→16:31)
[2017-08-25] MEDS: Potassium Chloride Elixir 20 MEQ/15 ML UDC PO SCH (10:45)
[2017-08-25] MEDS: Megestrol Acetate 400 MG/10 ML UDC PO SCH (10:45)
--- NOTE | 2017-08-25 12:13 | Infectious Disease Consult ---
Date of Encounter: 08/25/17 Time of Encounter: 12:08 Assessment and Plan (1) Bacteremia Status: Acute Assessment and plan: Causative organism: MSSA. Source likely the right upper chest a-port insertion vs. recent access. Status post removal 08/10/17. Seropurulent drainage noted in the pocket on removal. Culture positive for MSSA. Uncomplicated. Peripheral blood cultures drawn 08/07/17 were positive 2/2 sets for MSSA. Repeat peripheral blood cultures drawn 08/09/17 were positive 2/2 sets for MSSA. Blood culture drawn from the a-port 08/10/17 was positive 1/1 set for MSSA as well. Additional peripheral blood cultures drawn 08/12/17 were positive 1/2 sets. Repeat peripheral blood cultures drawn 08/14/16 negative x 2 sets. Etiology of persistently positive blood cultures likely due to 08/12/16 blood cultures drawn <24 hours after a-port was removed. No endocarditis stigmata noted on exam. TTE negative for vegetations. CHELA aborted due to patient unable to tolerate the procedure. The patient had one major and one minor Modified Jensen's Criteria. She was discharged home on IV Nafcillin and came back with hyperbilirubinemia. Not sure if this was caused by the Nafcillin or not, but Nafcillin was discontinued on admission and switched to cefazolin. Continue cefazolin 1 gram IV Q8H. Dosed for creatinine clearance of 15. Dosing discussed with Rylee Beasley. Duration of treatment depends on the clinical picture, but likely two weeks from the first set of negative blood cultures. Treat through 08/28/17, then discontinue. Monitor renal function and dose-adjust antibiotics. (2) Elevated bilirubin Status: Acute Assessment and plan: Total bili 4.4 on admission. Etiology not entirely clear: Nafcillin vs. Acyclovir vs. other. Will ask lab to fractionate the specimen from admission. Improved. Continue to trend. Avoid hepatotoxins as able. (3) TYRONE (acute kidney injury) Status: Acute Assessment and plan: Serum creatinine elevated at 2.61 on admission. Etiology not entirely clear, but likely multifactorial and pre-renal: dehydration + nafcillin. RUQ UTS showed mild right sided HN. Renal UTS pending. Nephrology consulted and following. Continue to trend. Dose-adjust antibiotics. Avoid nephrotoxins as able. (4) Weakness generalized Status: Chronic Assessment and plan: PT/OT consulted for evaluation and treatment. Consider formal outpatient rehabilitation to maximize patient functionality. (5) Hypokalemia Status: Resolved Assessment and plan: Likely secondary to poor PO intake. Resolved. (6) Abdominal pain Status: Acute Assessment and plan: Etiology unclear. CT scan from previous hospitalization negative. May need to consider additional imaging if persists. Pain management per the primary team. Qualifiers: Abdominal location: generalized Qualified Code(s): R10.84 - Generalized abdominal pain (7) Anemia Status: Chronic Qualifiers: Anemia type: unspecified type Qualified Code(s): D64.9 - Anemia, unspecified (8) Cancer associated pain Status: Acute Assessment and plan: Recommend Palliative Care and Hem/Onc consultations to assist with pain management. (9) Carcinoma of breast metastatic to bone Status: Chronic Assessment and plan: Newly diagnosed. Recently started weekly doses of Taxol. [facility]. Qualifiers: Laterality: unspecified laterality Qualified Code(s): C50.919 - Malignant neoplasm of unspecified site of unspecified female breast; C79.51 - Secondary malignant neoplasm of bone; C79.51 - Secondary malignant neoplasm of bone; C79.51 - Secondary malignant neoplasm of bone; C79.51 - Secondary malignant neoplasm of bone (10) Diabetes mellitus Status: Chronic Assessment and plan: Uncontrolled. HgbA1C 8.4%. Recommend aggressive glucose monitoring and control. Management per the primary team. 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 Treated with 5 days of antivirals. Appears improved. Recommend aggressive mouth care and chlorhexidine rinse if the patient can tolerate. (12) Hypertension Status: Chronic Qualifiers: Hypertension type: unspecified Qualified Code(s): I10 - Essential (primary ) hypertension Infectious Disease HPI - Data of Consult Patient: known to practice within the last 3 years Consult date: 08/25/17 Requesting Physician: Gisela Feldman MD Primary Care Provider: Nazia Deleon, - Consult Narrative Reason for consult: MSSA Bacteremia History of present illness: Ms. Catalan is a 72 year old female with a past medical history of asthma, metastatic breast cancer with metastasis to the bone, diabetes, GERD, hyperlipidemia, hypertension, chronic kidney disease, and MSSA bacteremia. The patient was admitted to the hospital August 22 for hyperbilirubinemia. We're consult on August 25 for a robotic recommendations regarding previous diagnosis of MSSA bacteremia. Briefly, the patient's a 72-year-old female with past medical history as stated above. The patient was recently discharged from the hospital on August 18 after a short course hospitalization for MSSA bacteremia was thought to be from her a port which was removed. We attempted a CHELA during this hospitalization, but due to the patient's oral lesions we were unable to complete the test. She did have a transthoracic echo that was negative. Blood cultures obtained August 14 were negative 2 sets and the patient was discharged home to complete a two-week course of IV nafcillin. After discharge, the patient had routine labs drawn that revealed hyperbilirubinemia and she was instructed to come back to the emergency department for evaluation. Upon arrival, the patient is afebrile and hemodynamically stable. Her white blood cell count is normal. She repeat blood cultures drawn that are no growth to date 2 sets. The patient did have a total bilirubin of 4.4 and an acute kidney injury. She had reported some diarrhea home and a C. difficile was checked which was negative. Nafcillin was discontinued and the patient was started on IV cefazolin. She was admitted to the hospital for further evaluation and treatment. Since admission, the patient has remained afebrile hemodynamically stable. Her hyperbilirubinemia has improved. Her liver function tests have remained normal. She had a liver ultrasound that revealed a normal appearing liver, but did show some mild right hydronephrosis and a right pleural effusion. Her acute kidney injury was not improving and nephrology was consulted and is currently following. At this time, the patient is on cefazolin 1 g IV every 8 hours. We' ve been asked to evaluate and make further recommendations. During my exam today, the patient states that overall she doesn't feel very well today. She does report generalized weakness at home seems to be worse since she came back to the hospital. She denies any fevers or chills or rigors. She denies any headache or neck pain. She denies any chest pain, shortness of breath, or cough. She does report some upper abdominal pain that is relatively new, but she was having at her last hospitalization. She also reports chronic back and bilateral leg pain. She reports nausea with vomiting and poor appetite little by mouth intake. She denies urinary complaints. She states that her oral lesions are improved, but her mouth is very dry. She denies any new skin lesions at this time. She states her PICC line is working well at home, but they have been unable to control blood from it since being here in the hospital. She states she is 100% compliant with her medications at home. The patient was at home with her and son. She denies any tobacco, alcohol, or illicit drug use. CC: Gisela Feldman MD Past Med Surg Social Fam HX - Past Medical History Attestation: Yes The following information was validated with the patient. Source: patient, old records reviewed, nursing notes reviewed Medical history: asthma, cancer (Mets to the bone with likely breast primary s/ p two doses of IV Chemo), diabetes, GERD, hyperlipidemia, hypertension, renal disease, other (MSSA bacteremia s/t A-port) Psychiatric history: no psych history - Past Surgical History Surgical History: , cataract, cholecystectomy, JOAO/BSO, other (A-port insertion/removal) - Social History Smoking Status: Never smoker Smokeless Tobacco Status: No Alcohol use: none Drug use: none Occupational status: retired Current living situation: Home, With Family Activity Level: Uses cane/walker Recent Out of Country Travel Within the Last 8 Weeks: No Exposure or Possible Exposure to Illness During Travel: No - Family History Mother Hx Family Cancer: Yes (Brain cancer) Hx Family Endocrine Disorder: Yes (DM) Infectious Disease-CN:Meds Albuterol Sulfate [Proventil Hfa] 1 puff IH QID PRN 06/20/15 [History] Aspirin Enteric Coated [Aspirin EC] 81 mg PO DAILY 06/20/15 [History] Fluticasone Propionate Nasal [Flonase] 1 spray NS DAILY 06/20/15 [History] Fluticasone/Salmeterol [Advair 100-50 Diskus] 1 each IH BID 06/20/15 [History] Glimepiride [Amaryl] 4 mg PO DAILY 06/20/15 [History] Insulin NPH Hum/Reg Insulin Hm [Novolin 70-30 100 Unit/ml Vial] 30 unit SQ BID 06/20/15 [History] Omeprazole [PriLOSEC] 40 mg PO DAILY 06/20/15 [History] Pravastatin Sodium [Pravachol] 20 mg PO HS 06/20/15 [History] Saxagliptin HCl [Onglyza] 5 mg PO DAILY 06/20/15 [History] Lidocaine/Prilocaine [Emla] 1 appl TP AD #30 gm 07/31/17 [Rx] Lisinopril [Zestril] 40 mg PO DAILY 08/25/17 [History] Metoprolol XL (24 HR) Succ [Toprol Xl] 200 mg PO DAILY 08/25/17 [History] Triamterene/Hydrochlorothiazid [Triamterene-Hctz 75-50 mg Tab] 1 tab PO DAILY [History] 3 Allergy/AdvReac Type Severity Reaction Status Date / Time nifedipine [From Procardia] Allergy Rash Verified 08/07/17 21:15 glipizide AdvReac Vomiting Verified 06/16/17 10:03 metoprolol [From Lopressor] AdvReac Nightmare Verified 08/07/17 21:15 All systems: reviewed and no additional remarkable complaints except as stated Exam - Constitutional Vitals: Temp Pulse Resp BP Pulse Ox 97.5 F L 100 18 157/80 94 08/25/17 11:37 08/25/17 11:37 08/25/17 11:37 08/25/17 11:37 08/25/17 11:37 General appearance: average body habitus, cooperative, no acute distress - Head Head exam: Present: atraumatic, normal inspection, normocephalic - Eye Eye exam: Present: EOMI, normal appearance, PERRL Pupils: Present: normal accommodation Additional comments: No subconjunctival hemorrhage noted. - ENT ENT exam: Present: mucous membranes dry Additional comments: Scabbed oral lesions noted. - Neck Neck exam: Present: normal inspection. Absent: lymphadenopathy - Respiratory Respiratory exam: Present: CTAB. Absent: rales, respiratory distress, rhonchi, wheezes Additional comments: Previous a-port site noted to the right upper chest with scab without redness, warmth, tenderness, or drainage. - Cardiovascular Cardiovascular exam: Present: RRR, +S1, +S2 - GI/Abdominal GI/Abdominal exam: Present: normal bowel sounds, soft, tenderness (Generalized) . Absent: distended - Extremities Exam Extremities exam: Present: pedal edema (1+ BLE). Absent: joint swelling, tenderness Additional comments: No endocarditis stigmata noted. - Neurological Exam Neurological exam: Present: alert, oriented X3, no focal deficits - Psychiatric Psychiatric exam: Present: normal affect, normal mood - Skin Skin exam: Present: dry, intact, normal color, warm Infectious Disease CN: Results - Labs CBC & Chem 7: 08/26/17 03:30 08/26/17 03:30 Cultures: Cultures 08/22/17 16:45 Blood Culture - Preliminary Peripheral Central Cath, Picc No growth. 08/22/17 16:22 Blood Culture - Preliminary Peripheral Venipuncture No growth. Serology: Serology 08/22/17 Range/Units 19:16 Stl C. diff Tox B Gene Negative (Negative) - VTE Documentation of Mechanical Device: Intermittent pneumatic compression device Consult Discharge Plan - Plan Referrals: Nazia Deleon CNP [Primary Care Provider] - (will be going to SNF) - Attending Attestation I examined this patient and my medical decision-making was reviewed with the Resident Physician. I agree with the documented findings, disposition and treatment plan as described except to the extent set forth below. Is an addendum to original report dictated by Angela Rouse CNP. Please refer to Vinny orantes for full detail. Patient is a 72-year-old woman that is well-known to our service that was recently here admitted for MSSA bacteremia likely source was the port. Patient also had HSV oral lesions as well. Patient was treated with nafcillin and discharged to finish a two-week course. No CHELA was done because the patient could not tolerate it. Patient had one major and one minor Hill criteria and index of suspicion for endocarditis was low. Patient was called from her PCPs office and asked to the ER because of elevated bilirubin and acute kidney injury. Patient denies having yellowish discoloration. Patient had an ultrasound of the liver which showed no acute process. Patients LFTs including AST I ALT and alkaline phosphatase were all within normal limit that. The bilirubin was not fractionated on admission. The thought was that the nafcillin causing acute kidney injury and acute liver injury. Patient was stressed changed to cefazolin and we were asked to evaluate the patient and make further recommendations. Currently patient laying in bed appears comfortable. She looks better than when she left. She has no jaundice. Her review of system is otherwise unremarkable. I did literature review on nafcillin to see if it can cause elevated bilirubin but it appears that its causes cholestatic hyperbilirubinemia like picture. I also reviewed to see if the Valtrex could have caused that and does not
[2017-08-25 14:54] LABS: Bilirubin,Direct 3.3 mg/dL (0.0-0.2); Bilirubin,Indirect 1.1 mg/dL (0.0-1.2)
[2017-08-25] MEDS ORDERED: *HR* OxyCODONE Immed Rel 5 MG TABLET PO PRN (15:32)
--- NOTE | 2017-08-25 15:37 | Palliative - Consult Note ---
Date of Encounter: 08/25/17 Time of Encounter: 15:20 - Assessment and Plan (1) Cancer associated pain Current Visit: Yes Status: Acute Assessment and plan: Patient states her pain is greatly out of control, to the point she cannot sleep. states that oncologist had her on Oxycodone 15mg at home - however, she is only ordered 5 mg at this time. In discussion with , with the extent of her disease and increasing pain, would best be managed with long acting pain medication with breakthrough PRN. Based on home use of 45mg Oxycodone in 24 hours, equivalent to 23.5 patch. Will begin Duragesic 25mg patch, and continue Oxycodone 15mg every 4 hours. for breakthrough pain. Monitor and titrate as needed. (2) Decreased appetite Current Visit: Yes Status: Acute Assessment and plan: She has been on Megace for awhile with little results. She has some nausea affiliated with this as well. D/W pt - will trial Marinol - begin at 2.5 bid. (3) Constipation Current Visit: Yes Status: Acute Assessment and plan: She was having some diarrhea at home, however, now states constipation with no BM x3 days. For xray this afternoon. Begin Senna-plus bid and monitor BM's - possible opioid induced constipation Qualifiers: Constipation type: unspecified constipation type Qualified Code(s): K59.00 - Constipation, unspecified (4) Counseling regarding advanced care planning and goals of care Current Visit: Yes Status: Acute Assessment and plan: Discussed with pt/, Michel at bedside. He expressed frustration that they do not understand the extent of the bone metastasis, and if/when she will be able to take further treatments. I discussed was concerning that she was still quite weak and not eating. She has still not been able to walk as well, and now back in hospital. states he was given power of assistant city attorney paperwork, but they have yet to complete. Discussed code status - stated that they were fine with resuscitation but she does not want on ventilator. Discussed how artificial ventilation was part of resuscitation. Discussed levels of code status - DNRCCA/DNI, and DNRCC. Conversation was interrupted as pt was taken down to xray, but I asked them to discuss and consider. anxiously awaiting oncology to visit as well. Was discharged last week with IV atb and [facility]. Will continue to follow. (5) Carcinoma of breast metastatic to bone Current Visit: No Status: Chronic Qualifiers: Laterality: unspecified laterality Qualified Code(s): C50.919 - Malignant neoplasm of unspecified site of unspecified female breast; C79.51 - Secondary malignant neoplasm of bone; C79.51 - Secondary malignant neoplasm of bone; C79.51 - Secondary malignant neoplasm of bone; C79.51 - Secondary malignant neoplasm of bone Palliative-CN HPI - Data of Consult Consult date: 08/25/17 Requesting Physician: Gisela Feldman MD Primary Care Provider: Nazia Deleon, - Consult Narrative History of present illness: Ms. Catalan is a 72 year old female with a history of breast cancer with bone metastasis (s/p 2 chemotherapy treatments), known to the palliative care team from previous visit, who was admitted with anemia and acute kidney injury. Patient states after arriving home, she was still unable to eat more than a few bites at a time. Previous oral ulcers are mostly scabbed over, and less pain from those, pt but reports increasing back/abd pain that is constant in nature, and she has had difficulty sleeping. Still with blistered areas on thighs currently covered with dressings. She was treated for septicemia last visit with A-port identified as source, and was sent home with home health for IV antibiotic therapy that was til 08/28/17. Infectious disease saw pt during that admission, and have seen her this admission as well. Upon my visit, she is awake and oriented. at bedside. C/o pain across abd and lower back. No vomiting but some nausea and decreased appetite. No BM x 3 days, but was having some loose stools at home. Awaiting oncology consult. CC: Gisela Feldman MD Past Med Surg Social Fam HX - Past Medical History Medical history: asthma, cancer (Mets to the bone with likely breast primary s/ p two doses of IV Chemo), diabetes, GERD, hyperlipidemia, hypertension, renal disease, other (MSSA bacteremia s/t A-port) Psychiatric history: no psych history - Past Surgical History Surgical History: , cataract, cholecystectomy, JOAO/BSO, other (A-port insertion/removal) - Social History Smoking Status: Never smoker Smokeless Tobacco Status: No Alcohol use: none Drug use: none - Family History Mother Hx Family Cancer: Yes (Brain cancer) Hx Family Endocrine Disorder: Yes (DM) Medications and Allergies Albuterol Sulfate [Proventil Hfa] 1 puff IH QID PRN 06/20/15 [History] Aspirin Enteric Coated [Aspirin EC] 81 mg PO DAILY 06/20/15 [History] Fluticasone Propionate Nasal [Flonase] 1 spray NS DAILY 06/20/15 [History] Fluticasone/Salmeterol [Advair 100-50 Diskus] 1 each IH BID 06/20/15 [History] Glimepiride [Amaryl] 4 mg PO DAILY 06/20/15 [History] Insulin NPH Hum/Reg Insulin Hm [Novolin 70-30 100 Unit/ml Vial] 30 unit SQ BID 06/20/15 [History] Omeprazole [PriLOSEC] 40 mg PO DAILY 06/20/15 [History] Pravastatin Sodium [Pravachol] 20 mg PO HS 06/20/15 [History] Saxagliptin HCl [Onglyza] 5 mg PO DAILY 06/20/15 [History] Ondansetron HCl [Zofran] 4 mg PO Q8H PRN #60 tablet 07/08/17 [Rx] Prochlorperazine Maleate [Compazine] 10 mg PO Q8HR PRN #60 tablet 07/08/17 [Rx] Calcium Carbonate/Vitamin D3 [Calcium 600 + Vit D Tablet] 2 each PO DAILY #60 tablet 07/31/17 [Rx] Docusate Sodium [Stool Softener] 100 mg PO DAILY PRN 07/31/17 [History] Lidocaine/Prilocaine [Emla] 1 appl TP AD #30 gm 07/31/17 [Rx] Nafcillin 12,000 mg IV DAILY #38 vial 08/15/17 [Rx] Furosemide Oral Soln [Lasix] 40 mg PO BID #60 mls 08/18/17 [Rx] Lactobacillus [Culturelle] 1 each PO BID #60 unit 08/18/17 [Rx] Megestrol Acetate [Megace] 800 mg PO DAILY #600 ml 08/18/17 [Rx] Nystatin POWDER [Nystop] 1 appl TP TID #1 bottle 08/18/17 [Rx] OxyCODONE Immed Rel [Roxicodone 5 MG] 5 mg PO Q4HR PRN #180 tablet 08/18/17 [Rx] Potassium Chloride Elixir [Potassium Chloride] 40 meq PO DAILY #900 mls [Rx] Silver Sulfadiazine [Silvadene] 1 appl TP BID #1 tube 08/18/17 [Rx] Stomatitis Mixture 10 ml PO 0700,1100,1600,2200 #350 mls 08/18/17 [Rx] Zolpidem [Ambien] 5 mg PO HS PRN #30 tablet 08/18/17 [Rx] valACYclovir [Valtrex] 2,000 mg PO BID #6 tablet 08/18/17 [Rx] Potassium Bicarbonate/Cit AC [Potassium 25 Meq Tablet Eff] 50 meq PO BID #60 tablet.eff 08/19/17 [Rx] 0.9 % Sodium Chloride 1,000 ml IV ONCE #1 iv.soln 08/21/17 [Rx] Lisinopril [Zestril] 40 mg PO DAILY 08/25/17 [History] Metoprolol XL (24 HR) Succ [Toprol Xl] 200 mg PO DAILY 08/25/17 [History] 3 Allergy/AdvReac Type Severity Reaction Status Date / Time nifedipine [From Procardia] Allergy Rash Verified 08/07/17 21:15 glipizide AdvReac Vomiting Verified 06/16/17 10:03 metoprolol [From Lopressor] AdvReac Nightmare Verified 08/07/17 21:15 All systems: reviewed and no additional remarkable complaints except as stated ( poor appetite, healing oral ulcers, abd/back pain, generalized weakness, blisters thigh area) Palliative Care-Exam - Constitutional Vitals: Temp Pulse Resp BP Pulse Ox 97.5 F L 100 18 157/80 94 08/25/17 11:37 08/25/17 11:37 08/25/17 11:37 08/25/17 11:37 08/25/17 11:37 General appearance: Present: cooperative, no acute distress, obese - Head Head Exam: Present: normal inspection, normocephalic - ENT Additional comments: scabbed oral ulcers - Respiratory Respiratory exam: Present: decreased breath sounds, CTAB - Cardiovascular Cardiovascular exam: Present: tachycardia - GI/Abdominal Exam GI/Abdominal exam: Present: normal bowel sounds, soft, tenderness - Extremities Exam Additional comments: 3+ bilateral edema lower extremities - Neurological Exam Neurological exam: Present: alert, oriented X3 Additional comments: generalized weakness, pain with movement of extremities - Psychiatric Psychiatric exam: Present: normal affect, normal mood - Skin Skin exam: Present: dry, pallor, warm Internal Medicine - CN: Reslt - Labs CBC & Chem 7: 08/25/17 05:45 08/25/17 05:45 Labs: Short CBC 08/24/17 08/25/17 Range/Units 17:55 05:45 WBC 6.4 (4.3-11.1) K/mcL Hgb 8.8 L D 8.0 L (11.5-15.4) g/dL Hct 26.0 L 23.5 L (35.3-44.9) % Plt Count 115 L (140-400) K/mcL Neutrophils # 4.0 (1.6-8.9) K/mcL BMP 08/25/17 05:45 Sodium 142 Potassium 3.2 L Chloride 115 H Carbon Dioxide 14 L BUN 61 H Creatinine 2.83 H Glucose 101 Calcium 7.8 L Liver Function 08/25/17 Range/Units 05:45 Total Bilirubin 1.3 H (0.3-1.0) mg/dL AST 15 (13-39) Units/L ALT < 3 L (7-52) Units/L Alkaline Phosphatase 62 (34-104) Units/L Albumin 2.3 L (3.5-5.7) g/dL - ABG Interpretation ABG results: PT/INR, D-dimer PT 15.3 Seconds (9.4-12.1) H 08/23/17 07:06 Consult Discharge Plan - Plan Referrals: Nazia Deleon, LOGISTICS PLANNING MANAGER [Primary Care Provider] - (will be going to SNF) Palliative Quality Palliative Quality: Screen for Code Status: Yes, Screen for Goals of Care: Yes, Screen for Pain: Yes, If Pain Regimen Started, Initiate Bowel Regimen: Yes, Screen for Nausea/Vomitting: Yes Code Status: 08/22/17 15:40 Resuscitation Status: Active [RES] Routine Comment: Resuscitation Status: Full Code
[2017-08-25] MEDS ORDERED: *HR* FentaNYL PATCH 25 MCG PATCH TD SCH (15:45)
[2017-08-25] MEDS ORDERED: Sodium Bicarbonate 75 MEQ in 0.45 % Sodium Chloride 1,000 ML IVC SCH (17:00)
[2017-08-25] MEDS ORDERED: *HR* Alteplase (Cathflo) 2 MG VIAL IVP ONE (17:59)
[2017-08-25] MEDS: Sennosides/Docusate Sodium TABLET PO SCH (20:46)
--- NOTE | 2017-08-25 21:43 | Nephrology Progress Note ---
Date of Encounter: 08/25/17 Time of Encounter: 15:00 - Assessment and Plan (1) TYRONE (acute kidney injury) Current Visit: Yes Status: Acute Patient with TYRONE with a creatinine that seems to be stable as compared to yesterday. Will give additional fluid as the patient is not eating much. Avoid nephrotoxins. Adjust medications for renal function. (2) Hypertension Current Visit: Yes Status: Chronic If persists the patient may require antihypertensive medication adjustment. Qualifiers: Qualified Code(s): I10 - Essential (primary) hypertension (3) Metabolic acidosis Current Visit: Yes Status: Acute Starting iv sodium bicarb infusion. (4) Anemia Current Visit: Yes Status: Chronic Per primary team. Hemoglobin slightly down. Transfuse as needed. Qualifiers: Qualified Code(s): D64.9 - Anemia, unspecified (5) Hypokalemia Current Visit: Yes Status: Resolved Replace potassium as needed. (6) Cancer associated pain Current Visit: Yes Status: Acute Palliative care following (7) Diabetes mellitus Current Visit: Yes Status: Chronic Per primary team. Qualifiers: Qualified Code(s): E11.8 - Type 2 diabetes mellitus with unspecified complications; Z79.4 - termination clerk (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 of insulin; Z79.4 - correction ( 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 of insulin; Z79.4 - termination clerk (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 of insulin; Z79.4 - termination clerk (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 of insulin (8) Weakness generalized Current Visit: Yes Status: Chronic PT if patient will tolerate. Patient with poor prognosis. (9) Metastatic adenocarcinoma Current Visit: No Status: Acute Per primary team/oncology. Subjective Principal diagnosis: TYRONE on CKD Interval history: Patient seen. She is feeling better. Her is at her side. No new complaints. Objective - Vital Signs Vital signs: Vital Signs Temp Pulse Resp BP Pulse Ox 08/25/17 19:46 98.7 F 114 20 156/76 93 08/25/17 16:33 98.5 F 105 16 182/84 94 08/25/17 11:37 97.5 F L 100 18 157/80 94 08/25/17 08:07 97.5 F L 99 20 169/79 94 08/25/17 04:06 97.7 F 72 17 142/62 100 08/24/17 23:42 98.3 F 112 16 170/79 94 Intake and Output 08/25/17 08/25/17 08/25/17 07:59 15:59 23:59 Intake Total 160 / 160 270 / 270 Output Total 0 / 0 0 / 0 Balance 160 / 160 270 / 270 Intake: IV Fluids 100 / 100 Ancef 1,000 MG In 0.9 % Sodium 100 / 100 Chloride (Mini-Bag +) 100 ML @ 200 mls/hr IVPB Q8H [facility] Rx#: [id number] Oral 60 / 60 270 / 270 Output: Urine 0 / 0 0 / 0 Other: Meal Lunch Dinner Percent of Meal Consumed 5% 25% Blood Glucose* 90 89 - General Appearance General appearance: Present: well-developed, well-nourished, chronically ill EENT: Present: ATNC Cardiology: Present: edema Additional Comments: tachycardic Integumentary: Present: warm and dry Neurologic: Present: alert and oriented x3 Psychiatric: Present: mood/affect appropriate - Lab 08/25/17 05:45 08/25/17 05:45 Most recent lab results Calcium 7.8 mg/dL (8.6-10.3) L 08/25/17 05:45 Phosphorus 5.4 mg/dL (2.7-4.5) H 08/23/17 07:06 Magnesium 2.0 mg/dL (1.6-2.6) 08/24/17 04:40 - VTE Documentation of Mechanical Device: Intermittent pneumatic compression device Consult Discharge Plan - Plan Referrals: Nazia Deleon [employer] [Primary Care Provider] - (will be going to SNF)
[2017-08-26] MEDS: ceFAZolin 1,000 MG in 0.9 % Sodium Chloride Mini Bag 100 ML IVPB SCH ×3 (03:21→22:28)
[2017-08-26 04:08] LABS: Basophils # 0.1 K/mcL (0.0-0.2); Basophils % 0.8 %; Eosinophils # 0.3 K/mcL (0.0-0.6); Hematocrit 24.2 % (35.3-44.9); Immature Granulocytes % 0.5 % (0-4); Immature Platelets 1.7 % (1.1-6.1); Lymphocytes # 1.8 K/mcL (0.6-4.6); Mean Corpuscular HGB Conc 33.1 g/dL (31.6-35.5); Mean Corpuscular Hemoglobin 30.3 pg (28.0-33.3); Mean Corpuscular Volume 91.7 fL (83.0-100.0); Mean Platelet Volume 10.5 fL (9.4-12.4); Monocytes # 0.5 K/mcL (0.0-1.3); Monocytes % 7.4 %; Neutrophils # 4.5 K/mcL (1.6-8.9); Platelet Count 120 K/mcL (140-400); Red Blood Count 2.64 M/mcL (3.82-4.97); Red Cell Distribution Width 19.9 % (11.5-14.5); Segmented Neutrophils % 62.3 %
[2017-08-26 04:30] LABS: Alanine Aminotransferase < 3 Units/L (7-52); Albumin 2.3 g/dL (3.5-5.7); Albumin/Globulin Ratio 0.8 (1.1-2.2); Alkaline Phosphatase 69 Units/L (34-104); Aspartate Amino Transferase 17 Units/L (13-39); BUN/Creatinine Ratio 22 (6-26); Bilirubin,Total 1.2 mg/dL (0.3-1.0); Blood Urea Nitrogen 57 mg/dL (8-23); Calcium 8.2 mg/dL (8.6-10.3); Carbon Dioxide 16 mEq/L (23-29); Chloride 116 mEq/L (98-107); Glucose 85 mg/dL (70-105); Osmolality,Calculated 309 (280-300); Potassium 3.2 mEq/L (3.5-5.1); Sodium 142 mEq/L (136-145); Total Protein 5.3 g/dL (6.4-8.9); eGFR For African Americans 22 (> 60); eGFR For Non-African Americans 18 (> 60)
[2017-08-26] MEDS: *HR* Promethazine 25 MG/ML VIAL IVP PRN ×2 (11:04→22:44)
--- NOTE | 2017-08-26 11:26 | Oncology Inp Consult Note ---
<Augustus Haji - Last Filed: 08/26/17 22:05> Date of Encounter: 08/26/17 - Data of Consult Requesting Physician: Brooklyn Alcantara MD Primary Care Provider: Nazia Deleon, - Consult Narrative History of present illness: Ms. Catalan is a 72 year old female Medications and Allergies Albuterol Sulfate [Proventil Hfa] 1 puff IH QID PRN 06/20/15 [History] Aspirin Enteric Coated [Aspirin EC] 81 mg PO DAILY 06/20/15 [History] Fluticasone Propionate Nasal [Flonase] 1 spray NS DAILY 06/20/15 [History] Fluticasone/Salmeterol [Advair 100-50 Diskus] 1 each IH BID 06/20/15 [History] Glimepiride [Amaryl] 4 mg PO DAILY 06/20/15 [History] Insulin NPH Hum/Reg Insulin Hm [Novolin 70-30 100 Unit/ml Vial] 30 unit SQ BID 06/20/15 [History] Omeprazole [PriLOSEC] 40 mg PO DAILY 06/20/15 [History] Pravastatin Sodium [Pravachol] 20 mg PO HS 06/20/15 [History] Saxagliptin HCl [Onglyza] 5 mg PO DAILY 06/20/15 [History] Lidocaine/Prilocaine [Emla] 1 appl TP AD #30 gm 07/31/17 [Rx] Lisinopril [Zestril] 40 mg PO DAILY 08/25/17 [History] Metoprolol XL (24 HR) Succ [Toprol Xl] 200 mg PO DAILY 08/25/17 [History] Triamterene/Hydrochlorothiazid [Triamterene-Hctz 75-50 mg Tab] 1 tab PO DAILY [History] 3 Allergy/AdvReac Type Severity Reaction Status Date / Time nifedipine [From Procardia] Allergy Rash Verified 08/07/17 21:15 glipizide AdvReac Vomiting Verified 06/16/17 10:03 metoprolol [From Lopressor] AdvReac Nightmare Verified 08/07/17 21:15 Oncology - Exam - Constitutional Vitals: Temp Pulse Resp BP Pulse Ox 100.6 F H 97 20 182/78 93 08/26/17 21:45 08/26/17 21:45 08/26/17 21:45 08/26/17 21:45 08/26/17 21:45 Oncology - Results Labs: Short CBC 08/26/17 Range/Units 03:30 WBC 7.3 (4.3-11.1) K/mcL Hgb 8.0 L (11.5-15.4) g/dL Hct 24.2 L (35.3-44.9) % Plt Count 120 L (140-400) K/mcL Neutrophils # 4.5 (1.6-8.9) K/mcL BMP 08/26/17 03:30 Sodium 142 Potassium 3.2 L Chloride 116 H Carbon Dioxide 16 L BUN 57 H Creatinine 2.60 H Glucose 85 Calcium 8.2 L Liver Function 08/26/17 Range/Units 03:30 Total Bilirubin 1.2 H (0.3-1.0) mg/dL AST 17 (13-39) Units/L ALT < 3 L (7-52) Units/L Alkaline Phosphatase 69 (34-104) Units/L Albumin 2.3 L (3.5-5.7) g/dL Urine 08/26/17 Range/Units 19:00 Urine Color Yellow (Yellow) Urine Clarity Cloudy A (Clear) Urine pH 6.5 (5.0-8.0) pH Units Ur Specific [place] 1.012 (1.010-1.025) Urine Protein Trace (Neg-Trace) mg/dL Urine Glucose (UA) Normal (Normal) mg/dL Consult Discharge Plan - Plan Referrals: Nazia Deleon, DATA STEWARD [Primary Care Provider] - (Patient will follow up with PCP at the [facility]) - Attending Attestation I examined this patient and my medical decision-making was reviewed with the Advanced Practice Nurse. I agree with the documented findings, disposition and treatment plan as described except to the extent set forth below. I met [facility] Ms. Catalan and her today. She is clincally failing. She had severe and nearly debilitating back pain. Has not been continent of stool and urine. As such, we have ordered noncontrast MRI imaging of the spine to see if there is evidence of cord involvement. Pain much better on duragesic. She has persistent nausea and emesis, exacerbated by potassium replacement. She is exceptionally frail, and I doubt meaningful recovery can be obtained even with aggressive rehabilitation; her clinical decline appears secondary to cancer. D/ W Dr. Wesley as well and she agrees with palliation/hospice. D/W grave situation. If no better in next few days, would proceed with comfort measures and hospice. Code status has been d/w patient by palliative care and this will be on ongoing discussion. We will continue to follow. <Florence Monahan - Last Filed: 08/27/17 08:48> Date of Encounter: 08/26/17 Time of Encounter: 11:26 Assessment and Plan (1) Carcinoma of breast metastatic to bone Status: Chronic Assessment and plan: TYRONE and elevated bilirubin -stable, slowly improving. Nephrology and ID following. Nafcillin changed to Ancef while inpatient. Nausea and vomiting, onset about 3-4 days ago, recently worsening. Palliative care following, she has IV zofran and phenergan. Acute lower back pain that is debilitating, Duragesic patch is helping to control this pain. New onset bladder/bowel incontinence, Lumbar/Thoracic MRI wo contrast reveals numerous lesions throughout the visualized lumbar spine, thoracic spine sacrum, and iliac bones are compatible with osseous metastases with no evidence of pathologic fracture, no gross thoracic spinal canal or neural foraminal stenosis. Unable to have MRI contrast at this time, GFR 18. Discontinued oral iron due to ferritin >1350 and she is having difficulty with nausea/vomiting, hgb stable. Dr. Haji had discussion with patient/patients regarding poor prognosis and recent clinical decline. Introduced the idea of hospice for comfort care measures. Given her guarded condition likely due to widespread metastatic burden , she would not be a candidate to continue chemotherapy treatment in her current condition and rehabilitation may not be achievable as rehab has been the goal over the past few weeks, with the patient only declining further. This is understandably a difficult discussion and realization between patient/ patients and he would benefit from further discussions and support. Palliative care following, appreciate continued discussions with patient/ patients regarding code status and plans for home with hospice if appropriate. Qualifiers: Laterality: unspecified laterality Qualified Code(s): C50.919 - Malignant neoplasm of unspecified site of unspecified female breast; C79.51 - Secondary malignant neoplasm of bone; C79.51 - Secondary malignant neoplasm of bone; C79.51 - Secondary malignant neoplasm of bone; C79.51 - Secondary malignant neoplasm of bone - Data of Consult Patient: known to practice within the last 3 years Requesting Physician: Brooklyn Alcantara MD Primary Care Provider: Nazia Deleon, - Consult Narrative Reason for consult: Metastatic breast cancer History of present illness: Ms. Catalan is a 72 year old female patient of Dr. Wesley, recently diagnosed with metastatic adenocarcinoma, likely breast origin, ER CO NEG, HER2 equivocal, Rebx FISH sent 06/24/17--neg HER2. She has a past medical history significant for HTN, Diabetes, GERD, Gastric Polyps, History of colon polyps, Adenoma of stomach, Skin cyst and past surgeries include JOAO/BSO, Open Choley, c-sections x3, exc of back cyst, colonoscopy 02/2017, EGD 03/16/15, cataracts on both eyes removed, extraction of teeth (dentures). She is a nonsmoker. She is , lives locally in [place]. Mammogram was benign -02/24 MRI pelvis-- Osseous metastases diffusely throughout the bony pelvis and left femur. 04/27 MRI abd--hepatic steatosis, heterogenous area in the liver. Mild retroperitoneal adenopathy measuring up to 1 cm in the right periaortic region. Innumerable enhancing foci throughout the vertebral bodies and sacrum concerning for osseous metastatic disease. She had a PET imaging 05/27--mild metabolic activity associated with the skeletal lesions without uptake in LNs. CT guided bone bx--metastatic adenocarcinoma--likely breast origin, BRST, CK7 and MEENA 3 positive. 07/27--MRI brain --osseous metastatic disease, diffuse vascular disease. Started taxol systemic therapy 07/27 and she received 2 weekly doses prior to hospitalization for Septic Shock/Bacteremia, blood cultures and A-port positive for MSSA. She was discharged home with HH, PT/OT and Nafcillin x2 weeks on . She was told to return to ER for lab work revealing TYRONE and elevated bilirubin on 08/22/16. She was subsequently admitted for weakness/failure to thrive, TYRONE, elevated bili, cancer associated pain. Past Med Surg Social Fam HX - Past Medical History Medical history: asthma, cancer (Mets to the bone with likely breast primary s/ p two doses of IV Chemo), diabetes, GERD, hyperlipidemia, hypertension, renal disease, other (MSSA bacteremia s/t A-port) Psychiatric history: no psych history - Past Surgical History Surgical History: , cataract, cholecystectomy, JOAO/BSO, other (A-port insertion/removal) - Social History Smoking Status: Never smoker Smokeless Tobacco Status: No Alcohol use: none Drug use: none - Family History Mother Hx Family Cancer: Yes (Brain cancer) Hx Family Endocrine Disorder: Yes (DM) Constitutional: Present: anorexia, fatigue, malaise, weakness, weight loss Eyes: Absent: change in vision Nose, mouth and throat: Present: mouth lesions Cardiovascular: Present: edema. Absent: chest pain, irregular heart rhythm, palpitations Respiratory: Present: cough, dyspnea Gastrointestinal: Present: constipation, fecal incontinence, nausea, vomiting. Absent: abdominal pain Genitourinary: Present: urinary incontinence. Absent: dysuria Musculoskeletal: Present: muscle weakness, myalgias. Absent: numbness, tingling Integumentary: Present: wounds, jaundice Neurological: Present: dizziness, weakness. Absent: focal weakness, loss of vision Hematologic/Lymphatic: Absent: easy bleeding, lymphadenopathy Oncology - Exam - Constitutional Vitals: Temp Pulse Resp BP Pulse Ox 98.1 F 100 18 189/80 95 08/26/17 10:21 08/26/17 10:21 08/26/17 10:21 08/26/17 10:21 08/26/17 10:21 General appearance: no acute distress, no febrile Exam: chronically ill appearing, appears uncomfortable due to nausea/vomiting, fatigued - Head Head exam: Present: atraumatic - ENT Additional comments: lesions/plaques with minor bleeding to oral cavity - Respiratory Respiratory exam: Present: decreased breath sounds - Cardiovascular Cardiovascular exam: Present: RRR, +S1, +S2 - GI/Abdominal GI/Abdominal exam: Present: normal bowel sounds, soft, tenderness - Extremities Exam Extremities exam: Present: pedal edema - Expanded Lower Extremity Exam Lower Leg exam: Present: swelling - Neurological Exam Neurological exam: Present: alert, oriented X3, strengths equal and symetr throughout. 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
[2017-08-26] MEDS: Lisinopril 20 MG TABLET PO SCH (11:33)
[2017-08-26] MEDS: Insulin LISPRO 300 UNITS/3 ML VIAL SQ SCH ×3 (11:40→22:26)
[2017-08-26] MEDS: Magic Mouthwash 10 ML UD Cup PO SCH ×3 (11:41→18:24)
[2017-08-26 11:54] LABS: Magnesium 1.9 mg/dL (1.6-2.6)
[2017-08-26] MEDS: Megestrol Acetate 400 MG/10 ML UDC PO SCH (12:41)
[2017-08-26] MEDS: Sennosides/Docusate Sodium TABLET PO SCH ×2 (12:41→22:31)
[2017-08-26] MEDS: Potassium Chloride Elixir 20 MEQ/15 ML UDC PO SCH (12:41)
--- NOTE | 2017-08-26 13:00 | Internal Med Progress Note ---
Date of Encounter: 08/26/17 Time of Encounter: 12:57 - Assessment and plan (1) Nausea Current Visit: Yes Status: Acute Assessment and plan: Could be related to chemotherapy. Continue when necessary IV Zofran and Phenergan. Diet as tolerated. (2) Diarrhea Current Visit: Yes Status: Resolved Assessment and plan: currently constipated, has had no bowel movements since 3 days; continue laxatives and stool softeners per Palliative care recommendations; Qualifiers: Diarrhea type: unspecified type Qualified Code(s): R19.7 - Diarrhea, unspecified (3) TYRONE (acute kidney injury) Current Visit: Yes Status: Acute Assessment and plan: Nephrology on board. Serum creatinine and metabolic acidosis noted to be improving patient continues to have anorexia. Continue IV bicarbonate drip. (4) CKD (chronic kidney disease) Current Visit: Yes Status: Chronic Qualifiers: Chronic kidney disease stage: stage 3 (moderate) Qualified Code(s): N18.3 - Chronic kidney disease, stage 3 (moderate) (5) Essential hypertension Current Visit: Yes Status: Chronic (6) Diabetes mellitus Current Visit: Yes Status: Chronic Assessment and plan: Blood sugars noted to be low. Continue Accu-Chek blood glucose monitoring. Diabetic diet as tolerated. Qualifiers: Diabetes mellitus type: type 2 Diabetes mellitus complication status: with unspecified complications Diabetes mellitus [facility] insulin use: with [facility] use Qualified Code(s): E11.8 - Type 2 diabetes mellitus with unspecified complications; Z79.4 - oysterman (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 of insulin; Z79.4 - oysterman ( 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 of insulin; Z79.4 - oysterman (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 of insulin; Z79.4 - intermediate (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 of insulin (7) COPD (chronic obstructive pulmonary disease) Current Visit: Yes Status: Chronic Assessment and plan: Not in acute exacerbation. Continue when necessary bronchodilators and supplemental oxygen. Qualifiers: COPD type: unspecified COPD Qualified Code(s): J44.9 - Chronic obstructive pulmonary disease, unspecified (8) Metastatic adenocarcinoma Current Visit: Yes Status: Chronic Assessment and plan: Patient is noted to have likely primary breast cancer with no obvious mass or lump along with bone metastasis. Follows with oncology as outpatient, oncology has been consulted as inpatient for further input regarding prognosis, will follow-up consult. Patient is unable to tolerate chemotherapy, had 2 doses so far per and developed significant weakness, nausea, emesis, alopecia, painful oral lesions. Palliative care has been consulted due to poor and declining functional status. Patient is currently extremely weak with painful oral lesions and continues to have anorexia, nausea and malnutrition. Goals of care have been discussed, patient and family request more time to make a decision. (9) Hypokalemia Current Visit: Yes Status: Acute Assessment and plan: Continue to supplement with oral and IV potassium chloride, check serum magnesium. (10) Total bilirubin, elevated Current Visit: Yes Status: Resolved Assessment and plan: Bilirubin back to baseline. Thought to be related to IV nafcillin according to previous notes, although this is uncommon. (11) Cancer associated pain Current Visit: Yes Status: Chronic Assessment and plan: Continue fentanyl patch along with when necessary oxycodone. Palliative care is following. (12) Goals of care, counseling/discussion Current Visit: Yes Status: Acute (13) Stomatitis and mucositis with change of taste Current Visit: Yes Status: Acute Assessment and plan: Improving and healing. Continue Magic mouthwash. Diet as tolerated. (14) Moderate protein malnutrition Current Visit: Yes Status: Chronic - Subjective Interval history: Reports significant nausea and some abdominal pain; feels tired and fatigued; lesions in mouth and tongue healing; - Constitutional Vitals: Temp Pulse Resp BP Pulse Ox 98.1 F 100 18 189/80 95 08/26/17 10:21 08/26/17 10:21 08/26/17 10:21 08/26/17 10:21 08/26/17 10:21 General appearance: Present: cooperative, A&O X 3 (appears fatigued), answers questions appropriately - ENT Additional comments: healing dark dry lesions over tongue, oral mucosa - Respiratory Respiratory exam: Present: CTAB. Absent: accessory muscle use, rales, rhonchi, wheezes - Cardiovascular Cardiovascular exam: Present: RRR, +S1, +S2. Absent: diastolic murmur, gallop, rubs, systolic murmur - GI/Abdominal GI/Abdominal exam: Present: normal bowel sounds, soft (tenderness to deep palpation diffusely), no peritoneal signs. Absent: distended, tenderness - Extremities Exam Extremities exam: Present: full ROM, pedal edema, warm, radial pulses palpable and symmetrical. Absent: calf tenderness, cyanotic Additional comments: pitting peripheral edema in all 4 extremities - Neurological Exam Neurological exam: Present: CN II-XII intact, oriented X3, no focal deficits. Absent: pronater drift, facial droop, speech deficit Internal Medicine: Result - Labs CBC & Chem 7: 08/26/17 03:30 08/26/17 03:30 Labs: Short CBC 08/26/17 Range/Units 03:30 WBC 7.3 (4.3-11.1) K/mcL Hgb 8.0 L (11.5-15.4) g/dL Hct 24.2 L (35.3-44.9) % Plt Count 120 L (140-400) K/mcL Neutrophils # 4.5 (1.6-8.9) K/mcL BMP 08/26/17 03:30 Sodium 142 Potassium 3.2 L Chloride 116 H Carbon Dioxide 16 L BUN 57 H Creatinine 2.60 H Glucose 85 Calcium 8.2 L Liver Function 08/26/17 Range/Units 03:30 Total Bilirubin 1.2 H (0.3-1.0) mg/dL AST 17 (13-39) Units/L ALT < 3 L (7-52) Units/L Alkaline Phosphatase 69 (34-104) Units/L Albumin 2.3 L (3.5-5.7) g/dL - ABG Interpretation ABG results: PT/INR, D-dimer PT 15.3 Seconds (9.4-12.1) H 08/23/17 07:06 - Impressions Impressions Abdomen X-Ray 08/25/17 14:20 IMPRESSION: Nonobstructive small bowel gas pattern. No evidence of free intraperitoneal air. Scattered air in the colon, without visualized significant stool burden. Small left pleural effusion with basilar atelectasis and/or consolidation, mildly increased from prior exam. D/ / Mannie Andrade MD / Mannie Andrade MD Interpreting Provider: Mannie Andrade MD Retroperitoneum Ultrasound 08/25/17 15:00 IMPRESSION: 1. Mild bilateral hydronephrosis, which appears new from 08/07/2017, although unchanged from 08/23/2017. 2. Markedly distended bladder. D/ / Mannie Andrade MD / Mannie Andrade MD Interpreting Provider: Mannie Andrade MD - VTE Documentation of Mechanical Device: Intermittent pneumatic compression device Consult Discharge Plan - Plan Referrals: Nazia Deleon CNP [Primary Care Provider] - (will be going to SNF)
--- NOTE | 2017-08-26 13:24 | Infectious Disease Progress No ---
Date of Encounter: 08/26/17 Time of Encounter: 13:22 - Assessment and Plan (1) Bacteremia Current Visit: Yes Status: Acute Causative organism: MSSA. Source likely the right upper chest a-port insertion vs. recent access. Status post removal 08/10/17. Seropurulent drainage noted in the pocket on removal. Culture positive for MSSA. Uncomplicated. Peripheral blood cultures drawn 08/07/17 were positive 2/2 sets for MSSA. Repeat peripheral blood cultures drawn 08/09/17 were positive 2/2 sets for MSSA. Blood culture drawn from the a-port 08/10/17 was positive 1/1 set for MSSA as well. Additional peripheral blood cultures drawn 08/12/17 were positive 1/2 sets. Repeat peripheral blood cultures drawn 08/14/16 negative x 2 sets. Etiology of persistently positive blood cultures likely due to 08/12/16 blood cultures drawn <24 hours after a-port was removed. No endocarditis stigmata noted on exam. TTE negative for vegetations. CHELA aborted due to patient unable to tolerate the procedure. The patient had one major and one minor Modified Jensen's Criteria. She was discharged home on IV Nafcillin and came back with hyperbilirubinemia. Not sure if this was caused by the Nafcillin or not, but Nafcillin was discontinued on admission and switched to cefazolin. Continue cefazolin 1 gram IV Q8H. Dosed for creatinine clearance of 15. Dosing discussed with Rylee Beasley. Duration of treatment depends on the clinical picture, but likely two weeks from the first set of negative blood cultures. Treat through 08/28/17, then discontinue. Monitor renal function and dose-adjust antibiotics. (2) Elevated bilirubin Current Visit: Yes Status: Acute Total bili 4.4 on admission. Direct bili 3.3, indirect 1.1. Etiology not entirely clear: Nafcillin vs. Acyclovir vs. other. Improved. Continue to trend. Avoid hepatotoxins as able. (3) TYRONE (acute kidney injury) Current Visit: Yes Status: Acute Serum creatinine elevated at 2.61 on admission. Etiology not entirely clear, but likely multifactorial and pre-renal: dehydration + nafcillin. RUQ UTS showed mild right sided HN. Renal UTS showed mild bilateral hydronephrosis. Nephrology consulted and following. Continue to trend. Dose-adjust antibiotics. Avoid nephrotoxins as able. (4) Weakness generalized Current Visit: Yes Status: Chronic PT/OT consulted for evaluation and treatment. Consider formal outpatient rehabilitation to maximize patient functionality. (5) Hypokalemia Current Visit: Yes Status: Resolved Likely secondary to poor PO intake. Resolved. (6) Abdominal pain Current Visit: Yes Status: Acute Etiology unclear. CT scan from previous hospitalization negative. Abdominal x-ray negative for obstruction or ileus. Pain management per the primary team Qualifiers: Abdominal location: generalized Qualified Code(s): R10.84 - Generalized abdominal pain (7) Anemia Current Visit: Yes Status: Chronic Qualifiers: Anemia type: unspecified type Qualified Code(s): D64.9 - Anemia, unspecified (8) Cancer associated pain Current Visit: Yes Status: Acute Palliative care team consulted and following. Patient reports improvement with changes in medication regimen. (9) Carcinoma of breast metastatic to bone Current Visit: No Status: Chronic Newly diagnosed. Recently started weekly doses of Taxol. [facility]s with [facility]. Qualifiers: Laterality: unspecified laterality Qualified Code(s): C50.919 - Malignant neoplasm of unspecified site of unspecified female breast; C79.51 - Secondary malignant neoplasm of bone; C79.51 - Secondary malignant neoplasm of bone; C79.51 - Secondary malignant neoplasm of bone; C79.51 - Secondary malignant neoplasm of bone (10) Diabetes mellitus Current Visit: Yes Status: Chronic Uncontrolled. HgbA1C 8.4%. Recommend aggressive glucose monitoring and control. Management per the primary team. 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 Treated with 5 days of antivirals. Appears improved. Recommend aggressive mouth care and chlorhexidine rinse if the patient can tolerate. (12) Hypertension Current Visit: Yes Status: Chronic Qualifiers: Hypertension type: unspecified Qualified Code(s): I10 - Essential (primary ) hypertension - Subjective Interval history: Patient seen and examined. No acute events noted overnight. Patient states that overall she doesn't feel very well. She denies fevers, chills, or rigors. Denies chest pain, but reports some shortness of breath. Denies cough. Reports nausea and vomiting. Complains of upper abdominal pain. Reports no BM x 3 days. Reports back and leg pain improved today. Infect Dis PN-Objective Data - Labs CBC & Chem 7: 08/26/17 03:30 08/26/17 03:30 Labs: Laboratory Results - last 24 hr 08/25/17 08/25/17 08/25/17 08:11 11:40 16:52 WBC RBC Hgb Hct MCV MCH MCHC RDW Plt Count MPV Immature Gran % Seg Neutrophils % Lymphocytes % Monocytes % Eosinophils % Basophils % Neutrophils # Lymphocytes # Monocytes # Eosinophils # Basophils # Immature Plt Fraction Sodium Potassium Chloride Carbon Dioxide BUN Creatinine Est GFR ( Amer) Est GFR (Non-Af Amer) BUN/Creatinine Ratio Glucose POC Glucose 97 H 90 H 89 Calculated Osmolality Calcium Magnesium Total Bilirubin AST ALT Alkaline Phosphatase Serum Total Protein Albumin Globulin Albumin/Globulin Ratio 08/25/17 08/26/17 08/26/17 22:26 03:30 03:30 WBC 7.3 RBC 2.64 L Hgb 8.0 L Hct 24.2 L MCV 91.7 MCH 30.3 MCHC 33.1 RDW 19.9 H Plt Count 120 L MPV 10.5 Immature Gran % 0.5 Seg Neutrophils % 62.3 Lymphocytes % 25.0 Monocytes % 7.4 Eosinophils % 4.0 Basophils % 0.8 Neutrophils # 4.5 Lymphocytes # 1.8 Monocytes # 0.5 Eosinophils # 0.3 Basophils # 0.1 Immature Plt Fraction 1.7 Sodium 142 Potassium 3.2 L Chloride 116 H Carbon Dioxide 16 L BUN 57 H Creatinine 2.60 H Est GFR ( Amer) 22 L Est GFR (Non-Af Amer) 18 L BUN/Creatinine Ratio 22 Glucose 85 POC Glucose 104 H Calculated Osmolality 309 H Calcium 8.2 L Magnesium 1.9 Total Bilirubin 1.2 H AST 17 ALT < 3 L Alkaline Phosphatase 69 Serum Total Protein 5.3 L Albumin 2.3 L Globulin 3.0 Albumin/Globulin Ratio 0.8 L Cultures: Cultures 08/22/17 16:45 Blood Culture - Preliminary Peripheral Central Cath, Picc No growth. 08/22/17 16:22 Blood Culture - Preliminary Peripheral Venipuncture No growth. Serology 08/22/17 Range/Units 19:16 Stl C. diff Tox B Gene Negative (Negative) - Impressions Impressions Abdomen X-Ray 08/25/17 14:20 IMPRESSION: Nonobstructive small bowel gas pattern. No evidence of free intraperitoneal air. Scattered air in the colon, without visualized significant stool burden. Small left pleural effusion with basilar atelectasis and/or consolidation, mildly increased from prior exam. D/ / Mannie Andrade MD / Mannie Andrade MD Interpreting Provider: Mannie Andrade MD Retroperitoneum Ultrasound 08/25/17 15:00 IMPRESSION: 1. Mild bilateral hydronephrosis, which appears new from 08/07/2017, although unchanged from 08/23/2017. 2. Markedly distended bladder. D/ / Mannie Andrade MD / Mannie Andrade MD Interpreting Provider: Mannie Andrade MD Exam - Constitutional Vitals: Temp Pulse Resp BP Pulse Ox 98.1 F 100 18 189/80 95 08/26/17 10:21 08/26/17 10:21 08/26/17 10:21 08/26/17 10:21 08/26/17 10:21 General appearance: average body habitus, cooperative, no acute distress - Head Head exam: Present: atraumatic, normal inspection, normocephalic - Eye Eye exam: Present: EOMI, normal appearance, PERRL Pupils: Present: normal accommodation Additional comments: No subconjunctival hemorrhage noted. - ENT ENT exam: Present: mucous membranes dry Additional comments: Dry scabbing noted to the oral mucosa. - Neck Neck exam: Present: normal inspection - Respiratory Respiratory exam: Present: CTAB. Absent: rales, respiratory distress, rhonchi, wheezes - Cardiovascular Cardiovascular exam: Present: RRR, +S1, +S2 - GI/Abdominal GI/Abdominal exam: Present: normal bowel sounds, soft, tenderness (generalized) . Absent: distended - Extremities Exam Extremities exam: Present: pedal edema (1+ BLE). Absent: joint swelling, tenderness - Neurological Exam Neurological exam: Present: alert, oriented X3, no focal deficits - Psychiatric Psychiatric exam: Present: normal affect, normal mood - Skin Skin exam: Present: dry, intact, normal color, warm Additional comments: No endocarditis stigmata noted. - VTE Documentation of Mechanical Device: Intermittent pneumatic compression device Consult Discharge Plan - Plan Referrals: Nazia Deleon, SENIOR STEREO COMPILER TEAM LEAD [Primary Care Provider] - (will be going to SNF) - Attending Attestation I examined this patient and my medical decision-making was reviewed with the Resident Physician. I agree with the documented findings, disposition and treatment plan as described except to the extent set forth below.
--- NOTE | 2017-08-26 13:53 | Nephrology Progress Note ---
Date of Encounter: 08/26/17 Time of Encounter: 13:44 - Assessment and Plan (1) TYRONE (acute kidney injury) Current Visit: Yes Status: Acute Patient with TYRONE with a creatinine that is slightly better as compared to yesterday. Will continue additional fluid as the patient is not eating much. Avoid nephrotoxins. Adjust medications for renal function. (2) Hypertension Current Visit: Yes Status: Chronic Home medication is being added back to her regimen. Qualifiers: Hypertension type: unspecified Qualified Code(s): I10 - Essential (primary ) hypertension (3) Metabolic acidosis Current Visit: Yes Status: Acute Improving with IV sodium bicarb infusion. (4) Anemia Current Visit: Yes Status: Chronic Per primary team. Hemoglobin slightly down. Transfuse as needed. Qualifiers: Anemia type: unspecified type Qualified Code(s): D64.9 - Anemia, unspecified (5) Hypokalemia Current Visit: Yes Status: Resolved Replace potassium as needed. Optimize magnesium. (6) Cancer associated pain Current Visit: Yes Status: Acute Palliative care following (7) Diabetes mellitus Current Visit: Yes Status: Chronic Per primary team. Qualifiers: Diabetes mellitus type: type 2 Diabetes mellitus complication status: with unspecified complications Diabetes mellitus longterm insulin use: with longterm use Qualified Code(s): E11.8 - Type 2 diabetes mellitus with unspecified complications; Z79.4 - care home (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 of insulin; Z79.4 - care home ( 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 of insulin; Z79.4 - care home (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 of insulin; Z79.4 - care home (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 of insulin (8) Weakness generalized Current Visit: Yes Status: Chronic Patient with poor prognosis. (9) Metastatic adenocarcinoma Current Visit: No Status: Acute Per primary team/oncology. Subjective Principal diagnosis: TYRONE on CKD Interval history: Patient seen. Her is at her side. No new complaints. Objective - Vital Signs Vital signs: Vital Signs Temp Pulse Resp BP Pulse Ox 08/26/17 10:21 98.1 F 100 18 189/80 95 08/26/17 07:24 97.8 F 96 19 190/85 96 08/26/17 03:49 98.1 F 102 22 178/73 93 08/26/17 01:15 98.5 F 96 22 164/77 93 08/25/17 19:46 98.7 F 114 20 156/76 93 08/25/17 16:33 98.5 F 105 16 182/84 94 Intake and Output 08/25/17 08/26/17 08/26/17 23:59 07:59 15:59 Intake Total 370 / 370 100 / 100 Output Total 0 / 0 Balance 370 / 370 100 / 100 Intake: IV Fluids 100 / 100 100 / 100 Ancef 1,000 MG In 0.9 % Sodium 100 / 100 100 / 100 Chloride (Mini-Bag +) 100 ML @ 200 mls/hr IVPB Q8H BRIAN Rx#: [id number] Oral 270 / 270 Output: Urine 0 / 0 Other: Meal Dinner Percent of Meal Consumed 25% # Urine Diapers 1 Blood Glucose* 104 83 94 - General Appearance General appearance: Present: well-developed, well-nourished EENT: Present: ATNC Additional Comments: Respirations are unlabored. Additional Comments: tachycardic Psychiatric: Present: depressed - Lab 08/26/17 03:30 08/26/17 03:30 Most recent lab results Calcium 8.2 mg/dL (8.6-10.3) L 08/26/17 03:30 Phosphorus 5.4 mg/dL (2.7-4.5) H 08/23/17 07:06 Magnesium 1.9 mg/dL (1.6-2.6) 08/26/17 03:30 - VTE Documentation of Mechanical Device: Intermittent pneumatic compression device Consult Discharge Plan - Plan Referrals: Nazia Deleon, SHARK BIOLOGIST [Primary Care Provider] - (will be going to SNF)
[2017-08-26] MEDS: Metoprolol XL (24 HR) Succ 50 MG TAB.ER.24H PO SCH (14:37)
[2017-08-26] MEDS: Ondansetron 4 MG/2 ML VIAL IVP PRN (14:38)
--- NOTE | 2017-08-26 14:50 | Palliative Progress Note ---
<Maria Shaver - Last Filed: 08/26/17 14:50> Date of Encounter: 08/26/17 Time of Encounter: 10:00 - Assessment and plan (1) Cancer associated pain Current Visit: Yes Status: Acute Assessment and plan: Patient appears in no acute distress. Patient denies any pain since the Duragesic patch was placed. Continue the Duragesic 25mg patch and continue Oxycodone 15mg every 4 hours for breakthrough pain. Monitor and titrate as needed. (2) Constipation Current Visit: Yes Status: Acute Assessment and plan: Constipation most likely secondary to opiods. Continue Senna-plus BID and monitor bowel movements. Qualifiers: Constipation type: unspecified constipation type Qualified Code(s): K59.00 - Constipation, unspecified (3) Counseling regarding advanced care planning and goals of care Current Visit: Yes Status: Acute Assessment and plan: Dr. Cason addressed code status again in the room, but the patient would like more time for the consideration. Patient will discuss it further with [place]. (4) Decreased appetite Current Visit: Yes Status: Acute (5) Nausea Current Visit: No Status: Acute Assessment and plan: Increase in nausea may be medication induced. Will continue to schedule antiemetics. (6) Carcinoma of breast metastatic to bone Current Visit: No Status: Chronic Qualifiers: Laterality: unspecified laterality Qualified Code(s): C50.919 - Malignant neoplasm of unspecified site of unspecified female breast; C79.51 - Secondary malignant neoplasm of bone; C79.51 - Secondary malignant neoplasm of bone; C79.51 - Secondary malignant neoplasm of bone; C79.51 - Secondary malignant neoplasm of bone - Time Spent With Patient Total time spent is greater than 50% in coordination of care (as documented) at patient's floor/unit and/or counseling patient: 25 - 35 minutes - Subjective Interval history: Patient is awake and oriented with at bedside. Patient is in no acute distress. Patient denies any pain since the fentenyl patch was placed on her. Patient complains of nausea and vomiting that has been intermittent. However, patient and notice it has worsen since the fentenyl patch was placed. Nausea and vomiting may be medication induced. - Constitutional Vitals: Abnormal lab results RBC 2.64 M/mcL (3.82-4.97) L 08/26/17 03:30 Hgb 8.0 g/dL (11.5-15.4) L 08/26/17 03:30 Hct 24.2 % (35.3-44.9) L 08/26/17 03:30 RDW 19.9 % (11.5-14.5) H 08/26/17 03:30 Plt Count 120 K/mcL (140-400) L 08/26/17 03:30 Nucleated RBCs/100 WBC 0.3 /100 WBC (0) H 08/23/17 15:20 PT 15.3 Seconds (9.4-12.1) H 08/23/17 07:06 Potassium 3.2 mEq/L (3.5-5.1) L 08/26/17 03:30 Chloride 116 mEq/L (98-107) H 08/26/17 03:30 Carbon Dioxide 16 mEq/L (23-29) L 08/26/17 03:30 BUN 57 mg/dL (8-23) H 08/26/17 03:30 Creatinine 2.60 mg/dL (0.60-1.20) H 08/26/17 03:30 Est GFR ( Amer) 22 (> 60) L 08/26/17 03:30 Est GFR (Non-Af Amer) 18 (> 60) L 08/26/17 03:30 POC Glucose 104 (58-89) H 08/25/17 22:26 Calculated Osmolality 309 (280-300) H 08/26/17 03:30 Calcium 8.2 mg/dL (8.6-10.3) L 08/26/17 03:30 Phosphorus 5.4 mg/dL (2.7-4.5) H 08/23/17 07:06 Iron 30 mcg/dL (50-170) L 08/25/17 05:45 Transferrin 125 mg/dL (203-362) L 08/25/17 05:45 Ferritin > 1350 ng/ml (10-120) H 08/24/17 12:33 Total Bilirubin 1.2 mg/dL (0.3-1.0) H 08/26/17 03:30 Direct Bilirubin 3.3 mg/dL (0.0-0.2) H 08/22/17 10:27 ALT < 3 Units/L (7-52) L 08/26/17 03:30 B-Natriuretic Peptide 102 pg/mL (Less than 100) H 08/23/17 07:06 Serum Total Protein 5.3 g/dL (6.4-8.9) L 08/26/17 03:30 Albumin 2.3 g/dL (3.5-5.7) L 08/26/17 03:30 Albumin/Globulin Ratio 0.8 (1.1-2.2) L 08/26/17 03:30 Vitamin B12 2102 pg/mL (250-1100) H 08/24/17 12:33 General appearance: Present: cooperative, obese. Absent: no acute distress - Eye Eye exam: Present: EOMI, normal appearance, PERRL Pupils: Present: PERRL - Respiratory Respiratory exam: Present: decreased breath sounds. Absent: chest wall tenderness, respiratory distress - Cardiovascular Cardiovascular exam: Present: RRR. Absent: diastolic murmur, gallop, tachycardia - GI/Abdominal GI/Abdominal exam: Present: soft. Absent: distended, guarding, tenderness - Extremities Exam Extremities exam: Present: pedal edema. Absent: calf tenderness, tenderness Additional comments: +2 pitting edema present bilaterally. - Neurological Exam Neurological exam: Present: alert, oriented X3. Absent: altered, motor sensory deficit, facial droop, speech deficit Palliative Quality Palliative Quality: Screen for Code Status: Yes, Screen for Goals of Care: Yes, Screen for Pain: Yes, If Pain Regimen Started, Initiate Bowel Regimen: Yes, Screen for Nausea/Vomitting: Yes Code Status: 08/22/17 15:40 Resuscitation Status: Active [RES] Routine Comment: Resuscitation Status: Full Code - Labs CBC & Chem 7: 08/26/17 03:30 08/26/17 03:30 Labs: Laboratory Results - last 24 hr 08/25/17 08/25/17 08/25/17 08:11 11:40 16:52 WBC RBC Hgb Hct MCV MCH MCHC RDW Plt Count MPV Immature Gran % Seg Neutrophils % Lymphocytes % Monocytes % Eosinophils % Basophils % Neutrophils # Lymphocytes # Monocytes # Eosinophils # Basophils # Immature Plt Fraction Sodium Potassium Chloride Carbon Dioxide BUN Creatinine Est GFR ( Amer) Est GFR (Non-Af Amer) BUN/Creatinine Ratio Glucose POC Glucose 97 H 90 H 89 Calculated Osmolality Calcium Magnesium Total Bilirubin AST ALT Alkaline Phosphatase Serum Total Protein Albumin Globulin Albumin/Globulin Ratio 08/25/17 08/26/17 08/26/17 22:26 03:30 03:30 WBC 7.3 RBC 2.64 L Hgb 8.0 L Hct 24.2 L MCV 91.7 MCH 30.3 MCHC 33.1 RDW 19.9 H Plt Count 120 L MPV 10.5 Immature Gran % 0.5 Seg Neutrophils % 62.3 Lymphocytes % 25.0 Monocytes % 7.4 Eosinophils % 4.0 Basophils % 0.8 Neutrophils # 4.5 Lymphocytes # 1.8 Monocytes # 0.5 Eosinophils # 0.3 Basophils # 0.1 Immature Plt Fraction 1.7 Sodium 142 Potassium 3.2 L Chloride 116 H Carbon Dioxide 16 L BUN 57 H Creatinine 2.60 H Est GFR ( Amer) 22 L Est GFR (Non-Af Amer) 18 L BUN/Creatinine Ratio 22 Glucose 85 POC Glucose 104 H Calculated Osmolality 309 H Calcium 8.2 L Magnesium 1.9 Total Bilirubin 1.2 H AST 17 ALT < 3 L Alkaline Phosphatase 69 Serum Total Protein 5.3 L Albumin 2.3 L Globulin 3.0 Albumin/Globulin Ratio 0.8 L - Impressions Impressions Abdomen X-Ray 08/25/17 14:20 IMPRESSION: Nonobstructive small bowel gas pattern. No evidence of free intraperitoneal air. Scattered air in the colon, without visualized significant stool burden. Small left pleural effusion with basilar atelectasis and/or consolidation, mildly increased from prior exam. D/ / Mannie Andrade MD / Mannie Andrade MD Interpreting Provider: Mannie Andrade MD Retroperitoneum Ultrasound 08/25/17 15:00 IMPRESSION: 1. Mild bilateral hydronephrosis, which appears new from 08/07/2017, although unchanged from 08/23/2017. 2. Markedly distended bladder. D/ / Mannie Andrade MD / Mannie Andrade MD Interpreting Provider: Mannie Andrade MD - ABG Interpretation ABG results: PT/INR, D-dimer PT 15.3 Seconds (9.4-12.1) H 08/23/17 07:06 Consult Discharge Plan - Plan Referrals: Nazia Deleon, MANAGED CARE COORDINATOR [Primary Care Provider] - (will be going to SNF) <Kana Cason - Last Filed: 08/26/17 15:23> Date of Encounter: 08/26/17 - Time Spent With Patient Total time spent is greater than 50% in coordination of care (as documented) at patient's floor/unit and/or counseling patient: - Constitutional Vitals: Abnormal lab results RBC 2.64 M/mcL (3.82-4.97) L 08/26/17 03:30 Hgb 8.0 g/dL (11.5-15.4) L 08/26/17 03:30 Hct 24.2 % (35.3-44.9) L 08/26/17 03:30 RDW 19.9 % (11.5-14.5) H 08/26/17 03:30 Plt Count 120 K/mcL (140-400) L 08/26/17 03:30 Nucleated RBCs/100 WBC 0.3 /100 WBC (0) H 08/23/17 15:20 PT 15.3 Seconds (9.4-12.1) H 08/23/17 07:06 Potassium 3.2 mEq/L (3.5-5.1) L 08/26/17 03:30 Chloride 116 mEq/L (98-107) H 08/26/17 03:30 Carbon Dioxide 16 mEq/L (23-29) L 08/26/17 03:30 BUN 57 mg/dL (8-23) H 08/26/17 03:30 Creatinine 2.60 mg/dL (0.60-1.20) H 08/26/17 03:30 Est GFR ( Amer) 22 (> 60) L 08/26/17 03:30 Est GFR (Non-Af Amer) 18 (> 60) L 08/26/17 03:30 POC Glucose 104 (58-89) H 08/25/17 22:26 Calculated Osmolality 309 (280-300) H 08/26/17 03:30 Calcium 8.2 mg/dL (8.6-10.3) L 08/26/17 03:30 Phosphorus 5.4 mg/dL (2.7-4.5) H 08/23/17 07:06 Iron 30 mcg/dL (50-170) L 08/25/17 05:45 Transferrin 125 mg/dL (203-362) L 08/25/17 05:45 Ferritin > 1350 ng/ml (10-120) H 08/24/17 12:33 Total Bilirubin 1.2 mg/dL (0.3-1.0) H 08/26/17 03:30 Direct Bilirubin 3.3 mg/dL (0.0-0.2) H 08/22/17 10:27 ALT < 3 Units/L (7-52) L 08/26/17 03:30 B-Natriuretic Peptide 102 pg/mL (Less than 100) H 08/23/17 07:06 Serum Total Protein 5.3 g/dL (6.4-8.9) L 08/26/17 03:30 Albumin 2.3 g/dL (3.5-5.7) L 08/26/17 03:30 Albumin/Globulin Ratio 0.8 (1.1-2.2) L 08/26/17 03:30 Vitamin B12 2102 pg/mL (250-1100) H 08/24/17 12:33 - Attending Attestation I examined this patient and my medical decision-making was reviewed with the Resident Physician. I agree with the documented findings, disposition and treatment plan as described except to the extent set forth below. Palliative Quality Code Status: 08/22/17 15:40 Resuscitation Status: Active [RES] Routine Comment: Resuscitation Status: Full Code - Labs CBC & Chem 7: 08/26/17 03:30 08/26/17 03:30 Labs: Laboratory Results - last 24 hr 08/25/17 08/25/17 08/25/17 08:11 11:40 16:52 WBC RBC Hgb Hct MCV MCH MCHC RDW Plt Count MPV Immature Gran % Seg Neutrophils % Lymphocytes % Monocytes % Eosinophils % Basophils % Neutrophils # Lymphocytes # Monocytes # Eosinophils # Basophils # Immature Plt Fraction Sodium Potassium Chloride Carbon Dioxide BUN Creatinine Est GFR ( Amer) Est GFR (Non-Af Amer) BUN/Creatinine Ratio Glucose POC Glucose 97 H 90 H 89 Calculated Osmolality Calcium Magnesium Total Bilirubin AST ALT Alkaline Phosphatase Serum Total Protein Albumin Globulin Albumin/Globulin Ratio 08/25/17 08/26/17 08/26/17 22:26 03:30 03:30 WBC 7.3 RBC 2.64 L Hgb 8.0 L Hct 24.2 L MCV 91.7 MCH 30.3 MCHC 33.1 RDW 19.9 H Plt Count 120 L MPV 10.5 Immature Gran % 0.5 Seg Neutrophils % 62.3 Lymphocytes % 25.0 Monocytes % 7.4 Eosinophils % 4.0 Basophils % 0.8 Neutrophils # 4.5 Lymphocytes # 1.8 Monocytes # 0.5 Eosinophils # 0.3 Basophils # 0.1 Immature Plt Fraction 1.7 Sodium 142 Potassium 3.2 L Chloride 116 H Carbon Dioxide 16 L BUN 57 H Creatinine 2.60 H Est GFR ( Amer) 22 L Est GFR (Non-Af Amer) 18 L BUN/Creatinine Ratio 22 Glucose 85 POC Glucose 104 H Calculated Osmolality 309 H Calcium 8.2 L Magnesium 1.9 Total Bilirubin 1.2 H AST 17 ALT < 3 L Alkaline Phosphatase 69 Serum Total Protein 5.3 L Albumin 2.3 L Globulin 3.0 Albumin/Globulin Ratio 0.8 L - Impressions Impressions Abdomen X-Ray 08/25/17 14:20 IMPRESSION: Nonobstructive small bowel gas pattern. No evidence of free intraperitoneal air. Scattered air in the colon, without visualized significant stool burden. Small left pleural effusion with basilar atelectasis and/or consolidation, mildly increased from prior exam. D/ / Mannie Andrade MD / Mannie Andrade MD Interpreting Provider: Mannie Andrade MD Retroperitoneum Ultrasound 08/25/17 15:00
[2017-08-26] MEDS: Chlorhexidine Rinse 15 ML MOUTHWASH MM SCH ×2 (16:24→22:31)
[2017-08-26] MEDS: Metoclopramide 10 MG/2 ML VIAL IVP SCH ×2 (18:24→23:12)
[2017-08-26 19:29] LABS: Bilirubin,Urine Negative (Negative); Blood,Urine Negative (Negative); Clarity,Urine Cloudy (Clear); Color,Urine Yellow (Yellow); Glucose,Urine (UA) Normal (Normal); Ketones,Urine Negative (Negative); Leukocyte Esterase,Urine Moderate (Negative); Nitrite,Urine Negative (Negative); PH,Urine 6.5 pH Units (5.0-8.0); Protein,Urine Trace mg/dL (Neg-Trace); Specific Gravity,Urine 1.012 (1.010-1.025); Urobilinogen,Urine Normal (Normal)
[2017-08-26 19:35] LABS: Bacteria,Urine None Seen per hpf (None-Few); Hyaline Casts,Urine None Seen per lpf (None-Few); Squamous Epithelial Cell,Urine Many per lpf (None-Few); WBC,Urine 30-50 per hpf (0-3)
[2017-08-26 19:57] LABS: Yeast,Urine Many per hpf (None Seen)
[2017-08-26] MEDS ORDERED: Sodium Bicarbonate 75 MEQ in 0.45 % Sodium Chloride 1,000 ML IVC SCH (21:30)
[2017-08-26 22:23] LABS: Sodium, Urine 61.3 mEq/L
[2017-08-26] MEDS: valACYclovir 500 MG TABLET PO SCH (22:31)
[2017-08-26] MEDS: Acetaminophen 325 MG TABLET PO PRN ×2 (22:57→23:01)
[2017-08-27] MEDS: Chlorhexidine Rinse 15 ML MOUTHWASH MM SCH ×3 (01:10→20:11)
[2017-08-27] MEDS: ceFAZolin 1,000 MG in 0.9 % Sodium Chloride Mini Bag 100 ML IVPB SCH ×2 (04:00→11:34)
[2017-08-27] MEDS: Metoclopramide 10 MG/2 ML VIAL IVP SCH ×4 (05:39→23:30)
[2017-08-27 06:09] LABS: Hemoglobin 7.7 g/dL (11.5-15.4); Immature Granulocytes % 0.6 % (0-4)
[2017-08-27 06:11] LABS: Basophils % 0.4 %; Eosinophils # 0.3 K/mcL (0.0-0.6); Eosinophils % 4.8 %; Hematocrit 23.1 % (35.3-44.9); Lymphocytes # 1.1 K/mcL (0.6-4.6); Lymphocytes % 20.7 %; Mean Corpuscular HGB Conc 33.3 g/dL (31.6-35.5); Mean Corpuscular Hemoglobin 30.6 pg (28.0-33.3); Mean Corpuscular Volume 91.7 fL (83.0-100.0); Mean Platelet Volume 10.7 fL (9.4-12.4); Monocytes # 0.3 K/mcL (0.0-1.3); Monocytes % 6.2 %; Neutrophils # 3.5 K/mcL (1.6-8.9); Nucleated Red Blood Cells 0.8 /100 WBC (0); Red Blood Count 2.52 M/mcL (3.82-4.97); Red Cell Distribution Width 19.7 % (11.5-14.5); Segmented Neutrophils % 67.3 %
[2017-08-27 06:12] LABS: Alanine Aminotransferase < 3 Units/L (7-52); Albumin/Globulin Ratio 0.7 (1.1-2.2); Alkaline Phosphatase 70 Units/L (34-104); Aspartate Amino Transferase 17 Units/L (13-39); BUN/Creatinine Ratio 28 (6-26); Blood Urea Nitrogen 42 mg/dL (8-23); Calcium 7.7 mg/dL (8.6-10.3); Carbon Dioxide 20 mEq/L (23-29); Chloride 115 mEq/L (98-107); Globulin 2.9 g/dL (2.4-3.5); Glucose 96 mg/dL (70-105); Osmolality,Calculated 306 (280-300); Sodium 143 mEq/L (136-145); Total Protein 4.9 g/dL (6.4-8.9); eGFR For African Americans 41 (> 60); eGFR For Non-African Americans 34 (> 60)
[2017-08-27 06:13] LABS: Platelet Count 98 K/mcL (140-400)
--- NOTE | 2017-08-27 09:10 | Oncology Inp Progress Note ---
<Florence Monahan L - Last Filed: 08/27/17 17:55> Date of Encounter: 08/27/17 Time of Encounter: 09:20 (1) Carcinoma of breast metastatic to bone Current Visit: No Status: Chronic Assessment and plan: TYRONE and elevated bilirubin -stable, improving. Nephrology and ID following. Nafcillin changed to Ancef while inpatient. Nausea and vomiting, onset about 3-4 days ago, recently worsening. Palliative care following, she has IV zofran and phenergan. Acute lower back pain that is debilitating, Duragesic patch is helping to control this pain. New onset bladder/bowel incontinence, Lumbar/Thoracic MRI wo contrast reveals numerous osseous metastases lesions with no evidence of pathologic fracture, no gross thoracic spinal canal or neural foraminal stenosis. Significant lesions to oral cavity, likely not chemo induced at this time as it has been 3-4 weeks since last treatment. Continue magic mouthwash. Started Valacyclovir 1 gram/daily, decreased dosing for renal function, will monitor BUN /Creat/GFR for need to decrease dose further. Dr. Haji had discussion with patient/patients yesterday regarding poor prognosis and recent clinical decline. Given her guarded condition likely due to widespread metastatic burden, she would not be a candidate to continue chemotherapy treatment in her current condition and rehabilitation is likely not achievable as rehab has been the goal over the past few weeks, with the patient only declining further. This is understandably a difficult discussion and realization between patient/ patients and he would benefit from further discussions and support. Discussed plan of care with Palliative team, they will follow up with further discussion and discharge for home with hospice. Patient/patients have no further questions for oncology at this time, offered continues support during this difficult time. Patient has had no significant improvement overnight. SOB unchanged, LS rhonchi bilat, she has spiked fever overnight Tmax 100.8, Thoracic MRI shows bilat pleural effusions. ID following, Chest CT, no evidence of large enough pleural effusion that thoracentesis would offer significant relief at this time, discussed plan to not pursue thoracentesis with , he agrees. Please refer to Dr. Haji's attestation below for further details. Qualifiers: Laterality: unspecified laterality Qualified Code(s): C50.919 - Malignant neoplasm of unspecified site of unspecified female breast; C79.51 - Secondary malignant neoplasm of bone; C79.51 - Secondary malignant neoplasm of bone; C79.51 - Secondary malignant neoplasm of bone; C79.51 - Secondary malignant neoplasm of bone Oncology: Subj Interval history: Ms. Catalan reports lower back pain under better control today, rates pain 3-4 after receiving pain medication. Nausea and vomiting currently under control, she was able to so far keep down her am medications, she has multiple IV PRN nausea medications. at bedside. - Constitutional Vitals: Vital Signs Temp Pulse Resp BP Pulse Ox 08/27/17 07:11 100.8 F H 95 17 200/76 95 08/27/17 04:06 98.8 F 93 16 190/93 94 08/26/17 23:50 99.1 F 96 22 156/71 93 08/26/17 21:45 100.6 F H 97 20 182/78 93 08/26/17 14:29 98.8 F 92 17 173/90 95 08/26/17 10:21 98.1 F 100 18 189/80 95 Intake and Output 08/26/17 08/27/17 08/27/17 23:59 07:59 15:59 Intake Total 200 / 200 Balance 200 / 200 Intake: IV Fluids 200 / 200 Potassium Chloride 10 mEq/100mL 100 / 100 10 meq In 100 ml @ 100 mls/hr IVPB Q1H [facility] Rx#:[id number] Ancef 1,000 MG In 0.9 % Sodium 100 / 100 Chloride (Mini-Bag +) 100 ML @ 200 mls/hr IVPB Q8H [facility] Rx#: [id number] Oral 0 / 0 Other: Blood Glucose* 108 106 General appearance: febrile Exam: appears fatigued and ill but non toxic - Head Head exam: Present: atraumatic - Respiratory Respiratory exam: Present: rhonchi - Cardiovascular Cardiovascular exam: Present: RRR, +S1, +S2 - GI/Abdominal GI/Abdominal exam: Present: normal bowel sounds, soft, tenderness - Extremities Exam Extremities exam: Present: pedal edema - Expanded Upper Extremity Exam Upper Arm exam: Present: swelling - Expanded Lower Extremity Exam Lower leg exam: Present: swelling - Neurological Exam Neurological exam: Present: alert, oriented X3, strengths equal and symetr throughout. Absent: no focal deficits Additional comments: bilat muscle strength 2/5 - Psychiatric Psychiatric exam: Present: flat affect - Skin Skin exam: Present: pallor, warm Additional comments: healing lesions ANDREEA, secondary to edema Oncology: Obj Data - Labs CBC & Chem 7: 08/27/17 05:45 08/27/17 05:45 - Impressions Impressions Lumbar Spine MRI 08/26/17 18:02 IMPRESSION: Numerous lesions throughout the visualized lumbar spine, sacrum, and iliac bones are compatible with osseous metastases. There is no evidence of pathologic fracture. Subcutaneous edema and edema of the bilateral psoas muscles and bilateral posterior paraspinal muscles is nonspecific and may be related to 3rd spacing of fluids. D/ / 08/26/2017 21:17:19 Tereso Segundo MD / cherie Interpreting Provider: Tereso Segundo MD Thoracic Spine MRI 08/26/17 18:02 IMPRESSION: 1. Examination degraded by patient motion artifact. 2. Widespread osseous metastatic disease throughout the thoracic spine. No pathologic compression fracture. 3. No gross thoracic spinal canal or neural foraminal stenosis. 4. Bilateral pleural effusions. D/ / 08/26/2017 20:40:09 Ana Rosa Fernandez MD / cherie Interpreting Provider: Ana Rosa Fernandez MD - ABG Interpretation ABG results: PT/INR, D-dimer PT 15.3 Seconds (9.4-12.1) H 08/23/17 07:06 Consult Discharge Plan - Plan Referrals: Nazia Deleon, [employer] [Primary Care Provider] - (Patient will follow up with PCP at the [facility]) <Augustus Haji - Last Filed: 08/27/17 20:45> Date of Encounter: 08/27/17 - Constitutional Vitals: Vital Signs Temp Pulse Resp BP Pulse Ox 08/27/17 19:42 99.8 F H 89 16 192/80 97 08/27/17 16:56 99.8 F H 88 17 189/83 100 08/27/17 11:57 98.0 F 95 17 158/79 98 08/27/17 07:11 100.8 F H 95 17 200/76 95 08/27/17 04:06 98.8 F 93 16 190/93 94 08/26/17 23:50 99.1 F 96 22 156/71 93 08/26/17 21:45 100.6 F H 97 20 182/78 93 Intake and Output 08/27/17 08/27/17 08/28/17 08:59 16:59 00:59 Intake Total 100 / 100 240 / 240 0 / 0 Balance 100 / 100 240 / 240 0 / 0 Intake: IV Fluids 100 / 100 Ancef 1,000 MG In 0.9 % Sodium 100 / 100 Chloride (Mini-Bag +) 100 ML @ 200 mls/hr IVPB Q8H [facility] Rx#: [id number] Oral 240 / 240 0 / 0 Other: Meal Breakfast Dinner Percent of Meal Consumed 0% 0% Stool Size Copious Stool Consistency soft formed Stool Characteristics Mucoid Stool Color Brown # Urine Diapers 1 Blood Glucose* 106 126 106 Oncology: Obj Data - Labs CBC & Chem 7: 08/27/17 05:45 08/27/17 05:45 Labs: Laboratory Results - last 24 hr 08/26/17 08/26/17 08/27/17 19:00 21:53 05:45 WBC 5.2 RBC 2.52 L Hgb 7.7 L Hct 23.1 L MCV 91.7 MCH 30.6 MCHC 33.3 RDW 19.7 H Plt Count 98 L MPV 10.7 Immature Gran % 0.6 Seg Neutrophils % 67.3 Lymphocytes % 20.7 Monocytes % 6.2 Eosinophils % 4.8 Basophils % 0.4 Neutrophils # 3.5 Lymphocytes # 1.1 Monocytes # 0.3 Eosinophils # 0.3 Basophils # 0.0 Nucleated RBCs/100 WBC 0.8 H Immature Plt Fraction 3.0 Sodium Potassium Chloride Carbon Dioxide BUN Creatinine Est GFR ( Amer) Est GFR (Non-Af Amer) BUN/Creatinine Ratio Glucose POC Glucose 108 H Calculated Osmolality Calcium Total Bilirubin AST ALT Alkaline Phosphatase Serum Total Protein Albumin Globulin Albumin/Globulin Ratio Urine Creatinine 57 Urine Microalbumin 24 Microalb/Creat Ratio 42 H Urine Sodium 61.3 08/27/17 05:45 WBC RBC Hgb Hct MCV MCH MCHC RDW Plt Count MPV Immature Gran % Seg Neutrophils % Lymphocytes % Monocytes % Eosinophils % Basophils % Neutrophils # Lymphocytes # Monocytes # Eosinophils # Basophils # Nucleated RBCs/100 WBC Immature Plt Fraction Sodium 143 Potassium 3.0 L Chloride 115 H Carbon Dioxide 20 L BUN 42 H Creatinine 1.51 H Est GFR ( Amer) 41 L Est GFR (Non-Af Amer) 34 L BUN/Creatinine Ratio 28 H Glucose 96 POC Glucose Calculated Osmolality 306 H Calcium 7.7 L Total Bilirubin 1.0 AST 17 ALT < 3 L Alkaline Phosphatase 70 Serum Total Protein 4.9 L Albumin 2.0 L Globulin 2.9 Albumin/Globulin Ratio 0.7 L Urine Creatinine Urine Microalbumin Microalb/Creat Ratio Urine Sodium - Impressions Impressions Lumbar Spine MRI 08/26/17 18:02 IMPRESSION: Numerous lesions throughout the visualized lumbar spine, sacrum, and iliac bones are compatible with osseous metastases. There is no evidence of pathologic fracture. Subcutaneous edema and edema of the bilateral psoas muscles and bilateral posterior paraspinal muscles is nonspecific and may be related to 3rd spacing of fluids. D/ / 08/26/2017 21:17:19 Tereso Segundo MD / cherie Interpreting Provider: Tereso Segundo MD Thoracic Spine MRI 08/26/17 18:02 IMPRESSION: 1. Examination degraded by patient motion artifact. 2. Widespread osseous metastatic disease throughout the thoracic spine. No pathologic compression fracture. 3. No gross thoracic spinal canal or neural foraminal stenosis. 4. Bilateral pleural effusions. D/ / 08/26/2017 20:40:09 Ana Rosa Fernandez MD / cherie Interpreting Provider: Ana Rosa Fernandez MD Chest CT 08/27/17 11:08 IMPRESSION: 1. Interval appearance of third-spacing of fluid as evidenced by large pleural effusions, anasarca, and abdominal ascites. 2. New bilateral hydronephrosis of unclear etiology. Consider dedicated CT of the abdomen and pelvis as clinically warranted. 3. Mottled appearance of the osseous structures, compatible with patient's known osseous metastases. D/ / 08/27/2017 14:39:04 Fabiola Alcala MD / cherie Interpreting Provider: Fabiola Alcala MD - ABG Interpretation ABG results: PT/INR, D-dimer PT 15.3 Seconds (9.4-12.1) H 08/23/17 07:06 - Attending Attestation I examined this patient and my medical decision-making was reviewed with the Advanced Practice Nurse. I agree with the documented findings, disposition and treatment plan as described except to the extent set forth below. She has been sleeping most of the day today. Pain is controlled. and I discussed that with her current poor PS and comorbidties, further therapy cannot be pursued. Palliative care has assisted in this discussion, and I appreciate their assistance. He has decided to proceed with home hospice and arrangements are being made. Discussed expectations and all questions answered.
--- NOTE | 2017-08-27 11:18 | Infectious Disease Progress No ---
Date of Encounter: 08/27/17 Time of Encounter: 11:16 - Assessment and Plan (1) Fever Current Visit: Yes Status: Acute New-onset fever with Tmax 100.8, Etiology unclear. Get repeat blood cultures x [address] of the chest without contrast to evaluate. Spoke with radiology who states that Thoracic MRI does not allow adequate visualization of the lungs and recommends XR/CT. Continue cefazolin 1 gram IV Q8H. Dosing discussed with pharmacy since the patient's renal function has improved. Qualifiers: Fever type: unspecified Qualified Code(s): R50.9 - Fever, unspecified (2) Bacteremia Current Visit: Yes Status: Acute Causative organism: MSSA. Source likely the right upper chest a-port insertion vs. recent access. Status post removal 08/10/17. Seropurulent drainage noted in the pocket on removal. Culture positive for MSSA. Uncomplicated. Peripheral blood cultures drawn 08/07/17 were positive 2/2 sets for MSSA. Repeat peripheral blood cultures drawn 08/09/17 were positive 2/2 sets for MSSA. Blood culture drawn from the a-port 08/10/17 was positive 1/1 set for MSSA as well. Additional peripheral blood cultures drawn 08/12/17 were positive 1/2 sets. Repeat peripheral blood cultures drawn 08/14/16 negative x 2 sets. Etiology of persistently positive blood cultures likely due to 08/12/16 blood cultures drawn <24 hours after a-port was removed. No endocarditis stigmata noted on exam. TTE negative for vegetations. CHELA aborted due to patient unable to tolerate the procedure. The patient had one major and one minor Modified Jensen's Criteria. She was discharged home on IV Nafcillin and came back with hyperbilirubinemia. Not sure if this was caused by the Nafcillin or not, but Nafcillin was discontinued on admission and switched to cefazolin. Continue cefazolin 1 gram IV Q8H. Dosing discussed with Rylee Beasley. Duration of treatment depends on the clinical picture. Monitor renal function and dose-adjust antibiotics. (3) Elevated bilirubin Current Visit: Yes Status: Acute Total bili 4.4 on admission. Direct bili 3.3, indirect 1.1. Etiology not entirely clear: Nafcillin vs. other. Resolved. Continue to trend. Avoid hepatotoxins as able. (4) TYRONE (acute kidney injury) Current Visit: Yes Status: Acute Serum creatinine elevated at 2.61 on admission. Improved to 1.5 today. Etiology not entirely clear, but likely multifactorial and pre-renal: dehydration + nafcillin. RUQ UTS showed mild right sided HN. Renal UTS showed mild bilateral hydronephrosis. Nephrology consulted and following. Continue to trend. Dose-adjust antibiotics. Avoid nephrotoxins as able. (5) Weakness generalized Current Visit: Yes Status: Chronic PT/OT consulted for evaluation and treatment. Consider formal outpatient rehabilitation to maximize patient functionality. (6) Hypokalemia Current Visit: Yes Status: Acute Likely secondary to poor PO intake. Resolved. (7) Abdominal pain Current Visit: Yes Status: Acute Etiology unclear. CT scan from previous hospitalization negative. Abdominal x-ray negative for obstruction or ileus. 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 Patient reports improvement with changes in medication regimen. (10) Carcinoma of breast metastatic to bone Current Visit: No Status: Chronic Newly diagnosed. Recently started weekly doses of Taxol. Follows with [facility]. Qualifiers: Laterality: unspecified laterality Qualified Code(s): C50.919 - Malignant neoplasm of unspecified site of unspecified female breast; C79.51 - Secondary malignant neoplasm of bone; C79.51 - Secondary malignant neoplasm of bone; C79.51 - Secondary malignant neoplasm of bone; C79.51 - Secondary malignant neoplasm of bone (11) Diabetes mellitus Current Visit: Yes Status: Chronic Uncontrolled. HgbA1C 8.4%. Recommend aggressive glucose monitoring and control. Management per the primary team. 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 Treated with 5 days of antivirals. Appears improved. Recommend aggressive mouth care and chlorhexidine rinse if the patient can tolerate. (13) Hypertension Current Visit: Yes Status: Chronic Qualifiers: Hypertension type: unspecified Qualified Code(s): I10 - Essential (primary ) hypertension - Subjective Interval history: Patient seen and examined. No acute events noted overnight. Patient states that overall she doesn't feel very well, but feels better than yesterday. She denies fevers, chills, or rigors, but noted to have fever overnight with Tmax 100.8. Denies chest pain, but reports some shortness of breath and a dry cough. Reports nausea, but no vomiting. Denies pain at this time and states the pain patch seems to be helping. Reports that her bowels started moving this morning. Reports that her mouth is still dry, but is not painful. Infect Dis PN-Objective Data - Labs CBC & Chem 7: 08/27/17 05:45 08/27/17 05:45 Labs: Laboratory Results - last 24 hr 08/26/17 08/26/17 08/26/17 03:30 07:29 12:26 WBC RBC Hgb Hct MCV MCH MCHC RDW Plt Count MPV Immature Gran % Seg Neutrophils % Lymphocytes % Monocytes % Eosinophils % Basophils % Neutrophils # Lymphocytes # Monocytes # Eosinophils # Basophils # Nucleated RBCs/100 WBC Immature Plt Fraction Sodium 142 Potassium 3.2 L Chloride 116 H Carbon Dioxide 16 L BUN 57 H Creatinine 2.60 H Est GFR ( Amer) 22 L Est GFR (Non-Af Amer) 18 L BUN/Creatinine Ratio 22 Glucose 85 POC Glucose 83 94 H Calculated Osmolality 309 H Calcium 8.2 L Magnesium 1.9 Total Bilirubin 1.2 H AST 17 ALT < 3 L Alkaline Phosphatase 69 Serum Total Protein 5.3 L Albumin 2.3 L Globulin 3.0 Albumin/Globulin Ratio 0.8 L Urine Color Urine Clarity Urine pH Ur Specific Lacey Urine Protein Urine Glucose (UA) Urine Ketones Urine Blood Urine Nitrite Urine Bilirubin Urine Urobilinogen Ur Leukocyte Esterase Urine Microscopic WBC Ur Eosinophil Smear Ur Squamous Epith Cells Urine Bacteria Hyaline Casts Urine Yeast Ur Culture Indicated? Urine Creatinine Urine Microalbumin Microalb/Creat Ratio Urine Sodium 08/26/17 08/26/17 08/26/17 19:00 19:00 19:00 WBC RBC Hgb Hct MCV MCH MCHC RDW Plt Count MPV Immature Gran % Seg Neutrophils % Lymphocytes % Monocytes % Eosinophils % Basophils % Neutrophils # Lymphocytes # Monocytes # Eosinophils # Basophils # Nucleated RBCs/100 WBC Immature Plt Fraction Sodium Potassium Chloride Carbon Dioxide BUN Creatinine Est GFR ( Amer) Est GFR (Non-Af Amer) BUN/Creatinine Ratio Glucose POC Glucose Calculated Osmolality Calcium Magnesium Total Bilirubin AST ALT Alkaline Phosphatase Serum Total Protein Albumin Globulin Albumin/Globulin Ratio Urine Color Yellow Urine Clarity Cloudy A Urine pH 6.5 Ur Specific Lacey 1.012 Urine Protein Trace Urine Glucose (UA) Normal Urine Ketones Negative Urine Blood Negative Urine Nitrite Negative Urine Bilirubin Negative Urine Urobilinogen Normal Ur Leukocyte Esterase Moderate H Urine Microscopic WBC 30-50 H Ur Eosinophil Smear 0 Ur Squamous Epith Cells Many H Urine Bacteria None Seen Hyaline Casts None Seen Urine Yeast Many H Ur Culture Indicated? NO. Urine Creatinine 57 Urine Microalbumin 24 Microalb/Creat Ratio 42 H Urine Sodium 61.3 08/26/17 08/27/17 08/27/17 21:53 05:45 05:45 WBC 5.2 RBC 2.52 L Hgb 7.7 L Hct 23.1 L MCV 91.7 MCH 30.6 MCHC 33.3 RDW 19.7 H Plt Count 98 L MPV 10.7 Immature Gran % 0.6 Seg Neutrophils % 67.3 Lymphocytes % 20.7 Monocytes % 6.2 Eosinophils % 4.8 Basophils % 0.4 Neutrophils # 3.5 Lymphocytes # 1.1 Monocytes # 0.3 Eosinophils # 0.3 Basophils # 0.0 Nucleated RBCs/100 WBC 0.8 H Immature Plt Fraction 3.0 Sodium 143 Potassium 3.0 L Chloride 115 H Carbon Dioxide 20 L BUN 42 H Creatinine 1.51 H Est GFR ( Amer) 41 L Est GFR (Non-Af Amer) 34 L BUN/Creatinine Ratio 28 H Glucose 96 POC Glucose 108 H Calculated Osmolality 306 H Calcium 7.7 L Magnesium Total Bilirubin 1.0 AST 17 ALT < 3 L Alkaline Phosphatase 70 Serum Total Protein 4.9 L Albumin 2.0 L Globulin 2.9 Albumin/Globulin Ratio 0.7 L Urine Color Urine Clarity Urine pH Ur Specific Lacey Urine Protein Urine Glucose (UA) Urine Ketones Urine Blood Urine Nitrite Urine Bilirubin Urine Urobilinogen Ur Leukocyte Esterase Urine Microscopic WBC Ur Eosinophil Smear Ur Squamous Epith Cells Urine Bacteria Hyaline Casts Urine Yeast Ur Culture Indicated? Urine Creatinine Urine Microalbumin Microalb/Creat Ratio Urine Sodium Cultures: Cultures 08/22/17 16:45 Blood Culture - Preliminary Peripheral Central Cath, Picc No growth. 08/22/17 16:22 Blood Culture - Preliminary Peripheral Venipuncture No growth. Serology 08/26/17 08/26/17 08/26/17 Range/Units 19:00 19:00 19:00 Urine Color Yellow (Yellow) Urine Clarity Cloudy A (Clear) Urine pH 6.5 (5.0-8.0) pH Units Ur Specific Lacey 1.012 (1.010-1.025) Urine Protein Trace (Neg-Trace) mg/dL Urine Glucose (UA) Normal (Normal) mg/dL Urine Ketones Negative (Negative) mg/dL Urine Blood Negative (Negative) Urine Nitrite Negative (Negative) Urine Bilirubin Negative (Negative) Urine Urobilinogen Normal (Normal) mg/dL Ur Leukocyte Esterase Moderate H (Negative) Urine Microscopic WBC 30-50 H (0-3) per hpf Ur Eosinophil Smear 0 (None Seen) % Ur Squamous Epith Cells Many H (None-Few) per lpf Urine Bacteria None Seen (None-Few) per hpf Hyaline Casts None Seen (None-Few) per lpf Urine Yeast Many H (None Seen) per hpf Ur Culture Indicated? NO. (NO) Urine Creatinine 57 mg/dL Urine Microalbumin 24 mg/L Microalb/Creat Ratio 42 H (Less than 30) mcg/mg Urine Sodium 61.3 mEq/L Stl C. diff Tox B Gene (Negative) 08/22/17 Range/Units 19:16 Urine Color (Yellow) Urine Clarity (Clear) Urine pH (5.0-8.0) pH Units Ur Specific Lacey (1.010-1.025) Urine Protein (Neg-Trace) mg/dL Urine Glucose (UA) (Normal) mg/dL Urine Ketones (Negative) mg/dL Urine Blood (Negative) Urine Nitrite (Negative) Urine Bilirubin (Negative) Urine Urobilinogen (Normal) mg/dL Ur Leukocyte Esterase (Negative) Urine Microscopic WBC (0-3) per hpf Ur Eosinophil Smear (None Seen) % Ur Squamous Epith Cells (None-Few) per lpf Urine Bacteria (None-Few) per hpf Hyaline Casts (None-Few) per lpf Urine Yeast (None Seen) per hpf Ur Culture Indicated? (NO) Urine Creatinine mg/dL Urine Microalbumin mg/L Microalb/Creat Ratio (Less than 30) mcg/mg Urine Sodium mEq/L Stl C. diff Tox B Gene Negative (Negative) - Impressions Impressions Lumbar Spine MRI 08/26/17 18:02 IMPRESSION: Numerous lesions throughout the visualized lumbar spine, sacrum, and iliac bones are compatible with osseous metastases. There is no evidence of pathologic fracture. Subcutaneous edema and edema of the bilateral psoas muscles and bilateral posterior paraspinal muscles is nonspecific and may be related to 3rd spacing of fluids. D/ / 08/26/2017 21:17:19 Tereso Segundo MD / cherie Interpreting Provider: Tereso Segundo MD Thoracic Spine MRI 08/26/17 18:02 IMPRESSION: 1. Examination degraded by patient motion artifact. 2. Widespread osseous metastatic disease throughout the thoracic spine. No pathologic compression fracture. 3. No gross thoracic spinal canal or neural foraminal stenosis. 4. Bilateral pleural effusions. D/ / 08/26/2017 20:40:09 Ana Rosa Fernandez MD / cherie Interpreting Provider: Ana Rosa Fernandez MD Exam - Constitutional Vitals: Temp Pulse Resp BP Pulse Ox 100.8 F H 95 17 200/76 95 08/27/17 07:11 08/27/17 07:11 08/27/17 07:11 08/27/17 07:11 08/27/17 07:11 General appearance: average body habitus, cooperative, no acute distress - Head Head exam: Present: atraumatic, normal inspection, normocephalic - Eye Eye exam: Present: EOMI, normal appearance, PERRL Pupils: Present: normal accommodation Additional comments: No subconjunctival hemorrhage noted. - ENT ENT exam: Present: mucous membranes dry Additional comments: Scabbed lesions noted to the oral mucosa. - Neck Neck exam: Present: normal inspection - Respiratory Respiratory exam: Present: rales (left base), rhonchi (left base). Absent: respiratory distress, wheezes - Cardiovascular Cardiovascular exam: Present: RRR, +S1, +S2 - GI/Abdominal GI/Abdominal exam: Present: normal bowel sounds, soft, tenderness (generalized) . Absent: distended - Extremities Exam Extremities exam: Present: pedal edema (1+ BLE). Absent: joint swelling, tenderness - Neurological Exam Neurological exam: Present: alert, oriented X3, no focal deficits - Psychiatric Psychiatric exam: Present: normal affect, normal mood - Skin Skin exam: Present: dry, intact, normal color, warm Additional comments: No endocarditis stigmata noted. - VTE Documentation of Mechanical Device: Intermittent pneumatic compression device Consult Discharge Plan - Plan Referrals: Nazia Deleon SENIOR MEDICAL DIRECTOR [Primary Care Provider] - (Patient will follow up with PCP at the [facility]) - Attending Attestation I examined this patient and my medical decision-making was reviewed with the Resident Physician. I agree with the documented findings, disposition and treatment plan as described except to the extent set forth below. Patient is so debilitated and the MRI of the thoracic and lumbar spine shows severe metastases to the bone everywhere. Prognosis is very poor. Discussed with the hospitalist team. The hospitalist team will be consulted and discuss hospice care with the family. Await CT of the chest.
[2017-08-27] MEDS ORDERED: *HR* FentaNYL PATCH 25 MCG PATCH TD SCH (11:30)
[2017-08-27] MEDS: Insulin LISPRO 300 UNITS/3 ML VIAL SQ SCH ×4 (11:30→20:14)
--- NOTE | 2017-08-27 11:30 | Palliative Progress Note ---
Date of Encounter: 08/27/17 Time of Encounter: 10:45 - Assessment and plan (1) Dyspnea Current Visit: Yes Status: Acute Assessment and plan: For CT this afternoon. Although oxygen saturations have been stable in the low to mid 90's, she feels short of breath. I did apply o2 per nasal cannula at 2LPM to see if this makes her breathing more comfortable. (2) Cancer associated pain Current Visit: Yes Status: Chronic Assessment and plan: Continue Duragesic patch at 25mcg with Oxycodone for breakthrough. MOnitor and titrate as needed. She states she is comfortable this am, and has not utilized any breakthrough medication. (3) Decreased appetite Current Visit: Yes Status: Acute Assessment and plan: Coninue Megace/Marinol. Nausea better and attempting to increase oral intake (4) Constipation Current Visit: Yes Status: Acute Assessment and plan: Continue Senokot BID - + BM this am. Qualifiers: Constipation type: unspecified constipation type Qualified Code(s): K59.00 - Constipation, unspecified (5) Nausea Current Visit: Yes Status: Acute Assessment and plan: Addition of Reglan/Benadryl has been effective. States much better today. Continue for present time. Has Ondansetron/Promethazine PRN if needed. (6) Counseling regarding advanced care planning and goals of care Current Visit: Yes Status: Acute Assessment and plan: Will be meeting with pt/ this afternoon to further discuss goals of care. Greatly appreciate oncology input and conversations with pt . Will f/u later today. Is for CT of chest this afternoon. 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 Current Visit: No Status: Chronic Qualifiers: Laterality: unspecified laterality Qualified Code(s): C50.919 - Malignant neoplasm of unspecified site of unspecified female breast; C79.51 - Secondary malignant neoplasm of bone; C79.51 - Secondary malignant neoplasm of bone; C79.51 - Secondary malignant neoplasm of bone; C79.51 - Secondary malignant neoplasm of bone - Time Spent With Patient Total time spent is greater than 50% in coordination of care (as documented) at patient's floor/unit and/or counseling patient: 25 - 35 minutes - Subjective Interval history: Patient with increasing shortness of breath today. Pain well controlled and she is pleased with pain management. Nausea is better controlled, and she was drinking hot chocolate at my visit. Oral lesions remain. States "I have more bad days than good days now". Running low grade fevers. Oncology and ID already in earlier this am. CT chest has been ordered. at bedside. - Constitutional Vitals: Abnormal lab results RBC 2.52 M/mcL (3.82-4.97) L 08/27/17 05:45 Hgb 7.7 g/dL (11.5-15.4) L 08/27/17 05:45 Hct 23.1 % (35.3-44.9) L 08/27/17 05:45 RDW 19.7 % (11.5-14.5) H 08/27/17 05:45 Plt Count 98 K/mcL (140-400) L 08/27/17 05:45 Nucleated RBCs/100 WBC 0.8 /100 WBC (0) H 08/27/17 05:45 PT 15.3 Seconds (9.4-12.1) H 08/23/17 07:06 Potassium 3.0 mEq/L (3.5-5.1) L 08/27/17 05:45 Chloride 115 mEq/L (98-107) H 08/27/17 05:45 Carbon Dioxide 20 mEq/L (23-29) L 08/27/17 05:45 BUN 42 mg/dL (8-23) H 08/27/17 05:45 Creatinine 1.51 mg/dL (0.60-1.20) H 08/27/17 05:45 Est GFR ( Amer) 41 (> 60) L 08/27/17 05:45 Est GFR (Non-Af Amer) 34 (> 60) L 08/27/17 05:45 BUN/Creatinine Ratio 28 (6-26) H 08/27/17 05:45 POC Glucose 108 (58-89) H 08/26/17 21:53 Calculated Osmolality 306 (280-300) H 08/27/17 05:45 Calcium 7.7 mg/dL (8.6-10.3) L 08/27/17 05:45 Phosphorus 5.4 mg/dL (2.7-4.5) H 08/23/17 07:06 Iron 30 mcg/dL (50-170) L 08/25/17 05:45 Transferrin 125 mg/dL (203-362) L 08/25/17 05:45 Ferritin > 1350 ng/ml (10-120) H 08/24/17 12:33 Direct Bilirubin 3.3 mg/dL (0.0-0.2) H 08/22/17 10:27 ALT < 3 Units/L (7-52) L 08/27/17 05:45 B-Natriuretic Peptide 102 pg/mL (Less than 100) H 08/23/17 07:06 Serum Total Protein 4.9 g/dL (6.4-8.9) L 08/27/17 05:45 Albumin 2.0 g/dL (3.5-5.7) L 08/27/17 05:45 Albumin/Globulin Ratio 0.7 (1.1-2.2) L 08/27/17 05:45 Vitamin B12 2102 pg/mL (250-1100) H 08/24/17 12:33 Urine Clarity Cloudy (Clear) A 08/26/17 19:00 Ur Leukocyte Esterase Moderate (Negative) H 08/26/17 19:00 Urine Microscopic WBC 30-50 per hpf (0-3) H 08/26/17 19:00 Ur Squamous Epith Cells Many per lpf (None-Few) H 08/26/17 19:00 Urine Yeast Many per hpf (None Seen) H 08/26/17 19:00 Microalb/Creat Ratio 42 mcg/mg (Less than 30) H 08/26/17 19:00 General appearance: Present: mild distress - ENT Additional comments: Oral lesions remain - Respiratory Respiratory exam: Present: decreased breath sounds, CTAB Additional comments: Scattered rhonchi noted anterior chest. - Cardiovascular Cardiovascular exam: Present: tachycardia - GI/Abdominal GI/Abdominal exam: Present: distended, normal bowel sounds, soft - Extremities Exam Additional comments: Generalized edema to all extremities - Neurological Exam Neurological exam: Present: alert, oriented X3 Additional comments: generalized weakness - Skin Skin exam: Present: dry, warm Additional comments: Dressing to inner thigh blisters intact Palliative Quality Palliative Quality: Screen for Code Status: Yes, Screen for Goals of Care: Yes, Screen for Pain: Yes, If Pain Regimen Started, Initiate Bowel Regimen: Yes, Screen for Nausea/Vomitting: Yes Code Status: 08/22/17 15:40 Resuscitation Status: Active [RES] Routine Comment: Resuscitation Status: Full Code - Labs CBC & Chem 7: 08/27/17 05:45 08/27/17 05:45 Labs: Laboratory Results - last 24 hr 08/26/17 08/26/17 08/26/17 03:30 07:29 12:26 WBC RBC Hgb Hct MCV MCH MCHC RDW Plt Count MPV Immature Gran % Seg Neutrophils % Lymphocytes % Monocytes % Eosinophils % Basophils % Neutrophils # Lymphocytes # Monocytes # Eosinophils # Basophils # Nucleated RBCs/100 WBC Immature Plt Fraction Sodium 142 Potassium 3.2 L Chloride 116 H Carbon Dioxide 16 L BUN 57 H Creatinine 2.60 H Est GFR ( Amer) 22 L Est GFR (Non-Af Amer) 18 L BUN/Creatinine Ratio 22 Glucose 85 POC Glucose 83 94 H Calculated Osmolality 309 H Calcium 8.2 L Magnesium 1.9 Total Bilirubin 1.2 H AST 17 ALT < 3 L Alkaline Phosphatase 69 Serum Total Protein 5.3 L Albumin 2.3 L Globulin 3.0 Albumin/Globulin Ratio 0.8 L Urine Color Urine Clarity Urine pH Ur Specific Kennedy Urine Protein Urine Glucose (UA) Urine Ketones Urine Blood Urine Nitrite Urine Bilirubin Urine Urobilinogen Ur Leukocyte Esterase Urine Microscopic WBC Ur Eosinophil Smear Ur Squamous Epith Cells Urine Bacteria Hyaline Casts Urine Yeast Ur Culture Indicated? Urine Creatinine Urine Microalbumin Microalb/Creat Ratio Urine Sodium 08/26/17 08/26/17 08/26/17 19:00 19:00 19:00 WBC RBC Hgb Hct MCV MCH MCHC RDW Plt Count MPV Immature Gran % Seg Neutrophils % Lymphocytes % Monocytes % Eosinophils % Basophils % Neutrophils # Lymphocytes # Monocytes # Eosinophils # Basophils # Nucleated RBCs/100 WBC Immature Plt Fraction Sodium Potassium Chloride Carbon Dioxide BUN Creatinine Est GFR ( Amer) Est GFR (Non-Af Amer) BUN/Creatinine Ratio Glucose POC Glucose Calculated Osmolality Calcium Magnesium Total Bilirubin AST ALT Alkaline Phosphatase Serum Total Protein Albumin Globulin Albumin/Globulin Ratio Urine Color Yellow Urine Clarity Cloudy A Urine pH 6.5 Ur Specific Kennedy 1.012 Urine Protein Trace Urine Glucose (UA) Normal Urine Ketones Negative Urine Blood Negative Urine Nitrite Negative Urine Bilirubin Negative Urine Urobilinogen Normal Ur Leukocyte Esterase Moderate H Urine Microscopic WBC 30-50 H Ur Eosinophil Smear 0 Ur Squamous Epith Cells Many H Urine Bacteria None Seen Hyaline Casts None Seen Urine Yeast Many H Ur Culture Indicated? NO. Urine Creatinine 57 Urine Microalbumin 24 Microalb/Creat Ratio 42 H Urine Sodium 61.3 08/26/17 08/27/17 08/27/17 21:53 05:45 05:45 WBC 5.2 RBC 2.52 L Hgb 7.7 L Hct 23.1 L MCV 91.7 MCH 30.6 MCHC 33.3 RDW 19.7 H Plt Count 98 L MPV 10.7 Immature Gran % 0.6 Seg Neutrophils % 67.3 Lymphocytes % 20.7 Monocytes % 6.2 Eosinophils % 4.8 Basophils % 0.4 Neutrophils # 3.5 Lymphocytes # 1.1 Monocytes # 0.3 Eosinophils # 0.3 Basophils # 0.0 Nucleated RBCs/100 WBC 0.8 H Immature Plt Fraction 3.0 Sodium 143 Potassium 3.0 L Chloride 115 H Carbon Dioxide 20 L BUN 42 H Creatinine 1.51 H Est GFR ( Amer) 41 L Est GFR (Non-Af Amer) 34 L BUN/Creatinine Ratio 28 H Glucose 96 POC Glucose 108 H Calculated Osmolality 306 H Calcium 7.7 L Magnesium Total Bilirubin 1.0 AST 17 ALT < 3 L Alkaline Phosphatase 70 Serum Total Protein 4.9 L Albumin 2.0 L Globulin 2.9 Albumin/Globulin Ratio 0.7 L Urine Color Urine Clarity Urine pH Ur Specific Kennedy Urine Protein Urine Glucose (UA) Urine Ketones Urine Blood Urine Nitrite Urine Bilirubin Urine Urobilinogen Ur Leukocyte Esterase Urine Microscopic WBC Ur Eosinophil Smear Ur Squamous Epith Cells Urine Bacteria Hyaline Casts Urine Yeast Ur Culture Indicated? Urine Creatinine Urine Microalbumin Microalb/Creat Ratio Urine Sodium - Impressions Impressions Lumbar Spine MRI 08/26/17 18:02 IMPRESSION: Numerous lesions throughout the visualized lumbar spine, sacrum, and iliac bones are compatible with osseous metastases. There is no evidence of pathologic fracture. Subcutaneous edema and edema of the bilateral psoas muscles and bilateral posterior paraspinal muscles is nonspecific and may be related to 3rd spacing of fluids. D/ / 08/26/2017 21:17:19 Tereso Segundo MD / cherie Interpreting Provider: Tereso Segundo MD Thoracic Spine MRI 08/26/17 18:02 IMPRESSION: 1. Examination degraded by patient motion artifact. 2. Widespread osseous metastatic disease throughout the thoracic spine. No pathologic compression fracture. 3. No gross thoracic spinal canal or neural foraminal stenosis. 4. Bilateral pleural effusions. D/ / 08/26/2017 20:40:09 Ana Rosa Fernandez MD / cherie Interpreting Provider: Ana Rosa Fernandez MD - ABG Interpretation ABG results: PT/INR, D-dimer PT 15.3 Seconds (9.4-12.1) H 08/23/17 07:06 Consult Discharge Plan - Plan Referrals: Nazia Deleon, CUFF KNITTER [Primary Care Provider] - (Patient will [facility] with [facility]CP at the [facility])
[2017-08-27] MEDS ORDERED: Potassium Chloride 40 MEQ, Lidocaine 1% 2 ML in D5% in Water 500 ML IVPB ONE (11:31)
[2017-08-27] MEDS: Magic Mouthwash 10 ML UD Cup PO SCH ×3 (11:32→18:48)
[2017-08-27] MEDS: Metoprolol XL (24 HR) Succ 50 MG TAB.ER.24H PO SCH (11:33)
[2017-08-27] MEDS: Acetaminophen 325 MG TABLET PO PRN ×2 (11:33→20:39)
--- NOTE | 2017-08-27 11:37 | Internal Med Progress Note ---
Date of Encounter: 08/27/17 Time of Encounter: 11:35 - Assessment and plan (1) TYRONE (acute kidney injury) Current Visit: Yes Status: Acute Assessment and plan: Nephrology on board. Serum creatinine and metabolic acidosis noted to be improving again. Continue with IV fluids with bicarbonate per nephrology. Check labs in the morning. (2) Bacteremia due to Staphylococcus aureus Current Visit: Yes Status: Acute Assessment and plan: Recent admission with bacteremia at [facility]/ed on 08/07/17. Unable to obtain CHELA at last visit 2/2 worsening stomatitis. Naficillin changed to Ancef 2/2 elevated bilirubin. Blood Cx repeat on admission - neg x2. - ID consulted with plans to continue antibiotics till 08/28. The patient did spike a low-grade temperature yesterday. Blood cultures have been repeated. CT chest has been ordered. We will follow up on those. (3) Nausea Current Visit: Yes Status: Acute Assessment and plan: Could be related to chemotherapy. Continue when necessary IV Zofran, Reglan, and Phenergan. Diet as tolerated. (4) Stomatitis and mucositis with change of taste Current Visit: Yes Status: Acute Assessment and plan: Improving and healing. Continue Magic mouthwash and Peridex. Diet as tolerated. (5) COPD (chronic obstructive pulmonary disease) Current Visit: Yes Status: Chronic Assessment and plan: Patient feels short of breath. I see a CT chest was ordered per nephrology. We will follow up on that. I do not hear any wheezes. Not in acute exacerbation. Continue when necessary bronchodilators and supplemental oxygen. 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 Palliative care is following. (7) Diabetes mellitus Current Visit: Yes Status: Chronic Assessment and plan: Continue Accu-Chek blood glucose monitoring. Continue some slight scale. Diabetic diet as tolerated. 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 (9) Metastatic adenocarcinoma Current Visit: Yes Status: Chronic Assessment and plan: Patient is noted to have likely primary breast cancer with no obvious mass or lump along with bone metastasis. Follows with oncology as outpatient, oncology has been consulted as inpatient for further input regarding prognosis. Patient is unable to tolerate chemotherapy, had 2 doses so far per and developed significant weakness, nausea, emesis, alopecia, painful oral lesions. Palliative care has been consulted due to poor and declining functional status. Patient is currently extremely weak with painful oral lesions and continues to have anorexia, nausea and malnutrition. Goals of care have been discussed, patient and family request more time to make a decision. (10) Goals of care, counseling/discussion Current Visit: Yes Status: Acute Assessment and plan: Palliative is following. Possible hospice at the end. - Subjective Interval history: Patient was seen and examined. She continues to be lethargic. She had a MAXIMUM TEMPERATURE of 100.8. Still short of breath with some dry cough. - Constitutional Vitals: Temp Pulse Resp BP Pulse Ox 100.8 F H 95 17 200/76 95 08/27/17 07:11 08/27/17 07:11 08/27/17 07:11 08/27/17 07:11 08/27/17 07:11 General appearance: Present: cooperative, A&O X 3 (appears fatigued), answers questions appropriately Exam: GEN: NAD CVS: RRR. S1, S2, No m/r/g RESP: Diminished with scattered rhonchi and crackles. ABD: Soft, NT, ND, +BS EXT: Generalized edema. 2+ DP. No rashes NEURO: Nonfocal Internal Medicine: Result - Labs CBC & Chem 7: 08/27/17 05:45 08/27/17 05:45 Labs: Short CBC 08/27/17 Range/Units 05:45 WBC 5.2 (4.3-11.1) K/mcL Hgb 7.7 L (11.5-15.4) g/dL Hct 23.1 L (35.3-44.9) % Plt Count 98 L (140-400) K/mcL Neutrophils # 3.5 (1.6-8.9) K/mcL BMP 08/27/17 05:45 Sodium 143 Potassium 3.0 L Chloride 115 H Carbon Dioxide 20 L BUN 42 H Creatinine 1.51 H Glucose 96 Calcium 7.7 L Liver Function 08/27/17 Range/Units 05:45 Total Bilirubin 1.0 (0.3-1.0) mg/dL AST 17 (13-39) Units/L ALT < 3 L (7-52) Units/L Alkaline Phosphatase 70 (34-104) Units/L Albumin 2.0 L (3.5-5.7) g/dL Urine 08/26/17 Range/Units 19:00 Urine Color Yellow (Yellow) Urine Clarity Cloudy A (Clear) Urine pH 6.5 (5.0-8.0) pH Units Ur Specific [place] 1.012 (1.010-1.025) Urine Protein Trace (Neg-Trace) mg/dL Urine Glucose (UA) Normal (Normal) mg/dL - ABG Interpretation ABG results: PT/INR, D-dimer PT 15.3 Seconds (9.4-12.1) H 08/23/17 07:06 - Impressions Impressions Lumbar Spine MRI 08/26/17 18:02 IMPRESSION: Numerous lesions throughout the visualized lumbar spine, sacrum, and iliac bones are compatible with osseous metastases. There is no evidence of pathologic fracture. Subcutaneous edema and edema of the bilateral psoas muscles and bilateral posterior paraspinal muscles is nonspecific and may be related to 3rd spacing of fluids. D/ / 08/26/2017 21:17:19 Tereso Segundo MD / cherie Interpreting Provider: Tereso Segundo MD Thoracic Spine MRI 08/26/17 18:02 IMPRESSION: 1. Examination degraded by patient motion artifact. 2. Widespread osseous metastatic disease throughout the thoracic spine. No pathologic compression fracture. 3. No gross thoracic spinal canal or neural foraminal stenosis. 4. Bilateral pleural effusions. D/ / 08/26/2017 20:40:09 Ana Rosa Fernandez MD / cherie Interpreting Provider: Ana Rosa Fernandez MD - VTE Documentation of Mechanical Device: Intermittent pneumatic compression device Consult Discharge Plan - Plan Referrals: Nazia Deleon CNP [Primary Care Provider] - (Patient will follow up with PCP at the [facility])
[2017-08-27] MEDS: *HR* Promethazine 25 MG/ML VIAL IVP PRN (11:55)
--- NOTE | 2017-08-27 12:20 | Nephrology Progress Note ---
Date of Encounter: 08/27/17 Time of Encounter: 12:17 - Assessment and Plan (1) TYRONE (acute kidney injury) Current Visit: Yes Status: Acute Patient with TYRONE with a creatinine that continues to improve with iv infusion. Can discontinue MIV secondary to elevated blood pressure. Avoid nephrotoxins. Adjust medications for renal function. (2) Hypertension Current Visit: Yes Status: Chronic Home medication added back to her regimen, but blood pressure still not controlled. Consider amlodipine if hypertension persists. Qualifiers: Hypertension type: unspecified Qualified Code(s): I10 - Essential (primary ) hypertension (3) Metabolic acidosis Current Visit: Yes Status: Acute Improving with IV sodium bicarb infusion. (4) Anemia Current Visit: Yes Status: Chronic Per primary team. Hemoglobin slightly down. Transfuse as needed. Qualifiers: Anemia type: unspecified type Qualified Code(s): D64.9 - Anemia, unspecified (5) Hypokalemia Current Visit: Yes Status: Acute Replace potassium as needed. Optimize magnesium. 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 Subjective Principal diagnosis: TYRONE on CKD Interval history: Patient seen. Her is at her side. No new complaints. She states she feels better. Objective - Vital Signs Vital signs: Vital Signs Temp Pulse Resp BP Pulse Ox 08/27/17 11:57 98.0 F 95 17 158/79 98 08/27/17 07:11 100.8 F H 95 17 200/76 95 08/27/17 04:06 98.8 F 93 16 190/93 94 08/26/17 23:50 99.1 F 96 22 156/71 93 08/26/17 21:45 100.6 F H 97 20 182/78 93 08/26/17 14:29 98.8 F 92 17 173/90 95 Intake and Output 08/26/17 08/27/17 08/27/17 23:59 07:59 15:59 Intake Total 200 / 200 100 / 100 240 / 240 Balance 200 / 200 100 / 100 240 / 240 Intake: IV Fluids 200 / 200 100 / 100 Potassium Chloride 10 mEq/100mL 100 / 100 10 meq In 100 ml @ 100 mls/hr IVPB Q1H [facility] Rx#:[id number] Ancef 1,000 MG In 0.9 % Sodium 100 / 100 100 / 100 Chloride (Mini-Bag +) 100 ML @ 200 mls/hr IVPB Q8H [facility] Rx#: [id number] Oral 0 / 0 240 / 240 Other: Meal Breakfast Percent of Meal Consumed 0% Stool Size Copious Stool Consistency soft formed Stool Characteristics Mucoid Stool Color Brown # Urine Diapers 1 Blood Glucose* 108 106 139 - General Appearance General appearance: Present: well-nourished, chronically ill EENT: Present: ATNC Cardiology: Present: regular rate Psychiatric: Present: mood/affect appropriate - Lab 08/27/17 05:45 08/27/17 05:45 Most recent lab results Calcium 7.7 mg/dL (8.6-10.3) L 08/27/17 05:45 Phosphorus 5.4 mg/dL (2.7-4.5) H 08/23/17 07:06 Magnesium 1.9 mg/dL (1.6-2.6) 08/26/17 03:30 Urine Creatinine 57 mg/dL 08/26/17 19:00 Urine Sodium 61.3 mEq/L 08/26/17 19:00 - VTE Documentation of Mechanical Device: Intermittent pneumatic compression device Consult Discharge Plan - Plan Referrals: Nazia Deleon FILTER PULP WASHER [Primary Care Provider] - (Patient will follow up with PCP at the [facility])
[2017-08-27] MEDS ORDERED: *HR* HYDROmorphone (PF) 1 MG/ML SYRINGE IVP ONE (12:31)
--- NOTE | 2017-08-27 14:00 | Event Note ---
Date of Encounter: 08/27/17 Time of Encounter: 13:50 Meeting with pt , VANESSA Peña, and Beverley regarding goals of care. Patient has been taken to CT scan. Patient's has been well informed regarding current clinical status and prognosis. He understands she is not good candidate for rehabilitation and will likely continue to decline. Discussed different options r/t discharge = rehab would likely be private pay, as she is too weak and cannot endure aggressive therapy, home health as previous ,, and hospice care. Hospice explained at length. would like to pursue hospice care on discharge. However, if CT scan of chest demonstrates issues that procedure would help with her symptom management, he would like to consider that option. Discussed code status at length - patient does not want resuscitation, as he knows of her extensive bone disease and understands we could do traumatic injury. We will be discussing the above with patient later this afternoon upon returning from CT scan.
[2017-08-27] MEDS: Potassium Chloride Elixir 20 MEQ/15 ML UDC PO SCH (17:01)
[2017-08-27] MEDS: Megestrol Acetate 400 MG/10 ML UDC PO SCH (17:01)
[2017-08-27] MEDS: valACYclovir 500 MG TABLET PO SCH (17:01)
[2017-08-27] MEDS: Sennosides/Docusate Sodium TABLET PO SCH ×2 (17:01→20:11)
[2017-08-27] MEDS: Lisinopril 20 MG TABLET PO SCH (17:01)
[2017-08-27] MEDS: Ondansetron 4 MG/2 ML VIAL IVP PRN (20:45)
[2017-08-27] MEDS: ceFAZolin 1,000 MG in Water for inj. (sterile) 20 ML 10 ML IVP SCH (22:18)
[2017-08-28] MEDS: ceFAZolin 1,000 MG in Water for inj. (sterile) 20 ML 10 ML IVP SCH ×3 (05:17→22:34)
[2017-08-28] MEDS: Metoclopramide 10 MG/2 ML VIAL IVP SCH ×2 (05:18→10:29)
[2017-08-28 05:55] LABS: Basophils % 0.6 %; Eosinophils # 0.3 K/mcL (0.0-0.6); Eosinophils % 5.2 %; Hematocrit 25.9 % (35.3-44.9); Hemoglobin 8.6 g/dL (11.5-15.4); Immature Granulocytes % 0.6 % (0-4); Lymphocytes # 1.2 K/mcL (0.6-4.6); Lymphocytes % 24.2 %; Mean Corpuscular HGB Conc 33.2 g/dL (31.6-35.5); Mean Corpuscular Hemoglobin 31.3 pg (28.0-33.3); Mean Corpuscular Volume 94.2 fL (83.0-100.0); Mean Platelet Volume 10.7 fL (9.4-12.4); Monocytes # 0.5 K/mcL (0.0-1.3); Monocytes % 9.6 %; Nucleated Red Blood Cells 0.4 /100 WBC (0); Platelet Count 104 K/mcL (140-400); Red Blood Count 2.75 M/mcL (3.82-4.97); Red Cell Distribution Width 21.2 % (11.5-14.5); Segmented Neutrophils % 59.8 %
[2017-08-28 06:27] LABS: Alanine Aminotransferase < 3 Units/L (7-52); Albumin 2.2 g/dL (3.5-5.7); Albumin/Globulin Ratio 0.7 (1.1-2.2); Alkaline Phosphatase 75 Units/L (34-104); Aspartate Amino Transferase 20 Units/L (13-39); BUN/Creatinine Ratio 30 (6-26); Bilirubin,Total 1.1 mg/dL (0.3-1.0); Blood Urea Nitrogen 44 mg/dL (8-23); Calcium 8.6 mg/dL (8.6-10.3); Carbon Dioxide 17 mEq/L (23-29); Chloride 118 mEq/L (98-107); Globulin 3.2 g/dL (2.4-3.5); Glucose 115 mg/dL (70-105); Osmolality,Calculated 310 (280-300); Potassium 3.5 mEq/L (3.5-5.1); Sodium 144 mEq/L (136-145); Total Protein 5.4 g/dL (6.4-8.9); eGFR For African Americans 42 (> 60); eGFR For Non-African Americans 35 (> 60)
[2017-08-28] MEDS: Insulin LISPRO 300 UNITS/3 ML VIAL SQ SCH ×3 (07:44→22:36)
--- NOTE | 2017-08-28 09:25 | Infectious Disease Progress No ---
Date of Encounter: 08/28/17 Time of Encounter: 09:23 - Assessment and Plan (1) Fever Current Visit: Yes Status: Acute New-onset fever with Tmax 100.8. Afebrile overnight. Etiology unclear. Get repeat blood cultures x 2 sets drawn 08/27/[address] chest does not show new infiltrate, but does show bilateral pleural effusions , anasarca, ascites, and bilateral hydronephrosis. Continue cefazolin, but increase to 2 grams IV Q8H. The patient has completed a 14 day course, but since she had fevers yesterday, will resume for now until the patient and her make a final decision regarding her plan of care. Qualifiers: Fever type: unspecified Qualified Code(s): R50.9 - Fever, unspecified (2) Bacteremia Current Visit: Yes Status: Acute Causative organism: MSSA. Source likely the right upper chest a-port insertion vs. recent access. Status post removal 08/10/17. Seropurulent drainage noted in the pocket on removal. Culture positive for MSSA. Uncomplicated. Peripheral blood cultures drawn 08/07/17 were positive 2/2 sets for MSSA. Repeat peripheral blood cultures drawn 08/09/17 were positive 2/2 sets for MSSA. Blood culture drawn from the a-port 08/10/17 was positive 1/1 set for MSSA as well. Additional peripheral blood cultures drawn 08/12/17 were positive 1/2 sets. Repeat peripheral blood cultures drawn 08/14/16 negative x 2 sets. Etiology of persistently positive blood cultures likely due to 08/12/16 blood cultures drawn <24 hours after a-port was removed. The patient had a fever yesterday, etiology unclear. Additional blood cultures were drawn x 2 sets and are pending. She has not had any fevers for 24 hours. No endocarditis stigmata noted on exam. TTE negative for vegetations. CHELA aborted due to patient unable to tolerate the procedure. The patient had one major and one minor Modified Jensen's Criteria. She was discharged home on IV Nafcillin and came back with hyperbilirubinemia. Not sure if this was caused by the Nafcillin or not, but Nafcillin was discontinued on admission and switched to cefazolin. Continue cefazolin, increase to 2 grams IV Q8H. Duration of treatment depends on the clinical picture. Monitor renal function and dose-adjust antibiotics. (3) Elevated bilirubin Current Visit: Yes Status: Resolved Total bili 4.4 on admission. Direct bili 3.3, indirect 1.1. Etiology not entirely clear: Nafcillin vs. other. Resolved. Continue to trend. Avoid hepatotoxins as able. (4) TYRONE (acute kidney injury) Current Visit: Yes Status: Acute Serum creatinine elevated at 2.61 on admission. Improved to 1.48 today. Etiology not entirely clear, but likely multifactorial and pre-renal: dehydration + nafcillin. RUQ UTS showed mild right sided HN. Renal UTS showed mild bilateral hydronephrosis. Nephrology consulted and following. Continue to trend. Dose-adjust antibiotics. Avoid nephrotoxins as able. (5) Weakness generalized Current Visit: Yes Status: Chronic PT/OT consulted for evaluation and treatment, but the patient is not able to participate. Palliative care consulted and following. The patient's is considering discharging home with hospice as the patient is no longer a candidate for treatment of her cancer due to her frail state. (6) Hypokalemia Current Visit: Yes Status: Resolved Likely secondary to poor PO intake. Supplementation her the primary team. Resolved. (7) Abdominal pain Current Visit: Yes Status: Acute Etiology uncler, but likely secondary to malignancy. CT scan from previous hospitalization negative. Abdominal x-ray negative for obstruction or ileus. 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 Patient reports improvement with changes in medication regimen. (10) Carcinoma of breast metastatic to bone Current Visit: No Status: Chronic Newly diagnosed. Recently started weekly doses of Taxol. Follows with [facility]. Hem/Onc consulted. Patient no longer a candidate for further treatment given her debilitated state. Qualifiers: Laterality: unspecified laterality Qualified Code(s): C50.919 - Malignant neoplasm of unspecified site of unspecified female breast; C79.51 - Secondary malignant neoplasm of bone; C79.51 - Secondary malignant neoplasm of bone; C79.51 - Secondary malignant neoplasm of bone; C79.51 - Secondary malignant neoplasm of bone (11) Diabetes mellitus Current Visit: Yes Status: Chronic Uncontrolled. HgbA1C 8.4%. Recommend aggressive glucose monitoring and control. Management per the primary team. 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 Treated with 5 days of antivirals. Appears improved. Valtrex re-started per the Hem/Onc team. Recommend aggressive mouth care and chlorhexidine rinse if the patient can tolerate. (13) Hypertension Current Visit: Yes Status: Chronic Qualifiers: Hypertension type: unspecified Qualified Code(s): I10 - Essential (primary ) hypertension - Subjective Interval history: Patient seen and examined. No acute events noted overnight. Patient states that overall she doesn't feel very well. She appears very drowsy today. She denies fevers, chills, or rigors. Denies chest pain, but reports some shortness of breath and a dry cough. Reports nausea, but no vomiting. Denies pain at this time and states the pain patch seems to be helping. Reports that her mouth is still dry, but is not painful. The patient's states she hasn't eaten anything today. Infect Dis PN-Objective Data - Labs CBC & Chem 7: 08/28/17 05:34 08/28/17 05:34 Labs: Laboratory Results - last 24 hr 08/27/17 08/27/17 08/27/17 07:15 11:34 17:00 WBC RBC Hgb Hct MCV MCH MCHC RDW Plt Count MPV Immature Gran % Seg Neutrophils % Lymphocytes % Monocytes % Eosinophils % Basophils % Neutrophils # Lymphocytes # Monocytes # Eosinophils # Basophils # Nucleated RBCs/100 WBC Sodium Potassium Chloride Carbon Dioxide BUN Creatinine Est GFR ( Amer) Est GFR (Non-Af Amer) BUN/Creatinine Ratio Glucose POC Glucose 106 H 139 H 126 H Calculated Osmolality Calcium Magnesium Total Bilirubin AST ALT Alkaline Phosphatase Serum Total Protein Albumin Globulin Albumin/Globulin Ratio 08/27/17 08/28/17 08/28/17 19:47 05:34 05:34 WBC 5.0 RBC 2.75 L Hgb 8.6 L Hct 25.9 L MCV 94.2 MCH 31.3 MCHC 33.2 RDW 21.2 H Plt Count 104 L MPV 10.7 Immature Gran % 0.6 Seg Neutrophils % 59.8 Lymphocytes % 24.2 Monocytes % 9.6 Eosinophils % 5.2 Basophils % 0.6 Neutrophils # 3.0 Lymphocytes # 1.2 Monocytes # 0.5 Eosinophils # 0.3 Basophils # 0.0 Nucleated RBCs/100 WBC 0.4 H Sodium 144 Potassium 3.5 Chloride 118 H Carbon Dioxide 17 L BUN 44 H Creatinine 1.48 H Est GFR ( Amer) 42 L Est GFR (Non-Af Amer) 35 L BUN/Creatinine Ratio 30 H Glucose 115 H POC Glucose 106 H Calculated Osmolality 310 H Calcium 8.6 Magnesium Total Bilirubin 1.1 H AST 20 ALT < 3 L Alkaline Phosphatase 75 Serum Total Protein 5.4 L Albumin 2.2 L Globulin 3.2 Albumin/Globulin Ratio 0.7 L 08/28/17 05:34 WBC RBC Hgb Hct MCV MCH MCHC RDW Plt Count MPV Immature Gran % Seg Neutrophils % Lymphocytes % Monocytes % Eosinophils % Basophils % Neutrophils # Lymphocytes # Monocytes # Eosinophils # Basophils # Nucleated RBCs/100 WBC Sodium Potassium Chloride Carbon Dioxide BUN Creatinine Est GFR ( Amer) Est GFR (Non-Af Amer) BUN/Creatinine Ratio Glucose POC Glucose Calculated Osmolality Calcium Magnesium 1.9 Total Bilirubin AST ALT Alkaline Phosphatase Serum Total Protein Albumin Globulin Albumin/Globulin Ratio Cultures: Cultures 08/22/17 16:45 Blood Culture - Final Peripheral Central Cath, Picc No growth. 08/22/17 16:22 Blood Culture - Final Peripheral Venipuncture No growth. Serology 08/26/17 08/26/17 08/26/17 Range/Units 19:00 19:00 19:00 Urine Color Yellow (Yellow) Urine Clarity Cloudy A (Clear) Urine pH 6.5 (5.0-8.0) pH Units Ur Specific [place] 1.012 (1.010-1.025) Urine Protein Trace (Neg-Trace) mg/dL Urine Glucose (UA) Normal (Normal) mg/dL Urine Ketones Negative (Negative) mg/dL Urine Blood Negative (Negative) Urine Nitrite Negative (Negative) Urine Bilirubin Negative (Negative) Urine Urobilinogen Normal (Normal) mg/dL Ur Leukocyte Esterase Moderate H (Negative) Urine Microscopic WBC 30-50 H (0-3) per hpf Ur Eosinophil Smear 0 (None Seen) % Ur Squamous Epith Cells Many H (None-Few) per lpf Urine Bacteria None Seen (None-Few) per hpf Hyaline Casts None Seen (None-Few) per lpf Urine Yeast Many H (None Seen) per hpf Ur Culture Indicated? NO. (NO) Urine Creatinine 57 mg/dL Urine Microalbumin 24 mg/L Microalb/Creat Ratio 42 H (Less than 30) mcg/mg Urine Sodium 61.3 mEq/L Stl C. diff Tox B Gene (Negative) 08/22/17 Range/Units 19:16 Urine Color (Yellow) Urine Clarity (Clear) Urine pH (5.0-8.0) pH Units Ur Specific [place] (1.010-1.025) Urine Protein (Neg-Trace) mg/dL Urine Glucose (UA) (Normal) mg/dL Urine Ketones (Negative) mg/dL Urine Blood (Negative) Urine Nitrite (Negative) Urine Bilirubin (Negative) Urine Urobilinogen (Normal) mg/dL Ur Leukocyte Esterase (Negative) Urine Microscopic WBC (0-3) per hpf Ur Eosinophil Smear (None Seen) % Ur Squamous Epith Cells (None-Few) per lpf Urine Bacteria (None-Few) per hpf Hyaline Casts (None-Few) per lpf Urine Yeast (None Seen) per hpf Ur Culture Indicated? (NO) Urine Creatinine mg/dL Urine Microalbumin mg/L Microalb/Creat Ratio (Less than 30) mcg/mg Urine Sodium mEq/L Stl C. diff Tox B Gene Negative (Negative) - Impressions Impressions Lumbar Spine MRI 08/26/17 18:02 IMPRESSION: Numerous lesions throughout the visualized lumbar spine, sacrum, and iliac bones are compatible with osseous metastases. There is no evidence of pathologic fracture. Subcutaneous edema and edema of the bilateral psoas muscles and bilateral posterior paraspinal muscles is nonspecific and may be related to 3rd spacing of fluids. D/ / 08/26/2017 21:17:19 Tereso Segundo MD / cherie Interpreting Provider: Tereso Segundo MD Chest CT 08/27/17 11:08 IMPRESSION: 1. Interval appearance of third-spacing of fluid as evidenced by large pleural effusions, anasarca, and abdominal ascites. 2. New bilateral hydronephrosis of unclear etiology. Consider dedicated CT of the abdomen and pelvis as clinically warranted. 3. Mottled appearance of the osseous structures, compatible with patient's known osseous metastases. D/ / 08/27/2017 14:39:04 Fabiola Alcala MD / cherie Interpreting Provider: Fabiola Alcala MD Exam - Constitutional Vitals: Temp Pulse Resp BP Pulse Ox 99.5 F 89 16 168/79 97 08/28/17 07:27 08/28/17 07:27 08/28/17 07:27 08/28/17 07:27 08/28/17 07:27 General appearance: average body habitus, cooperative, no acute distress - Head Head exam: Present: atraumatic, normal inspection, normocephalic - Eye Eye exam: Present: EOMI, normal appearance, PERRL Pupils: Present: normal accommodation - ENT ENT exam: Present: mucous membranes dry Additional comments: Scabbed lesions noted to the oral mucosa. - Neck Neck exam: Present: normal inspection - Respiratory Respiratory exam: Present: CTAB. Absent: rales, respiratory distress, rhonchi, wheezes - Cardiovascular Cardiovascular exam: Present: RRR, +S1, +S2 - GI/Abdominal GI/Abdominal exam: Present: normal bowel sounds, soft, tenderness (generalized) . Absent: distended - Extremities Exam Extremities exam: Absent: joint swelling, pedal edema (1+ BLE), tenderness - Neurological Exam Neurological exam: Present: alert (Drowsy, but awakens easily.), oriented X3, no focal deficits - Psychiatric Psychiatric exam: Present: normal affect, normal mood - Skin Skin exam: Present: dry, intact, normal color, warm - VTE Documentation of Mechanical Device: Intermittent pneumatic compression device Consult Discharge Plan - Plan Referrals: Nazia Deleon, EQUIPMENT OPERATOR [employer]HOUSE [Primary Care Provider] - (Patient will follow up with PCP at the [facility]) - Attending Attestation I examined this patient and my medical decision-making was reviewed with the Resident Physician. I agree with the documented findings, disposition and treatment plan as described except to the extent set forth below.
--- NOTE | 2017-08-28 09:36 | Discharge Summary ---
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 (7) Diabetes mellitus Priority: Secondary Status: Chronic Qualifiers: Diabetes mellitus type: type 2 Diabetes mellitus complication status: with unspecified complications Diabetes mellitus intermediate insulin use: with intermediate use Qualified Code(s): E11.8 - Type 2 diabetes mellitus with unspecified complications; Z79.4 - penitentiary (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 of insulin; Z79.4 - penitentiary ( 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 of insulin; Z79.4 - long term care phlebotomist (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 of insulin; Z79.4 - penitentiary (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 of insulin (8) Essential hypertension Priority: Secondary Status: Chronic (9) Metastatic adenocarcinoma Priority: Primary Status: Chronic - Discharge Medications Home Medications: Albuterol Sulfate [Proventil Hfa] 1 puff IH QID PRN 06/20/15 [History] Aspirin Enteric Coated [Aspirin EC] 81 mg PO DAILY 06/20/15 [History] Fluticasone Propionate Nasal [Flonase] 1 spray NS DAILY 06/20/15 [History] Fluticasone/Salmeterol [Advair 100-50 Diskus] 1 each IH BID 06/20/15 [History] Glimepiride [Amaryl] 4 mg PO DAILY 06/20/15 [History] Insulin NPH Hum/Reg Insulin Hm [Novolin 70-30 100 Unit/ml Vial] 30 unit SQ BID 06/20/15 [History] Omeprazole [PriLOSEC] 40 mg PO DAILY 06/20/15 [History] Pravastatin Sodium [Pravachol] 20 mg PO HS 06/20/15 [History] Saxagliptin HCl [Onglyza] 5 mg PO DAILY 06/20/15 [History] Lidocaine/Prilocaine [Emla] 1 appl TP AD #30 gm 07/31/17 [Rx] Lisinopril [Zestril] 40 mg PO DAILY 08/25/17 [History] Metoprolol XL (24 HR) Succ [Toprol Xl] 200 mg PO DAILY 08/25/17 [History] Triamterene/Hydrochlorothiazid [Triamterene-Hctz 75-50 mg Tab] 1 tab PO DAILY [History] Allergies/Adverse Reactions: 3 Allergy/AdvReac Type Severity Reaction Status Date / Time nifedipine [From Procardia] Allergy Rash Verified 08/07/17 21:15 glipizide AdvReac Vomiting Verified 06/16/17 10:03 metoprolol [From Lopressor] AdvReac Nightmare Verified 08/07/17 21:15 Procedures/tests Complete & Pending: Procedures Performed prior 72 hours Category Date Time Status CT chest wo con [CT] Routine Cat Scan 08/27/17 11:08 Completed IR US abdomen limited [IR] Routine Exams 08/28/17 08:13 Taken US retroperitoneal limited [US] Routine Exams 08/25/17 15:00 Completed MR lumbar spine wo con [MR] Routine MRI 08/26/17 18:02 Completed MR thoracic spine wo con [MR] Routine MRI 08/26/17 18:02 Completed Date of admission: 08/22/17 11:39 Primary care physician: Nazia Deleon, Consults: 08/22/17 15:47 Consult to Physician [CONS] Routine Consulting Provider: Infectious Disease [place] Reason for Consult: positive blood cultures with picc line treated outpt nafcillin now with elevated LFT Time Notified: 15:51 Call Completed: Yes 08/23/17 12:49 Consult to Physical Therapy [CONS] Routine Comment: Evaluate, develop and implement POC Reason for Consult: weakness OT [Consult to Occupational Therapy] [CONS] Routine Comment: Evaluate, develop and implement POC Reason for Consult: weakness 08/24/17 07:34 Consult to Nephrology [CONS] Routine Consulting Provider: Kidney Dalia/MARÍA/MUNIR/ANDREW Reason for Consult: worsening TYRONE Call Completed: Yes 08/25/17 10:12 Consult to Infectious Diseases [CONS] Routine Consulting Provider: Infectious Disease [place] Reason for Consult: bacteremia w/ possible endocarditis. Call Completed: Yes 08/25/17 14:21 Consult to Oncology [CONS] Routine Consulting Provider: Oncology [facility] [place] Reason for Consult: metastatic bone cancer Call Completed: Yes 08/25/17 14:22 Consult to Palliative Care [CONS] Routine Comment: Consulting Provider: Palliative Care Dalia Reason for Consult: deteriating condition Call Completed: Yes - Patient Status Disposition: Hospice - Home Condition: Critical Overall status at discharge: patient is not back to baseline - Discharge Instructions Follow Up With: Nazia Deleon FILM READER [Primary Care Provider] - (Patient will follow up with PCP at the [facility]) - Diet and Activity Activity: other Diet: diabetic diet Hospital course: Ms. Catalan is a 72 year old female who was recently discharged with diagnosis of metastatic breast cancer to the bones and possibly lungs. Recently discharged from here with MSSA bacteremia and put on Nafcillin through 2017. She had blood work done at the cancer center and was told to report to the emergency room with elevated LFTs. Her total bilirubin was 4.4. She has had a total of 2 doses of chemotherapy. On presentation showed signs of dehydration, weakness, generalized deconditioning. She had significant pain associated with her cancer from her back. She had electrolyte abnormalities which were corrected. She was admitted under the hospitalist service with consultation to nephrology oncology palliative and infectious disease. We managed to get up and control. Dehydrated patient. Her liver numbers improved with antibiotics was switched to Ancef from nafcillin. However, findings of significant metastasis and generalized weakness and deconditioning, palliative had a conversation with the and eventually the patient was made comfort measures. She was transitioned to home hospice. She was discharged on 2017. Of note while hospitalized she had MRIs of her lumbar and thoracic spine which showed significant bony metastasis. We also ordered a CT of her chest which showed bilateral pleural effusion and I tried to get the patient to have those drained for palliative purposes, however, this was not able to be done as not significant amount of fluid was found. - Time Spent with Patient Total time spent providing and/or coordinating discharge services: Greater than 30 minutes - Constitutional Vitals: Temp Pulse Resp BP Pulse Ox 99.5 F 89 16 168/79 97 08/28/17 07:27 08/28/17 07:27 08/28/17 07:27 08/28/17 07:27 08/28/17 07:27 General appearance: Present: cooperative, A&O X 3 (appears fatigued), answers questions appropriately Exam: GEN: NAD CVS: RRR. S1, S2, No m/r/g RESP: Diminished with scattered rhonchi and crackles. ABD: Soft, NT, ND, +BS EXT: Generalized edema. 2+ DP. No rashes NEURO: Nonfocal - VTE Documentation of Mechanical Device: Intermittent pneumatic compression device
--- NOTE | 2017-08-28 09:54 | Oncology Inp Progress Note ---
<Florence Monahan L - Last Filed: 08/28/17 17:30> Date of Encounter: 08/28/17 Time of Encounter: 09:54 (1) Carcinoma of breast metastatic to bone Current Visit: No Status: Chronic Assessment and plan: Clinically, patient continues to decline. She is lethargic, but will awaken to voice, and has had very little oral intake. She states she is comfortable. She reports some difficulty with breathing, she does have opioids prescribed for air hunger. Chest CT reviewed, Dr. Haji discussed with , in weighing risks vs. benefits for thoracentesis for palliative approach, patients opted to not pursue thoracentesis at this time. Appreciate support of palliative team. Patient was transitioned to DNR CC today. She is planned to discharge home with hospice tomorrow and having arrangements made today for proper DME. Reiterated plan with patient/patients today,verbalize understanding. Patient/patients have no further questions for oncology at this time, offered my continued support during this difficult time and option to call the cancer center for any questions. Please refer to Dr. Haji's attestation below for further details. Qualifiers: Laterality: unspecified laterality Qualified Code(s): C50.919 - Malignant neoplasm of unspecified site of unspecified female breast; C79.51 - Secondary malignant neoplasm of bone; C79.51 - Secondary malignant neoplasm of bone; C79.51 - Secondary malignant neoplasm of bone; C79.51 - Secondary malignant neoplasm of bone Oncology: Subj Interval history: Ms. Catalan is resting with her at her bedside. Her pain is under well control, reports pain mainly to BLE with no localization of pain to a certain area. Her reports that she mostly slept all day yesterday and has been lethargic. She has not been eating or drinking. - Constitutional Vitals: Vital Signs Temp Pulse Resp BP Pulse Ox 08/28/17 07:27 99.5 F 89 16 168/79 97 08/28/17 04:27 97.8 F 85 16 186/93 97 08/27/17 23:54 99.3 F 89 16 129/70 95 08/27/17 19:42 99.8 F H 89 16 192/80 97 08/27/17 16:56 99.8 F H 88 17 189/83 100 08/27/17 11:57 98.0 F 95 17 158/79 98 Intake and Output 08/27/17 08/28/17 08/28/17 23:59 07:59 15:59 Intake Total Balance Intake: IV Fluids Ancef 1,000 MG In Water for inj . (sterile) 10 ML @ 200 mls/hr IVP Q8H BRIAN Rx#:[id number] Oral 0 / 0 Other: Meal Dinner Percent of Meal Consumed 0% Weight 73 kg Blood Glucose* 106 111 Patient Weight 08/28/17 23:59 Weight 73 kg General appearance: no acute distress, no febrile Exam: Generalized edema/anasarca - Head Head exam: Present: atraumatic - Respiratory Respiratory exam: Present: decreased breath sounds, CTAB - Cardiovascular Cardiovascular exam: Present: RRR, +S1, +S2 - GI/Abdominal GI/Abdominal exam: Present: diminished bowel sounds, soft, tenderness - Extremities Exam Extremities exam: Present: pedal edema - Neurological Exam Neurological exam: Present: altered, oriented X3, strengths equal and symetr throughout. Absent: no focal deficits Additional comments: lethargic but will arouse to voice, shortly falls back to sleep. weak, muscle strength 2/5 - Skin Skin exam: Present: normal color, warm Oncology: Obj Data - Labs CBC & Chem 7: 08/28/17 05:34 08/28/17 05:34 - Impressions Impressions Lumbar Spine MRI 08/26/17 18:02 IMPRESSION: Numerous lesions throughout the visualized lumbar spine, sacrum, and iliac bones are compatible with osseous metastases. There is no evidence of pathologic fracture. Subcutaneous edema and edema of the bilateral psoas muscles and bilateral posterior paraspinal muscles is nonspecific and may be related to 3rd spacing of fluids. D/ / 08/26/2017 21:17:19 Tereso Segundo MD / cherie Interpreting Provider: Tereso Segundo MD Chest CT 08/27/17 11:08 IMPRESSION: 1. Interval appearance of third-spacing of fluid as evidenced by large pleural effusions, anasarca, and abdominal ascites. 2. New bilateral hydronephrosis of unclear etiology. Consider dedicated CT of the abdomen and pelvis as clinically warranted. 3. Mottled appearance of the osseous structures, compatible with patient's known osseous metastases. D/ / 08/27/2017 14:39:04 Fabiola Alcala MD / cherie Interpreting Provider: Fabiola Alcala MD - ABG Interpretation ABG results: PT/INR, D-dimer PT 15.3 Seconds (9.4-12.1) H 08/23/17 07:06 Consult Discharge Plan - Plan Referrals: Nazia Deleon, CRYPTOLOGIC LINGUIST [Primary Care Provider] - (Patient will follow up with PCP at the [facility]) <Augustus Haji - Last Filed: 08/28/17 17:51> Date of Encounter: 08/28/17 - Constitutional Vitals: Vital Signs Temp Pulse Resp BP Pulse Ox 08/28/17 17:01 99.2 F 84 17 179/75 98 08/28/17 07:27 99.5 F 89 16 168/79 97 08/28/17 04:27 97.8 F 85 16 186/93 97 08/27/17 23:54 99.3 F 89 16 129/70 95 08/27/17 19:42 99.8 F H 89 16 192/80 97 Intake and Output 08/28/17 08/28/17 08/29/17 08:59 16:59 00:59 Other: Weight 73 kg Blood Glucose* 111 115 108 Patient Weight 08/29/17 00:59 Weight 73 kg Oncology: Obj Data - Labs CBC & Chem 7: 08/28/17 05:34 08/28/17 05:34 Labs: Laboratory Results - last 24 hr 08/27/17 08/27/17 08/27/17 07:15 11:34 17:00 WBC RBC Hgb Hct MCV MCH MCHC RDW Plt Count MPV Immature Gran % Seg Neutrophils % Lymphocytes % Monocytes % Eosinophils % Basophils % Neutrophils # Lymphocytes # Monocytes # Eosinophils # Basophils # Nucleated RBCs/100 WBC Sodium Potassium Chloride Carbon Dioxide BUN Creatinine Est GFR ( Amer) Est GFR (Non-Af Amer) BUN/Creatinine Ratio Glucose POC Glucose 106 H 139 H 126 H Calculated Osmolality Calcium Magnesium Total Bilirubin AST ALT Alkaline Phosphatase Serum Total Protein Albumin Globulin Albumin/Globulin Ratio 08/27/17 08/28/17 08/28/17 19:47 05:34 05:34 WBC 5.0 RBC 2.75 L Hgb 8.6 L Hct 25.9 L MCV 94.2 MCH 31.3 MCHC 33.2 RDW 21.2 H Plt Count 104 L MPV 10.7 Immature Gran % 0.6 Seg Neutrophils % 59.8 Lymphocytes % 24.2 Monocytes % 9.6 Eosinophils % 5.2 Basophils % 0.6 Neutrophils # 3.0 Lymphocytes # 1.2 Monocytes # 0.5 Eosinophils # 0.3 Basophils # 0.0 Nucleated RBCs/100 WBC 0.4 H Sodium 144 Potassium 3.5 Chloride 118 H Carbon Dioxide 17 L BUN 44 H Creatinine 1.48 H Est GFR ( Amer) 42 L Est GFR (Non-Af Amer) 35 L BUN/Creatinine Ratio 30 H Glucose 115 H POC Glucose 106 H Calculated Osmolality 310 H Calcium 8.6 Magnesium Total Bilirubin 1.1 H AST 20 ALT < 3 L Alkaline Phosphatase 75 Serum Total Protein 5.4 L Albumin 2.2 L Globulin 3.2 Albumin/Globulin Ratio 0.7 L 08/28/17 08/28/17 05:34 10:50 WBC RBC Hgb Hct MCV MCH MCHC RDW Plt Count MPV Immature Gran % Seg Neutrophils % Lymphocytes % Monocytes % Eosinophils % Basophils % Neutrophils # Lymphocytes # Monocytes # Eosinophils # Basophils # Nucleated RBCs/100 WBC Sodium Potassium Chloride Carbon Dioxide BUN Creatinine Est GFR ( Amer) Est GFR (Non-Af Amer) BUN/Creatinine Ratio Glucose POC Glucose 115 H Calculated Osmolality Calcium Magnesium 1.9 Total Bilirubin AST ALT Alkaline Phosphatase Serum Total Protein Albumin Globulin Albumin/Globulin Ratio - Impressions Impressions Lumbar Spine MRI 08/26/17 18:02 IMPRESSION: Numerous lesions throughout the visualized lumbar spine, sacrum, and iliac bones are compatible with osseous metastases. There is no evidence of pathologic fracture. Subcutaneous edema and edema of the bilateral psoas muscles and bilateral posterior paraspinal muscles is nonspecific and may be related to 3rd spacing of fluids. D/ / 08/26/2017 21:17:19 Tereso Segundo MD / cherie Interpreting Provider: Tereso Segundo MD Abdomen/Pelvis/Transvag US 08/28/17 08:13 IMPRESSION: No significant pleural effusion is seen in the right or left pleural space to safely perform thoracentesis D/ / Michel Medrano MD / Michel Medrano MD Interpreting Provider: Michel Medrano MD - ABG Interpretation ABG results: PT/INR, D-dimer PT 15.3 Seconds (9.4-12.1) H 08/23/17 07:06 - Attending Attestation I examined this patient and my medical decision-making was reviewed with the Advanced Practice Nurse. I agree with the documented findings, disposition and treatment plan as described except to the extent set forth below. She is tired but comfortable. Sleeping most of day, not eating at all. content with pain control but worried about what will happen when he gets home tomorrow with hospice. Discussed that hospice will assist in these matters and are accustomed to pain control. Expect demise to be matter of days maybe a week or two. is content with plan of care and ready for dc tomorrow. She is DNR. Appreciate palliative care assistance in this case.
[2017-08-28] MEDS ORDERED: *HR* HYDROmorphone (PF) 1 MG/ML SYRINGE IVP ONE (10:25)
[2017-08-28] MEDS: Metoprolol XL (24 HR) Succ 50 MG TAB.ER.24H PO SCH (10:28)
[2017-08-28] MEDS ORDERED: MORPHINE SUL Oral CONC 10 MG/0.5 ML ORAL.SYG PO PRN ×2 (10:43→10:44)
[2017-08-28] MEDS: Chlorhexidine Rinse 15 ML MOUTHWASH MM SCH ×2 (10:43→22:34)
[2017-08-28] MEDS: Magic Mouthwash 10 ML UD Cup PO SCH ×3 (10:43→17:46)
--- NOTE | 2017-08-28 10:49 | Palliative Progress Note ---
Date of Encounter: 08/28/17 Time of Encounter: 10:00 - Assessment and plan (1) Dyspnea Current Visit: Yes Status: Acute Assessment and plan: Continue supportive oxygen and opioids for air hunger. (2) Cancer associated pain Current Visit: Yes Status: Chronic Assessment and plan: Continue Fentanyl patch - having difficulty with po meds - will transition Oxycodone to SL Roxanol and monitor (3) Decreased appetite Current Visit: Yes Status: Acute (4) Constipation Current Visit: Yes Status: Acute Assessment and plan: Continue Senokot Qualifiers: Constipation type: unspecified constipation type Qualified Code(s): K59.00 - Constipation, unspecified (5) Nausea Current Visit: Yes Status: Acute Assessment and plan: D/C IV Benadryl/Reglan today - continue po PRN if needed. Continue other antiemetics. (6) Counseling regarding advanced care planning and goals of care Current Visit: Yes Status: Acute Assessment and plan: Met with pt/ today. Oncology visit last pm greatly appreciated. They would like to transition home with hospice tomorrow, transition to DNRCC today. Attempt to switch to mostly oral medications today. Will need hospital bed/o2/air mattress set up today. Referral called to [facility] and will plan d/c tomorrow. 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 Current Visit: No Status: Chronic Qualifiers: Laterality: unspecified laterality Qualified Code(s): C50.919 - Malignant neoplasm of unspecified site of unspecified female breast; C79.51 - Secondary malignant neoplasm of bone; C79.51 - Secondary malignant neoplasm of bone; C79.51 - Secondary malignant neoplasm of bone; C79.51 - Secondary malignant neoplasm of bone - Time Spent With Patient Total time spent is greater than 50% in coordination of care (as documented) at patient's floor/unit and/or counseling patient: Greater than 35 minutes - Subjective Interval history: Patient drowsy but awakens easily. States fairly comfortable at present. at bedside. - Constitutional Vitals: Abnormal lab results RBC 2.75 M/mcL (3.82-4.97) L 08/28/17 05:34 Hgb 8.6 g/dL (11.5-15.4) L 08/28/17 05:34 Hct 25.9 % (35.3-44.9) L 08/28/17 05:34 RDW 21.2 % (11.5-14.5) H 08/28/17 05:34 Plt Count 104 K/mcL (140-400) L 08/28/17 05:34 Nucleated RBCs/100 WBC 0.4 /100 WBC (0) H 08/28/17 05:34 PT 15.3 Seconds (9.4-12.1) H 08/23/17 07:06 Chloride 118 mEq/L (98-107) H 08/28/17 05:34 Carbon Dioxide 17 mEq/L (23-29) L 08/28/17 05:34 BUN 44 mg/dL (8-23) H 08/28/17 05:34 Creatinine 1.48 mg/dL (0.60-1.20) H 08/28/17 05:34 Est GFR ( Amer) 42 (> 60) L 08/28/17 05:34 Est GFR (Non-Af Amer) 35 (> 60) L 08/28/17 05:34 BUN/Creatinine Ratio 30 (6-26) H 08/28/17 05:34 Glucose 115 mg/dL (70-105) H 08/28/17 05:34 POC Glucose 106 (58-89) H 08/27/17 19:47 Calculated Osmolality 310 (280-300) H 08/28/17 05:34 Phosphorus 5.4 mg/dL (2.7-4.5) H 08/23/17 07:06 Iron 30 mcg/dL (50-170) L 08/25/17 05:45 Transferrin 125 mg/dL (203-362) L 08/25/17 05:45 Ferritin > 1350 ng/ml (10-120) H 08/24/17 12:33 Total Bilirubin 1.1 mg/dL (0.3-1.0) H 08/28/17 05:34 Direct Bilirubin 3.3 mg/dL (0.0-0.2) H 08/22/17 10:27 ALT < 3 Units/L (7-52) L 08/28/17 05:34 B-Natriuretic Peptide 102 pg/mL (Less than 100) H 08/23/17 07:06 Serum Total Protein 5.4 g/dL (6.4-8.9) L 08/28/17 05:34 Albumin 2.2 g/dL (3.5-5.7) L 08/28/17 05:34 Albumin/Globulin Ratio 0.7 (1.1-2.2) L 08/28/17 05:34 Vitamin B12 2102 pg/mL (250-1100) H 08/24/17 12:33 Urine Clarity Cloudy (Clear) A 08/26/17 19:00 Ur Leukocyte Esterase Moderate (Negative) H 08/26/17 19:00 Urine Microscopic WBC 30-50 per hpf (0-3) H 08/26/17 19:00 Ur Squamous Epith Cells Many per lpf (None-Few) H 08/26/17 19:00 Urine Yeast Many per hpf (None Seen) H 08/26/17 19:00 Microalb/Creat Ratio 42 mcg/mg (Less than 30) H 08/26/17 19:00 General appearance: Present: no acute distress - Respiratory Respiratory exam: Present: decreased breath sounds, CTAB - Cardiovascular Cardiovascular exam: Present: tachycardia - GI/Abdominal GI/Abdominal exam: Present: diminished bowel sounds, distended, soft - Extremities Exam Additional comments: Generalized edema to all extremities. - Neurological Exam Neurological exam: Present: alert Additional comments: generalized weakness - Skin Skin exam: Present: dry, pallor, warm Palliative Quality Palliative Quality: Screen for Code Status: Yes, Screen for Goals of Care: Yes, Screen for Pain: Yes, If Pain Regimen Started, Initiate Bowel Regimen: Yes, Screen for Nausea/Vomitting: Yes Code Status: 08/22/17 15:40 Resuscitation Status: Active [RES] Routine Comment: Resuscitation Status: Full Code 08/27/17 13:51 DNR [Resuscitation Status: Active] [RES] Routine Comment: Resuscitation Status: [id number] 08/28/17 10:45 DNR [Resuscitation Status: Active] [RES] Routine Comment: Resuscitation Status: DNR-Comfort Care - Labs CBC & Chem 7: 08/28/17 05:34 08/28/17 05:34 Labs: Laboratory Results - last 24 hr 08/27/17 08/27/17 08/27/17 07:15 11:34 17:00 WBC RBC Hgb Hct MCV MCH MCHC RDW Plt Count MPV Immature Gran % Seg Neutrophils % Lymphocytes % Monocytes % Eosinophils % Basophils % Neutrophils # Lymphocytes # Monocytes # Eosinophils # Basophils # Nucleated RBCs/100 WBC Sodium Potassium Chloride Carbon Dioxide BUN Creatinine Est GFR ( Amer) Est GFR (Non-Af Amer) BUN/Creatinine Ratio Glucose POC Glucose 106 H 139 H 126 H Calculated Osmolality Calcium Magnesium Total Bilirubin AST ALT Alkaline Phosphatase Serum Total Protein Albumin Globulin Albumin/Globulin Ratio 08/27/17 08/28/17 08/28/17 19:47 05:34 05:34 WBC 5.0 RBC 2.75 L Hgb 8.6 L Hct 25.9 L MCV 94.2 MCH 31.3 MCHC 33.2 RDW 21.2 H Plt Count 104 L MPV 10.7 Immature Gran % 0.6 Seg Neutrophils % 59.8 Lymphocytes % 24.2 Monocytes % 9.6 Eosinophils % 5.2 Basophils % 0.6 Neutrophils # 3.0 Lymphocytes # 1.2 Monocytes # 0.5 Eosinophils # 0.3 Basophils # 0.0 Nucleated RBCs/100 WBC 0.4 H Sodium 144 Potassium 3.5 Chloride 118 H Carbon Dioxide 17 L BUN 44 H Creatinine 1.48 H Est GFR ( Amer) 42 L Est GFR (Non-Af Amer) 35 L BUN/Creatinine Ratio 30 H Glucose 115 H POC Glucose 106 H Calculated Osmolality 310 H Calcium 8.6 Magnesium Total Bilirubin 1.1 H AST 20 ALT < 3 L Alkaline Phosphatase 75 Serum Total Protein 5.4 L Albumin 2.2 L Globulin 3.2 Albumin/Globulin Ratio 0.7 L 08/28/17 05:34 WBC RBC Hgb Hct MCV MCH MCHC RDW Plt Count MPV Immature Gran % Seg Neutrophils % Lymphocytes % Monocytes % Eosinophils % Basophils % Neutrophils # Lymphocytes # Monocytes # Eosinophils # Basophils # Nucleated RBCs/100 WBC Sodium Potassium Chloride Carbon Dioxide BUN Creatinine Est GFR ( Amer) Est GFR (Non-Af Amer) BUN/Creatinine Ratio Glucose POC Glucose Calculated Osmolality Calcium Magnesium 1.9 Total Bilirubin AST ALT Alkaline Phosphatase Serum Total Protein Albumin Globulin Albumin/Globulin Ratio - Impressions Impressions Lumbar Spine MRI 08/26/17 18:02 IMPRESSION: Numerous lesions throughout the visualized lumbar spine, sacrum, and iliac bones are compatible with osseous metastases. There is no evidence of pathologic fracture. Subcutaneous edema and edema of the bilateral psoas muscles and bilateral posterior paraspinal muscles is nonspecific and may be related to 3rd spacing of fluids. D/ / 08/26/2017 21:17:19 Tereso Segundo MD / cherie Interpreting Provider: Tereso Segundo MD Chest CT 08/27/17 11:08 IMPRESSION: 1. Interval appearance of third-spacing of fluid as evidenced by large pleural effusions, anasarca, and abdominal ascites. 2. New bilateral hydronephrosis of unclear etiology. Consider dedicated CT of the abdomen and pelvis as clinically warranted. 3. Mottled appearance of the osseous structures, compatible with patient's known osseous metastases. D/ / 08/27/2017 14:39:04 Fabiola Alcala MD / cherie Interpreting Provider: Fabiola Alcala MD - ABG Interpretation ABG results: PT/INR, D-dimer PT 15.3 Seconds (9.4-12.1) H 08/23/17 07:06 Consult Discharge Plan - Plan Referrals: Nazia Deleon, ADVICE CLERK [Primary Care Provider] - (Patient will follow up with PCP at the [facility])
[2017-08-28] MEDS ORDERED: Morphine Oral CONC 5 MG/0.25 ML ORAL.SYG PO PRN ×2 (11:00)
[2017-08-28] MEDS: Sennosides/Docusate Sodium TABLET PO SCH ×2 (12:30→22:34)
[2017-08-28] MEDS: Potassium Chloride Elixir 20 MEQ/15 ML UDC PO SCH (12:30)
[2017-08-28] MEDS: Lisinopril 20 MG TABLET PO SCH (12:31)
[2017-08-28] MEDS: *HR* Promethazine 25 MG/ML VIAL IVP PRN (17:46)
[2017-08-28] MEDS: valACYclovir 500 MG TABLET PO SCH (18:47)
--- NOTE | 2017-08-28 21:13 | Event Note ---
Date of Encounter: 08/28/17 Time of Encounter: 17:00 Patient was seen. She was resting. Her was in the room. Notes were reviewed. Confirmed transition to hospice with her . Renal function improving. Patient transitioning to hospice care. Will sign off. Call if questions or concerns.
[2017-08-29] MEDS: *HR* Promethazine 25 MG/ML VIAL IVP PRN ×2 (04:15→12:38)
[2017-08-29] MEDS: ceFAZolin 1,000 MG in Water for inj. (sterile) 20 ML 10 ML IVP SCH ×2 (04:15→12:22)
[2017-08-29 05:06] LABS: Basophils # 0.1 K/mcL (0.0-0.2); Basophils % 0.7 %; Eosinophils # 0.4 K/mcL (0.0-0.6); Eosinophils % 5.7 %; Hematocrit 26.5 % (35.3-44.9); Hemoglobin 8.6 g/dL (11.5-15.4); Immature Granulocytes % 0.5 % (0-4); Lymphocytes % 25.8 %; Mean Corpuscular HGB Conc 32.5 g/dL (31.6-35.5); Mean Corpuscular Volume 95.7 fL (83.0-100.0); Mean Platelet Volume 11.3 fL (9.4-12.4); Monocytes % 9.7 %; Neutrophils # 4.4 K/mcL (1.6-8.9); Platelet Count 119 K/mcL (140-400); Red Blood Count 2.77 M/mcL (3.82-4.97); Red Cell Distribution Width 21.9 % (11.5-14.5); Segmented Neutrophils % 57.6 %
[2017-08-29 05:15] LABS: Monocytes # 0.8 K/mcL (0.0-1.3)
[2017-08-29 05:30] LABS: Alanine Aminotransferase < 3 Units/L (7-52); Albumin 2.2 g/dL (3.5-5.7); Albumin/Globulin Ratio 0.7 (1.1-2.2); Alkaline Phosphatase 84 Units/L (34-104); Aspartate Amino Transferase 23 Units/L (13-39); BUN/Creatinine Ratio 27 (6-26); Blood Urea Nitrogen 47 mg/dL (8-23); Calcium 8.7 mg/dL (8.6-10.3); Carbon Dioxide 18 mEq/L (23-29); Chloride 119 mEq/L (98-107); Globulin 3.3 g/dL (2.4-3.5); Glucose 102 mg/dL (70-105); Osmolality,Calculated 312 (280-300); Potassium 3.6 mEq/L (3.5-5.1); Sodium 145 mEq/L (136-145); Total Protein 5.5 g/dL (6.4-8.9); eGFR For African Americans 35 (> 60); eGFR For Non-African Americans 29 (> 60)
[2017-08-29] MEDS: Insulin LISPRO 300 UNITS/3 ML VIAL SQ SCH ×2 (08:57→12:16)
[2017-08-29] MEDS: Ondansetron 4 MG/2 ML VIAL IVP PRN (09:02)
[2017-08-29] MEDS: Potassium Chloride Elixir 20 MEQ/15 ML UDC PO SCH (09:08)
[2017-08-29] MEDS: Magic Mouthwash 10 ML UD Cup PO SCH ×2 (09:17→12:39)
[2017-08-29] MEDS: Metoprolol XL (24 HR) Succ 50 MG TAB.ER.24H PO SCH (09:18)
[2017-08-29] MEDS: Lisinopril 20 MG TABLET PO SCH (09:18)
[2017-08-29] MEDS: Sennosides/Docusate Sodium TABLET PO SCH (09:18)
[2017-08-29] MEDS: valACYclovir 500 MG TABLET PO SCH (09:18)
--- NOTE | 2017-08-29 09:32 | Palliative Progress Note ---
Date of Encounter: 08/29/17 Time of Encounter: 09:20 - Assessment and plan (1) Dyspnea Current Visit: Yes Status: Acute Assessment and plan: Feels less short of breath with oxygen - this will be set up at home. 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 Will send po tablets as well as suppositories for home use. (6) Counseling regarding advanced care planning and goals of care Current Visit: Yes Status: Acute Assessment and plan: Home today with [facility] - nurse will be here to enroll with son and pt this am. 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 Current Visit: No Status: Chronic Qualifiers: Laterality: unspecified laterality Qualified Code(s): C50.919 - Malignant neoplasm of unspecified site of unspecified female breast; C79.51 - Secondary malignant neoplasm of bone; C79.51 - Secondary malignant neoplasm of bone; C79.51 - Secondary malignant neoplasm of bone; C79.51 - Secondary malignant neoplasm of bone - Time Spent With Patient Total time spent is greater than 50% in coordination of care (as documented) at patient's floor/unit and/or counseling patient: - Subjective Interval history: Patient awake and alert, and son at bedside. Very comfortable and states pain well controlled. Some nausea - states Promethazine has been working well for her. Very little intake, refusing most po medications other than blood pressure pills. - Constitutional Vitals: Abnormal lab results RBC 2.77 M/mcL (3.82-4.97) L 08/29/17 04:26 Hgb 8.6 g/dL (11.5-15.4) L 08/29/17 04:26 Hct 26.5 % (35.3-44.9) L 08/29/17 04:26 RDW 21.9 % (11.5-14.5) H 08/29/17 04:26 Plt Count 119 K/mcL (140-400) L 08/29/17 04:26 Nucleated RBCs/100 WBC 0.4 /100 WBC (0) H 08/28/17 05:34 PT 15.3 Seconds (9.4-12.1) H 08/23/17 07:06 Chloride 119 mEq/L (98-107) H 08/29/17 04:26 Carbon Dioxide 18 mEq/L (23-29) L 08/29/17 04:26 BUN 47 mg/dL (8-23) H 08/29/17 04:26 Creatinine 1.71 mg/dL (0.60-1.20) H 08/29/17 04:26 Est GFR ( Amer) 35 (> 60) L 08/29/17 04:26 Est GFR (Non-Af Amer) 29 (> 60) L 08/29/17 04:26 BUN/Creatinine Ratio 27 (6-26) H 08/29/17 04:26 Calculated Osmolality 312 (280-300) H 08/29/17 04:26 Phosphorus 5.4 mg/dL (2.7-4.5) H 08/23/17 07:06 Iron 30 mcg/dL (50-170) L 08/25/17 05:45 Transferrin 125 mg/dL (203-362) L 08/25/17 05:45 Ferritin > 1350 ng/ml (10-120) H 08/24/17 12:33 Direct Bilirubin 3.3 mg/dL (0.0-0.2) H 08/22/17 10:27 ALT < 3 Units/L (7-52) L 08/29/17 04:26 B-Natriuretic Peptide 102 pg/mL (Less than 100) H 08/23/17 07:06 Serum Total Protein 5.5 g/dL (6.4-8.9) L 08/29/17 04:26 Albumin 2.2 g/dL (3.5-5.7) L 08/29/17 04:26 Albumin/Globulin Ratio 0.7 (1.1-2.2) L 08/29/17 04:26 Vitamin B12 2102 pg/mL (250-1100) H 08/24/17 12:33 Urine Clarity Cloudy (Clear) A 08/26/17 19:00 Ur Leukocyte Esterase Moderate (Negative) H 08/26/17 19:00 Urine Microscopic WBC 30-50 per hpf (0-3) H 08/26/17 19:00 Ur Squamous Epith Cells Many per lpf (None-Few) H 08/26/17 19:00 Urine Yeast Many per hpf (None Seen) H 08/26/17 19:00 Microalb/Creat Ratio 42 mcg/mg (Less than 30) H 08/26/17 19:00 General appearance: Present: no acute distress - Respiratory Respiratory exam: Present: decreased breath sounds, CTAB - Cardiovascular Cardiovascular exam: Present: +S1, +S2 - GI/Abdominal GI/Abdominal exam: Present: distended, normal bowel sounds, soft - Extremities Exam Additional comments: generalized edema - Neurological Exam Neurological exam: Present: alert, oriented X3 - Skin Skin exam: Present: dry, warm Palliative Quality Palliative Quality: Screen for Code Status: Yes, Screen for Goals of Care: Yes, Screen for Pain: Yes, If Pain Regimen Started, Initiate Bowel Regimen: Yes, Screen for Nausea/Vomitting: Yes Code Status: 08/22/17 15:40 Resuscitation Status: Active [RES] Routine Comment: Resuscitation Status: Full Code 08/27/17 13:51 DNR [Resuscitation Status: Active] [RES] Routine Comment: Resuscitation Status: [id number] 08/28/17 10:45 DNR [Resuscitation Status: Active] [RES] Routine Comment: Resuscitation Status: DNR-Comfort Care - Labs CBC & Chem 7: 08/29/17 04:26 08/29/17 04:26 Labs: Laboratory Results - last 24 hr 08/28/17 08/28/17 08/28/17 07:28 10:50 17:21 WBC RBC Hgb Hct MCV MCH MCHC RDW Plt Count MPV Immature Gran % Seg Neutrophils % Lymphocytes % Monocytes % Eosinophils % Basophils % Neutrophils # Lymphocytes # Monocytes # Eosinophils # Basophils # Sodium Potassium Chloride Carbon Dioxide BUN Creatinine Est GFR ( Amer) Est GFR (Non-Af Amer) BUN/Creatinine Ratio Glucose POC Glucose 111 H 115 H 108 H Calculated Osmolality Calcium Total Bilirubin AST ALT Alkaline Phosphatase Serum Total Protein Albumin Globulin Albumin/Globulin Ratio 08/29/17 08/29/17 08/29/17 04:26 04:26 08:03 WBC 7.7 D RBC 2.77 L Hgb 8.6 L Hct 26.5 L MCV 95.7 MCH 31.0 MCHC 32.5 RDW 21.9 H Plt Count 119 L MPV 11.3 Immature Gran % 0.5 Seg Neutrophils % 57.6 Lymphocytes % 25.8 Monocytes % 9.7 Eosinophils % 5.7 Basophils % 0.7 Neutrophils # 4.4 Lymphocytes # 2.0 Monocytes # 0.8 Eosinophils # 0.4 Basophils # 0.1 Sodium 145 Potassium 3.6 Chloride 119 H Carbon Dioxide 18 L BUN 47 H Creatinine 1.71 H Est GFR ( Amer) 35 L Est GFR (Non-Af Amer) 29 L BUN/Creatinine Ratio 27 H Glucose 102 POC Glucose 87 Calculated Osmolality 312 H Calcium 8.7 Total Bilirubin 1.0 AST 23 ALT < 3 L Alkaline Phosphatase 84 Serum Total Protein 5.5 L Albumin 2.2 L Globulin 3.3 Albumin/Globulin Ratio 0.7 L - Impressions Impressions Abdomen/Pelvis/Transvag US 08/28/17 08:13 IMPRESSION: No significant pleural effusion is seen in the right or left pleural space to safely perform thoracentesis D/ / Michel Medrano MD / Michel Medrano MD Interpreting Provider: Michel Medrano MD - ABG Interpretation ABG results: PT/INR, D-dimer PT 15.3 Seconds (9.4-12.1) H 08/23/17 07:06 Consult Discharge Plan - Plan Referrals: Nazia Deleon, COMMUNITY ACTION WORKER [Primary Care Provider] - (Patient going home with hospice. No follow ups needed at this time ) Prescriptions: Promethazine [Phenergan] 25 mg PO Q6HR PRN #16 tablet PRN Reason: Nausea Promethazine [Phenergan] 25 mg RC Q6HR PRN #5 supp.rect PRN Reason: nausea if unable to take po FentaNYL PATCH [Duragesic] 25 mcg TD Q72H #2 patch.td72 Haloperidol Oral Conc [Haldol] 1 mg PO Q4H PRN #15 mls PRN Reason: Agitation/restlessness/nausea LORazepam Oral Conc [Ativan Oral Conc] 0.5 mg PO Q4H PRN #15 mls PRN Reason: Anxiety Magic Mouthwash 5 ml PO TID #60 ml MORPHINE SUL Oral CONC [Roxanol Oral Conc] 0.5 - 1 ml SL Q1H PRN #15 oral.syg PRN Reason: dyspnea/pain OxyCODONE Immed Rel [Roxicodone 15 MG] 15 mg PO Q4H PRN #20 tablet PRN Reason: Breakthrough Pain Sennosides/Docusate Sodium [Senna Plus] 1 each PO BID #8 tablet
--- NOTE | 2017-08-29 09:36 | Physician Discharge Referral ---
Home Health/Hosp Referral Info Transfer to: Hospice - Diagnosis (1) TYRONE (acute kidney injury) Status: Acute (2) Bacteremia due to Staphylococcus aureus Priority: Secondary Status: Acute (3) Nausea Priority: Primary Status: Acute (4) Stomatitis and mucositis with change of taste Priority: Primary Status: Acute (5) COPD (chronic obstructive pulmonary disease) Priority: Secondary Status: Chronic (6) Cancer associated pain Priority: Primary Status: Chronic (7) Diabetes mellitus Priority: Secondary Status: Chronic (8) Essential hypertension Priority: Secondary Status: Chronic (9) Metastatic adenocarcinoma Priority: Primary Status: Chronic - Respiratory Orders Smoking Cessation: Smoking cessation has been advised. For more information, call the [place] Tobacco Quit Line at 3-659-XKYZ-NOW. - Diet/Nutrition Diet/Nutrition Orders: Pureed - Activity Activity Orders: Up ad gwendolyn - Services Needed Following services are medically necessary services: Nursing - Transfer Medications Prescriptions: Promethazine [Phenergan] 25 mg PO Q6HR PRN #16 tablet PRN Reason: Nausea Promethazine [Phenergan] 25 mg RC Q6HR PRN #5 supp.rect PRN Reason: nausea if unable to take po FentaNYL PATCH [Duragesic] 25 mcg TD Q72H #2 patch.td72 Haloperidol Oral Conc [Haldol] 1 mg PO Q4H PRN #15 mls PRN Reason: Agitation/restlessness/nausea LORazepam Oral Conc [Ativan Oral Conc] 0.5 mg PO Q4H PRN #15 mls PRN Reason: Anxiety Magic Mouthwash 5 ml PO TID #60 ml MORPHINE SUL Oral CONC [Roxanol Oral Conc] 0.5 - 1 ml SL Q1H PRN #15 oral.syg PRN Reason: dyspnea/pain OxyCODONE Immed Rel [Roxicodone 15 MG] 15 mg PO Q4H PRN #20 tablet PRN Reason: Breakthrough Pain Sennosides/Docusate Sodium [Senna Plus] 1 each PO BID #8 tablet Home Medications: Albuterol Sulfate [Proventil Hfa] 1 puff IH QID PRN 06/20/15 [History] Aspirin Enteric Coated [Aspirin EC] 81 mg PO DAILY 06/20/15 [History] Fluticasone Propionate Nasal [Flonase] 1 spray NS DAILY 06/20/15 [History] Fluticasone/Salmeterol [Advair 100-50 Diskus] 1 each IH BID 06/20/15 [History] Glimepiride [Amaryl] 4 mg PO DAILY 06/20/15 [History] Insulin NPH Hum/Reg Insulin Hm [Novolin 70-30 100 Unit/ml Vial] 30 unit SQ BID 06/20/15 [History] Omeprazole [PriLOSEC] 40 mg PO DAILY 06/20/15 [History] Pravastatin Sodium [Pravachol] 20 mg PO HS 06/20/15 [History] Saxagliptin HCl [Onglyza] 5 mg PO DAILY 06/20/15 [History] Lidocaine/Prilocaine [Emla] 1 appl TP AD #30 gm 07/31/17 [Rx] Lisinopril [Zestril] 40 mg PO DAILY 08/25/17 [History] Metoprolol XL (24 HR) Succ [Toprol Xl] 200 mg PO DAILY 08/25/17 [History] Triamterene/Hydrochlorothiazid [Triamterene-Hctz 75-50 mg Tab] 1 tab PO DAILY [History] FentaNYL PATCH [Duragesic] 25 mcg TD Q72H #2 patch.td72 08/29/17 [Rx] Haloperidol Oral Conc [Haldol] 1 mg PO Q4H PRN #15 mls 08/29/17 [Rx] LORazepam Oral Conc [Ativan Oral Conc] 0.5 mg PO Q4H PRN #15 mls 08/29/17 [Rx] MORPHINE SUL Oral CONC [Roxanol Oral Conc] 0.5 - 1 ml SL Q1H PRN #15 oral.syg [Rx] Magic Mouthwash 5 ml PO TID #60 ml 08/29/17 [Rx] OxyCODONE Immed Rel [Roxicodone 15 MG] 15 mg PO Q4H PRN #20 tablet 08/29/17 [Rx] Promethazine [Phenergan] 25 mg PO Q6HR PRN #16 tablet 08/29/17 [Rx] Promethazine [Phenergan] 25 mg RC Q6HR PRN #5 supp.rect 08/29/17 [Rx] Sennosides/Docusate Sodium [Senna Plus] 1 each PO BID #8 tablet 08/29/17 [Rx] Allergies/Adverse Reactions: 3 Allergy/AdvReac Type Severity Reaction Status Date / Time nifedipine [From Procardia] Allergy Rash Verified 08/07/17 21:15 glipizide AdvReac Vomiting Verified 06/16/17 10:03 metoprolol [From Lopressor] AdvReac Nightmare Verified 08/07/17 21:15 Certification: Further, I certify that my clinical findings support that this patient is homebound (i.e. absences from home require considerable and taxing effort and are for medical reasons or caodaism services or infrequently or short duration when for other reasons) because: Homebound Reason: Patient requires assistance of a person or device to safely leave home Attestation: My signature below is to certify that this patient is under my care and that I, or nurse practitioner, or a physician's operations manager assistant working with me, has a face-to -face encounter with this patient.
--- NOTE | 2017-08-29 09:39 | Event Note ---
Date of Encounter: 08/29/17 Time of Encounter: 09:37 Palliative care notes reviewed. Patient to be discharged home with hospice today. No further fevers. WBC normal. Repeat blood cultures NGTD x 2 sets. Discontinue antibiotics on discharge. No additional recommendations from the ID team. Will sign off. Please re-consult if needed.
--- NOTE | 2017-08-29 09:43 | Internal Med Progress Note ---
Date of Encounter: 08/29/17 Time of Encounter: 09:41 - Assessment and plan (1) TYRONE (acute kidney injury) Current Visit: Yes Status: Acute (2) Bacteremia due to Staphylococcus aureus Current Visit: Yes Status: Acute (3) Nausea Current Visit: Yes Status: Acute (4) Stomatitis and mucositis with change of taste Current Visit: Yes Status: Acute (5) COPD (chronic obstructive pulmonary disease) Current Visit: Yes Status: Chronic Qualifiers: COPD type: unspecified COPD Qualified Code(s): J44.9 - Chronic obstructive pulmonary disease, unspecified (6) Cancer associated pain Current Visit: Yes Status: Chronic (7) Diabetes mellitus Current Visit: Yes Status: Chronic Qualifiers: Diabetes mellitus type: type 2 Diabetes mellitus complication status: with unspecified complications Diabetes mellitus adjunct faculty for medical terminology insulin use: with adjunct faculty for medical terminology use Qualified Code(s): E11.8 - Type 2 diabetes mellitus with unspecified complications; Z79.4 - intermodal dispatcher (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 of insulin; Z79.4 - penitentiary ( 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 of insulin; Z79.4 - penitentiary (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 of insulin; Z79.4 - penitentiary (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 of insulin (8) Essential hypertension Current Visit: Yes Status: Chronic (9) Metastatic adenocarcinoma Current Visit: Yes Status: Chronic - Subjective Interval history: Patient was seen and examined. No acute events. The patient is planned to be discharged today on hospice. Her discharge was pushed in today because of equipment that is being set up at home. She is feeling okay. Pain is well controlled. is at bedside. They have no concerns. - Constitutional Vitals: Temp Pulse Resp BP Pulse Ox 98.3 F 86 19 160/78 97 08/29/17 07:17 08/29/17 07:17 08/29/17 07:17 08/29/17 07:17 08/29/17 07:17 General appearance: Present: cooperative, A&O X 3 (appears fatigued), answers questions appropriately Exam: GEN: NAD CVS: RRR. S1, S2, No m/r/g RESP: Diminished with scattered rhonchi and crackles. ABD: Soft, NT, ND, +BS EXT: Generalized edema. 2+ DP. No rashes NEURO: Nonfocal Internal Medicine: Result - Labs CBC & Chem 7: 08/29/17 04:26 08/29/17 04:26 Labs: Short CBC 08/29/17 Range/Units 04:26 WBC 7.7 D (4.3-11.1) K/mcL Hgb 8.6 L (11.5-15.4) g/dL Hct 26.5 L (35.3-44.9) % Plt Count 119 L (140-400) K/mcL Neutrophils # 4.4 (1.6-8.9) K/mcL BMP 08/29/17 04:26 Sodium 145 Potassium 3.6 Chloride 119 H Carbon Dioxide 18 L BUN 47 H Creatinine 1.71 H Glucose 102 Calcium 8.7 Liver Function 08/29/17 Range/Units 04:26 Total Bilirubin 1.0 (0.3-1.0) mg/dL AST 23 (13-39) Units/L ALT < 3 L (7-52) Units/L Alkaline Phosphatase 84 (34-104) Units/L Albumin 2.2 L (3.5-5.7) g/dL - ABG Interpretation ABG results: PT/INR, D-dimer PT 15.3 Seconds (9.4-12.1) H 08/23/17 07:06 - Impressions Impressions Abdomen/Pelvis/Transvag US 08/28/17 08:13 IMPRESSION: No significant pleural effusion is seen in the right or left pleural space to safely perform thoracentesis D/ / Michel Medrano MD / Michel Medrano MD Interpreting Provider: Michel Medrano MD - VTE Documentation of Mechanical Device: Intermittent pneumatic compression device Consult Discharge Plan - Plan Referrals: Nazia Deleon, LEGAL EDITOR [Primary Care Provider] - (Patient going home with hospice. No follow ups needed at this time ) Prescriptions: Promethazine [Phenergan] 25 mg PO Q6HR PRN #16 tablet PRN Reason: Nausea Promethazine [Phenergan] 25 mg RC Q6HR PRN #5 supp.rect PRN Reason: nausea if unable to take po FentaNYL PATCH [Duragesic] 25 mcg TD Q72H #2 patch.td72 Haloperidol Oral Conc [Haldol] 1 mg PO Q4H PRN #15 mls PRN Reason: Agitation/restlessness/nausea LORazepam Oral Conc [Ativan Oral Conc] 0.5 mg PO Q4H PRN #15 mls PRN Reason: Anxiety Magic Mouthwash 5 ml PO TID #60 ml MORPHINE SUL Oral CONC [Roxanol Oral Conc] 0.5 - 1 ml SL Q1H PRN #15 oral.syg PRN Reason: dyspnea/pain OxyCODONE Immed Rel [Roxicodone 15 MG] 15 mg PO Q4H PRN #20 tablet PRN Reason: Breakthrough Pain Sennosides/Docusate Sodium [Senna Plus] 1 each PO BID #8 tablet
[2017-08-29] MEDS: Chlorhexidine Rinse 15 ML MOUTHWASH MM SCH (10:24)
[2017-08-29 11:20] VITALS: BP 182/82
--- NOTE | 2017-08-29 12:07 | Event Note ---
Date of Encounter: 08/29/17 Time of Encounter: 12:05 Hospice medical economics consultant certification of terminal illness: Hospice benefit. Start: 08/29/2017 Hospice benefit. In: +90 days Palliative performance scale: 30 percent History: Agent with history of breast cancer metastatic to the bone. There is no further therapy available to the patient and in any case she does not wish to have anything other than comfort care at this time. In addition, the patient also had a very rapid dissent in her functional capabilities and Therefore I believe that These findings support a life expectancy of 6 months or less. I attest that I have compose the above narrative based on my review of the patient's medical records, and or on my examination of the patient. Kana Cason M.D. Associate adjunct faculty for medical terminology. [facility]
== END 2017-08-29 15:28 | disposition hospice, home (50) | DRG 683 ==
LOC: EMEROO 09:08 → 2SOUTHHOLD 11:39 → SUATTDRO 11:39 → 2SOUTHHOLD 11:40 → 2ANU 14:26
PROVIDERS: ADMIT Internal Medicine; ATTEND Internal Medicine